=== PATIENT | female | born 1945 | race Caucasian/White ===

== ENCOUNTER 2020-03-12 14:22 | Inpatient (IN) | payer MEDICARE, BC ==
[~2020-03-12] VITALS: Ht 157.5 cm; Wt 59.0 kg
[~2020-03-12 14:22] MED LIST: ACET-2267 PO; ALPR0.5T7 PO; AMIO200T50 PO; APIX5TAB PO; AZIT500T9 PO; BUDE0.5A NEB; CARV6.252 PO; CHOL100048 PO; HYDR-3820 PO; LETR2.5T6 PO; LEVO750T39 PO
[2020-03-12] MEDS ORDERED: MELATONIN 3 MG TABLET PO PRN (17:00)
[2020-03-12] MEDS ORDERED: diphenhydrAMINE 25 MG TAB (BENADRYL) PO PRN (17:00)
[2020-03-12] MEDS ORDERED: ACETAMINOPHEN 500 MG TAB (TYLENOL) PO PRN (17:00)
[2020-03-12] MEDS ORDERED: RT-ALBUTEROL INHALER HFA (VENTOLIN HFA) 18 GM IH PRN (17:00)
[2020-03-12] MEDS ORDERED: ONDANSETRON 4 MG/2 ML (SDV) Z0FRAN IVP PRN (17:00)
[2020-03-12] MEDS ORDERED: CALCIUM CARBONATE 500 MG (TUMS) TAB.CHEW PO PRN (17:00)
[2020-03-12] MEDS ORDERED: DOCUSATE SODIUM 100 MG (COLACE) CAP PO PRN (17:00)
--- NOTE | 2020-03-12 17:08 | NUR ---
Swing Bed Note: Qualifies for swing bed for continued need of Physical and Occupational therapies (Debility, Exacerbation of COPD) with continued o2 monitoring and weaning. Ultimate goal is to return to her prior level of independent functioning et home independently.
--- NOTE | 2020-03-12 17:22 | NUR ---
GONZALO ACOSTA admitted to swing bed status to room , with an admitting diagnosis of SWB respiratory failure, atrial fibrilation, pneumonia, on 03/12/20 from acute inpatient status. Physical Therapy to evaluate patient for activity needs. GONZALO ACOSTA introduced to surroundings, call light, bed controls, phone, TV, temperature control, lights, meal times, smoking policy, visitor policy, side rail policy, bathrooms, and showers. Patient rights given to patient in the handbook.. GONZALO ACOSTA verbalized understanding that [facility] is not responsible for the loss or damage to any personal effects or valuables that are kept in the patients possession during their hospitalization. The following care plans were discussed with GONZALO ACOSTA:GONZALO ACOSTA verbalizes understanding of the Interdisciplinary Patient Education. Patient informed about the Rapid Response Team and its purpose. Call light with in reach and patient demonstrates understanding of how to use. GONZALO ACOSTA reports no further needs at this time.
--- NOTE | 2020-03-12 17:41 | NUR ---
Admission Drug Regimen Review: Date: 03/12/20 Time: 1741 Review Completed, No Issues found
[2020-03-12 18:15] VITALS: BP 105/51
[2020-03-12] MEDS: RT-ALBUTEROL SULF 2.5 MG/3 ML PRE-MIX VIAL INH SCH ×2 (19:39→23:31)
[2020-03-12] MEDS ORDERED: methylPREDNISolone 40 MG/ML (Solu-MEDROL) VIAL IV SCH (20:00)
[2020-03-12] MEDS: APIXABAN 5 MG (ELIQUIS) TABLET PO SCH (21:01)
[2020-03-12] MEDS: SENNA W/DOCUSATE (SENOKOT S) TABLET PO SCH (21:02)
[2020-03-12] MEDS: ALPRAZolam 0.25 MG (XANAX) TAB PO PRN (21:06)
[2020-03-13] MEDS: RT-ALBUTEROL SULF 2.5 MG/3 ML PRE-MIX VIAL INH SCH ×6 (01:20→22:04)
[2020-03-13 06:00] VITALS: BP 117/54
[2020-03-13] MEDS ORDERED: FUROSEMIDE 40 MG/4 ML INJ (LASIX) IVP SCH (09:00)
[2020-03-13] MEDS ORDERED: FLUCONAZOLE 100 MG/50 ML 50 ML IV SCH (09:00)
[2020-03-13] MEDS: APIXABAN 5 MG (ELIQUIS) TABLET PO SCH ×2 (09:02→20:49)
[2020-03-13] MEDS: PANTOPRAZOLE 40 MG (PROTONIX) TAB PO SCH (09:02)
[2020-03-13] MEDS: FUROSEMIDE 40 MG (LASIX) TAB PO SCH (09:02)
[2020-03-13] MEDS: SENNA W/DOCUSATE (SENOKOT S) TABLET PO SCH ×2 (09:03→20:49)
[2020-03-13] MEDS: fluCOnazole (DIFLUCAN) 100 MG TAB PO SCH (09:09)
--- NOTE | 2020-03-13 10:01 | Physical Therapy Evaluation ---
PT Evaluation-General Medical Diagnosis Admission Date Mar 12, 2020 at 17:06 Medical Diagnosis: Respiratory Failure Onset Date: Mar 12, 2020 Therapy Diagnosis Therapy Diagnosis: Debility and generalized weakness Precautions Precautions/Isolations: Fall Prevention, Standard Precautions Weight Bear Status Right Lower Extremity: Right Full Weight Bearing Left Lower Extremity: Left Full Weight Bearing Referral Physician: Liyah Reason for Referral: Evaluation/Treatment Medical History Pertinent Medical History: Atrial Fib, COPD Reviewed History: Yes Social History Home: Single Level Current Living Status: Spouse (+ daughter) Entry Into Home: Stairs Without Railing PT Steps Into Home: 2 Prior Prior Level of Function SCALE: Activities may be completed with or without assistive devices. 4-Tnohtkvzvn-pomwqtp completes the activity by him/herself with no assistance from a helper. 5-Set-up or Clean-up Assistance-helper sets up or cleans up; patient completes activity. [place] assists only prior to or following the activity. 4-Supervision or Touching Assistance-helper provides verbal cues and/or touching/steadying and/or contact guard assistance as patient completes activity. Assistance may be provided throughout the activity or intermittently. 3-Partial/Moderate Assistance-helper does LESS THAN HALF the effort. [place] lifts, holds or supports trunk or limbs, but provides less than half the effort. 2-Substantial/Maximal Assistance-helper does MORE THAN HALF the effort. [place] lifts or holds trunk or limbs and provides more than half the effort. 1-Ggufhytsb-gxbzgy does ALL the effort. Patient does none of the effort to complete the activity. Or, the assistance of 2 or more helpers is required for the patient to complete the activity. If activity was not attempted, code reason: 7-Patient Refused. 9-Not Applicable-not attempted and the patient did not perform the activity before the current illness, exacerbation or injury. 10-Not Attempted due to Environmental Limitations-(lack of equipment, weather restraints, etc.). 88-Not Attempted due to Medical Conditions or Safety Concerns. Bed Mobility: 3 Transfers (B,C,W/C): 3 Gait: 4 Stairs: 2 Wheelchair Mobility: 9 Indoor Mobility (Ambulation): Needed Some Help Stairs: Needed Some Help Prior Devices Use: Walker PT Evaluation-Current Subjective Pt presents supine in bed. Pt agrees to PT. Pt reports discomfort in rear due to sores. Pt/Family Goals Return Home Objective Patient Orientation: Person, Place, Time, Eyes Open, Situation Attachments: Oxygen, Gibbons Catheter ROM/Strength ROM Lower Extremities WFL Strength Lower Extremities R hip flex: 3/5 L hip flex: 3/5 R knee ext: 4+/5 L knee ext: 4/5 Sensory Vision: Wears Glasses Sensation Right Lower Extremit: Intact Sensation Left Lower Extremity: Intact Sensation Lower Extremities BLE sensation intact to light touch L2-S2 Transfers Roll Left & Right (QC): 3 Sit to Lying (QC): 3 Lying to Sitting/Side of Bed(Q: 3 Sit to Stand (QC): 3 Chair/Fwg-bu-Nkdla Xfer(QC): 3 Toilet Transfer (QC): 9 Car Transfer (QC): 88 Gait Does the Patient Walk?: Yes Mode of Locomotion: Walk Anticipated Mode of Locomotion: Walk Walk 10 feet (QC): 4 Walk 50 ft with 2 Turns(QC): 88 Walk 150 ft (QC): 88 Walking 10ft/uneven surface-QC: 88 Distance: 12' Gait Assistive Device: FWW Comments/Gait Description Pt becomes shakey within 3 feet of ambulation; pt moves slowly and takes several standing rest breaks before making it back to chair. Patient first ambulated a few feet to the recliner and sat, then felt more confident and got back up and ambulated about 12'. Wheelchair Training Wheel 50 ft with 2 turns (QC): 88 Wheel 150 ft (QC): 88 Stairs 1 Step (curb) (QC): 88 4 Steps (QC): 88 12 Steps (QC): 88 Balance Sitting Static: Fair Sitting Dynamic: Fair Standing Static: Fair Standing Dynamic: Fair Picking up an Object (QC): 88 Treatment Seated LAQs, ankle pumps, hip add/abd B x20 Assessment/Needs Patient is emotionally frustrated with her weakness and fearful of falling. With motivation patient is able to ambulate around the room. Pt requires mod assist to get out of bed when pt originally stated she'd need more. Rehab Potential: Fair PT Product Development Specialist Goals Product Development Specialist Goals PT Correction Goals Time Frame: Mar 20, 2020 Roll Left & Right (QC): 4 Sit to Lying (QC): 4 Lying-Sitting on Side/Bed(QC): 4 Sit to Stand (QC): 4 Chair/Jgq-bm-Ojeef Xfer(QC): 4 Toilet Transfer (QC): 4 Car Transfer (QC): 4 Does the Patient Walk: Yes Walk 10 feet (QC): 4 Walk 50ft with 2 Turns (QC): 4 Walk 150 ft (QC): 4 Walking 10ft on Uneven Surface: 4 1 Step (curb) (QC): 88 4 Steps (QC): 88 12 Steps (QC): 88 Picking up an Object (QC): 88 Wheel 50 feet with 2 turns (QC: 9 Wheel 150 feet: 9 PT Plan Problem List Problem List: Activity Tolerance, Functional Strength, Safety, Balance, Gait, Transfer, Bed Mobility, ROM Treatment/Plan Treatment Plan: Continue Plan of Care Treatment Plan: Bed Mobility, Education, Functional Activity Jaci, Functional Strength, Gait, Safety, Therapeutic Exercise, Transfers Treatment Duration: Mar 20, 2020 Frequency: 11 times per week Estimated Hrs Per Day: .25 hour per day Patient and/or Family Agrees t: Yes Safety Risks/Education Patient Education: Gait Training, Transfer Techniques, Correct Positioning, Safety Issues Teaching Recipient: Patient Teaching Methods: Demonstration, Discussion Response to Teaching: Reinforcement Needed Discharge Recommendations Plan Pt will work on bed mobility, transfers, gait training and balance training as well as therapeutic exercises to improve strength. Therapy Discharge Recommendati: Home & Family Time/GCodes Time In: 904 Time Out: 934 Total Billed Treatment Time: 30 Total Billed Treatment 1 visit INNA 15' EX 15' EMILIA BABB PT Mar 13, 2020 10:01
--- NOTE | 2020-03-13 13:40 | Occupational Therapy Eval ---
OT Evaluation-General/PLF Medical Diagnosis Admission Date Mar 12, 2020 at 17:06 Medical Diagnosis: Respiratory Failure Onset Date: Mar 12, 2020 Therapy Diagnosis Therapy Diagnosis: weakness, decreased ADL status Precautions Precautions/Isolations: Fall Prevention, Standard Precautions, Pressure Ulcer Referral Physician: Liyah Referral Reason: Evaluation/Treatment Medical History Pertinent Medical History: Atrial Fib, COPD, Smoking Reviewed History: Yes Social History Home: Single Level Current Living Status: Spouse Entry Into Home: Stairs Without Railing Steps Into Home: 2 ADL-Prior Level of Function SCALE: Activities may be completed with or without assistive devices. 7-Luafdpaneu-eypzytr completes the activity by him/herself with no assistance from a helper. 5-Set-up or Clean-up Assistance-helper sets up or cleans up; patient completes activity. [place] assists only prior to or following the activity. 4-Supervision or Touching Assistance-helper provides verbal cues and/or touching/steadying and/or contact guard assistance as patient completes activity. Assistance may be provided throughout the activity or intermittently. 3-Partial/Moderate Assistance-helper does LESS THAN HALF the effort. [place] lifts, holds or supports trunk or limbs, but provides less than half the effort. 2-Substantial/Maximal Assistance-helper does MORE THAN HALF the effort. [place] lifts or holds trunk or limbs and provides more than half the effort. 3-Wxedzpsrn-mmerxk does ALL the effort. Patient does none of the effort to complete the activity. Or, the assistance of 2 or more helpers is required for the patient to complete the activity. If activity was not attempted, code reason: 7-Patient Refused. 9-Not Applicable-not attempted and the patient did not perform the activity before the current illness, exacerbation or injury. 10-Not Attempted due to Environmental Limitations-(lack of equipment, weather restraints, etc.). 88-Not Attempted due to Medical Conditions or Safety Concerns. ADL PLOF Comments Pt indicates she was independent with all ADLS and functional mobility using FWW at [facility]. Pt's did assist with some of the cooking and cleaning, but pt was able to manage some herself. Lately, pt has felt weaker, having difficulty around her house and using a BSC due to not being able to make it into the bathroom secondary to SOB. Self Care: Needed Some Help Functional Cognition: Independent DME/Equipment: Bath Bench, Bedside Commode, Tub/Shower DME/Equipment Comments FWW OT Current Status Subjective Pt seated in recliner, agreeable to OT evaluation and tx. Mental Status/Objective Patient Orientation: Person, Place, Time, Situation Attachments: Oxygen Current Glasses/Contacts: Yes Hearing Aids: No Dentures/Partials: Yes Hand Dominance: Right Upper Extremity ROM WFL, BUE shoulder flexion to approx 160 degrees, pt able to touch back of head with hands. Upper Extremity Coordination WFL Upper Extremity Sensation WFL Upper Extremity Strength grossly 4-/5 ADL-Treatment Eating (QC): 6 (pt indicates she was independent with lunch, she was able to open containers, cut food and bring food to her mouth.) Oral Hygiene (QC): 5 (pt able to complete task independently after set up at tray table.) Shower/Bathe Self (QC): 3 (Based on clincial reasoning and discussion with pt, pt required min A with task. Pt indicates she completed a sponge bath this morning, required assistance with BLEs and buttocks.) Upper Body Dressing (QC): 10 (Pt did not have shirt available at time of evaluation) Lower Body Dressing (QC): 2 (Pt able to thread RLE into brief, required assistance threading LLE and slight assistance with pant hike.) On/Off Footwear (QC): 4 (SBA, pt able to don/doff gripper sock.) Toileting Hygiene (QC): 2 (Based on clinical judgement and discussion with pt, pt completed toileting earlier today, she was able to complete hygiene herself, with slight assistance for thoroughness. Pt was not wearing clothes so clothing management not performed.) Other Treatments Pt seated in recliner, agreeable to OT evaluation and tx. Pt completed oral care at tray table independently after set up of supplies. Pt then able to don brief, requiring min A sit to stand, and min A standing balance. Pt able to manage pants up part way, but required assistance to pull up all the way in the back. Pt's legs gave out, pt sat back in recliner without warning. Pt took a rest break, then doffed/donned gripper socks seated. Pt declined showering and toileting, stating she has already completed these tasks today. Pt provided information about the level of assistance required when she completed these tasks. Pt asks to return to bed, stating she is tired. OT moved recliner next to bed, pt stood from recliner with min A, then required mod A to take a couple steps and pivot towards bed. Pt sat on bed, then completed small stand to shift hips towards HOB. Pt transferred supine, requiring assistance with BLES. Post OT Tx, pt laying in bed, call light in reach and all needs met. Education OT Patient Education: Correct positioning, Energy conservation, Modified ADL techniques, Progress toward Goal/Update tx plan, Purpose of tx/functional activities, Rehab process, Safety issues, Transfer techniques Teaching Recipient: Patient Teaching Methods: Discussion Response to Teaching: Verbalize Understanding OT Residential Goals Residential Goals Time Frame: Mar 27, 2020 Eating (QC): 6 Oral Hygiene (QC): 6 Toileting Hygiene (QC): 6 Shower/Bathe Self (QC): 6 Upper Body Dressing (QC): 6 Lower Body Dressing (QC): 6 On/Off Footwear (QC): 6 Additional Goals: 1-Demonstrate ADL Tasks, 2-Verbalize Understanding, 3- ImproveStrength/Jaci 1=Demonstrate adherence to instructed precautions during ADL tasks. 2=Patient will verbalize/demonstrate understanding of assistive devices/modifications for ADL. 3=Patient will improve strength/tolerance for activity to enable patient to perform ADL's. OT Education/Plan Problem List/Assessment Assessment: Decreased Activ Tolerance, Decreased UE Strength, Impaired Bed Mobility, Impaired Funct Balance, Impaired I ADL's, Impaired Self-Care Skills Discharge Recommendations Plan/Recommendations: Continue POC Treatment Plan/Plan of Care Patient would benefit from OT for education, treatment and training to promote independence in ADL's, mobility, safety and/or upper extremity function for ADL's. Plan of Care: ADL Retraining, Functional Mobility, UE Funct Exercise/Act Treatment Duration: Mar 27, 2020 Frequency: 5 times per week Estimated Hrs Per Day: .25 hour per day Rehab Potential: Fair Time/GCodes Start Time: 13:15 Stop Time: 13:45 Total Time Billed (hr/min): 30 Billed Treatment Time 1, EVM (10'), ADL (20') EBENEZER THOMAS OT Mar 13, 2020 13:40
--- NOTE | 2020-03-13 15:32 | Physical Therapy Daily Note ---
PT Daily Note-Current Subjective Pt had jsut gotten back to bed per pt and asked to complete Supine Ex. Pain Location: No Pain Reported Mental Status Patient Orientation: Person, Place, Situation Transfers SCALE: Activities may be completed with or without assistive devices. 8-Efnqamaixj-lnrslpg completes the activity by him/herself with no assistance from a helper. 5-Set-up or Clean-up Assistance-helper sets up or cleans up; patient completes activity. [place] assists only prior to or following the activity. 4-Supervision or Touching Assistance-helper provides verbal cues and/or touching/steadying and/or contact guard assistance as patient completes activity. Assistance may be provided throughout the activity or intermittently. 3-Partial/Moderate Assistance-helper does LESS THAN HALF the effort. [place] lifts, holds or supports trunk or limbs, but provides less than half the effort. 2-Substantial/Maximal Assistance-helper does MORE THAN HALF the effort. [place] lifts or holds trunk or limbs and provides more than half the effort. 9-Budxqbjuv-mcckqg does ALL the effort. Patient does none of the effort to complete the activity. Or, the assistance of 2 or more helpers is required for the patient to complete the activity. If activity was not attempted, code reason: 7-Patient Refused. 9-Not Applicable-not attempted and the patient did not perform the activity before the current illness, exacerbation or injury. 10-Not Attempted due to Environmental Limitations-(lack of equipment, weather restraints, etc.). 88-Not Attempted due to Medical Conditions or Safety Concerns. Weight Bearing Right Lower Extremity: Right Full Weight Bearing Left Lower Extremity: Left Full Weight Bearing Exercises Supine Ex: Ankle pumps, Quad Set, Glut sets, Heel Slides, Straight leg raise, Hip abd/add Supine Reps: 15 Treatments Pt completes Supine Ex in bed then resting with all needs met, call light next to pt. Assessment Current Status: Fair Progress Pt is fatigued and a little teary during tx when remembering friend who had recently . PT Custodial Goals Custodial Goals PT Score Caller Goals Time Frame: Mar 20, 2020 Roll Left & Right (QC): 4 Sit to Lying (QC): 4 Lying-Sitting on Side/Bed(QC): 4 Sit to Stand (QC): 4 Chair/Psa-ef-Wxesy Xfer(QC): 4 Toilet Transfer (QC): 4 Car Transfer (QC): 4 Does the Patient Walk: Yes Walk 10 feet (QC): 4 Walk 50ft with 2 Turns (QC): 4 Walk 150 ft (QC): 4 Walking 10ft on Uneven Surface: 4 1 Step (curb) (QC): 88 4 Steps (QC): 88 12 Steps (QC): 88 Picking up an Object (QC): 88 Wheel 50 feet with 2 turns (QC: 9 Wheel 150 feet: 9 PT Plan Problem List Problem List: Activity Tolerance, Functional Strength Treatment/Plan Treatment Plan: Continue Plan of Care Treatment Plan: Bed Mobility, Education, Functional Activity Jaci, Functional Strength, Gait, Safety, Therapeutic Exercise, Transfers Treatment Duration: Mar 20, 2020 Frequency: 11 times per week Estimated Hrs Per Day: .25 hour per day Patient and/or Family Agrees t: Yes Safety Risks/Education Patient Education: Correct Positioning, Safety Issues Teaching Recipient: Patient Teaching Methods: Discussion Response to Teaching: Verbalize Understanding Time/GCodes Time In: 1510 Time Out: 1522 Total Billed Treatment Time: 12 Total Billed Treatment 1, EX (12m) VLAD ORTIZ NUCLEAR POWER PLANT ENGINEER Mar 13, 2020 15:32
[2020-03-13 17:15] VITALS: BP 115/59
[2020-03-13] MEDS: ALPRAZolam 0.25 MG (XANAX) TAB PO PRN (18:43)
[2020-03-14] MEDS: RT-ALBUTEROL SULF 2.5 MG/3 ML PRE-MIX VIAL INH SCH ×6 (02:00→22:15)
[2020-03-14 05:53] VITALS: BP 115/53
[2020-03-14 06:02] LABS: POTASSIUM 4.4 MMOL/L (3.6-5.0)
[2020-03-14 06:03] LABS: CALCIUM 8.4 MG/DL (8.5-10.1)
[2020-03-14 06:07] LABS: CREATININE SERUM 0.92 MG/DL (0.60-1.30)
[2020-03-14 08:10] VITALS: BP 108/68
[2020-03-14] MEDS: APIXABAN 5 MG (ELIQUIS) TABLET PO SCH ×2 (09:17→19:39)
[2020-03-14] MEDS: PANTOPRAZOLE 40 MG (PROTONIX) TAB PO SCH (09:17)
[2020-03-14] MEDS: SENNA W/DOCUSATE (SENOKOT S) TABLET PO SCH ×2 (09:17→19:40)
[2020-03-14] MEDS: FUROSEMIDE 40 MG (LASIX) TAB PO SCH (09:17)
[2020-03-14] MEDS: ALPRAZolam 0.25 MG (XANAX) TAB PO PRN (09:18)
[2020-03-14] MEDS: fluCOnazole (DIFLUCAN) 100 MG TAB PO SCH (09:35)
--- NOTE | 2020-03-14 10:11 | Physical Therapy Daily Note ---
PT Daily Note-Current Subjective Patient is on RA with SAO2 at rest 92%. Agrees to PT. Mental Status Patient Orientation: Normal For Age Attachments: Gibbons Catheter Transfers SCALE: Activities may be completed with or without assistive devices. 2-Mhbqowotcp-dynbllr completes the activity by him/herself with no assistance from a helper. 5-Set-up or Clean-up Assistance-helper sets up or cleans up; patient completes activity. [place] assists only prior to or following the activity. 4-Supervision or Touching Assistance-helper provides verbal cues and/or touching/steadying and/or contact guard assistance as patient completes activity. Assistance may be provided throughout the activity or intermittently. 3-Partial/Moderate Assistance-helper does LESS THAN HALF the effort. [place] lifts, holds or supports trunk or limbs, but provides less than half the effort. 2-Substantial/Maximal Assistance-helper does MORE THAN HALF the effort. [place] lifts or holds trunk or limbs and provides more than half the effort. 8-Imniohpff-epimcw does ALL the effort. Patient does none of the effort to complete the activity. Or, the assistance of 2 or more helpers is required for the patient to complete the activity. If activity was not attempted, code reason: 7-Patient Refused. 9-Not Applicable-not attempted and the patient did not perform the activity before the current illness, exacerbation or injury. 10-Not Attempted due to Environmental Limitations-(lack of equipment, weather restraints, etc.). 88-Not Attempted due to Medical Conditions or Safety Concerns. Sit to Stand (QC): 3 Weight Bearing Right Lower Extremity: Right Full Weight Bearing Left Lower Extremity: Left Full Weight Bearing Gait Training Does the Patient Walk?: Yes Distance: 40' x 2 Walk 10 feet (QC): 3 Gait Assistive Device: FWW functional gait sequence with noted increase SOA with activity. Exercises Supine Ex: Ankle pumps, Quad Set, Heel Slides Supine Reps: 12 (in recliner with LE's elevated) Seated Therapy Exercises: Ankle pumps, Long arc quads, Hip flexion Seated Reps: 15 Assessment SAO2 taken after initial ambulate on RA with SAO2 86% with attempt to recover on RA and patient unable to do so. RN notified and 2L O2 NC placed on patient with SAO2 improving to 91% after 1 min. Patient ambulated with O2 2L in place x 40' with SAO2 remaining >90%. RN notified. PT Jail Goals Jail Goals PT Jail Goals Time Frame: Mar 20, 2020 Roll Left & Right (QC): 4 Sit to Lying (QC): 4 Lying-Sitting on Side/Bed(QC): 4 Sit to Stand (QC): 4 Chair/Wpv-me-Hyhed Xfer(QC): 4 Toilet Transfer (QC): 4 Car Transfer (QC): 4 Does the Patient Walk: Yes Walk 10 feet (QC): 4 Walk 50ft with 2 Turns (QC): 4 Walk 150 ft (QC): 4 Walking 10ft on Uneven Surface: 4 1 Step (curb) (QC): 88 4 Steps (QC): 88 12 Steps (QC): 88 Picking up an Object (QC): 88 Wheel 50 feet with 2 turns (QC: 9 Wheel 150 feet: 9 PT Plan Treatment/Plan Treatment Plan: Continue Plan of Care Treatment Plan: Bed Mobility, Education, Functional Activity Jaci, Functional Strength, Gait, Safety, Therapeutic Exercise, Transfers Treatment Duration: Mar 20, 2020 Frequency: 11 times per week Estimated Hrs Per Day: .25 hour per day Patient and/or Family Agrees t: Yes Time/GCodes Time In: 851 Time Out: 908 Total Billed Treatment Time: 17 Total Billed Treatment 1 visit FA 17 min MATILDA BAKER PT Mar 14, 2020 10:11
--- NOTE | 2020-03-14 11:48 | Occupational Ther Daily Note ---
OT Current Status-Daily Note Subjective Pt alert, sitting in recliner. Pt c/o pain at buttocks, stood to decrease pain. Pt agrees to therapy. Mental Status/Objective Patient Orientation: Person, Place, Time, Situation Attachments: Gibbons Catheter, IV, Oxygen ADL-Treatment Therapy Code Descriptions/Definitions Functional [place] Measure: 0=Not Assessed/NA 4=Minimal Assistance 1=Total Assistance 5=Supervision or Setup 2=Maximal Assistance 6=Modified [place] 3=Moderate Assistance 7=Complete IndependenceSCALE: Activities may be completed with or without assistive devices. 7-Taeahgohnw-wznvgvk completes the activity by him/herself with no assistance from a helper. 5-Set-up or Clean-up Assistance-helper sets up or cleans up; patient completes activity. [place] assists only prior to or following the activity. 4-Supervision or Touching Assistance-helper provides verbal cues and/or touching/steadying and/or contact guard assistance as patient completes activity. Assistance may be provided throughout the activity or intermittently. 3-Partial/Moderate Assistance-helper does LESS THAN HALF the effort. [place] lifts, holds or supports trunk or limbs, but provides less than half the effort. 2-Substantial/Maximal Assistance-helper does MORE THAN HALF the effort. [place] lifts or holds trunk or limbs and provides more than half the effort. 1-Yolvbuohp-iekwba does ALL the effort. Patient does none of the effort to complete the activity. Or, the assistance of 2 or more helpers is required for the patient to complete the activity. If activity was not attempted, code reason: 7-Patient Refused. 9-Not Applicable-not attempted and the patient did not perform the activity before the current illness, exacerbation or injury. 10-Not Attempted due to Environmental Limitations-(lack of equipment, weather restraints, etc.). 88-Not Attempted due to Medical Conditions or Safety Concerns. Other Treatment Pt stated that she had already washed up this morning and brushed her teeth. Pt continued to c/o pressure/pain at buttocks. ARRIAZA encouraged pt to stand and move to decrease pressure/pain. Initially pt refused then agreed. Pt has tendency to buckle at knees, verbal cue to keep knees strong during standing and ambulation. CGA for sit to stand from chair 2x's. Pt ambulated 6 steps to EOB then sat down with one verbal cue as to when it was safe to sit. Mod A for EOB to supine by lifting B LE's into bed. Pt then was able to bridge self then min A to scoot hips to center of bed, 2x's. Pt then was able to roll side to side to place waffle cushion under buttocks for more protection. After session, pt lying in bed with call light/phone in reach. All needs met in room. OT Floatlight Loading Supervisor Goals Senior Care Goals Time Frame: Mar 27, 2020 Eating (QC): 6 Oral Hygiene (QC): 6 Toileting Hygiene (QC): 6 Shower/Bathe Self (QC): 6 Upper Body Dressing (QC): 6 Lower Body Dressing (QC): 6 On/Off Footwear (QC): 6 Additional Goals: 1-Demonstrate ADL Tasks, 2-Verbalize Understanding, 3- ImproveStrength/Jaci 1=Demonstrate adherence to instructed precautions during ADL tasks. 2=Patient will verbalize/demonstrate understanding of assistive devices/modifications for ADL. 3=Patient will improve strength/tolerance for activity to enable patient to perform ADL's. OT Education/Plan Problem List/Assessment Assessment: Decreased Activ Tolerance, Decreased Safety Aware, Impaired Funct Balance, Impaired Self-Care Skills Discharge Recommendations Plan/Recommendations: Continue POC Treatment Plan/Plan of Care Patient would benefit from OT for education, treatment and training to promote independence in ADL's, mobility, safety and/or upper extremity function for ADL's. Plan of Care: ADL Retraining, Functional Mobility, UE Funct Exercise/Act Treatment Duration: Mar 27, 2020 Frequency: 5 times per week Estimated Hrs Per Day: .25 hour per day Rehab Potential: Fair Time/GCodes Start Time: 11:25 Stop Time: 11:40 Total Time Billed (hr/min): 15 Billed Treatment Time 1 visit-FA 1 (15 min) MARU PRADO Mar 14, 2020 11:48
--- NOTE | 2020-03-14 15:08 | Physical Therapy Daily Note ---
PT Daily Note-Current Subjective Patient reports she has had a rough day but agrees to PT. Mental Status Patient Orientation: Normal For Age Attachments: Oxygen, Gibbons Catheter Transfers SCALE: Activities may be completed with or without assistive devices. 1-Womxkazjjy-hwadfqy completes the activity by him/herself with no assistance from a helper. 5-Set-up or Clean-up Assistance-helper sets up or cleans up; patient completes activity. [place] assists only prior to or following the activity. 4-Supervision or Touching Assistance-helper provides verbal cues and/or touching/steadying and/or contact guard assistance as patient completes activity. Assistance may be provided throughout the activity or intermittently. 3-Partial/Moderate Assistance-helper does LESS THAN HALF the effort. [place] lifts, holds or supports trunk or limbs, but provides less than half the effort. 2-Substantial/Maximal Assistance-helper does MORE THAN HALF the effort. [place] lifts or holds trunk or limbs and provides more than half the effort. 2-Qbsirjink-vomwen does ALL the effort. Patient does none of the effort to complete the activity. Or, the assistance of 2 or more helpers is required for the patient to complete the activity. If activity was not attempted, code reason: 7-Patient Refused. 9-Not Applicable-not attempted and the patient did not perform the activity before the current illness, exacerbation or injury. 10-Not Attempted due to Environmental Limitations-(lack of equipment, weather restraints, etc.). 88-Not Attempted due to Medical Conditions or Safety Concerns. Sit to Lying (QC): 5 Lying to Sitting/Side of Bed(Q: 5 Sit to Stand (QC): 3 Weight Bearing Right Lower Extremity: Right Full Weight Bearing Left Lower Extremity: Left Full Weight Bearing Gait Training Does the Patient Walk?: Yes Distance: 40' Walk 10 feet (QC): 3 Gait Assistive Device: FWW slow, steady Exercises Supine Ex: Ankle pumps, Quad Set, Heel Slides, Straight leg raise Supine Reps: 10 Assessment Patient is extremely fatigued this p.m. and tolerates minimal activity. Increase as tolerated. PT S Iron Worker Goals Fdc Goals PT S Iron Worker Goals Time Frame: Mar 20, 2020 Roll Left & Right (QC): 4 Sit to Lying (QC): 4 Lying-Sitting on Side/Bed(QC): 4 Sit to Stand (QC): 4 Chair/Jxf-as-Adqqc Xfer(QC): 4 Toilet Transfer (QC): 4 Car Transfer (QC): 4 Does the Patient Walk: Yes Walk 10 feet (QC): 4 Walk 50ft with 2 Turns (QC): 4 Walk 150 ft (QC): 4 Walking 10ft on Uneven Surface: 4 1 Step (curb) (QC): 88 4 Steps (QC): 88 12 Steps (QC): 88 Picking up an Object (QC): 88 Wheel 50 feet with 2 turns (QC: 9 Wheel 150 feet: 9 PT Plan Treatment/Plan Treatment Plan: Continue Plan of Care Treatment Plan: Bed Mobility, Education, Functional Activity Jaci, Functional Strength, Gait, Safety, Therapeutic Exercise, Transfers Treatment Duration: Mar 20, 2020 Frequency: 11 times per week Estimated Hrs Per Day: .25 hour per day Patient and/or Family Agrees t: Yes Time/GCodes Time In: 1327 Time Out: 1344 Total Billed Treatment Time: 17 Total Billed Treatment 1 visit FA 17 min MATILDA BAKER PT Mar 14, 2020 15:07
[2020-03-14 17:24] VITALS: BP 130/60
[2020-03-14] MEDS: ALPRAZolam 0.5 MG (XANAX) TAB PO PRN (19:42)
[2020-03-14 19:57] VITALS: BP 106/63
[2020-03-14 23:08] VITALS: BP 95/50
[2020-03-14] MEDS: LOPERAMIDE 2 MG (IMODIUM) TABLET PO PRN (23:11)
[2020-03-15] MEDS: RT-ALBUTEROL SULF 2.5 MG/3 ML PRE-MIX VIAL INH SCH ×6 (01:42→22:56)
[2020-03-15 03:56] VITALS: BP 110/55
[2020-03-15] MEDS: LOPERAMIDE 2 MG (IMODIUM) TABLET PO PRN (05:55)
[2020-03-15 08:00] VITALS: BP 130/58
[2020-03-15] MEDS: APIXABAN 5 MG (ELIQUIS) TABLET PO SCH ×2 (08:47→21:19)
[2020-03-15] MEDS: PANTOPRAZOLE 40 MG (PROTONIX) TAB PO SCH (08:47)
[2020-03-15] MEDS: SENNA W/DOCUSATE (SENOKOT S) TABLET PO SCH ×2 (08:48→20:53)
[2020-03-15] MEDS: FUROSEMIDE 40 MG (LASIX) TAB PO SCH (08:48)
[2020-03-15] MEDS: fluCOnazole (DIFLUCAN) 100 MG TAB PO SCH (08:56)
--- NOTE | 2020-03-15 09:03 | NUR ---
New Allevyn patch placed to coccyx. Previous patch had curled up.
[2020-03-15] MEDS: HYDROcodone/APAP 5 MG/325 MG (LORTAB) TAB PO PRN ×2 (09:08→21:19)
--- NOTE | 2020-03-15 10:26 | Physical Therapy Daily Note ---
PT Daily Note-Current Subjective Pt presents laying in (L) sidelying upon arrival to room, agreeable to therapy treatment with encouragement. Pain Numeric Pain Scale: 5-Moderate Pain Comment: Pt states pain is in the wound on her buttock Appearance following session, pt returned to SL on (L) side, with call light and tray within reach. All needs met at this time Mental Status Patient Orientation: Person, Place Attachments: Oxygen (1L), Gibbons Catheter Transfers SCALE: Activities may be completed with or without assistive devices. 0-Kaxfozgenm-qllviug completes the activity by him/herself with no assistance from a helper. 5-Set-up or Clean-up Assistance-helper sets up or cleans up; patient completes activity. [place] assists only prior to or following the activity. 4-Supervision or Touching Assistance-helper provides verbal cues and/or touching/steadying and/or contact guard assistance as patient completes activity. Assistance may be provided throughout the activity or intermittently. 3-Partial/Moderate Assistance-helper does LESS THAN HALF the effort. [place] lifts, holds or supports trunk or limbs, but provides less than half the effort. 2-Substantial/Maximal Assistance-helper does MORE THAN HALF the effort. [place] lifts or holds trunk or limbs and provides more than half the effort. 2-Zbffklnsq-gwbipx does ALL the effort. Patient does none of the effort to complete the activity. Or, the assistance of 2 or more helpers is required for the patient to complete the activity. If activity was not attempted, code reason: 7-Patient Refused. 9-Not Applicable-not attempted and the patient did not perform the activity before the current illness, exacerbation or injury. 10-Not Attempted due to Environmental Limitations-(lack of equipment, weather restraints, etc.). 88-Not Attempted due to Medical Conditions or Safety Concerns. Roll Left & Right (QC): 3 Sit to Lying (QC): 3 Lying to Sitting/Side of Bed(Q: 3 Sit to Stand (QC): 3 Weight Bearing Right Lower Extremity: Right Full Weight Bearing Left Lower Extremity: Left Full Weight Bearing Gait Training Distance: 40' Walk 10 feet (QC): 3 Gait Assistive Device: FWW Pt with small, shaky steps. Requires min A with ambulation, as she has one instance LLE buckling, but is able to regain balance with min A. Exercises Supine Ex: Bridging, Ankle pumps, Quad Set, Heel Slides Seated Therapy Exercises: Ankle pumps, Long arc quads, Hip flexion Assessment Current Status: Fair Progress Pt SOB with activity, but SaO2 > 90% throughout session with 1L O2 through nasal cannula. Pt requires encouragement to participate in therapy activities, but is able to complete with minimal assistance. Will continue to increase activity as tolerated. PT Branding Machine Operator Goals Fdc Goals PT Fdc Goals Time Frame: Mar 20, 2020 Roll Left & Right (QC): 4 Sit to Lying (QC): 4 Lying-Sitting on Side/Bed(QC): 4 Sit to Stand (QC): 4 Chair/Bbr-je-Sznaf Xfer(QC): 4 Toilet Transfer (QC): 4 Car Transfer (QC): 4 Does the Patient Walk: Yes Walk 10 feet (QC): 4 Walk 50ft with 2 Turns (QC): 4 Walk 150 ft (QC): 4 Walking 10ft on Uneven Surface: 4 1 Step (curb) (QC): 88 4 Steps (QC): 88 12 Steps (QC): 88 Picking up an Object (QC): 88 Wheel 50 feet with 2 turns (QC: 9 Wheel 150 feet: 9 PT Plan Problem List Problem List: Activity Tolerance, Functional Strength, Safety, Balance, Gait, Transfer, Bed Mobility, ROM Treatment/Plan Treatment Plan: Continue Plan of Care Treatment Plan: Bed Mobility, Education, Functional Activity Jaci, Functional Strength, Gait, Safety, Therapeutic Exercise, Transfers Treatment Duration: Mar 20, 2020 Frequency: 11 times per week Estimated Hrs Per Day: .25 hour per day Patient and/or Family Agrees t: Yes Time/GCodes Time In: 940 Time Out: 1000 Total Billed Treatment Time: 20 Total Billed Treatment 1 visit Ex (20') GISELLE MUNOZ PT Mar 15, 2020 10:26
[2020-03-15 12:00] VITALS: BP 93/54
--- NOTE | 2020-03-15 14:07 | Progress Note - Hospitalist ---
Subjective HPI/CC On Admission Date Seen by Provider: Mar 15, 2020 Time Seen by Provider: 10:30 Subjective/Events-last exam She feels tired today. She denies trouble breathing. She misses her family. She has no other complaints or concerns. Objective Exam Vital Signs Vital Signs Date Time Temp Pulse Resp B/P (MAP) Pulse Ox O2 Delivery O2 Flow Rate FiO2 03/15/20 12:43 101 03/15/20 12:00 36.0 20 93/54 (67) 93 Nasal Cannula 1.00 Capillary Refill : General Appearance: No Apparent Distress, WD/WN Respiratory: Lungs Clear, Normal Breath Sounds, No Respiratory Distress Cardiovascular: Regular Rate, Rhythm, No Edema, No Murmur Gastrointestinal: Normal Bowel Sounds, Non Tender, Soft Extremity: Normal Inspection, Non Tender, No Pedal Edema Neurologic/Psychiatric: Alert, Oriented x3, No Motor/Sensory Deficits, Normal Mood/Affect Skin: Normal Color, Warm/Dry Results/Procedures Lab Patient resulted labs reviewed. Imaging: Reviewed Imaging Report Assessment/Plan Assessment and Plan Assess & Plan/Chief Complaint Critical illness myopathy PT/OT Would benefit from inpatient rehab once improves slightly Acute on chronic respiratory failure with hypoxia COPD Albuterol as needed Supplemental oxygen as needed Will need oxygen evaluation prior to discharge home Paroxysmal atrial fibrillation Cardizem Eliquis Anemia Monitor DVT Prophylaxis: already receiving therapeutic anticoagulation Pneumonia, resolved Atrial fibrillation with rapid ventricular response, resolved COPD with acute exacerbation, resolved Diagnosis/Problems Diagnosis/Problems (1) Critical illness myopathy Status: Acute (2) COPD (chronic obstructive pulmonary disease) Status: Acute (3) Acute on chronic respiratory failure with hypoxia Status: Acute (4) Atrial fibrillation with rapid ventricular response Status: Resolved Resolution Date/Time: 03/15/20 @ 14:09 RICARDO WHITNEY MD Mar 15, 2020 14:07
--- NOTE | 2020-03-15 14:28 | Occupational Ther Daily Note ---
OT Current Status-Daily Note Subjective Pt laying in bed, agreeable to OT tx stating she would like to wash her hair. Pt reports soreness in buttocks but does not rate. Mental Status/Objective Patient Orientation: Person, Place, Time, Situation ADL-Treatment Therapy Code Descriptions/Definitions Functional [place] Measure: 0=Not Assessed/NA 4=Minimal Assistance 1=Total Assistance 5=Supervision or Setup 2=Maximal Assistance 6=Modified [place] 3=Moderate Assistance 7=Complete IndependenceSCALE: Activities may be completed with or without assistive devices. 3-Bsgmzlwwzm-xlbbmwp completes the activity by him/herself with no assistance from a helper. 5-Set-up or Clean-up Assistance-helper sets up or cleans up; patient completes activity. [place] assists only prior to or following the activity. 4-Supervision or Touching Assistance-helper provides verbal cues and/or touching/steadying and/or contact guard assistance as patient completes activity. Assistance may be provided throughout the activity or intermittently. 3-Partial/Moderate Assistance-helper does LESS THAN HALF the effort. [place] lifts, holds or supports trunk or limbs, but provides less than half the effort. 2-Substantial/Maximal Assistance-helper does MORE THAN HALF the effort. [place] lifts or holds trunk or limbs and provides more than half the effort. 3-Drgjrhcpe-ymwtck does ALL the effort. Patient does none of the effort to complete the activity. Or, the assistance of 2 or more helpers is required for the patient to complete the activity. If activity was not attempted, code reason: 7-Patient Refused. 9-Not Applicable-not attempted and the patient did not perform the activity before the current illness, exacerbation or injury. 10-Not Attempted due to Environmental Limitations-(lack of equipment, weather restraints, etc.). 88-Not Attempted due to Medical Conditions or Safety Concerns. Shower/Bathe Self (QC): 4 (pt completed sponge bath at bed level, required CGA during roll to wash buttocks. Pt able to wash all parts.) On/Off Footwear: 4 (SBA, pt doffed/donned gripper socks at bed level.) Other Treatment Pt completed sponge bath at bed level. OT assisted pt with washing/rinsing hair with soapy water and wet washcloth. Pt washed all parts during sponge bath, requiring CGA in rolling side to side in order to wash buttocks. Pt able to doff socks, and wash LEs. Pt provided with clean socks, and pt able to don. Pt combed hair with set up assistance of comb. Pt states appreciation to therapist, stating she feels a lot better. She has washed her hair with a shower cap in the past but does not like the way her hair feels after. OT assisted pt with positioning towards L side in order to decrease pressure off buttocks. Pt indicates comfort. Post OT tx, pt laying in bed, call light in reach and all needs met. Education OT Patient Education: Correct positioning, Energy conservation, Modified ADL t echniques, Progress toward Goal/Update tx plan, Purpose of tx/functional activities Teaching Recipient: Patient Teaching Methods: Discussion Response to Teaching: Verbalize Understanding OT Residential Goals Tool And Die Repairer Goals Time Frame: Mar 27, 2020 Eating (QC): 6 Oral Hygiene (QC): 6 Toileting Hygiene (QC): 6 Shower/Bathe Self (QC): 6 Upper Body Dressing (QC): 6 Lower Body Dressing (QC): 6 On/Off Footwear (QC): 6 Additional Goals: 1-Demonstrate ADL Tasks, 2-Verbalize Understanding, 3- ImproveStrength/Jaci 1=Demonstrate adherence to instructed precautions during ADL tasks. 2=Patient will verbalize/demonstrate understanding of assistive devices/modifications for ADL. 3=Patient will improve strength/tolerance for activity to enable patient to perform ADL's. OT Education/Plan Problem List/Assessment Assessment: Decreased Activ Tolerance, Decreased UE Strength, Impaired I ADL's, Impaired Self-Care Skills Discharge Recommendations Plan/Recommendations: Continue POC Treatment Plan/Plan of Care Patient would benefit from OT for education, treatment and training to promote independence in ADL's, mobility, safety and/or upper extremity function for ADL's. Plan of Care: ADL Retraining, Functional Mobility, UE Funct Exercise/Act Treatment Duration: Mar 27, 2020 Frequency: 5 times per week Estimated Hrs Per Day: .25 hour per day Rehab Potential: Fair Time/GCodes Start Time: 13:45 Stop Time: 14:20 Total Time Billed (hr/min): 35 Billed Treatment Time 1, ADL 2 EBENEZER THOMAS OT Mar 15, 2020 14:28
--- NOTE | 2020-03-15 15:36 | Physical Therapy Daily Note ---
PT Daily Note-Current Subjective Patient in bed pre tx, agrees to PT but doesn't want to get up right now because her urinary catheter is leaking, nursing notified. Patient agrees to exercises in bed. Appearance Patient in bed post tx with nurse call, phone, tray, all needs met. Mental Status Patient Orientation: Normal For Age Attachments: Oxygen, Gibbons Catheter Transfers SCALE: Activities may be completed with or without assistive devices. 1-Citeojzfmt-llqrqhc completes the activity by him/herself with no assistance from a helper. 5-Set-up or Clean-up Assistance-helper sets up or cleans up; patient completes activity. [place] assists only prior to or following the activity. 4-Supervision or Touching Assistance-helper provides verbal cues and/or touching/steadying and/or contact guard assistance as patient completes activity. Assistance may be provided throughout the activity or intermittently. 3-Partial/Moderate Assistance-helper does LESS THAN HALF the effort. [place] lifts, holds or supports trunk or limbs, but provides less than half the effort. 2-Substantial/Maximal Assistance-helper does MORE THAN HALF the effort. [place] lifts or holds trunk or limbs and provides more than half the effort. 1-Gzofdktju-jwksfk does ALL the effort. Patient does none of the effort to complete the activity. Or, the assistance of 2 or more helpers is required for the patient to complete the activity. If activity was not attempted, code reason: 7-Patient Refused. 9-Not Applicable-not attempted and the patient did not perform the activity before the current illness, exacerbation or injury. 10-Not Attempted due to Environmental Limitations-(lack of equipment, weather restraints, etc.). 88-Not Attempted due to Medical Conditions or Safety Concerns. Weight Bearing Right Lower Extremity: Right Full Weight Bearing Left Lower Extremity: Left Full Weight Bearing Exercises Supine Ex: Ankle pumps, Quad Set, Glut sets, Heel Slides (only 10 reps), Short Arc Quads, Straight leg raise (AAROM), Hip abd/add (AAROM) Supine Reps: 20 Treatments LE exercise Assessment Current Status: Fair Progress slowly improving general mobility PT Tube Cutter Operator Goals [place] Goals PT Tube Cutter Operator Goals Time Frame: Mar 20, 2020 Roll Left & Right (QC): 4 Sit to Lying (QC): 4 Lying-Sitting on Side/Bed(QC): 4 Sit to Stand (QC): 4 Chair/Ceh-ru-Prcac Xfer(QC): 4 Toilet Transfer (QC): 4 Car Transfer (QC): 4 Does the Patient Walk: Yes Walk 10 feet (QC): 4 Walk 50ft with 2 Turns (QC): 4 Walk 150 ft (QC): 4 Walking 10ft on Uneven Surface: 4 1 Step (curb) (QC): 88 4 Steps (QC): 88 12 Steps (QC): 88 Picking up an Object (QC): 88 Wheel 50 feet with 2 turns (QC: 9 Wheel 150 feet: 9 PT Plan Problem List Problem List: Activity Tolerance, Functional Strength, Safety, Balance, Gait, Transfer, Bed Mobility, ROM Treatment/Plan Treatment Plan: Continue Plan of Care Treatment Plan: Bed Mobility, Education, Functional Activity Jaci, Functional Strength, Gait, Safety, Therapeutic Exercise, Transfers Treatment Duration: Mar 20, 2020 Frequency: 11 times per week Estimated Hrs Per Day: .25 hour per day Patient and/or Family Agrees t: Yes Safety Risks/Education Patient Education: Correct Positioning, Safety Issues Teaching Recipient: Patient Teaching Methods: Demonstration, Discussion Response to Teaching: Reinforcement Needed Time/GCodes Time In: 1515 Time Out: 1530 Total Billed Treatment Time: 15 Total Billed Treatment 1 visit EX EMILIA SEGAL PT Mar 15, 2020 15:36
--- NOTE | 2020-03-15 16:33 | NUR ---
Visited with patient about her progress and how she feels she is doing. She reports that she feels like she is getting stronger and is encouraged by our staff here. She reported "If you are ever sick this is the place to be." She voiced that she is anxious to get home to her but wants to be successful and not leave before she is strong enough. Will f/u with her on Wednesday. No further needs at this time.
[2020-03-15 16:40] VITALS: BP 112/56
--- NOTE | 2020-03-15 19:12 | NUR ---
No immediate urine return when cath'd, but had just removed previous ramon. Cath does not attempt to dislodge w gentle pull. Notified dental technician metal RN.
[2020-03-15 19:18] VITALS: BP 100/51
--- NOTE | 2020-03-15 21:15 | NUR ---
CATHETER NOT IN CORRECT PLACEMENT, CAME OUT WHILE PT USED BSC. NEW CATHETER PLACED. STERILE PROCEDURE FOLLOWED, PT TOLERATED WELL. CHILDS HAD URINE OUT, STAT LOCK IN PLACE TO SECURE CHILDS.
[2020-03-15] MEDS: ALPRAZolam 0.5 MG (XANAX) TAB PO PRN (21:19)
[2020-03-15 23:43] VITALS: BP 105/52
[2020-03-16] MEDS: RT-ALBUTEROL SULF 2.5 MG/3 ML PRE-MIX VIAL INH SCH ×3 (03:49→10:35)
[2020-03-16 04:00] VITALS: BP 99/54
[2020-03-16 04:38] LABS: CHLORIDE 97 MMOL/L (98-107); SODIUM 135 MMOL/L (135-145)
[2020-03-16 04:39] LABS: GLUCOSE 153 MG/DL (70-105)
[2020-03-16 04:41] LABS: CARBON DIOXIDE 27 MMOL/L (21-32)
[2020-03-16 04:43] LABS: CREATININE SERUM 0.66 MG/DL (0.60-1.30); GFR ESTIMATED > 60
[2020-03-16 04:44] LABS: BUN/CREATININE RATIO 27
[2020-03-16 08:00] VITALS: BP 120/57
[2020-03-16] MEDS: PANTOPRAZOLE 40 MG (PROTONIX) TAB PO SCH (08:26)
[2020-03-16] MEDS: FUROSEMIDE 40 MG (LASIX) TAB PO SCH (08:26)
[2020-03-16] MEDS: APIXABAN 5 MG (ELIQUIS) TABLET PO SCH ×2 (08:26→19:54)
[2020-03-16] MEDS: SENNA W/DOCUSATE (SENOKOT S) TABLET PO SCH ×2 (08:26→19:19)
[2020-03-16] MEDS: fluCOnazole (DIFLUCAN) 100 MG TAB PO SCH (08:27)
[2020-03-16 12:00] VITALS: BP 102/57
--- NOTE | 2020-03-16 13:07 | Physical Therapy Daily Note ---
PT Daily Note-Current Subjective Pt. in bed, agrees to ambulate. Expresses she is anxious due to weakness and inability to walk. Mental Status Attachments: Gibbons Catheter Transfers SCALE: Activities may be completed with or without assistive devices. 9-Lilbettvdd-tsgjbck completes the activity by him/herself with no assistance from a helper. 5-Set-up or Clean-up Assistance-helper sets up or cleans up; patient completes activity. [place] assists only prior to or following the activity. 4-Supervision or Touching Assistance-helper provides verbal cues and/or touching/steadying and/or contact guard assistance as patient completes activity. Assistance may be provided throughout the activity or intermittently. 3-Partial/Moderate Assistance-helper does LESS THAN HALF the effort. [place] lifts, holds or supports trunk or limbs, but provides less than half the effort. 2-Substantial/Maximal Assistance-helper does MORE THAN HALF the effort. [place] lifts or holds trunk or limbs and provides more than half the effort. 5-Wufylcfqu-zadepq does ALL the effort. Patient does none of the effort to complete the activity. Or, the assistance of 2 or more helpers is required for the patient to complete the activity. If activity was not attempted, code reason: 7-Patient Refused. 9-Not Applicable-not attempted and the patient did not perform the activity before the current illness, exacerbation or injury. 10-Not Attempted due to Environmental Limitations-(lack of equipment, weather restraints, etc.). 88-Not Attempted due to Medical Conditions or Safety Concerns. Sit to Lying (QC): 3 Lying to Sitting/Side of Bed(Q: 4 Sit to Stand (QC): 4 Weight Bearing Right Lower Extremity: Right Full Weight Bearing Left Lower Extremity: Left Full Weight Bearing Gait Training Does the Patient Walk?: Yes Distance: 35 ft Gait Persons Needed: 1 Gait Assistive Device: FWW close CGA/min A with ambulation Exercises Supine Ex: Ankle pumps, Straight leg raise, Hip abd/add Supine Reps: 10 Seated Therapy Exercises: Sit to stand (x3), Long arc quads Seated Reps: 10 Treatments gait and LE exercises Assessment Current Status: Good Progress, Fair Progress Pt. is motivated to increase ambulation but becomes fatigued very quickly, both SOB and LE weakness. Pt. continues to need assist with LE's into bed but was able to scoot herself up in bed. Pt. in bed post session with call light, O2 in situ and all needs met. PT Usp Goals Usp Goals PT Usp Goals Time Frame: Mar 20, 2020 Roll Left & Right (QC): 4 Sit to Lying (QC): 4 Lying-Sitting on Side/Bed(QC): 4 Sit to Stand (QC): 4 Chair/Dad-ig-Porsm Xfer(QC): 4 Toilet Transfer (QC): 4 Car Transfer (QC): 4 Does the Patient Walk: Yes Walk 10 feet (QC): 4 Walk 50ft with 2 Turns (QC): 4 Walk 150 ft (QC): 4 Walking 10ft on Uneven Surface: 4 1 Step (curb) (QC): 88 4 Steps (QC): 88 12 Steps (QC): 88 Picking up an Object (QC): 88 Wheel 50 feet with 2 turns (QC: 9 Wheel 150 feet: 9 PT Plan Treatment/Plan Treatment Plan: Continue Plan of Care Treatment Plan: Bed Mobility, Education, Functional Activity Jaci, Functional Strength, Gait, Safety, Therapeutic Exercise, Transfers Treatment Duration: Mar 20, 2020 Frequency: 11 times per week Estimated Hrs Per Day: .25 hour per day Patient and/or Family Agrees t: Yes Time/GCodes Time In: 1052 Time Out: 1115 Total Billed Treatment Time: 23 Total Billed Treatment 1, GT 13', Ex 10' TIARRA STEIN PT Mar 16, 2020 13:07
[2020-03-16 15:19] VITALS: BP 102/51
[2020-03-16] MEDS: ALPRAZolam 0.5 MG (XANAX) TAB PO PRN (16:40)
[2020-03-16 19:30] VITALS: BP 107/55
[2020-03-16 23:40] VITALS: BP 105/53
[2020-03-17 04:15] VITALS: BP 91/54
[2020-03-17] MEDS: FUROSEMIDE 40 MG (LASIX) TAB PO SCH (07:58)
[2020-03-17] MEDS: APIXABAN 5 MG (ELIQUIS) TABLET PO SCH ×2 (07:59→20:13)
[2020-03-17] MEDS: PANTOPRAZOLE 40 MG (PROTONIX) TAB PO SCH (07:59)
[2020-03-17] MEDS: SENNA W/DOCUSATE (SENOKOT S) TABLET PO SCH ×2 (07:59→20:14)
[2020-03-17 08:00] VITALS: BP 101/62
[2020-03-17] MEDS: fluCOnazole (DIFLUCAN) 100 MG TAB PO SCH (08:05)
[2020-03-17 12:00] VITALS: BP 104/66
[2020-03-17 16:19] VITALS: BP 102/56
[2020-03-17 19:18] VITALS: BP 109/62
[2020-03-17] MEDS: HYDROcodone/APAP 5 MG/325 MG (LORTAB) TAB PO PRN (22:19)
[2020-03-17 23:52] VITALS: BP 99/49
[2020-03-18 04:15] VITALS: BP 94/50
[2020-03-18 05:33] LABS: CHLORIDE 98 MMOL/L (98-107); POTASSIUM 3.4 MMOL/L (3.6-5.0); SODIUM 136 MMOL/L (135-145)
[2020-03-18 05:34] LABS: CALCIUM 8.1 MG/DL (8.5-10.1)
[2020-03-18 05:35] LABS: GLUCOSE 130 MG/DL (70-105)
[2020-03-18 05:36] LABS: CARBON DIOXIDE 28 MMOL/L (21-32)
[2020-03-18 05:39] LABS: CREATININE SERUM 0.65 MG/DL (0.60-1.30); GFR ESTIMATED > 60
[2020-03-18 05:40] LABS: BUN/CREATININE RATIO 23
[2020-03-18] MEDS: SENNA W/DOCUSATE (SENOKOT S) TABLET PO SCH ×2 (07:50→20:20)
[2020-03-18 08:00] VITALS: BP 119/57
[2020-03-18] MEDS: fluCOnazole (DIFLUCAN) 100 MG TAB PO SCH (09:01)
[2020-03-18] MEDS: APIXABAN 5 MG (ELIQUIS) TABLET PO SCH ×2 (09:01→20:20)
[2020-03-18] MEDS: FUROSEMIDE 40 MG (LASIX) TAB PO SCH (09:01)
[2020-03-18] MEDS: PANTOPRAZOLE 40 MG (PROTONIX) TAB PO SCH (09:02)
--- NOTE | 2020-03-18 10:21 | Physical Therapy Daily Note ---
PT Daily Note-Current Subjective Patient agrees to PT. Mental Status Patient Orientation: Normal For Age Attachments: Oxygen, Gibbons Catheter Transfers SCALE: Activities may be completed with or without assistive devices. 6-Xtsxlagnzp-rvvvdma completes the activity by him/herself with no assistance from a helper. 5-Set-up or Clean-up Assistance-helper sets up or cleans up; patient completes activity. [place] assists only prior to or following the activity. 4-Supervision or Touching Assistance-helper provides verbal cues and/or touching/steadying and/or contact guard assistance as patient completes activity. Assistance may be provided throughout the activity or intermittently. 3-Partial/Moderate Assistance-helper does LESS THAN HALF the effort. [place] l ifts, holds or supports trunk or limbs, but provides less than half the effort. 2-Substantial/Maximal Assistance-helper does MORE THAN HALF the effort. [place] lifts or holds trunk or limbs and provides more than half the effort. 1-Gifkwjsdy-jqfabu does ALL the effort. Patient does none of the effort to complete the activity. Or, the assistance of 2 or more helpers is required for t he patient to complete the activity. If activity was not attempted, code reason: 7-Patient Refused. 9-Not Applicable-not attempted and the patient did not perform the activity before the current illness, exacerbation or injury. 10-Not Attempted due to Environmental Limitations-(lack of equipment, weather restraints, etc.). 88-Not Attempted due to Medical Conditions or Safety Concerns. Sit to Lying (QC): 5 Lying to Sitting/Side of Bed(Q: 5 Sit to Stand (QC): 4 Chair/Mof-md-Ivkhi Xfer(QC): 4 Toilet Transfer (QC): 4 Weight Bearing Right Lower Extremity: Right Full Weight Bearing Left Lower Extremity: Left Full Weight Bearing Gait Training Does the Patient Walk?: Yes Distance: 80' x 1/40' x 1 Walk 10 feet (QC): 4 Walk 50 ft with 2 Turns(QC): 4 Walk 150 ft (QC): 88 improved gait sequence with no deviation Exercises Supine Ex: Ankle pumps, Quad Set, Heel Slides, Straight leg raise Supine Reps: 10 Seated Therapy Exercises: Ankle pumps, Long arc quads Seated Reps: 10 Assessment Patient improving with treatment plan. Patient requested return to bed due to coccyx wound. PT to increase activity as tolerated by patient. Improved distance with gait. PT Intermediate Goals Intermediate Goals PT Intermediate Goals Time Frame: Apr 06, 2020 Roll Left & Right (QC): 4 Sit to Lying (QC): 4 Lying-Sitting on Side/Bed(QC): 4 Sit to Stand (QC): 4 Chair/Acx-ks-Mtypv Xfer(QC): 4 Toilet Transfer (QC): 4 Car Transfer (QC): 4 Does the Patient Walk: Yes Walk 10 feet (QC): 4 Walk 50ft with 2 Turns (QC): 4 Walk 150 ft (QC): 4 Walking 10ft on Uneven Surface: 4 1 Step (curb) (QC): 88 4 Steps (QC): 88 12 Steps (QC): 88 Picking up an Object (QC): 88 Wheel 50 feet with 2 turns (QC: 9 Wheel 150 feet: 9 PT Plan Treatment/Plan Treatment Plan: Continue Plan of Care Treatment Plan: Bed Mobility, Education, Functional Activity Jaci, Functional Strength, Gait, Safety, Therapeutic Exercise, Transfers Treatment Duration: Apr 06, 2020 Frequency: 11 times per week Estimated Hrs Per Day: .25 hour per day Patient and/or Family Agrees t: Yes Time/GCodes Time In: 835 Time Out: 859 Total Billed Treatment Time: 24 Total Billed Treatment 1 visit EX 9 min GT 15 min MATILDA BAKER PT Mar 18, 2020 10:21
--- NOTE | 2020-03-18 11:25 | Progress Note - Hospitalist ---
Subjective HPI/CC On Admission Date Seen by Provider: Mar 18, 2020 Time Seen by Provider: 11:22 Subjective/Events-last exam Pt reports doing well. No complaints. Owrking with therapy and did much better today. Discussed plan with continued therapy and strengthening and then looking at IRU placement if indicated still. ADvised catheter removal and she declined. Informed her of risks and benefits and plan to DC tomorrow. She did agree to this. Objective Exam Vital Signs Vital Signs Date Time Temp Pulse Resp B/P (MAP) Pulse Ox O2 Delivery O2 Flow Rate FiO2 03/18/20 08:00 36.0 98 20 119/57 (77) 98 Nasal Cannula 1.00 Capillary Refill : Less Than 3 Seconds General Appearance: No Apparent Distress, WD/WN Respiratory: Lungs Clear, No Respiratory Distress Cardiovascular: Regular Rate, Rhythm, No Murmur Neurologic/Psychiatric: Alert, Oriented x3 Results/Procedures Lab Laboratory Tests 03/18/20 05:10 Patient resulted labs reviewed. Imaging: Reviewed Imaging Report Assessment/Plan Assessment and Plan Assess & Plan/Chief Complaint Critical illness myopathy PT/OT Would benefit from inpatient rehab, discussed with IRU and hopeful to DC there Wednesday if continues on current progress Acute on chronic respiratory failure with hypoxia COPD Albuterol as needed Supplemental oxygen as needed Will need oxygen evaluation prior to discharge home Paroxysmal atrial fibrillation Cardizem Eliquis Anemia Monitor DVT Prophylaxis: already receiving therapeutic anticoagulation Pneumonia, resolved Atrial fibrillation with rapid ventricular response, resolved COPD with acute exacerbation, resolved COLLETTE GALAN MD Mar 18, 2020 11:25
[2020-03-18 12:00] VITALS: BP 109/55
--- NOTE | 2020-03-18 12:12 | NUR ---
Visited with Nataliia about her progress on Swing Bed. She reports that she feels like she is making real progress. We talked about her ramon catheter and the need for that to be discontinued so that she can work on building her bladder muscles/begin bladder retaining. She voices concern d/t being on lasix and concerns about not making it to the restroom in time. Validated those concerns but encouraged her that we would know more once the ramon catheter is discontinued. She reports that she has not had issues with incontinence prior to this hospitalization. She agrees to discontinue of ramon catheter tomorrow 03/19/20. Updated her daughter Peace about Nataliia's progress and anticipated POC for her mom. She voiced appreciation for the update and care her mom is receiving. No further needs or interventions at this time.
--- NOTE | 2020-03-18 12:54 | NUR ---
MATT WITH WOUND CARE SUGGESTED TO KEEP OPEN AREA ON BOTTOM OPEN TO AIR WHILE IN BED AND ON HER SIDE, ALONG WITH BUTT PASTE TO ASSIST WITH HEALING. MATT ALSO SUGGESTED ENSURE CLEAR FOR SNACKS THREE TIMES A DAY TO HELP WITH WOUND HEALING WELL.
[2020-03-18] MEDS ORDERED: ZINC OXIDE 40% (Butt Paste MAX/Desitin) 57 gm TOP PRN (13:00)
--- NOTE | 2020-03-18 14:34 | Occupational Ther Daily Note ---
OT Current Status-Daily Note Subjective Pt laying in bed, agreeable to OT Tx. Pt verbalizes pain in her buttocks, but does not provide pain rating. Pt sidelying towards L side to alleviate pressure. Mental Status/Objective Patient Orientation: Person, Place, Time, Situation Attachments: Gibbons Catheter ADL-Treatment Therapy Code Descriptions/Definitions Functional [place] Measure: 0=Not Assessed/NA 4=Minimal Assistance 1=Total Assistance 5=Supervision or Setup 2=Maximal Assistance 6=Modified [place] 3=Moderate Assistance 7=Complete IndependenceSCALE: Activities may be completed with or without assistive devices. 5-Fzzdudhcdm-otmtolb completes the activity by him/herself with no assistance from a helper. 5-Set-up or Clean-up Assistance-helper sets up or cleans up; patient completes activity. [place] assists only prior to or following the activity. 4-Supervision or Touching Assistance-helper provides verbal cues and/or touchi ng/steadying and/or contact guard assistance as patient completes activity. Assistance may be provided throughout the activity or intermittently. 3-Partial/Moderate Assistance-helper does LESS THAN HALF the effort. [place] lifts, holds or supports trunk or limbs, but provides less than half the effort. 2-Substantial/Maximal Assistance-helper does MORE THAN HALF the effort. [place] lifts or holds trunk or limbs and provides more than half the effort. 1-Dkzwuezyi-lfawgc does ALL the effort. Patient does none of the effort to complete the activity. Or, the assistance of 2 or more helpers is required for the patient to complete the activity. If activity was not attempted, code reason: 7-Patient Refused. 9-Not Applicable-not attempted and the patient did not perform the activity before the current illness, exacerbation or injury. 10-Not Attempted due to Environmental Limitations-(lack of equipment, weather restraints, etc.). 88-Not Attempted due to Medical Conditions or Safety Concerns. Oral Hygiene (QC): 5 (set up, pt able to remove dentures, brush, rinse and replace dentures.) Other Treatment Pt laying towards L side laying in bed. Pt agreeable to OT tx, requesting to brush her teeth. OT assisted pt with scooting up towards head of bed, cues for hand placement, and min A with LE placement so pt is able to scoot self up. OT provided pt with supplies for oral care, including a basin of water, a spit basin, and a cup of water. Pt able to complete oral care independently after set up. Pt states she has difficulty gathering items from around her room, and she feels bad about using her call light with small tasks. OT assisted pt with placing most used items closer to her on tray table so pt is able to access item, pt expresses gratitude. OT also talked with pt about using the call light as needed, even if it is to assist her with getting an item from another surface, she verbalizes understanding. Post OT Tx, pt laying in bed, call light in reach and all needs met. Education OT Patient Education: Correct positioning, Modified ADL techniques, Progress toward Goal/Update tx plan, Purpose of tx/functional activities Teaching Recipient: Patient Teaching Methods: Discussion Response to Teaching: Verbalize Understanding OT Skilled Nursing Goals Putty Tinter Maker Goals Time Frame: Mar 27, 2020 Eating (QC): 6 Oral Hygiene (QC): 6 Toileting Hygiene (QC): 6 Shower/Bathe Self (QC): 6 Upper Body Dressing (QC): 6 Lower Body Dressing (QC): 6 On/Off Footwear (QC): 6 Additional Goals: 1-Demonstrate ADL Tasks, 2-Verbalize Understanding, 3- ImproveStrength/Jaci 1=Demonstrate adherence to instructed precautions during ADL tasks. 2=Patient will verbalize/demonstrate understanding of assistive devices/modifications for ADL. 3=Patient will improve strength/tolerance for activity to enable patient to perform ADL's. OT Education/Plan Problem List/Assessment Assessment: Decreased Activ Tolerance, Decreased UE Strength, Impaired Bed Mobility, Impaired I ADL's, Impaired Self-Care Skills Discharge Recommendations Plan/Recommendations: Continue POC Treatment Plan/Plan of Care Patient would benefit from OT for education, treatment and training to promote independence in ADL's, mobility, safety and/or upper extremity function for ADL's. Plan of Care: ADL Retraining, Functional Mobility, UE Funct Exercise/Act Treatment Duration: Mar 27, 2020 Frequency: 5 times per week Estimated Hrs Per Day: .25 hour per day Rehab Potential: Fair Time/GCodes Start Time: 13:55 Stop Time: 14:20 Total Time Billed (hr/min): 25 Billed Treatment Time 1, ADL 2 EBENEZER THOMAS OT Mar 18, 2020 14:34
--- NOTE | 2020-03-18 14:39 | NUR ---
"RD ASSESSMENT PMHx: afib; COPD; PT INTERACTION: Pt was awake and pleasant during nutrition follow-up. Pt states she has been eating pretty good since last assessment. Note avg PO intake 61% x4d, per chart review. Pt states no issues with nausea, vomiting, constipation, or diarrhea since last assessment. Note last BM was 03/16, and pt currently on bowel regimen of senna BID, per chart review. ABNORMAL NUTRITION-RELATED LAB VALUES LOW: K 3.4; Ca 8.1; HIGH: glu 130 Est. kcal needs: 7406-7458 kcal | 25-30 kcal/kg Est. Pro needs: 47-59 g Pro | 0.8-1.0 g Pro/kg PES STATEMENT: Inadequate oral intake (NI-2.1) related to loss of appetite as evidenced by pt interview and avg PO intake 61% x4d. INTERVENTION: Continue with current diet order of Regular diet. Add Ensure Enlive (vary) to meals TID, for increased kcal intake. Provides 350 kcal and 20 g Pro per serving. Encouraged pt to eat when able. Will continue to follow and reassess as pt needs, intake, and status change. Joi Sanchez, MS RD LD"
--- NOTE | 2020-03-18 15:17 | Physical Therapy Daily Note ---
PT Daily Note-Current Subjective Patient reports extreme fatigue and agrees to PT. Mental Status Patient Orientation: Normal For Age Attachments: Oxygen, Gibbons Catheter Transfers SCALE: Activities may be completed with or without assistive devices. 8-Fcfbrcbknk-hfplyrq completes the activity by him/herself with no assistance from a helper. 5-Set-up or Clean-up Assistance-helper sets up or cleans up; patient completes activity. [place] assists only prior to or following the activity. 4-Supervision or Touching Assistance-helper provides verbal cues and/or touching/steadying and/or contact guard assistance as patient completes activity . Assistance may be provided throughout the activity or intermittently. 3-Partial/Moderate Assistance-helper does LESS THAN HALF the effort. [place] lifts, holds or supports trunk or limbs, but provides less than half the effort. 2-Substantial/Maximal Assistance-helper does MORE THAN HALF the effort. [place] lifts or holds trunk or limbs and provides more than half the effort. 8-Ywjtzmlzu-pdmack does ALL the effort. Patient does none of the effort to complete the activity. Or, the assistance of 2 or more helpers is required for the patient to complete the activity. If activity was not attempted, code reason: 7-Patient Refused. 9-Not Applicable-not attempted and the patient did not perform the activity before the current illness, exacerbation or injury. 10-Not Attempted due to Environmental Limitations-(lack of equipment, weather restraints, etc.). 88-Not Attempted due to Medical Conditions or Safety Concerns. Sit to Lying (QC): 4 Lying to Sitting/Side of Bed(Q: 5 Sit to Stand (QC): 2 Weight Bearing Right Lower Extremity: Right Full Weight Bearing Left Lower Extremity: Left Full Weight Bearing Gait Training Does the Patient Walk?: Yes Distance: 40' x 2 Walk 10 feet (QC): 2 Gait Assistive Device: FWW increased fatigue and weakness this p.m. Assessment Patient requires encouragement to increase activity. Education on importance of OOB activity given. PT Concierge Receptionist Goals Senior Care Goals PT Senior Care Goals Time Frame: Apr 06, 2020 Roll Left & Right (QC): 4 Sit to Lying (QC): 4 Lying-Sitting on Side/Bed(QC): 4 Sit to Stand (QC): 4 Chair/Acq-iu-Xyzrq Xfer(QC): 4 Toilet Transfer (QC): 4 Car Transfer (QC): 4 Does the Patient Walk: Yes Walk 10 feet (QC): 4 Walk 50ft with 2 Turns (QC): 4 Walk 150 ft (QC): 4 Walking 10ft on Uneven Surface: 4 1 Step (curb) (QC): 88 4 Steps (QC): 88 12 Steps (QC): 88 Picking up an Object (QC): 88 Wheel 50 feet with 2 turns (QC: 9 Wheel 150 feet: 9 PT Plan Treatment/Plan Treatment Plan: Continue Plan of Care Treatment Plan: Bed Mobility, Education, Functional Activity Jaci, Functional Strength, Gait, Safety, Therapeutic Exercise, Transfers Treatment Duration: Apr 06, 2020 Frequency: 11 times per week Estimated Hrs Per Day: .25 hour per day Patient and/or Family Agrees t: Yes Time/GCodes Time In: 1455 Time Out: 1508 Total Billed Treatment Time: 13 Total Billed Treatment 1 visit GT 13 min MATILDA BAKER PT Mar 18, 2020 15:17
--- NOTE | 2020-03-18 15:29 | NUR ---
IRF Evaluation Determination: Accepted At the request of Dr. Julio, evaluated patient for admission to ARU. Chart review complete and findings discussed with Dr. Ortega - patient accepted. ARU continues to be capped at 8. Do not anticipate a bed to be available until, Wednesday, March 20. Dr. Julio notified. Thank you for this referral.
[2020-03-18 16:00] VITALS: BP 102/51
[2020-03-18 19:44] VITALS: BP 108/70
[2020-03-18] MEDS: ALPRAZolam 0.5 MG (XANAX) TAB PO PRN (20:19)
[2020-03-18] MEDS: HYDROcodone/APAP 5 MG/325 MG (LORTAB) TAB PO PRN (20:20)
[2020-03-19 00:09] VITALS: BP 98/54
[2020-03-19 04:00] VITALS: BP 100/52
[2020-03-19 08:00] VITALS: BP 124/55
[2020-03-19] MEDS: SENNA W/DOCUSATE (SENOKOT S) TABLET PO SCH ×3 (09:08→21:24)
[2020-03-19] MEDS: PANTOPRAZOLE 40 MG (PROTONIX) TAB PO SCH (09:08)
[2020-03-19] MEDS: FUROSEMIDE 40 MG (LASIX) TAB PO SCH (09:09)
[2020-03-19] MEDS: APIXABAN 5 MG (ELIQUIS) TABLET PO SCH ×2 (09:09→21:23)
--- NOTE | 2020-03-19 09:46 | Physical Therapy Daily Note ---
PT Daily Note-Current Subjective Patient agrees to PT. c/o coccyx wound Mental Status Patient Orientation: Normal For Age Attachments: Oxygen Transfers SCALE: Activities may be completed with or without assistive devices. 1-Jkfqqbkjps-ztxpgck completes the activity by him/herself with no assistance from a helper. 5-Set-up or Clean-up Assistance-helper sets up or cleans up; patient completes activity. [place] assists only prior to or following the activity. 4-Supervision or Touching Assistance-helper provides verbal cues and/or touching/steadying and/or contact guard assistance as patient completes activity. Assistance may be provided throughout the activity or intermittently. 3-Partial/Moderate Assistance-helper does LESS THAN HALF the effort. [place] lifts, holds or supports trunk or limbs, but provides less than half the effort. 2-Substantial/Maximal Assistance-helper does MORE THAN HALF the effort. [place] lifts or holds trunk or limbs and provides more than half the effort. 9-Lexygqxvd-xdsbnu does ALL the effort. Patient does none of the effort to complete the activity. Or, the assistance of 2 or more helpers is required for the patient to complete the activity. If activity was not attempted, code reason: 7-Patient Refused. 9-Not Applicable-not attempted and the patient did not perform the activity before the current illness, exacerbation or injury. 10-Not Attempted due to Environmental Limitations-(lack of equipment, weather restraints, etc.). 88-Not Attempted due to Medical Conditions or Safety Concerns. Lying to Sitting/Side of Bed(Q: 5 Sit to Stand (QC): 3 Chair/Qis-uh-Trihe Xfer(QC): 3 Toilet Transfer (QC): 3 Weight Bearing Right Lower Extremity: Right Full Weight Bearing Left Lower Extremity: Left Full Weight Bearing Gait Training Does the Patient Walk?: Yes Distance: 100' x 2 Walk 10 feet (QC): 3 Walk 50 ft with 2 Turns(QC): 3 Walk 150 ft (QC): 88 Gait Assistive Device: FWW Exercises Supine Ex: Ankle pumps, Quad Set, Heel Slides, Straight leg raise Supine Reps: 12 Seated Therapy Exercises: Long arc quads, Hip flexion Seated Reps: 12 Assessment Patient progressing slowly with treatment plan. Increase activity as tolerated by patient. PT Dealmaker Goals Snf Goals PT Snf Goals Time Frame: Apr 06, 2020 Roll Left & Right (QC): 4 Sit to Lying (QC): 4 Lying-Sitting on Side/Bed(QC): 4 Sit to Stand (QC): 4 Chair/Koy-dd-Kpezb Xfer(QC): 4 Toilet Transfer (QC): 4 Car Transfer (QC): 4 Does the Patient Walk: Yes Walk 10 feet (QC): 4 Walk 50ft with 2 Turns (QC): 4 Walk 150 ft (QC): 4 Walking 10ft on Uneven Surface: 4 1 Step (curb) (QC): 88 4 Steps (QC): 88 12 Steps (QC): 88 Picking up an Object (QC): 88 Wheel 50 feet with 2 turns (QC: 9 Wheel 150 feet: 9 PT Plan Treatment/Plan Treatment Plan: Continue Plan of Care Treatment Plan: Bed Mobility, Education, Functional Activity Jaci, Functional Strength, Gait, Safety, Therapeutic Exercise, Transfers Treatment Duration: Apr 06, 2020 Frequency: 11 times per week Estimated Hrs Per Day: .25 hour per day Patient and/or Family Agrees t: Yes Time/GCodes Time In: 825 Time Out: 852 Total Billed Treatment Time: 27 Total Billed Treatment 1 visit GT 14 min EX 13 min MATILDA BAKER PT Mar 19, 2020 09:46
[2020-03-19 11:21] VITALS: BP 117/60
--- NOTE | 2020-03-19 11:44 | Occupational Ther Daily Note ---
OT Current Status-Daily Note Subjective Pt seated upright in recliner, agreeable to OT tx. Pt indicates pain in buttocks where wound is, pt attempts to reposition self towards L side to decrease pressure. Pt expresses interest in showering but does not feel able to due to decreased energy, pt agreeable to sponge bath today. Mental Status/Objective Patient Orientation: Person, Place, Time, Situation Attachments: Oxygen (2L) ADL-Treatment Therapy Code Descriptions/Definitions Functional [place] Measure: 0=Not Assessed/NA 4=Minimal Assistance 1=Total Assistance 5=Supervision or Setup 2=Maximal Assistance 6=Modified [place] 3=Moderate Assistance 7=Complete IndependenceSCALE: Activities may be completed with or without assistive devices. 6-Fnulovbgnl-xkjvllr completes the activity by him/herself with no assistance from a helper. 5-Set-up or Clean-up Assistance-helper sets up or cleans up; patient completes activity. [place] assists only prior to or following the activity. 4-Supervision or Touching Assistance-helper provides verbal cues and/or touching/steadying and/or contact guard assistance as patient completes activity. Assistance may be provided throughout the activity or intermittently. 3-Partial/Moderate Assistance-helper does LESS THAN HALF the effort. [place] lifts, holds or supports trunk or limbs, but provides less than half the effort. 2-Substantial/Maximal Assistance-helper does MORE THAN HALF the effort. [place] lifts or holds trunk or limbs and provides more than half the effort. 9-Dwqtnwdts-ewgxif does ALL the effort. Patient does none of the effort to complete the activity. Or, the assistance of 2 or more helpers is required for the patient to complete the activity. If activity was not attempted, code reason: 7-Patient Refused. 9-Not Applicable-not attempted and the patient did not perform the activity before the current illness, exacerbation or injury. 10-Not Attempted due to Environmental Limitations-(lack of equipment, weather restraints, etc.). 88-Not Attempted due to Medical Conditions or Safety Concerns. Shower/Bathe Self (QC): 4 (Pt completed partial sponge bath at recliner, able to wash all parts except periarea/buttocks, and feet.) Pt required frequent rest breaks throughout session due to decreased endurance and strength. Other Treatment Pt seated in recliner, agreeable to OT tx with focus on ADLs. Pt completed sponge bath at recliner, washing all parts in sitting. Pt declined washing periarea, buttocks, and feet on this date as she did not want to move wrong and cause increased pain in her buttocks. OT educated pt on purpose and benefits of OT, she verbalized understanding but still declined washing other parts. OT assisted pt with using washcloths to wash pt's hair, then assist with changing hospital gown. Pt required increased time with ADLs due to fatigue, poor endurance, and decreased strength. Pt asked therapist about inpatient rehab unit, OT described rehab process and what to expect, as well as informed pt to have family bring clothing options if possible. Pt agrees that she thinks further therapy will benefit her, as she has poor energy and increased difficulty with walking compared to PLOF. Post OT tx, pt seated in recliner, call light in reach and all needs met. Education OT Patient Education: Correct positioning, Energy conservation, Modified ADL techniques, Progress toward Goal/Update tx plan, Purpose of tx/functional activities, Rehab process, Safety issues Teaching Recipient: Patient Teaching Methods: Discussion Response to Teaching: Verbalize Understanding OT Vinyl Dipper Goals Vinyl Dipper Goals Time Frame: Mar 27, 2020 Eating (QC): 6 Oral Hygiene (QC): 6 Toileting Hygiene (QC): 6 Shower/Bathe Self (QC): 6 Upper Body Dressing (QC): 6 Lower Body Dressing (QC): 6 On/Off Footwear (QC): 6 Additional Goals: 1-Demonstrate ADL Tasks, 2-Verbalize Understanding, 3- ImproveStrength/Jaci 1=Demonstrate adherence to instructed precautions during ADL tasks. 2=Patient will verbalize/demonstrate understanding of assistive dev ices/modifications for ADL. 3=Patient will improve strength/tolerance for activity to enable patient to perform ADL's. OT Education/Plan Problem List/Assessment Assessment: Decreased Activ Tolerance, Decreased UE Strength, Impaired Funct Balance, Impaired I ADL's, Impaired Self-Care Skills Discharge Recommendations Plan/Recommendations: Continue POC Treatment Plan/Plan of Care Patient would benefit from OT for education, treatment and training to promote independence in ADL's, mobility, safety and/or upper extremity function for ADL 's. Plan of Care: ADL Retraining, Functional Mobility, UE Funct Exercise/Act Treatment Duration: Mar 27, 2020 Frequency: 5 times per week Estimated Hrs Per Day: .25 hour per day Rehab Potential: Fair Time/GCodes Start Time: 10:50 Stop Time: 11:28 Total Time Billed (hr/min): 38 Billed Treatment Time 1, ADL 3 EBENEZER THOMAS OT Mar 19, 2020 11:44
--- NOTE | 2020-03-19 14:49 | Physical Therapy Daily Note ---
PT Daily Note-Current Subjective Patient continues to report fatigue and then questions if she is ready for rehab. Mental Status Patient Orientation: Normal For Age Attachments: Oxygen Transfers SCALE: Activities may be completed with or without assistive devices. 2-Zqvloyczov-gzqsaln completes the activity by him/herself with no assistance from a helper. 5-Set-up or Clean-up Assistance-helper sets up or cleans up; patient completes activity. [place] assists only prior to or following the activity. 4-Supervision or Touching Assistance-helper provides verbal cues and/or touching/steadying and/or contact guard assistance as patient completes activity. Assistance may be provided throughout the activity or intermittently. 3-Partial/Moderate Assistance-helper does LESS THAN HALF the effort. [place] lifts, holds or supports trunk or limbs, but provides less than half the effort. 2-Substantial/Maximal Assistance-helper does MORE THAN HALF the effort. [place] lifts or holds trunk or limbs and provides more than half the effort. 6-Xoexbvpfd-zkerwz does ALL the effort. Patient does none of the effort to complete the activity. Or, the assistance of 2 or more helpers is required for the patient to complete the activity. If activity was not attempted, code reason: 7-Patient Refused. 9-Not Applicable-not attempted and the patient did not perform the activity before the current illness, exacerbation or injury. 10-Not Attempted due to Environmental Limitations-(lack of equipment, weather restraints, etc.). 88-Not Attempted due to Medical Conditions or Safety Concerns. Sit to Lying (QC): 5 Lying to Sitting/Side of Bed(Q: 5 Sit to Stand (QC): 3 Chair/Htd-zw-Yagkh Xfer(QC): 3 Toilet Transfer (QC): 3 (requires assist to cleanse and pull up brief) Weight Bearing Right Lower Extremity: Right Full Weight Bearing Left Lower Extremity: Left Full Weight Bearing Gait Training Does the Patient Walk?: Yes Distance: 100' Walk 10 feet (QC): 3 Walk 50 ft with 2 Turns(QC): 3 Gait Assistive Device: FWW slow, steady gait sequence Exercises Seated Therapy Exercises: Ankle pumps, Long arc quads, Hip flexion Seated Reps: 12 Assessment Patient tolerated treatment and will transfer to [facility] tomorrow per report. PT Skilled Nursing Goals Skilled Nursing Goals PT Feed Project Engineer Goals Time Frame: Apr 06, 2020 Roll Left & Right (QC): 4 Sit to Lying (QC): 4 Lying-Sitting on Side/Bed(QC): 4 Sit to Stand (QC): 4 Chair/Zdd-wf-Gwwbo Xfer(QC): 4 Toilet Transfer (QC): 4 Car Transfer (QC): 4 Does the Patient Walk: Yes Walk 10 feet (QC): 4 Walk 50ft with 2 Turns (QC): 4 Walk 150 ft (QC): 4 Walking 10ft on Uneven Surface: 4 1 Step (curb) (QC): 88 4 Steps (QC): 88 12 Steps (QC): 88 Picking up an Object (QC): 88 Wheel 50 feet with 2 turns (QC: 9 Wheel 150 feet: 9 PT Plan Treatment/Plan Treatment Plan: Continue Plan of Care Treatment Plan: Bed Mobility, Education, Functional Activity Jaci, Functional Strength, Gait, Safety, Therapeutic Exercise, Transfers Treatment Duration: Apr 06, 2020 Frequency: 11 times per week Estimated Hrs Per Day: .25 hour per day Patient and/or Family Agrees t: Yes Time/GCodes Time In: 1305 Time Out: 1330 Total Billed Treatment Time: 25 Total Billed Treatment 1 visit FA x 2 25 min MATILDA BAKER PT Mar 19, 2020 14:49
--- NOTE | 2020-03-19 16:19 | NUR ---
IRF Met with patient to discuss details specific to rehab program. Patient agreeable to admission and required therapy regimen. Anticipate admission, 03/20/20.
[2020-03-19 16:47] VITALS: BP 102/61
[2020-03-19] MEDS: HYDROcodone/APAP 5 MG/325 MG (LORTAB) TAB PO PRN (17:35)
[2020-03-19 20:00] VITALS: BP 98/61
[2020-03-19] MEDS: ALPRAZolam 0.5 MG (XANAX) TAB PO PRN (21:23)
[2020-03-20 00:08] VITALS: BP 105/68
[2020-03-20 03:57] VITALS: BP 108/63
[2020-03-20 04:26] LABS: CHLORIDE 97 MMOL/L (98-107); SODIUM 135 MMOL/L (135-145)
[2020-03-20 04:27] LABS: CALCIUM 7.7 MG/DL (8.5-10.1); GLUCOSE 119 MG/DL (70-105)
[2020-03-20 04:29] LABS: CARBON DIOXIDE 26 MMOL/L (21-32)
[2020-03-20 04:31] LABS: CREATININE SERUM 0.69 MG/DL (0.60-1.30); GFR ESTIMATED > 60
[2020-03-20 04:32] LABS: BUN/CREATININE RATIO 26
[2020-03-20 07:58] VITALS: BP 116/58
[2020-03-20] MEDS: PANTOPRAZOLE 40 MG (PROTONIX) TAB PO SCH (08:46)
[2020-03-20] MEDS: APIXABAN 5 MG (ELIQUIS) TABLET PO SCH (08:46)
[2020-03-20] MEDS: FUROSEMIDE 40 MG (LASIX) TAB PO SCH (08:46)
[2020-03-20] MEDS: SENNA W/DOCUSATE (SENOKOT S) TABLET PO SCH (08:46)
--- NOTE | 2020-03-20 11:20 | Therapy Team Discharge Summary ---
Therapy Discharge Summary Discharge Recommendations Date of Discharge Physical Therapy This patient admitted to [facility] status post acute hospital stay due to respiratory failure with decreased functional strength, balance and activity tolerance that impaired her functional mobility. Prior to her hospital stay, she was home with her spouse requiring some assist with mobiltiy. Treatment has focused on ther ex and ther act training to progress bed mobility, transfers and gait to allow her to return home as before. She has been making consistent progress towards goals with improved functional activity tolerance. She will transfer to Acute Rehab for continued progression of strength and mobility. Will DC from [facility] at this time. Occupational Therapy Decreased Activ Tolerance, Decreased UE Strength, Impaired Funct Balance, Impaired I ADL's, Impaired Self-Care Skills PT Umbrella Repairer Goals Umbrella Repairer Goals PT Long-Term Goals Time Frame: Apr 06, 2020 Roll Left to Right (QC): 4 Sit to Lying (QC): 4 Lying-Sitting on Side/Bed(QC): 4 Sit to Stand (QC): 4 Chair/Yhi-mf-Uunth Xfer(QC): 4 Car Transfer (QC): 4 Does the Patient Walk: Yes Walk 10 feet (QC): 4 Walk 10ft-Uneven Surface(QC): 4 Walk 50ft with 2 Turns (QC): 4 Walk 150 ft (QC): 4 Wheel 50 feet with 2 turns (QC: 9 1 Step (curb) (QC): 88 4 Steps (QC): 88 12 Steps (QC): 88 Picking up an Object (QC): 88 [place]ols not fully met as patient transferred to ARU. OT Long-Term Goals Long-Term Goals Time Frame: Mar 27, 2020 Eating (QC): 6 Oral Hygiene (QC): 6 Shower/Bathe Self (QC): 6 Upper Body Dressing (QC): 6 Lower Body Dressing (QC): 6 On/Off Footwear (QC): 6 Toileting Hygiene (QC): 6 Toilet/Commode Transfer (QC): 4 Additional Goals: 1-Demonstrate ADL Tasks, 2-Verbalize Understanding, 3- ImproveStrength/Jaci 1=Demonstrate adherence to instructed precautions during ADL tasks. 2=Patient will verbalize/demonstrate understanding of assistive devices/modifications for ADL. 3=Patient will improve strength/tolerance for activity to enable patient to perform ADL's. MARU CAMPUZANO PT Mar 20, 2020 11:20
--- NOTE | 2020-03-21 13:46 | Therapy Team Discharge Summary ---
Therapy Discharge Summary Discharge Recommendations Date of Discharge Mar 20, 2020 at 11:59 Occupational Therapy Pt admitted to [facility] with respiratory failure after acute hospital stay. Prior to hospitalization, pt was independent with bathing and dressing and required some assistance from her with cooking and cleaning. Upon admission, pt was independent with feeding, required set up assistance with oral care, min A showering, max A lower body dressing, SBA footwear, and max A toileting. OT tx has focused on increasing BUE strength and functional endurance as well as increasing independence with ADLS and functional mobility. Pt has made functional progress towards goals, but did not attain any goals. Pt transferring to acute rehab unit for continued skilled therapies. Pt discharged from [facility], d/c from OT. Decreased Activ Tolerance, Decreased UE Strength, Impaired Funct Balance, Impaired I ADL's, Impaired Self-Care Skills PT Correction Goals Correction Goals PT Correction Goals Time Frame: Apr 06, 2020 Roll Left to Right (QC): 4 Sit to Lying (QC): 4 Lying-Sitting on Side/Bed(QC): 4 Sit to Stand (QC): 4 Chair/Qsu-xd-Oityu Xfer(QC): 4 Car Transfer (QC): 4 Does the Patient Walk: Yes Walk 10 feet (QC): 4 Walk 10ft-Uneven Surface(QC): 4 Walk 50ft with 2 Turns (QC): 4 Walk 150 ft (QC): 4 Wheel 50 feet with 2 turns (QC: 9 1 Step (curb) (QC): 88 4 Steps (QC): 88 12 Steps (QC): 88 Picking up an Object (QC): 88 OT Applications Systems Analyst Goals Applications Systems Analyst Goals Time Frame: Mar 27, 2020 Eating (QC): 6 (not met) Oral Hygiene (QC): 6 (not met) Shower/Bathe Self (QC): 6 (not met) Upper Body Dressing (QC): 6 (not met) Lower Body Dressing (QC): 6 (not met) On/Off Footwear (QC): 6 (not met) Toileting Hygiene (QC): 6 (not met) Toilet/Commode Transfer (QC): 4 (not met) Additional Goals: 1-Demonstrate ADL Tasks, 2-Verbalize Understanding, 3-ImproveStrength/Jaci 1=Demonstrate adherence to instructed precautions during ADL tasks. 2=Patient will verbalize/demonstrate understanding of assistive devices/modifications for ADL. 3=Patient will improve strength/tolerance for activity to enable patient to perform ADL's. EBENEZER THOMAS OT Mar 21, 2020 13:46
== END 2020-03-20 11:59 | DRG 91 ==
LOC: 4TH 17:06
PROVIDERS: ADMIT Internal Medicine; ATTEND Internal Medicine
DX: G72.81 Critical illness myopathy (principal); J96.21 Acute and chronic respiratory failure with hypoxia; J44.9 Chronic obstructive pulmonary disease, unspecified; I48.0 Paroxysmal atrial fibrillation; D64.9 Anemia, unspecified; R53.81 Other malaise; Z87.01 Personal history of pneumonia (recurrent)
CPT/HCPCS: 36415; 80048; 84484; 94640; 94760

== ENCOUNTER 2020-03-20 09:47 | Inpatient (IN) | payer MEDICARE, BC ==
[~2020-03-20] VITALS: Ht 152.4 cm; Wt 59.4 kg
--- NOTE | 2020-03-20 09:30 | NUR ---
Admitted to room 225, with an admitting diagnosis of critical illness myopathy, on 03/20/[address] [place] [address] via , accompanied by .GONZALO ACOSTA introduced to surroundings, call light, bed controls, phone, TV, temperature control, lights, meal times, smoking policy, visitor policy, side rail policy, bathrooms and showers. Patient Rights given to patient in the handbook.GONZALO ACOSTA verbalizes understanding that [facility] is not responsible for the loss or damage to any personal effects or valuables that are kept in the patients posession during their hospitalization. The following Patient Care Plans were discussed with the : Discharge Planning, ,, and . GONZALO ACOSTA verbalizes understanding of Interdisciplinary Patient Education. Patient and/or family were informed about the Rapid Response Team and its purpose. Patient received Patient Rights Booklet, which includes Privacy Act Statement and Data Collection Information Summary.
[~2020-03-20 09:47] MED LIST changes: +ACETAMINOPHEN 500 MG TAB (TYLENOL) PO PRN; +ALPRAZolam 0.25 MG (XANAX) TAB PO PRN; +BISACODYL 10 MG SUPP (DULCOLAX) PR PRN; +CALCIUM CARBONATE 500 MG (TUMS) TAB.CHEW PO PRN; +DOCUSATE SODIUM 100 MG (COLACE) CAP PO PRN; +FLEET ENEMA ADULT 1 EA BTL PR PRN; +LACTULOSE SYRUP 10GM/15ML (ENULOSE) 30ML UDC PO PRN; +LOPERAMIDE 2 MG (IMODIUM) TABLET PO PRN; +MELATONIN 3 MG TABLET PO PRN; +ONDANSETRON 4 MG (ZOFRAN) ORAL DISSOLVE TAB PO PRN; +SENNA W/DOCUSATE (SENOKOT S) TABLET PO SCH; +diphenhydrAMINE 25 MG TAB (BENADRYL) PO PRN; +guaiFENesin/CODEINE (ROBITUSSIN AC) 10ML UDC PO PRN
[2020-03-20] MEDS: DOCUSATE SODIUM 100 MG (COLACE) CAP PO SCH ×2 (10:25→20:50)
[2020-03-20] MEDS: polyethylene glycoL POWDER 17 GM (MIRALAX) PACK PO SCH ×2 (10:25→20:50)
--- NOTE | 2020-03-20 10:39 | Physical Therapy Evaluation ---
PT Evaluation-General Medical Diagnosis Admission Date Mar 20, 2020 at 09:47 Medical Diagnosis: debility, respiratory failure Onset Date: Mar 12, 2020 Therapy Diagnosis Therapy Diagnosis: impaired mobility, strength, endurance Referral Physician: Jordan Reason for Referral: Evaluation/Treatment Medical History Pertinent Medical History: Atrial Fib, COPD, Smoking Reviewed History: Yes Social History Home: Single Level Current Living Status: Spouse Entry Into Home: Stairs Without Railing PT Steps Into Home: 2 Prior Prior Level of Function SCALE: Activities may be completed with or without assistive devices. 7-Ovcfozzluu-awpjjwx completes the activity by him/herself with no assistance from a helper. 5-Set-up or Clean-up Assistance-helper sets up or cleans up; patient completes activity. [place] assists only prior to or following the activity. 4-Supervision or Touching Assistance-helper provides verbal cues and/or touching/steadying and/or contact guard assistance as patient completes activity. Assistance may be provided throughout the activity or intermittently. 3-Partial/Moderate Assistance-helper does LESS THAN HALF the effort. [place] lifts, holds or supports trunk or limbs, but provides less than half the effort. 2-Substantial/Maximal Assistance-helper does MORE THAN HALF the effort. [place] lifts or holds trunk or limbs and provides more than half the effort. 6-Kvkvoayxp-jsscqe does ALL the effort. Patient does none of the effort to complete the activity. Or, the assistance of 2 or more helpers is required for the patient to complete the activity. If activity was not attempted, code reason: 7-Patient Refused. 9-Not Applicable-not attempted and the patient did not perform the activity before the current illness, exacerbation or injury. 10-Not Attempted due to Environmental Limitations-(lack of equipment, weather restraints, etc.). 88-Not Attempted due to Medical Conditions or Safety Concerns. Bed Mobility: 3 Transfers (B,C,W/C): 3 Gait: 4 Stairs: 2 Indoor Mobility (Ambulation): Needed Some Help Stairs: Needed Some Help Prior Devices Use: Walker PT Evaluation-Current Subjective Patient in WC pre tx, agrees to PT, has no complaints of pain other than a sore on her bottom. Will be co-treating with OT after evaluation due to poor patient mobility, strength, endurance, SOB with minimal activity, the need to coordinate UE and LE during activity. Pt/Family Goals to be independent at home Objective Patient Orientation: Person, Place, Situation Attachments: Oxygen ROM/Strength ROM Lower Extremities WNL Strength Lower Extremities LLE (hip flexion 3/5, knee extension 3+/5, knee flexion 3+/5, dorsiflexion 3+/5), RLE (hip flexion 3/5, knee extension 3+/5, knee flexion 3+/5, dorsiflexion 3+/5) Sensory Vision: Wears Glasses Hearing: Functional Sensation Right Lower Extremit: Intact Sensation Left Lower Extremity: Intact Transfers Roll Left & Right (QC): 6 Sit to Lying (QC): 3 Lying to Sitting/Side of Bed(Q: 3 Sit to Stand (QC): 3 Chair/Osh-sq-Nomsl Xfer(QC): 4 Toilet Transfer (QC): 3 Car Transfer (QC): 3 Patient performs bed mobility with independence, supine <-> sit mod assist, sit <-> stand min assist, transfers CGA, car transfer mod assist. Occasional slight knee buckling. Cues for hand placement and safety. Gait Does the Patient Walk?: Yes Mode of Locomotion: Walk Anticipated Mode of Locomotion: Walk Walk 10 feet (QC): 4 Walk 50 ft with 2 Turns(QC): 88 Walk 150 ft (QC): 88 Walking 10ft/uneven surface-QC: 4 Distance: 20'x2 Gait Assistive Device: FWW Comments/Gait Description Patient can ambulate 20' with a rolling walker with CGA (including 10' over an uneven surface). Patient ambulates slowly, SOB after 20'. Wheelchair Training Does the Pt Use a Wheelchair?: No Wheel 50 ft with 2 turns (QC): 9 Wheel 150 ft (QC): 9 Stairs 1 Step (curb) (QC): 88 4 Steps (QC): 88 12 Steps (QC): 88 Steps not performed due to BLE weakness Balance Sitting Static: Normal Sitting Dynamic: Normal Standing Static: Fair Standing Dynamic: Fair Picking up an Object (QC): 88 Treatment bathing and toileting (BM). PT worked on bed mobility, transfers, ambulation, and assisted with standing and positioning during bathing and toileting. OT worked on bathing and toileting, UE positioning and safety. Assessment/Needs Patient has impaired mobility, strength, endurance. Patient gets SOB with activity, needs frequent rests, has some knee buckling. Rehab Potential: Fair PT Short Term Goals Short Term Goals Time Frame: Mar 27, 2020 Roll Left & Right: 6 Sit to lyin ([place]) Lying to sitting on side of be: 3 (Brigid) Sit to stand: 4 Chair/fqz-yj-pvdiz transfer: 4 Walk 10 feet: 4 Walk 50 feet with two turns: 4 PT Fuels Sales Representative Goals Fuels Sales Representative Goals PT Group Home Goals Time Frame: Apr 10, 2020 Roll Left & Right (QC): 6 Sit to Lying (QC): 6 Lying-Sitting on Side/Bed(QC): 6 Sit to Stand (QC): 5 Chair/Xsy-pf-Izftz Xfer(QC): 5 Toilet Transfer (QC): 5 Car Transfer (QC): 5 Does the Patient Walk: Yes Walk 10 feet (QC): 4 Walk 50ft with 2 Turns (QC): 4 Walk 150 ft (QC): 4 Walking 10ft on Uneven Surface: 4 1 Step (curb) (QC): 4 4 Steps (QC): 4 12 Steps (QC): 88 Picking up an Object (QC): 88 Wheel 50 feet with 2 turns (QC: 9 Wheel 150 feet: 9 PT Plan Problem List Problem List: Activity Tolerance, Functional Strength, Safety, Balance, Gait, Transfer, Bed Mobility, ROM Treatment/Plan Treatment Plan: Continue Plan of Care Treatment Plan: Bed Mobility, Education, Functional Activity Jaci, Functional Strength, Group Therapy, Gait, Safety, Therapeutic Exercise, Transfers Treatment Duration: Apr 10, 2020 Frequency: At least 5 of 7 days/Wk (IRF) Estimated Hrs Per Day: 1.5 hours per day Patient and/or Family Agrees t: Yes Safety Risks/Education Patient Education: Gait Training, Transfer Techniques, Correct Positioning, Safety Issues Teaching Recipient: Patient Teaching Methods: Demonstration, Discussion Response to Teaching: Reinforcement Needed Discharge Recommendations Plan Patient will perform bed mobility and transfer training, balance and endurance training, functional strengthening, gait training, and education, to improve functional mobility and independence at home. Therapy Discharge Recommendati: Home & Family, Post Acute PT Time/GCodes Time In: 939 Time Out: 1040 Total Billed Treatment Time: 60 Total Billed Treatment 1 visit EVM 10' FA 50' PT eval from [id number], co-treat from [id number] EMILIA BABB PT Mar 20, 2020 10:39
--- NOTE | 2020-03-20 10:46 | NUR ---
I COMPLETED THE MED REC ON 02-29-2020 WHEN THE PT WAS ON 4TH FLOOR
--- NOTE | 2020-03-20 10:50 | NUR ---
PATIENT ARRIVED WITH A PRESSURE ULCER THAT OCCURRED PRIOR TO ADMISSION AT THIS FACILITY. PATIENT STATES HAPPENED AT ANOTHER FACILITY. STATES IT HAS GOTTEN BETTER SINCE SHE HAS BEEN HERE AND FEELS "SO MUCH BETTER THAN IT DID WHEN I CAME HERE" SKIN BREAKDOWN, EDUCATION. BUTT PASTE, CINTHIA, NO STING SKIN PREP TO AREA. CONTINUE TURN Q2 AND REPOS ENCOURAGEMENT. Addendum: 03/20/20 at 1053 by VLAD FRIAS RN OCCURRED OUTSIDE [facility]
[2020-03-20 10:57] VITALS: BP 117/56
[2020-03-20] MEDS ORDERED: KCL 20 MEQ TAB (K-DUR) PO ONE ×2 (11:15→14:10)
--- NOTE | 2020-03-20 11:24 | Occupational Therapy Eval ---
OT Evaluation-General/PLF Medical Diagnosis Admission Date Mar 20, 2020 at 09:47 Medical Diagnosis: critical illness myopathy Onset Date: Mar 12, 2020 Therapy Diagnosis Therapy Diagnosis: weakness, decreased ADL status Precautions Precautions/Isolations: Fall Prevention, Standard Precautions, Pressure Ulcer Referral Physician: Jordan Tavarez Reason: Evaluation/Treatment Medical History Pertinent Medical History: Atrial Fib, COPD, Smoking Current History Pt admitted to [facility] acutely 02/29/2020 with respiratory failure due to COPD exacerbation. On 03/12/2020 pt transferred to B, and 03/20/2020 transferred to ARU for skilled therapies and continued medication management. Social History Home: Single Level Current Living Status: Spouse (& daughter) Entry Into Home: Stairs Without Railing Steps Into Home: 2 ADL-Prior Level of Function SCALE: Activities may be completed with or without assistive devices. 6-Sporelqevt-vosptxq completes the activity by him/herself with no assistance from a helper. 5-Set-up or Clean-up Assistance-helper sets up or cleans up; patient completes activity. [place] assists only prior to or following the activity. 4-Supervision or Touching Assistance-helper provides verbal cues and/or touching/steadying and/or contact guard assistance as patient completes activity. Assistance may be provided throughout the activity or intermittently. 3-Partial/Moderate Assistance-helper does LESS THAN HALF the effort. [place] lifts, holds or supports trunk or limbs, but provides less than half the effort. 2-Substantial/Maximal Assistance-helper does MORE THAN HALF the effort. [place] lifts or holds trunk or limbs and provides more than half the effort. 2-Apfqfnxwz-vgdbpm does ALL the effort. Patient does none of the effort to compl ete the activity. Or, the assistance of 2 or more helpers is required for the patient to complete the activity. If activity was not attempted, code reason: 7-Patient Refused. 9-Not Applicable-not attempted and the patient did not perform the activity before the current illness, exacerbation or injury. 10-Not Attempted due to Environmental Limitations-(lack of equipment, weather restraints, etc.). 88-Not Attempted due to Medical Conditions or Safety Concerns. ADL PLOF Comments Pt indicates she needed some assistance at PLOF, she needed help into/out of tub/shower but she was able to complete showering herself once in the tub. She has both a bath chair and a bath bench at home. She can dress herself, and her helps with the cooking and cleaning. Pt used a FWW at [facility] for functional mobility, and she always had someone with her when she was up incase she needed assistance. She has a toilet riser on the toilet and also owns a BSC. Self Care: Needed Some Help Functional Cognition: Independent DME/Equipment: Bath Bench, Bath Chair, Bedside Commode, Tub/Shower, Toilet/Riser DME/Equipment Comments FWW OT Current Status Subjective Pt agreeable to OT evaluation. Pt indicates soreness in buttocks where wound is located but did not verbalize pain rating. Mental Status/Objective Patient Orientation: Person, Place, Time, Situation Attachments: Oxygen Current Glasses/Contacts: Yes Hearing Aids: No Dentures/Partials: Yes Hand Dominance: Right Upper Extremity ROM WFL, BUE shoulder flexion to approx 160 degrees, she is able to touch the back of her head with her hands. Upper Extremity Coordination WFL Upper Extremity Sensation WFL Upper Extremity Strength grossly 3+/5 MMT ADL-Treatment Eating (QC): 6 (Pt reports independence with task, she is able to open containers, cut food, and bring food to mouth.) Oral Hygiene (QC): 5 (Per pt report and clinical judgement, pt able to complete task with set up assist, seated.) Shower/Bathe Self (QC): 3 (Min A to wash buttocks as pt utilizes lean towards L side. Pt able to wash/dry all other parts seated.) Upper Body Dressing (QC): 5 (set up, pt able doff/don shirt.) Lower Body Dressing (QC): 2 (Max A donning pants and brief due to fatigue after shower. Pt able to doff brief with min A) On/Off Footwear (QC): 4 (SBA, pt able to don/doff gripper socks.) Toileting Hygiene (QC): 2 (Pt able to manage clothes down, required assist with hygiene for thoroughness, and assist managing pants up due to fatigue.) Pt required increased time with all ADLs, frequent rest breaks due to poor endurance/strength Other Treatments [id number] OT evaluation: OT educated pt on purpose and benefit of OT, she verbalized understanding. Pt provided information about [facility] and home set up, participating in UE screen. [id number] OT/PT cotreat: OT/PT cotreat due to skill of 2 clinicians required which a cardiac rehabilitation specialist could not perform in order to coordinate UE/LEs with tasks, and due to pt's limitations in strength, functional endurance, and functional mobility. OT focused on UE placement, cues for sequencing and safety, and ADLs, while PT focused on LE placement, gross overall movements, and functional mobility. Pt used FWW to ambulate into bathroom, transferring to toilet to complete toileting. Pt required mod A to get off of toilet due to decreased strength/endurance. Pt used FWW to transfer into shower and onto SC, completing dressing/showering. Pt required frequent rest breaks, and cues for breathing during task. Min A with shower in order to wash buttocks. Pt donned shirt and socks, then requested to use toilet. OT placed BSC over toilet to increase height and so pt can use handles to push up from. Pt completed toileting, and lower body dressing at [facility] over toilet. Pt able to stand from BSC with min A, then requests to transfer to bed. Pt required assistance with LEs to transfer sit to supine. [id number] OT tx: Pt able to comb hair with set up assistance, OT cleaned up from ADL treatment. OT assists pt with positioning in bed to comfort in order to decrease pressure from wound on buttocks. Post OT tx, pt laying in bed, call light in reach and all needs met, nursing staff present. Education OT Patient Education: Correct positioning, Energy conservation, Modified ADL techniques, Progress toward Goal/Update tx plan, Purpose of tx/functional activities, Rehab process, Transfer techniques Teaching Recipient: Patient Teaching Methods: Discussion Response to Teaching: Verbalize Understanding OT Short Term Goals Short Term Goals Time Frame: Apr 03, 2020 Toileting hygiene: 4 Shower/bathe self: 4 Lower body dressin OT Supervisor Cereal Goals Supervisor Cereal Goals Time Frame: Apr 12, 2020 Eating (QC): 6 Oral Hygiene (QC): 6 Toileting Hygiene (QC): 6 Shower/Bathe Self (QC): 4 Upper Body Dressing (QC): 6 Lower Body Dressing (QC): 4 On/Off Footwear (QC): 4 Additional Goals: 1-Demonstrate ADL Tasks, 2-Verbalize Understanding, 3- ImproveStrength/Jaci 1=Demonstrate adherence to instructed precautions during ADL tasks. 2=Patient will verbalize/demonstrate understanding of assistive devices/modifications for ADL. 3=Patient will improve strength/tolerance for activity to enable patient to perform ADL's. OT Education/Plan Problem List/Assessment Assessment: Decreased Activ Tolerance, Decreased UE Strength, Impaired Bed Mobility, Impaired Funct Balance, Impaired I ADL's, Impaired Self-Care Skills Discharge Recommendations Plan/Recommendations: Continue POC Treatment Plan/Plan of Care Patient would benefit from OT for education, treatment and training to promote independence in ADL's, mobility, safety and/or upper extremity function for ADL's. Plan of Care: ADL Retraining, Functional Mobility, Group Exercise/Act as Ind, UE Funct Exercise/Act Treatment Duration: Apr 12, 2020 Frequency: At least 5 of 7 days/Wk (IRF) Estimated Hrs Per Day: 1.5 hours per day Rehab Potential: Fair Time/GCodes Start Time: 09:30 Stop Time: 11:10 Total Time Billed (hr/min): 90 Billed Treatment Time [id number] OT eval (10'), [id number] PT eval (not billed), [id number] OT/PT cotreat (50'), [id number] OT tx (30') 1, EVM (10'), ADL 5 (80') EBENEZER THOMAS OT Mar 20, 2020 11:24
[2020-03-20] MEDS ORDERED: FLU QUAD HIGH DOSE 240 MCG/0.7 ML 2020-21 (FLUZONE) IM ONE (11:30)
--- NOTE | 2020-03-20 11:44 | PM&R Post Admission Assessment ---
PM&R HP Date of Visit: Mar 20, 2020 Time of Visit: 11:45 History of Present Illness CC: COPD Myopathy HPI: This is a 75yo white female pt who was admitted to inpatient rehab after a lengthy hospital stay in ICU and med-surg then swingbed due to acute respiratory failure. She remains on O2 at home prior to this event and required aggressive treatment to regain function. At this current time she is very weak, lung sounds are still course, will need close monitoring, maintain on oral anticoagulation and cardiac meds and will monitor body systems closely for any decompensation. PLOF was independent and lives with her and daughter. DC summary from Dr Julio: Nataliia Mendez is a 75-year-old female who was admitted with acute hypoxic respiratory failure due to exacerbation of COPD. She was negative for COVID and influenza. CT chest revealed no pulmonary embolism, but did show multilobar pneumonia area and She required ICU level care and required substantial amounts of supplemental oxygen. She also required noninvasive ventilation with BiPAP. She was treated with IV antibiotics and steroids. She also received breathing treatments. Her respiratory status improved and she was transitioned to the regular medical floor. Her course is complicated by atrial fibrillation with rapid ventricular response. She was treated with IV Cardizem and transition to oral Cardizem and Eliquis. Due to her severe illness, she did have a critical i llness myopathy. PT and OT worked with her. She was transitioned to swing bed status for ongoing therapy needs. Past Pfkepxs-Qyvmmm-Ciwutr Hx Past Med/Social Hx: Reviewed Nursing Past Med/Soc Hx, Reviewed and Corrections made Patient Social History Marrital Status: Employed/Student: retired Alcohol Use: Rarely Uses Alcohol Beverage of Choice: Beer Recreational Drug Use: No Smoking Status: Former Smoker Former Smoker, Quit: Mar 03, 2020 Type Used: Cigarettes Physical Abuse Screen: No Sexual Abuse: No Recent Foreign Travel: No Contact w/other who traveled: No Recent Hopitalizations: Yes (03/22 RESPIRATORY FAILURE) Recent Infectious Disease Expo: No Immunizations Up To Date Pediatric: No Seasonal Allergies Seasonal Allergies: No Past Medical History Respiratory: COPD, Emphysema, Pneumonia Currently Using CPAP: No Currently Using BIPAP: No Cardiac: Atrial Fibrillation : No Gastrointestinal: Abdominal Hernia Musculoskeletal: Arthritis, Chronic Back Pain HEENT: Cataract Loss of Vision: Denies Cancer: Breast, Colon Did You Recieve Any Treatments: Yes What Type of Treatment Did You: Chemotherapy, Radiation, Surgical Intervention Psychosocial: Anxiety, Depression History of Blood Disorders: No Adverse Reaction to Blood Yao: No Prior Level of Function Bed Mobility: 3 Transfers: 3 Gait: 4 Stairs: 2 Indoor Mobility (Ambulation): Needed Some Help Stairs: Needed Some Help Prior Devices Use: Walker Self Care: Needed Some Help Functional Cognition: Independent Current Level of Fuctioning Roll Left to Right: 6 Sit to Lyin Lying to Sitting/Side of Bed: 3 Sit to Stand: 3 Chair/Sgb-yf-Quxja Xfer: 4 Car Transfer: 3 Does the Patient Walk: Yes Mode of Locomotion: Walk Anticipated Mode of Locomotion: Walk Walk 10 feet: 4 Walk 50 ft with 2 Turns: 88 Walk 150 ft: 88 Walking 10ft on uneven surface: 4 Gait Assistive Device: FWW Does the Pt Use a Wheelchair: No Wheel 50 ft with 2 turns: 9 Wheel 150 ft: 9 1 Step (curb): 88 4 Steps: 88 12 Steps: 88 Picking up an Object: 88 Eatin (Pt reports independence with task, she is able to open containers, cut food, and bring food to mouth.) Oral Hygiene: 5 (Per pt report and clinical judgement, pt able to complete task with set up assist, seated.) Shower/Bathe Self: 3 (Min A to wash buttocks as pt utilizes lean towards L side. Pt able to wash/dry all other parts seated.) Upper Body Dressin (set up, pt able doff/don shirt.) Lower Body Dressin (Max A donning pants and brief due to fatigue after shower. Pt able to doff brief with min A) On/Off Footwear: 4 (SBA, pt able to don/doff gripper socks.) Toileting Hygiene: 2 (Pt able to manage clothes down, required assist with hygiene for thoroughness, and assist managing pants up due to fatigue.) PM&R Allergy/Meds/Data Review Allergies Coded Allergies: ciprofloxacin (Verified Allergy, Unknown, 03/20/20) OLD ALLERGY metronidazole (Verified Allergy, Unknown, 03/20/20) OLD ALLERGY prednisone (Verified Allergy, Unknown, pt uses budesonide nebs, 03/20/20) OLD ALLERGY Home Medications Scheduled Amiodarone HCl (Pacerone), 400 MG PO DAILY, (Reported) Apixaban (Eliquis), 5 MG PO BID, (Reported) Budesonide (Budesonide), 2 ML NEB BID, (Reported) Carvedilol (Carvedilol), 6.25 MG PO BID, (Reported) Cholecalciferol (Vitamin D3) (Vitamin D3), 25 MCG PO BID, (Reported) Letrozole (Letrozole), 2.5 MG PO DAILY, (Reported) Scheduled PRN Acetaminophen (Tylenol Extra Strength), 1,000 MG PO Q8H PRN for PAIN-MILD (1-4) OR TEMPATURE, (Reported) Alprazolam (Alprazolam), 0.5 MG PO TID PRN for ANXIETY, (Reported) Hydrocodone/Acetaminophen (Hydrocodone-Acetamin 10-325 mg), 1 EA PO Q4H PRN for PAIN-MODERATE (5-7), (Reported) Discontinued Medications Azithromycin (Azithromycin), 500 MG PO DAILY, (Reported) Levofloxacin (Levofloxacin), 750 MG PO DAILY, (Reported) Current Medications Current Medications Reviewed Review of Systems Constitutional: see HPI, malaise, weakness EENTM: no symptoms reported Respiratory: dyspnea on exertion Cardiovascular: no symptoms reported Gastrointestinal: no symptoms reported Genitourinary: no symptoms reported Musculoskeletal: back pain, joint pain Skin: no symptoms reported Psychiatric/Neurological: Anxiety All Other Systems Reviewed Negative Unless Noted: Yes Physical Exam Physical Exam Vital Signs Vital Signs - First Documented 03/20/20 03/20/20 10:40 10:57 Temp 36.1 Pulse 93 Resp 16 B/P (MAP) 117/56 Pulse Ox 96 O2 Delivery Nasal Cannula O2 Flow Rate 2.00 Capillary Refill : Height, Weight, BMI Height: '" Weight: lbs. oz. kg; 24.84 BMI Method: General Appearance: No Apparent Distress, WD/WN, Chronically ill, Thin Eyes: Bilateral Eye Normal Inspection, Bilateral Eye PERRL HEENT: PERRL/EOMI, Normal ENT Inspection, Pharynx Normal Neck: Full Range of Motion, Normal Inspection, Non Tender, Supple, Carotid Bruit Respiratory: Chest Non Tender, No Accessory Muscle Use, No Respiratory Distress, Crackles, Decreased Breath Sounds Cardiovascular: Regular Rate, Rhythm, No Edema, No Gallop, No JVD, No Murmur, Normal Peripheral Pulses Gastrointestinal: Normal Bowel Sounds, No Organomegaly, No Pulsatile Mass, Non Tender, Soft Back: Normal Inspection, No CVA Tenderness, No Vertebral Tenderness Extremity: Normal Capillary Refill, Normal Inspection, Normal Range of Motion, Non Tender, No Calf Tenderness, No Pedal Edema Neurologic/Psychiatric: Alert, Oriented x3, Normal Mood/Affect, business account leader II-XII Norm as Tested, Abnormal Gait, Depressed Affect, Motor Weakness (generalized 4/5 all extremities) Skin: Normal Color, Warm/Dry Lymphatic: No Adenopathy PM&R Medical Assessment & Plan REHAB/MEDICAL ASSESSMENT AND PLAN: REHAB IMPAIRMENT GROUP: Critical illness myopathy ETIOLOGIC DIAGNOSIS: Critical illness myopathy The comorbidities that impact the patients function and/or functional outcome by: AF w/RVR, severe O2 dependent COPD, current rales on lung exam, poor reserve, h/o cancers REHAB PLAN: The patient is being admitted to our comprehensive inpatient rehabilitation facility and can tolerate the intensity of service consisting of at least: 180 minutes of therapy a day, 5 out of 7 days a week Rehab treatment will consist of: PT OT will focus on regaining function in orde r to regain independence in ADL"s and ambulatory abilities to wean O2 and strengthen overall deficits The patient/family has a good understanding of our discharge process and will benefit from an interdisciplinary inpatient rehabilitation program. The patient has potential to make improvement and is in need of at least two of the following multidisciplinary therapies including but not limited to physical, occupational, speech, and prosthetics and orthotics. Additionally the patient will need services from respiratory, nutritional services, wound care, psychology, etc. (Customize this to each patient). Given the patients complex c ondition and risk of further medical complications, rehabilitation services cannot be safely or effectively provided at a lower level of care such as a snf facility. BARRIERS TO DISCHARGE: Poor reserve ESTIMATED LOS: 10 days DISPOSITION: Home RELEVANT CHANGES SINCE PREADMISSION SCREENING: I have compared the patients medical and functional status at the time of the preadmission screening and there are: no changes PROGNOSIS: Guarded REHABILITATION GOALS: 1. PT OT will focus on regaining function in order to regain independence in ADL"s and ambulatory abilities to wean O2 and strengthen overall deficits All the above goals were reviewed with the patient and he/she is in agreement. By signing this document, I acknowledge that I have personally performed a full physical examination on this patient within 24 hours of admission to this inpatient rehabilitation facility and have determined the patient to be able to tolerate the above course of treatment at an intensive level for a reasonable period of time. I will be completing a detailed individualized Plan of Care for this patient by day #4 of the patients stay based upon the Preadmission Screen, the Post-Admission Evaluation, and the therapy evaluations. Admission Dx/Comorbidities: (1) Critical illness myopathy Status: Acute ICD Codes: G72.81 - Critical illness myopathy (2) Acute on chronic respiratory failure with hypoxia Status: Acute ICD Codes: J96.21 - Acute and chronic respiratory failure with hypoxia (3) Atrial fibrillation with rapid ventricular response Status: Resolved ICD Codes: I48.91 - Unspecified atrial fibrillation (4) COPD (chronic obstructive pulmonary disease) Status: Acute ICD Codes: J44.9 - Chronic obstructive pulmonary disease, unspecified (5) PNA (pneumonia) Status: Acute ICD Codes: J18.9 - Pneumonia, unspecified organism (6) Anemia Status: Chronic ICD Codes: D64.9 - Anemia, unspecified Assessment/Plan Assessment and Plan Assess & Plan/Chief Complaint Assessment: Critical illness myopathy COPD AF w/RVR hx Poor reserve Colon cancer hx Breast cancer hx O2 dependency Plan: O2 Nebs Home meds IRF protocol DUANE GIBSON DO Mar 20, 2020 11:44
[2020-03-20] MEDS ORDERED: ONDANSETRON 4 MG/2 ML (SDV) Z0FRAN IVP PRN (12:00)
[2020-03-20] MEDS ORDERED: ALPRAZolam 0.5 MG (XANAX) TAB PO PRN (12:00)
[2020-03-20] MEDS ORDERED: CALCIUM CARBONATE 500 MG (TUMS) TAB.CHEW PO PRN (12:00)
[2020-03-20] MEDS ORDERED: DOCUSATE SODIUM 100 MG (COLACE) CAP PO PRN (12:00)
[2020-03-20] MEDS ORDERED: diphenhydrAMINE 25 MG TAB (BENADRYL) PO PRN (12:00)
[2020-03-20] MEDS ORDERED: MELATONIN 3 MG TABLET PO PRN (12:00)
[2020-03-20] MEDS ORDERED: RT-ALBUTEROL INHALER HFA (VENTOLIN HFA) 18 GM IH PRN (12:00)
[2020-03-20] MEDS ORDERED: LOPERAMIDE 2 MG (IMODIUM) TABLET PO PRN (12:00)
--- NOTE | 2020-03-20 12:27 | Progress Note ---
BHAVNA SAMSON MED STUDENT 03/20/20 1227: Progress Note H & P Subjective: CC: Critical illness myopathy HPI: Nataliia Mendez is a 75 year old white female who presented to the hospital on February 28 with acute respiratory failure with hypoxia due to a COPD exacerbation. She was eventually diagnosed with bilateral pneumonia with acute respiratory distress syndrome, developed afib with RVR, and a UTI. She was placed on BIPAP but eventually transitioned to vapotherm and was requiring 100% FIO2 on vapotherm for quite a while. Broad spectrum antibiotics, steroids, and cardiazem were started. Pulmonary/critical care and cardiology were consulted and managing her care. Eventually she improved to the point where she was transi tioned off vapotherm to nasal cannula and was placed on swing bed status. She has been doing PT and OT. She will be transferred to the inpatient rehab unit here at [facility] for critical illness myopathy to continue working with therapy with hopes of returning to home. PMH: Arthritis, chronic back pain, COPD, cataracts, anxiety, depression, colon and breast cancer, afib PSH: tubal ligation, bowel resection, R breast lumpectomy, cataract surgery Medications: Amiodarone 400 mg po q day, eliquis 5 mg po BID, budesonide 2ml neb BID, coreg 6.25 mg po BID, vitamin D3 25 mcg po BID, letrozole 2.5 mg po q day, xanax 0.5 mg po tid prn, lortab 10-325 mg po q4hr prn Allergies: Ciprofloxacin, metronidazole, prednisone FH? SH: Lives at home with and daughter. Drinks beer occasionally. Quit smoking Mar 03 2020. Retired. ROS: Denies fevers, chills, chest pain, SOB, cough, nausea, vomiting, diarrhea, headache, blurry vision. Reports weakness, fatigue, generalized malaise. Objective: Vitals: HR 93 RR 16 BP 117/56 SPO2 96 2 L NC T 36.1 General: Elderly female appearing her stated age in no apparent distress Cardiac: Irregularly irregular heart rhythm. Radial pulses +2/4 bilat. Peal pulses +2/4 bilat. 1+ edema BLE. Cap refill <2 seconds bilat hands Resp: Scattered rhonchi left lobes. No apparent accessory muscle use noted. O2 via NC at 2 L. GI: Abdomen soft and non tender to palpation. No rebound or guarding. BS normoactive x 4 quadrants. HEENT: Pharynx without exudates or erythema. EOMI. Neck supple without cervical lymphadenopathy. Nares with NC present Neuro: Cranial nerves 2-12 grossly intact. Palmar grasp 5/5 bilat. Moves all four extremities. Assessment: Critical illness myopathy Acute respiratory failure with hypoxia and ARDS- resolved Bilateral pneumonia Afib-RVR UTI COPD- oxygen dependent debility/weakness tobacco abuse anxiety depression Plan: PT and OT eval and treat Institutional Commodity Analyst consult to ensure adequate nutrition Ambulate QID minimum Up to bedside chair TID Continue meds as currently ordered Oxygen via NC- wean to baseline PAOLA GIBSON DO 03/21/20 0559: Supervisory-Addendum Brief Verification & Attestation Participated in pt care: history, MDM, physical Personally performed: exam, history, MDM, supervision of care Care discussed with: Medical Student Procedures: n/a Results interpretation: Verified all documentation Verification and Attestation of Medical Student E/M Service A medical student performed and documented this service in my presence. I reviewed and verified all information documented by the medical student and made modifications to such information, when appropriate. I personally performed the physical exam and medical decision making. Paola Gibson, Mar 21, 2020,05:59 BHAVNA SAMSON MED STUDENT Mar 20, 2020 12:27 PAOLA GIBSON DO Mar 21, 2020 05:59
--- NOTE | 2020-03-20 14:07 | ST Cognitive Linguistic Eval ---
Speech Evaluation-General Medical Diagnosis critical illness myopathy Onset Date: Mar 12, 2020 Therapy Diagnosis Therapy Diagnosis: Cognitive-communication Referral Referring Physician: Dr. Ortega Medical History Pertinent Medical History: Atrial Fib, COPD, Smoking Reviewed History: Yes Social History Current Living Status: Spouse (& daughter) Speech PLF-Current Status Prior Level of Function Patient lives at home with her spouse and daughter. Patient was independent for her daily needs. Subjective Patient was pleasant and cooperative with the cognitive assessment. Language Eval: Auditory Comprehends Simple Yes/No Ques: Functional Indent/Objects Multiple Kim: Functional Ident/Pics in Multiple Kim: Functional Follows 1-Step Commands: Functional Follows Complex Directions: Functional Follows General Conversations: Functional Language Eval: Verbal Language Completes Spontaneous Greeting: Functional Produces Auto, Serial Info: Functional Imitates Simple Words/Phrases: Functional Word Finding: Functional Requests Basic Needs: Functional States Basic Personal Info: Functional Expresses Complex Ideas: Functional Objective Cognitive Domain Attention: WNL Memory: WNL Problem Solving: Functional Executive Functions: WNL Visuospatial Skills: WNL Composite Severity Rating: WNL Objective Formal/Standardized Tests [facility] ([facility]) Results 28/30, within normal range of function Oral Motor/Speech Production Within Normal Limits Impression The patient is a pleasant 75 y/o female who was admitted to the ARU s/p myopathy secondary to respiratory failure. The patient was given the UMS at bedside with a score of 28/30 obtained. The patient does not require further ST services at this time. Speech Patient Assess Expression of Ideas/Wants: Expression (4) Understanding Verbal Content: Understands (4) Brief Interview-Mental Status: Yes Repetition of Three Words: Three (3) Temporal Orientation: Year: Correct (3) Temporal Orientation: Month: Accurate within 5 days(2) Temporal Orientation: Day: Correct (1) Recall : Wear to say "Sock": Yes, no cue required (2) Recall : Color: Yes, no cue required (2) Recall : Bed: Yes, no cue required (2) Memory/Recall Ability: Current season, That he or she is in a hsp/hsp unit Speech-Plan Patient/Family Goals Patient/Family Goals: Patient plans on returning to her home where she lives with her and daughter. Treatment Plan Speech Therapy Treatment Plan: Discontinue ST Treatment Duration: Mar 20, 2020 Frequency: 1 time per week Estimated Hrs Per Day: .5 hour per day Rehab Potential: Fair Barriers to Learning: Patient's recent health issues, age Pt/Family Agrees to Plan: Yes Safety Risks/Education Teaching Recipient: Patient Teaching Methods: Discussion Response to Teaching: Verbalize Understanding Education Topics Provided: Safety in her room and communication of wants/needs Time Speech Therapy Time In: 13:30 Speech Therapy Time Out: 14:00 Total Billed Time: 30 Billed Treatment Time 1, JULIANDSY Brown Mar 20, 2020 14:07
--- NOTE | 2020-03-20 15:06 | Physical Therapy Daily Note ---
PT Daily Note-Current Subjective Pt L sidelying upon arrival. Pt agrees to PT. Pain Numeric Pain Scale: 5-Moderate Pain Location: Lower Location Body Site: Back Pain Description: Ache, Tightness Comment: Pt reports low back and R hip pain. Mental Status Patient Orientation: Person, Place, Situation Transfers SCALE: Activities may be completed with or without assistive devices. 2-Gdavgcnbzv-efpctjr completes the activity by him/herself with no assistance from a helper. 5-Set-up or Clean-up Assistance-helper sets up or cleans up; patient completes activity. [place] assists only prior to or following the activity. 4-Supervision or Touching Assistance-helper provides verbal cues and/or touching/steadying and/or contact guard assistance as patient completes activi ty. Assistance may be provided throughout the activity or intermittently. 3-Partial/Moderate Assistance-helper does LESS THAN HALF the effort. [place] lifts, holds or supports trunk or limbs, but provides less than half the effort. 2-Substantial/Maximal Assistance-helper does MORE THAN HALF the effort. [place] lifts or holds trunk or limbs and provides more than half the effort. 3-Yvbfqifjo-fhaavb does ALL the effort. Patient does none of the effort to complete the activity. Or, the assistance of 2 or more helpers is required for the patient to complete the activity. If activity was not attempted, code reason: 7-Patient Refused. 9-Not Applicable-not attempted and the patient did not perform the activity before the current illness, exacerbation or injury. 10-Not Attempted due to Environmental Limitations-(lack of equipment, weather restraints, etc.). 88-Not Attempted due to Medical Conditions or Safety Concerns. Exercises Supine Ex: Ankle pumps, Quad Set, Glut sets, Heel Slides, Straight leg raise, Hip abd/add Supine Reps: 15 Treatments SUMMER ANALYST reviews Supine Ex and positioning with pt. Pt resting with all needs met, call light next to pt. Assessment Current Status: Good Progress Pt farzana. tx well. PT Short Term Goals Short Term Goals Time Frame: Mar 27, 2020 Roll Left & Right: 6 Sit to lyin (Brigid) Lying to sitting on side of be: 3 (Brigid) Sit to stand: 4 Chair/msa-fg-oleqn transfer: 4 Walk 10 feet: 4 Walk 50 feet with two turns: 4 PT Manager Of Sales Goals Detention Goals PT Manager Of Sales Goals Time Frame: Apr 10, 2020 Roll Left & Right (QC): 6 Sit to Lying (QC): 6 Lying-Sitting on Side/Bed(QC): 6 Sit to Stand (QC): 5 Chair/Dae-wz-Dexol Xfer(QC): 5 Toilet Transfer (QC): 5 Car Transfer (QC): 5 Does the Patient Walk: Yes Walk 10 feet (QC): 4 Walk 50ft with 2 Turns (QC): 4 Walk 150 ft (QC): 4 Walking 10ft on Uneven Surface: 4 1 Step (curb) (QC): 4 4 Steps (QC): 4 12 Steps (QC): 88 Picking up an Object (QC): 88 Wheel 50 feet with 2 turns (QC: 9 Wheel 150 feet: 9 PT Plan Problem List Problem List: Activity Tolerance, Functional Strength Treatment/Plan Treatment Plan: Continue Plan of Care Treatment Plan: Bed Mobility, Education, Functional Activity Jaci, Functional Strength, Group Therapy, Gait, Safety, Therapeutic Exercise, Transfers Treatment Duration: Apr 10, 2020 Frequency: At least 5 of 7 days/Wk (IRF) Estimated Hrs Per Day: 1.5 hours per day Patient and/or Family Agrees t: Yes Safety Risks/Education Patient Education: Correct Positioning, Safety Issues Teaching Recipient: Patient Teaching Methods: Discussion Response to Teaching: Verbalize Understanding Time/GCodes Time In: 1415 Time Out: 1430 Total Billed Treatment Time: 15 Total Billed Treatment 1, EX (15m) VLAD ORTIZ SUMMER ANALYST Mar 20, 2020 15:06
[2020-03-20 17:37] VITALS: BP 96/58
[2020-03-20] MEDS: ALPRAZolam 0.25 MG (XANAX) TAB PO PRN (20:49)
[2020-03-20] MEDS: APIXABAN 5 MG (ELIQUIS) TABLET PO SCH (20:50)
[2020-03-20] MEDS: SENNA W/DOCUSATE (SENOKOT S) TABLET PO SCH (20:50)
[2020-03-20] MEDS: HYDROcodone/APAP 5 MG/325 MG (LORTAB) TAB PO PRN (20:50)
[2020-03-21 05:10] LABS: BASOPHILS % (AUTO) 0 % (0-10); EOSINOPHILS # (AUTO) 0.1 10^3/uL (0.0-0.3); EOSINOPHILS % (AUTO) 2 % (0-10); HEMATOCRIT 27 % (35-52); HEMOGLOBIN 8.8 g/dL (11.5-16.0); LYMPHOCYTES # (AUTO) 0.7 10^3/uL (1.0-4.0); LYMPHOCYTES % (AUTO) 12 % (12-44); MEAN CORPUSCULAR HEMOGLOBIN 29 pg (25-34); MEAN CORPUSCULAR HGB CONC 32 g/dL (32-36); MEAN CORPUSCULAR VOLUME 90 fL (80-99); MEAN PLATELET VOLUME 9.8 fL (9.0-12.2); MONOCYTES # (AUTO) 0.3 10^3/uL (0.0-1.0); MONOCYTES % (AUTO) 5 % (0-12); NEUTROPHILS # (AUTO) 4.3 10^3/uL (1.8-7.8); NEUTROPHILS % (AUTO) 80 % (42-75); PLATELET COUNT 95 10^3/uL (130-400); WHITE BLOOD COUNT 5.4 10^3/uL (4.3-11.0)
[2020-03-21 05:21] LABS: ALANINE AMINOTRANSFERASE 65 U/L (0-55); ALBUMIN 2.9 GM/DL (3.2-4.5); ALKALINE PHOSPHATASE 79 U/L (40-136); BILIRUBIN,TOTAL 0.4 MG/DL (0.1-1.0); BUN/CREATININE RATIO 25; CALCIUM 8.4 MG/DL (8.5-10.1); CARBON DIOXIDE 25 MMOL/L (21-32); CHLORIDE 98 MMOL/L (98-107); CREATININE SERUM 0.67 MG/DL (0.60-1.30); GFR ESTIMATED > 60; GLUCOSE 105 MG/DL (70-105); POTASSIUM 3.7 MMOL/L (3.6-5.0); SODIUM 136 MMOL/L (135-145); TOTAL PROTEIN 5.3 GM/DL (6.4-8.2)
[2020-03-21 05:45] VITALS: BP 112/55
[2020-03-21] MEDS: KCL 10 MEQ TAB (MICRO K) PO SCH (05:52)
[2020-03-21 06:45] VITALS: BP 118/53
[2020-03-21 08:00] VITALS: BP 97/54
[2020-03-21] MEDS: ALPRAZolam 0.25 MG (XANAX) TAB PO PRN ×2 (08:19→20:46)
[2020-03-21] MEDS: FUROSEMIDE 40 MG (LASIX) TAB PO SCH (08:19)
[2020-03-21] MEDS: APIXABAN 5 MG (ELIQUIS) TABLET PO SCH ×2 (08:21→20:39)
[2020-03-21] MEDS: PANTOPRAZOLE 40 MG (PROTONIX) TAB PO SCH (08:21)
[2020-03-21] MEDS: ACETAMINOPHEN 500 MG TAB (TYLENOL) PO PRN (08:42)
--- NOTE | 2020-03-21 08:54 | Occupational Ther Daily Note ---
OT Current Status-Daily Note Subjective Pt laying in bed, hesitant about therapy due to falling off toilet this morning. Pt reports she feels like she may get a slight headache, and has a knot on her forehead. OT notified pt's nurse who is aware of the fall, and provided pt with pain medicine. Mental Status/Objective Patient Orientation: Person, Place, Time, Situation Attachments: Oxygen (2L) ADL-Treatment Therapy Code Descriptions/Definitions Functional [place] Measure: 0=Not Assessed/NA 4=Minimal Assistance 1=Total Assistance 5=Supervision or Setup 2=Maximal Assistance 6=Modified [place] 3=Moderate Assistance 7=Complete IndependenceSCALE: Activities may be completed with or without assistive devices. 5-Tvlohgamli-omgcpnt completes the activity by him/herself with no assistance from a helper. 5-Set-up or Clean-up Assistance-helper sets up or cleans up; patient completes activity. [place] assists only prior to or following the activity. 4-Supervision or Touching Assistance-helper provides verbal cues and/or touching/steadying and/or contact guard assistance as patient completes activity. Assistance may be provided throughout the activity or intermittently. 3-Partial/Moderate Assistance-helper does LESS THAN HALF the effort. [place] lifts, holds or supports trunk or limbs, but provides less than half the effort. 2-Substantial/Maximal Assistance-helper does MORE THAN HALF the effort. [place] lifts or holds trunk or limbs and provides more than half the effort. 7-Thyocabgq-qwuxic does ALL the effort. Patient does none of the effort to complete the activity. Or, the assistance of 2 or more helpers is required for the patient to complete the activity. If activity was not attempted, code reason: 7-Patient Refused. 9-Not Applicable-not attempted and the patient did not perform the activity before the current illness, exacerbation or injury. 10-Not Attempted due to Environmental Limitations-(lack of equipment, weather restraints, etc.). 88-Not Attempted due to Medical Conditions or Safety Concerns. Oral Hygiene (QC): 5 (Pt brushed teeth at bed level with set up of supplies.) Lower Body Dressing (QC): 2 (Pt able to manage pants down, assist to doff, assist to thread onto legs, and assist with pant hike.) Toileting Hygiene (QC): 1 (Assist x2 in stand due to pt being anxious about completing task due to fall in AM. Pt able to manage pants down and complete hygiene, assist to manage pants up.) Toilet Transfer (QC): 3 (Mod A sit to stand from toilet.) Other Treatment [id number] OT tx: Pt laying in bed, talked with OT about how she fell this morning. Pt does not feel like she will be able to do much in therapy today, but agreeable with moderate encouragement. Pt able to brush teeth using basin of water set up, pt completed oral care at bed level. Pt required increased time with ADLs due to slow movements. OT educated pt more on the rehab process and expectations while she is on the rehab unit, she verbalized understanding. [id number] OT/PT cotreat: OT/PT cotreat due to skill of 2 clinicians required which a rehabilitation counsellor could not perform in order to coordinate UE/LEs with tasks, a nd due to pt's limitations in strength, functional mobility, and functional endurance. OT focused on UE placement, ADLs, cues for sequencing and safety, and reaching while PT focused on ambulation, transfers, LE placement, and gross overall movements. Pt expressed nervousness with transfers/ambulation due to fall this morning, OT/PT encouraged pt to participate in therapy in order to get comfortable with transfers/mobility again. Pt transferred supine to sit EOB, stating she feels like she may need to use the restroom. Pt stood at FWW, slight dizziness but cleared after a few seconds. Pt ambulated into the bathroom, stood in front of toilet, managed pants down, and sat on toilet. Pt completed toileting, and lower body dressing at toilet. Mod A to stand from toilet. Pt then used FWW to ambulate from bathroom to doorway of room, expressing fatigue requiring a seated rest break in w/c. Pt able to complete another short ambulation (~10') using FWW with w/c follow before requiring a rest break. Pt self-propelled w/c back to beside her bed, stood at FWW and transferred to EOB. Assist to bring BLEs into bed to transfer supine. Post OT/PT cotreat pt laying in bed, call light in reach and all needs met. Education OT Patient Education: Correct positioning, Modified ADL techniques, Progress toward Goal/Update tx plan, Purpose of tx/functional activities Teaching Recipient: Patient Teaching Methods: Discussion Response to Teaching: Verbalize Understanding OT Short Term Goals Short Term Goals Time Frame: Apr 03, 2020 Toileting hygiene: 4 Shower/bathe self: 4 Lower body dressin OT Consumer Sales Representative Goals Consumer Sales Representative Goals Time Frame: Apr 12, 2020 Eating (QC): 6 Oral Hygiene (QC): 6 Toileting Hygiene (QC): 6 Shower/Bathe Self (QC): 4 Upper Body Dressing (QC): 6 Lower Body Dressing (QC): 4 On/Off Footwear (QC): 4 Additional Goals: 1-Demonstrate ADL Tasks, 2-Verbalize Understanding, 3- ImproveStrength/Jaci 1=Demonstrate adherence to instructed precautions during ADL tasks. 2=Patient will verbalize/demonstrate understanding of assistive devices/modifications for ADL. 3=Patient will improve strength/tolerance for activity to enable patient to perform ADL's. OT Education/Plan Problem List/Assessment Assessment: Decreased Activ Tolerance, Decreased UE Strength, Impaired Bed Mobility, Impaired Funct Balance, Impaired I ADL's, Impaired Self-Care Skills Discharge Recommendations Plan/Recommendations: Continue POC Treatment Plan/Plan of Care Patient would benefit from OT for education, treatment and training to promote independence in ADL's, mobility, safety and/or upper extremity function for ADL's. Plan of Care: ADL Retraining, Functional Mobility, Group Exercise/Act as Ind, UE Funct Exercise/Act Treatment Duration: Apr 12, 2020 Frequency: At least 5 of 7 days/Wk (IRF) Estimated Hrs Per Day: 1.5 hours per day Rehab Potential: Fair Time/GCodes Start Time: 08:30 Stop Time: 10:00 Total Time Billed (hr/min): 90 Billed Treatment Time 1, ADL 3 (45'), FA 3 (45') EBENEZER THOMAS OT Mar 21, 2020 08:54
[2020-03-21] MEDS: SENNA W/DOCUSATE (SENOKOT S) TABLET PO SCH ×2 (09:44→20:45)
[2020-03-21] MEDS: DOCUSATE SODIUM 100 MG (COLACE) CAP PO SCH ×2 (09:44→20:45)
[2020-03-21] MEDS: polyethylene glycoL POWDER 17 GM (MIRALAX) PACK PO SCH ×2 (09:44→20:45)
--- NOTE | 2020-03-21 10:46 | PM&R Progress Note ---
Subjective HPI/CC On Admission Date Seen by Provider: Mar 21, 2020 Time Seen by Provider: 12:30 Subjective/Events-last exam Pt had a fall today Bowels are moving Fall occurred off the commode Right knee abrasion noted Hypotension noted so will inquire with cardiology since they are anti rhythmic medications Lasix requested for every other day instead of daily so will reach out to cardiology. Conferred with RN Reviewed therapy notes Checked meds and labs Review of Systems General: Fatigue, Malaise Pulmonary: Dyspnea, Cough Neurological: Weakness Objective Exam Vital Signs Vital Signs Date Time Temp Pulse Resp B/P (MAP) Pulse Ox O2 Delivery O2 Flow Rate FiO2 03/21/20 23:50 Nasal Cannula 2.00 03/21/20 17:06 36.4 92 18 101/54 (70) 99 Capillary Refill : Less Than 3 Seconds General Appearance: No Apparent Distress, WD/WN, Chronically ill, Thin HEENT: PERRL/EOMI, Normal ENT Inspection, Pharynx Normal Neck: Full Range of Motion, Normal Inspection, Non Tender, Supple, Carotid Bruit Respiratory: Chest Non Tender, No Accessory Muscle Use, No Respiratory Distress, Crackles, Decreased Breath Sounds Cardiovascular: Regular Rate, Rhythm, No Edema, No Gallop, No JVD, No Murmur, Normal Peripheral Pulses Gastrointestinal: Normal Bowel Sounds, No Organomegaly, No Pulsatile Mass, Non Tender, Soft Back: Normal Inspection, No CVA Tenderness, No Vertebral Tenderness Extremity: Normal Capillary Refill, Normal Inspection, Normal Range of Motion, Non Tender, No Calf Tenderness, No Pedal Edema Neurologic/Psychiatric: Alert, Oriented x3, Normal Mood/Affect, terminal manager II-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 FIM Transfers Therapy Code Descriptions/Definitions Functional [place] Measure: 0=Not Assessed/NA 4=Minimal Assistance 1=Total Assistance 5=Supervision or Setup 2=Maximal Assistance 6=Modified [place] 3=Moderate Assistance 7=Complete IndependenceSCALE: Activities may be completed with or without assistive devices. 5-Dkeiodqasb-thbaunh completes the activity by him/herself with no assistance from a helper. 5-Set-up or Clean-up Assistance-helper sets up or cleans up; patient completes activity. [place] assists only prior to or following the activity. 4-Supervision or Touching Assistance-helper provides verbal cues and/or touchi ng/steadying and/or contact guard assistance as patient completes activity. Assistance may be provided throughout the activity or intermittently. 3-Partial/Moderate Assistance-helper does LESS THAN HALF the effort. [place] lifts, holds or supports trunk or limbs, but provides less than half the effort. 2-Substantial/Maximal Assistance-helper does MORE THAN HALF the effort. [place] lifts or holds trunk or limbs and provides more than half the effort. 7-Snvsowrhk-iispyz does ALL the effort. Patient does none of the effort to complete the activity. Or, the assistance of 2 or more helpers is required for the patient to complete the activity. If activity was not attempted, code reason: 7-Patient Refused. 9-Not Applicable-not attempted and the patient did not perform the activity before the current illness, exacerbation or injury. 10-Not Attempted due to Environmental Limitations-(lack of equipment, weather restraints, etc.). 88-Not Attempted due to Medical Conditions or Safety Concerns. Roll Left to Right (QC): 6 Sit to Lying (QC): 3 Sit to Stand (QC): 3 Chair/Gbn-qc-Bhpde Xfer(QC): 4 Car Transfer (QC): 3 Gait Training Does the Patient Walk?: Yes Walk 10 feet (QC): 4 Walk 50 ft with 2 Turns(QC): 88 Walk 150 ft (QC): 88 Walking 10ft/uneven surface-QC: 4 Gait Assistive Device: FWW Wheelchair Training Does the Pt Use a Wheelchair?: No Wheel 50 ft with 2 turns (QC): 9 Wheel 150 ft (QC): 9 Stair Training 1 Step (curb) (QC): 88 4 Steps (QC): 88 12 Steps (QC): 88 Balance Picking up an Object (QC): 88 ADL-Treatment Eating (QC): 6 (Pt reports independence with task, she is able to open containers, cut food, and bring food to mouth.) Oral Hygiene (QC): 5 (Pt brushed teeth at bed level with set up of supplies.) Shower/Bathe Self (QC): 3 (Min A to wash buttocks as pt utilizes lean towards L side. Pt able to wash/dry all other parts seated.) Upper Body Dressing (QC): 5 (set up, pt able doff/don shirt.) Lower Body Dressing (QC): 2 (Pt able to manage pants down, assist to doff, assist to thread onto legs, and assist with pant hike.) On/Off Footwear (QC): 4 (SBA, pt able to don/doff gripper socks.) Toileting Hygiene (QC): 1 (Assist x2 in stand due to pt being anxious about completing task due to fall in AM. Pt able to manage pants down and complete hygiene, assist to manage pants up.) Toilet Transfer (QC): 3 (Mod A sit to stand from toilet.) Assessment/Plan Assessment and Plan Assess & Plan/Chief Complaint Assessment: Critical illness myopathy COPD AF w/RVR hx Poor reserve Colon cancer hx Breast cancer hx O2 dependency Plan: O2 Nebs Home meds IRF protocol 03/21/20: Restart Nebs O2 24/7 Home meds Fall risk (1) Critical illness myopathy Status: Acute (2) Acute on chronic respiratory failure with hypoxia Status: Acute (3) Atrial fibrillation with rapid ventricular response Status: Resolved Resolution Date/Time: 03/15/20 @ 14:09 (4) COPD (chronic obstructive pulmonary disease) Status: Acute (5) PNA (pneumonia) Status: Acute (6) Anemia Status: Chronic DUANE GIBSON DO Mar 21, 2020 10:46
--- NOTE | 2020-03-21 10:46 | Individualized Plan of Care ---
Individualized Plan of Care Rehab Nursing IPOC Order Admission Date Mar 20, 2020 at 09:47 Current Orders Orders Admission Order(Inpt,Obs,Sdc) (03/20/20 05:11) Vital Signs: Per Unit Policy ( 08,16,00 (03/20/20 05:11) Cachorro Copeland (03/20/20 05:11) Sequential Compression Device Q4H (03/20/20 05:11) Key Person-Inpt Rehab Con (03/20/20 05:11) Rehab Nursing Orders-Ipoc (03/20/20 05:11) Physical Therapy Rehab Orders (03/20/20 05:11) Occupational Therapy Rehab Ord (03/20/20 05:11) Speech Therapy Rehab Orders (03/20/20 05:11) Cbc With Automated Diff (03/21/20 06:00) Comprehensive Metabolic Panel (03/21/20 06:00) General/Regular (03/20/20 Breakfast) Precautions (Aru) (03/20/20 05:11) Rehab-Intensity Of Therapy (03/20/20 05:11) Initiate Admission Nursing Pro .admission (03/20/20 05:11) Acetaminophen Tablet (Tylenol Tablet) (03/20/20 05:15) Alprazolam Tablet (Xanax Tablet) (03/20/20 05:15) Calcium Carbonate Chew Tablet (Antacid C (03/20/20 05:15) Diphenhydramine Tablet (Benadryl Tablet) (03/20/20 05:15) Docusate Sodium Capsule (Colace Capsule) (03/20/20 09:00) Docusate Sodium Capsule (Colace Capsule) (03/20/20 05:15) Bisacodyl Suppository (Dulcolax Supposit (03/20/20 05:15) Lactulose Oral Solution (Enulose Oral So (03/20/20 05:15) Na Phos/Na Biphos Enema (Fleet Enema Reinaldo (03/20/20 05:15) Guaifenesin/Codeine Syrup (Robitussin Ac (03/20/20 05:15) Loperamide Tablet (Imodium Tablet) (03/20/20 05:15) Melatonin Tablet (Melatonin Tablet) (03/20/20 05:15) Polyethylene Glycol Powder Pkt (Miralax (03/20/20 09:00) Ondansetron Oral Dissolve Tab (Zofran (03/20/20 05:15) Senna S Tablet (Senokot S Tablet) (03/20/20 09:00) Initiate Admission Nursing Pro .admission (03/20/20 05:11) Transfer - Bed/Room/Location (03/20/20 09:45) Potassium Chloride (Tablet) (Klor Con Ta (03/21/20 07:00) Potassium Chloride (Tablet) (K Dur Table (03/20/20 11:15) Flu Quad High Dose (Fluzone Hi (03/20/20 11:30) Code/Resuscitation (03/20/20 12:00) Cachorro Hose (03/20/20 12:00) Ensure Clear (03/20/20 Lunch) General/Regular (03/20/20 Lunch) Alprazolam Tablet (Xanax Tablet) (03/20/20 12:00) Acetaminophen Tablet (Tylenol Tablet) (03/20/20 12:00) Albuterol Inhaler (Ventolin Hfa) (03/20/20 12:00) Apixaban Tablet (Eliquis Tablet) (03/20/20 21:00) Calcium Carbonate Chew Tablet (Antacid C (03/20/20 12:00) Docusate Sodium Capsule (Colace Capsule) (03/20/20 12:00) Furosemide Tablet (Lasix Tablet) (03/21/20 09:00) Hydrocodone/Apap 5/325 Tablet (Lortab 5 (03/20/20 12:00) Loperamide Tablet (Imodium Tablet) (03/20/20 12:00) Melatonin Tablet (Melatonin Tablet) (03/20/20 12:00) Ondansetron Injection (Zofran Injectio (03/20/20 12:00) Pantoprazole Tablet (Protonix Tablet) (03/21/20 09:00) Senna S Tablet (Senokot S Tablet) (03/20/20 21:00) Diltiazem Cd 24 Hr Capsule (Cardizem Cd (03/21/20 09:00) Diphenhydramine Tablet (Benadryl Tablet) (03/20/20 12:00) Alprazolam Tablet (Xanax Tablet) (03/20/20 12:15) Patient Visit (03/20/20 ) Pt Eval Moderate Complexity (03/20/20 ) Functional Activities, Ea 15 (03/20/20 ) Patient Visit (03/20/20 ) Speech Sound Lang Comp (03/20/20 ) Potassium Chloride (Tablet) (K Dur Table (03/20/20 14:10) Patient Visit (03/20/20 ) Functional Activities, Ea 15 (03/20/20 ) Patient Visit (03/21/20 ) Gait Training, Ea 15 Min (03/21/20 ) Functional Activities, Ea 15 (03/21/20 ) Exercise Therap, Ea 15 Min (03/21/20 ) Consult Cardiology (03/21/20 11:56) Albuterol/Ipra Inhalation Soln (Duoneb I (03/21/20 12:15) Svn Small Volume Nebulizer (03/21/20 12:08) Albuterol Inhaler (Ventolin Hfa) (03/21/20 21:00) Patient Visit (03/21/20 ) Gait Training, Ea 15 Min (03/21/20 ) Rehab Nursing Orders: Ongoing Assess. of Cognitive Status, Ongoing Assess. of Function Status, Bladder Management, Bladder Scan, Bladder Training, Bowel Ma nagement, Bowel Training, Disease Management & Educaiton, DVT Prophylaxis, Fall Prevention, Fluid/Electrolyte/Nutrition Mgmt, Infection Prevention, Medication Management & Education, Management of Risks & Complications, Management of Skin Intergrity, Nutrition Management, Pain Management, Patient/Family Support, Safety Management Intensity of Therapy to be met Patient to be seen: Min.3h per day/5 of 7d PT IPOC Problem List: Activity Tolerance, Functional Strength Treatment Plan: Continue Plan of Care Bed Mobility, Education, Functional Activity Jaci, Functional Strength, Group Therapy, Gait, Safety, Therapeutic Exercise, Transfers Treatment Duration: Apr 10, 2020 Frequency: At least 5 of 7 days/Wk (IRF) Estimated Hrs Per Day: 1.5 hours per day OT IPOC Problems: Decreased Activ Tolerance, Decreased UE Strength, Impaired Bed Mobility, Impaired Funct Balance, Impaired I ADL's, Impaired Self-Care Skills OT Treatment, Training and Edu: Yes Plan of Care: ADL Retraining, Functional Mobility, Group Exercise/Act as Ind, UE Funct Exercise/Act Treatment Duration: Apr 12, 2020 Frequency: At least 5 of 7 days/Wk (IRF) Estimated Hrs Per Day: 1.[address] IPOC Speech Therapy Treatment Plan: Discontinue ST Treatment Duration: Mar 20, 2020 Frequency: 1 time per week Estimated Hrs Per Day: .5 hour per day Key Person/Case Mgmt Key Person/Case Managemen: Discharge Planning Dietitian/Industrial Engineering Dietitian/Industrial Engineering to monitor nutritional status and make changes and/or recommendations as needed and work with speech pathology on dietary upgrades as the occur. Physician IPOC Medical Issues being managed closely and that require the 24 hour availability of a physician: Severe O2 dependent COPD with recent lengthy stay due to resp failure with continued coarseness in the lungs will require close monitoring for decompensation Medical Issues: Bowel/Bladder Function, DVT Prophylaxis, Falls Precautions, Fluid/Electrolyte/Nutrition Balance, Infection Protection, Pain Management Brief Synthesis of Preadmission Screen, Post-Admission Evaluation, and Therapy Evaluations: PT OT will focus on regaining strength while increasing stamina with lung function improvements and regaining ADL's Medical Prognosis: Good Anticipated Length of Stay: 10 days DUANE GIBSON DO Mar 21, 2020 10:46
--- NOTE | 2020-03-21 12:07 | Physical Therapy Daily Note ---
PT Daily Note-Current Subjective Pt laying in bed, hesitant about therapy due to falling off toilet this morning. Pt reports she feels like she may get a slight headache, and has a knot on her forehead. OT notified pt's nurse who is aware of the fall, and provided pt with pain medicine. Pt agrees to PT/OT co-treat. Mental Status Patient Orientation: Person, Place, Situation Attachments: Oxygen (2L) Transfers SCALE: Activities may be completed with or without assistive devices. 6-Wxchmuvgeq-hitwwpj completes the activity by him/herself with no assistance from a helper. 5-Set-up or Clean-up Assistance-helper sets up or cleans up; patient completes activity. [place] assists only prior to or following the activity. 4-Supervision or Touching Assistance-helper provides verbal cues and/or touching/steadying and/or contact guard assistance as patient completes activity. Assistance may be provided throughout the activity or intermittently. 3-Partial/Moderate Assistance-helper does LESS THAN HALF the effort. [place] lifts, holds or supports trunk or limbs, but provides less than half the effort. 2-Substantial/Maximal Assistance-helper does MORE THAN HALF the effort. [place] lifts or holds trunk or limbs and provides more than half the effort. 9-Cglltsrca-qcznkp does ALL the effort. Patient does none of the effort to complete the activity. Or, the assistance of 2 or more helpers is required for the patient to complete the activity. If activity was not attempted, code reason: 7-Patient Refused. 9-Not Applicable-not attempted and the patient did not perform the activity before the current illness, exacerbation or injury. 10-Not Attempted due to Environmental Limitations-(lack of equipment, weather restraints, etc.). 88-Not Attempted due to Medical Conditions or Safety Concerns. Sit to Stand (QC): 4 Toilet Transfer (QC): 3 Weight Bearing Full Weight Bearing Full Weight Bearing Gait Training Does the Patient Walk?: Yes Distance: 20' x2, 10' Walk 10 feet (QC): 4 Walk 50 ft with 2 Turns(QC): 4 Wheelchair Training Does the Pt Use a Wheelchair?: Yes Type of Wheelchair: Manual Exercises Seated Therapy Exercises: Ankle pumps, Long arc quads, Hip flexion, Kicking activity Seated Reps: 15 Treatments [id number] OT/PT cotreat: OT/PT cotreat due to skill of 2 clinicians required which a director of rehabilitation could not perform in order to coordinate UE/LEs with tasks, and due to pt's limitations in strength, functional mobility, and functional endurance. OT focused on UE placement, ADLs, cues for sequencing and safety, and reaching while PT focused on ambulation, transfers, LE placement, and gross overall movements. Pt expressed nervousness with transfers/ambulation due to fall this morning, OT/PT encouraged pt to participate in therapy in order to get comfortable with transfers/mobility again. Pt transferred supine to sit EOB, stating she feels like she may need to use the restroom. Pt stood at FWW, slight dizziness but cleared after a few seconds. Pt ambulated into the bathroom, stood in front of toilet, managed pants down, and sat on toilet. Pt completed toileting, and lower body dressing at toilet. Mod A to stand from toilet. Pt then used FWW to ambulate from bathroom to doorway of room, expressing fatigue requiring a seated rest break in w/c. Pt able to complete another short ambulation (~10') using FWW with w/c follow before requiring a rest break. Pt self-propelled w/c back to beside her bed, stood at FWW and transferred to EOB. Assist to bring BLEs into bed to transfer supine. Post OT/PT cotreat pt laying in bed, call light in reach and all needs met. Assessment Current Status: Fair Progress Pt fatigues easily and needs frequent RB. PT Short Term Goals Short Term Goals Time Frame: Mar 27, 2020 Roll Left & Right: 6 Sit to lyin (Brigid) Lying to sitting on side of be: 3 (Brigid) Sit to stand: 4 Chair/kyw-li-gqmdh transfer: 4 Walk 10 feet: 4 Walk 50 feet with two turns: 4 PT Enterprise Applications Manager Goals Chcf Goals PT Chcf Goals Time Frame: Apr 10, 2020 Roll Left & Right (QC): 6 Sit to Lying (QC): 6 Lying-Sitting on Side/Bed(QC): 6 Sit to Stand (QC): 5 Chair/Sgf-cq-Wpvyz Xfer(QC): 5 Toilet Transfer (QC): 5 Car Transfer (QC): 5 Does the Patient Walk: Yes Walk 10 feet (QC): 4 Walk 50ft with 2 Turns (QC): 4 Walk 150 ft (QC): 4 Walking 10ft on Uneven Surface: 4 1 Step (curb) (QC): 4 4 Steps (QC): 4 12 Steps (QC): 88 Picking up an Object (QC): 88 Wheel 50 feet with 2 turns (QC: 9 Wheel 150 feet: 9 PT Plan Problem List Problem List: Activity Tolerance, Functional Strength, Safety, Gait, Transfer Treatment/Plan Treatment Plan: Continue Plan of Care Treatment Plan: Bed Mobility, Education, Functional Activity Jaci, Functional Strength, Group Therapy, Gait, Safety, Therapeutic Exercise, Transfers Treatment Duration: Apr 10, 2020 Frequency: At least 5 of 7 days/Wk (IRF) Estimated Hrs Per Day: 1.5 hours per day Patient and/or Family Agrees t: Yes Safety Risks/Education Patient Education: Gait Training, Transfer Techniques, Correct Positioning, Safety Issues Teaching Recipient: Patient Teaching Methods: Discussion Response to Teaching: Verbalize Understanding Time/GCodes Time In: 900 Time Out: 1000 Total Billed Treatment Time: 60 Total Billed Treatment 1, GT (15m), FA (20m) & EX x2 (25m) VLAD ORTIZ ACCOUNTING ANALYST Mar 21, 2020 12:07
[2020-03-21] MEDS ORDERED: RT-ALBUTEROL/IPRATROPIUM 3 ML (DUONEB) VIAL INH SCH (12:15)
--- NOTE | 2020-03-21 12:19 | NUR ---
"RD ASSESSMENT PMHx: afib; COPD; PT INTERACTION: Pt was awake and pleasant during nutrition follow-up. Pt states she has not been eating well since last assessment. Note avg PO intake 83% x3meal, per chart review. Pt states no issues with nausea, vomiting, constipation, or diarrhea since last assessment. Note last BM was 03/21, and pt currently on bowel regimen of colace BID, senna BID, and miralax BID, per chart review. ABNORMAL NUTRITION-RELATED LAB VALUES LOW: Ca 8.5; Pro 5.3; alb 2.3; HIGH: AST 41; ALT 65; Est. kcal needs: 5560-1256 kcal | 25-30 kcal/kg Est. Pro needs: 58-69 g Pro | 1.0-1.2 g Pro/kg PES STATEMENT: Inadequate protein intake ([id number]) related to poor appetite as evidenced by pt interview, and abnormal low laboratory values Pro (5.3), alb (2.3). INTERVENTION: Continue with current diet order of Regular diet. Continue with current supplementation order of Ensure Clear (vary) with meals, for increased kcal and protein intake. Provides 250 kcal and 8 g Pro per serving. Will continue to follow and reassess as pt needs, intake, and status change. Joi Sanchez, MS RD LD"
--- NOTE | 2020-03-21 13:57 | Physical Therapy Daily Note ---
PT Daily Note-Current Subjective Patient reports frustration with weakness. Agrees to PT. Mental Status Patient Orientation: Normal For Age Attachments: Oxygen Transfers SCALE: Activities may be completed with or without assistive devices. 3-Nwjnniehfv-bhfhyyj completes the activity by him/herself with no assistance from a helper. 5-Set-up or Clean-up Assistance-helper sets up or cleans up; patient completes activity. [place] assists only prior to or following the activity. 4-Supervision or Touching Assistance-helper provides verbal cues and/or touching/steadying and/or contact guard assistance as patient completes activity. Assistance may be provided throughout the activity or intermittently. 3-Partial/Moderate Assistance-helper does LESS THAN HALF the effort. [place] lifts, holds or supports trunk or limbs, but provides less than half the effort. 2-Substantial/Maximal Assistance-helper does MORE THAN HALF the effort. [place] lifts or holds trunk or limbs and provides more than half the effort. 8-Cvcckisyw-kiepbh does ALL the effort. Patient does none of the effort to complete the activity. Or, the assistance of 2 or more helpers is required for the patient to complete the activity. If activity was not attempted, code reason: 7-Patient Refused. 9-Not Applicable-not attempted and the patient did not perform the activity before the current illness, exacerbation or injury. 10-Not Attempted due to Environmental Limitations-(lack of equipment, weather restraints, etc.). 88-Not Attempted due to Medical Conditions or Safety Concerns. Sit to Lying (QC): 5 Lying to Sitting/Side of Bed(Q: 5 Sit to Stand (QC): 3 Chair/Twj-us-Oqdka Xfer(QC): 3 Toilet Transfer (QC): 3 Gait Training Does the Patient Walk?: Yes Distance: 60' x 2 Walk 10 feet (QC): 3 Walk 50 ft with 2 Turns(QC): 3 Gait Assistive Device: FWW slow, steady gait sequence with frequent standing recovery periods due to fatigue. Exercises Seated Therapy Exercises: Ankle pumps, Long arc quads Seated Reps: 15 Assessment Patient continues to fatigue with minimal activity. PT to increase activity as tolerated by patient. Patient voices she is fearful of falling. PT Short Term Goals Short Term Goals Time Frame: Mar 27, 2020 Roll Left & Right: 6 Sit to lyin (Brigid) Lying to sitting on side of be: 3 (Brigid) Sit to stand: 4 Chair/xjd-li-sdxwl transfer: 4 Walk 10 feet: 4 Walk 50 feet with two turns: 4 PT Penitentiary Goals Massage Operator Goals PT Massage Operator Goals Time Frame: Apr 10, 2020 Roll Left & Right (QC): 6 Sit to Lying (QC): 6 Lying-Sitting on Side/Bed(QC): 6 Sit to Stand (QC): 5 Chair/Ymj-sh-Qdvxy Xfer(QC): 5 Toilet Transfer (QC): 5 Car Transfer (QC): 5 Does the Patient Walk: Yes Walk 10 feet (QC): 4 Walk 50ft with 2 Turns (QC): 4 Walk 150 ft (QC): 4 Walking 10ft on Uneven Surface: 4 1 Step (curb) (QC): 4 4 Steps (QC): 4 12 Steps (QC): 88 Picking up an Object (QC): 88 Wheel 50 feet with 2 turns (QC: 9 Wheel 150 feet: 9 PT Plan Treatment/Plan Treatment Plan: Continue Plan of Care Treatment Plan: Bed Mobility, Education, Functional Activity Jaci, Functional Strength, Group Therapy, Gait, Safety, Therapeutic Exercise, Transfers Treatment Duration: Apr 10, 2020 Frequency: At least 5 of 7 days/Wk (IRF) Estimated Hrs Per Day: 1.5 hours per day Patient and/or Family Agrees t: Yes Time/GCodes Time In: 1315 Time Out: 1345 Total Billed Treatment Time: 30 Total Billed Treatment 1 visit GT x 2 30 min MATILDA BAKER PT Mar 21, 2020 13:57
[2020-03-21 17:06] VITALS: BP 101/54
[2020-03-21] MEDS: HYDROcodone/APAP 5 MG/325 MG (LORTAB) TAB PO PRN (20:47)
[2020-03-22] MEDS: RT-ALBUTEROL INHALER HFA (VENTOLIN HFA) 18 GM IH SCH ×4 (00:35→20:29)
[2020-03-22 06:00] VITALS: BP 100/57
[2020-03-22] MEDS: KCL 10 MEQ TAB (MICRO K) PO SCH (06:25)
[2020-03-22 08:00] VITALS: BP 121/57
[2020-03-22] MEDS: PANTOPRAZOLE 40 MG (PROTONIX) TAB PO SCH (08:51)
[2020-03-22] MEDS: FUROSEMIDE 40 MG (LASIX) TAB PO SCH (08:51)
[2020-03-22] MEDS: APIXABAN 5 MG (ELIQUIS) TABLET PO SCH ×2 (08:51→20:22)
[2020-03-22] MEDS: polyethylene glycoL POWDER 17 GM (MIRALAX) PACK PO SCH ×2 (08:52→20:23)
[2020-03-22] MEDS: SENNA W/DOCUSATE (SENOKOT S) TABLET PO SCH ×2 (08:52→20:24)
[2020-03-22] MEDS: DOCUSATE SODIUM 100 MG (COLACE) CAP PO SCH ×2 (08:52→20:23)
--- NOTE | 2020-03-22 09:11 | Physical Therapy Daily Note ---
PT Daily Note-Current Subjective Pt. at edge of bed and c/o fatigue and SOB and very little tolerance to stand or walk. Explains what her set up was like at home and that she never got on her feet without assist . Rates her exertion at 8/10 with only sit to stands. Co Rx with OT secondary to poor tolerance for activity, debility, dyspnea requiring Rx of 2 skilled clinicians. Pain Numeric Pain Scale: 4 Location: Medial Location Body Site: Sacrum Pain Description: Burning Appearance dyspnea noted, pt. frail and posture head forward, kyphotic, LEs shaking when pt. weight bears and exerts Mental Status Patient Orientation: Person, Place, Time, Situation Attachments: Oxygen (1L) Transfers SCALE: Activities may be completed with or without assistive devices. 3-Mrtfwcdplk-pjnbuzo completes the activity by him/herself with no assistance from a helper. 5-Set-up or Clean-up Assistance-helper sets up or cleans up; patient completes activity. [place] assists only prior to or following the activity. 4-Supervision or Touching Assistance-helper provides verbal cues and/or touching/steadying and/or contact guard assistance as patient completes activity. Assistance may be provided throughout the activity or intermittently. 3-Partial/Moderate Assistance-helper does LESS THAN HALF the effort. [place] lifts, holds or supports trunk or limbs, but provides less than half the effort. 2-Substantial/Maximal Assistance-helper does MORE THAN HALF the effort. [place] lifts or holds trunk or limbs and provides more than half the effort. 4-Uhgmgjmhp-mffgvp does ALL the effort. Patient does none of the effort to complete the activity. Or, the assistance of 2 or more helpers is required for the patient to complete the activity. If activity was not attempted, code reason: 7-Patient Refused. 9-Not Applicable-not attempted and the patient did not perform the activity before the current illness, exacerbation or injury. 10-Not Attempted due to Environmental Limitations-(lack of equipment, weather restraints, etc.). 88-Not Attempted due to Medical Conditions or Safety Concerns. Roll Left & Right (QC): 4 Sit to Lying (QC): 3 Lying to Sitting/Side of Bed(Q: 3 Sit to Stand (QC): 2 (from toilet and other low surfaces max to mod assist required) Chair/Gok-dq-Dhcam Xfer(QC): 4 Toilet Transfer (QC): 2 BSC placed over toilet as pt. struggled to come up from toilet using rails on wall and therpist assist. Weight Bearing Full Weight Bearing Full Weight Bearing Gait Training Does the Patient Walk?: Yes Walk 10 feet (QC): 4 Walk 50 ft with 2 Turns(QC): 4 Gait Persons Needed: 1 Gait Assistive Device: FWW slow, LEs shaking and weak. gait 14 ft x 2 with extended O2 min assist and assist to manage extended O2 tubing, pt. very fatigued after reaching her destination Exercises Seated Therapy Exercises: Ankle pumps, Sit to stand, Long arc quads Seated Reps: 10 Treatments co Rx for edge of bed bath and dressing , pt. requiring frequent rests. Sit to stands and donning clothing in many stages , PT for sit to stand and balance , OT instructing and assisting in sequence and energy cons Assessment Current Status: Good Progress fatigues easily, dyspneic but O2 sats were >90%, nurse assessed pt. PT Short Term Goals Short Term Goals Time Frame: Mar 27, 2020 Roll Left & Right: 6 Sit to lyin (Brigid) Lying to sitting on side of be: 3 (Brigid) Sit to stand: 4 Chair/ysx-kx-qoczn transfer: 4 Walk 10 feet: 4 Walk 50 feet with two turns: 4 PT Tank Builder Goals Half-Way Goals PT Half-Way Goals Time Frame: Apr 10, 2020 Roll Left & Right (QC): 6 Sit to Lying (QC): 6 Lying-Sitting on Side/Bed(QC): 6 Sit to Stand (QC): 5 Chair/Qwl-ye-Eoyjv Xfer(QC): 5 Toilet Transfer (QC): 5 Car Transfer (QC): 5 Does the Patient Walk: Yes Walk 10 feet (QC): 4 Walk 50ft with 2 Turns (QC): 4 Walk 150 ft (QC): 4 Walking 10ft on Uneven Surface: 4 1 Step (curb) (QC): 4 4 Steps (QC): 4 12 Steps (QC): 88 Picking up an Object (QC): 88 Wheel 50 feet with 2 turns (QC: 9 Wheel 150 feet: 9 PT Plan Treatment/Plan Treatment Plan: Continue Plan of Care Treatment Plan: Bed Mobility, Education, Functional Activity Jaci, Functional Strength, Group Therapy, Gait, Safety, Therapeutic Exercise, Transfers Treatment Duration: Apr 10, 2020 Frequency: At least 5 of 7 days/Wk (IRF) Estimated Hrs Per Day: 1.5 hours per day Patient and/or Family Agrees t: Yes Safety Risks/Education Patient Education: Gait Training, Transfer Techniques, Correct Positioning, Disease Process, Safety Issues Teaching Recipient: Patient Teaching Methods: Demonstration, Discussion Response to Teaching: Verbalize Understanding, Return Demonstration, Reinforcement Needed Time/GCodes Time In: 800 Time Out: 900 Total Billed Treatment Time: 60 Total Billed Treatment 1,GT15m,FA45m (co Rx 60 m OT) NATE GRAVES COMMERCIAL SALES REPRESENTATIVE Mar 22, 2020 09:11
--- NOTE | 2020-03-22 09:47 | NUR ---
CM/SS ADMISSION Patient admitted to ARU from [facility] 03/20/20 for Critical Illness Myopathy. Patient reports being in [facility] at the beginning of January and discharging home with new Home O2 and HHC. She describes never regaining wellness at or after being at [facility]; she presented to [facility] ED 02/28 and has remained hospitalized here since that time for acute hypoxic respiratory failure due to exacerbation of COPD. Other comorbidities are, in part, atrial fibrillation with RVR, pneumonia, chronic anemia, history of colon and breast cancer, current poor reserve from lengthy illness. PCP: Dr. Baljinder Garzon DO, [place]. Patient states made a couple of house calls after she returned home from [facility]. [phone] PHARMACY: [facility] INSURANCE: Medicare and [facility] DME: Patient has home O2, FWW, BSC, toilet riser, shower chair. She desires a gait belt. HHC: Was established with [facility], she is pleased with their services and wishes to resume with them at discharge. [phone] BARRIERS TO DISCHARGE PLANNING: Patient's overall deconditioned state and level of dependence at this time. Patient is very motivated and desires to return home with her spouse and daughter as soon as medically/functionally stable. Patient indicates they can assist her as needed and that her daughter is there all the time because she does not work. CONTACTS: Zuhair Mendez, [phone] [place], [phone] [place] [address] [place] [id number] Patient understands the purpose and process of the weekly patient care conference and that her first review will be Wednesday, March 27, 2020.
--- NOTE | 2020-03-22 11:11 | Occupational Ther Daily Note ---
OT Current Status-Daily Note Subjective Pt agreeable to OT/PT cotreat, rates pain 4/10 in head and buttocks. She feels "stiff" today from fall yesterday AM. Mental Status/Objective Patient Orientation: Person, Place, Time, Situation ADL-Treatment Therapy Code Descriptions/Definitions Functional [place] Measure: 0=Not Assessed/NA 4=Minimal Assistance 1=Total Assistance 5=Supervision or Setup 2=Maximal Assistance 6=Modified [place] 3=Moderate Assistance 7=Complete IndependenceSCALE: Activities may be completed with or without assistive devices. 5-Hltegfxmsz-belcbgw completes the activity by him/herself with no assistance from a helper. 5-Set-up or Clean-up Assistance-helper sets up or cleans up; patient completes activity. [place] assists only prior to or following the activity. 4-Supervision or Touching Assistance-helper provides verbal cues and/or touching/steadying and/or contact guard assistance as patient completes activity. Assistance may be provided throughout the activity or intermittently. 3-Partial/Moderate Assistance-helper does LESS THAN HALF the effort. [place] lifts, holds or supports trunk or limbs, but provides less than half the effort. 2-Substantial/Maximal Assistance-helper does MORE THAN HALF the effort. [place] lifts or holds trunk or limbs and provides more than half the effort. 3-Akcghvcwe-saluuz does ALL the effort. Patient does none of the effort to complete the activity. Or, the assistance of 2 or more helpers is required for the patient to complete the activity. If activity was not attempted, code reason: 7-Patient Refused. 9-Not Applicable-not attempted and the patient did not perform the activity before the current illness, exacerbation or injury. 10-Not Attempted due to Environmental Limitations-(lack of equipment, weather restraints, etc.). 88-Not Attempted due to Medical Conditions or Safety Concerns. Shower/Bathe Self (QC): 3 (Min A standing balance. Pt able to wash/dry all parts completing a sponge bath at EOB.) Upper Body Dressing (QC): 5 (set up, pt able to don/doff assembler for puller over hand shirt.) Lower Body Dressing (QC): 3 (Pt able to doff pants, min A standing balance. Able to thread BLEs into pants, min A with pant hike.) On/Off Footwear: 4 (SBA, pt able to doff/don gripper socks) Toileting Hygiene (QC): 3 (Pt able to mange pants down and perform hygine, required assistance managing pants up due to fatigue.) Toilet Transfer (QC): 2 (Mod-Max A sit to stand from toilet) Other Treatment OT/PT cotreat due to skill of 2 clinicians required which a clinical rehabilitation specialist could not perform in order to coordinate UE/LEs with tasks, and due to pt's limitations in functional mobility, functional endurance, and strength. OT focused on ADLs, UE placement, cues for sequencing and safety, while PT focused on functional transfers, ambulation, LE placement, and gross overall movements. Pt transferred supine to sit EOB where she completed sponge bath and dressing. Pt then used FWW to ambulate into the bathroom, transferring onto toilet and completed toileting. Pt required mod-max A with sit to stand from toilet. Pt indicates she uses a BSC at home, or if she goes into the restroom she has a toilet riser. OT placed a BSC over pt's toilet. Pt used FWW to return to bed. Post OT/PT cotreat, pt laying in bed, call light in reach and all needs met. Education OT Patient Education: Correct positioning, Modified ADL techniques, Progress toward Goal/Update tx plan, Purpose of tx/functional activities, Safety issues, Transfer techniques Teaching Recipient: Patient Teaching Methods: Discussion Response to Teaching: Verbalize Understanding OT Short Term Goals Short Term Goals Time Frame: Apr 03, 2020 Toileting hygiene: 4 Shower/bathe self: 4 Lower body dressin OT Miniature Set Constructor Goals Miniature Set Constructor Goals Time Frame: Apr 12, 2020 Eating (QC): 6 Oral Hygiene (QC): 6 Toileting Hygiene (QC): 6 Shower/Bathe Self (QC): 4 Upper Body Dressing (QC): 6 Lower Body Dressing (QC): 4 On/Off Footwear (QC): 4 Additional Goals: 1-Demonstrate ADL Tasks, 2-Verbalize Understanding, 3- ImproveStrength/Jaci 1=Demonstrate adherence to instructed precautions during ADL tasks. 2=Patient will verbalize/demonstrate understanding of assistive devices/modifications for ADL. 3=Patient will improve strength/tolerance for activity to enable patient to perform ADL's. OT Education/Plan Problem List/Assessment Assessment: Decreased Activ Tolerance, Decreased UE Strength, Impaired Bed Mo bility, Impaired Funct Balance, Impaired I ADL's, Impaired Self-Care Skills Discharge Recommendations Plan/Recommendations: Continue POC Treatment Plan/Plan of Care Patient would benefit from OT for education, treatment and training to promote independence in ADL's, mobility, safety and/or upper extremity function for ADL's. Plan of Care: ADL Retraining, Functional Mobility, Group Exercise/Act as Ind, UE Funct Exercise/Act Treatment Duration: Apr 12, 2020 Frequency: At least 5 of 7 days/Wk (IRF) Estimated Hrs Per Day: 1.5 hours per day Rehab Potential: Fair Time/GCodes Start Time: 08:00 Stop Time: 09:00 Total Time Billed (hr/min): 60 Billed Treatment Time OT/PT cotreat x60' 1, ADL 4 EBENEZER THOMAS OT Mar 22, 2020 11:11
--- NOTE | 2020-03-22 12:25 | PM&R Progress Note ---
Subjective HPI/CC On Admission Date Seen by Provider: Mar 22, 2020 Time Seen by Provider: 12:30 Subjective/Events-last exam 03/22/20: No falls Dyspnea continues Nebs ordered No pain reported Pt had a fall today Bowels are moving Fall occurred off the commode Right knee abrasion noted Hypotension noted so will inquire with cardiology since they are anti rhythmic medications Lasix requested for every other day instead of daily so will reach out to cardiology. Conferred with RN Reviewed therapy notes Checked meds and labs Review of Systems General: Fatigue, Malaise Pulmonary: Dyspnea Neurological: Weakness Objective Exam Vital Signs Vital Signs Date Time Temp Pulse Resp B/P (MAP) Pulse Ox O2 Delivery O2 Flow Rate FiO2 03/23/20 05:07 36.6 100 18 108/56 (73) 92 Nasal Cannula 1.00 Capillary Refill : Less Than 3 Seconds General Appearance: No Apparent Distress, WD/WN, Chronically ill, Thin HEENT: PERRL/EOMI, Normal ENT Inspection, Pharynx Normal Neck: Full Range of Motion, Normal Inspection, Non Tender, Supple, Carotid Bruit Respiratory: Chest Non Tender, No Accessory Muscle Use, No Respiratory Distress, Crackles, Decreased Breath Sounds Cardiovascular: Regular Rate, Rhythm, No Edema, No Gallop, No JVD, No Murmur, Normal Peripheral Pulses Gastrointestinal: Normal Bowel Sounds, No Organomegaly, No Pulsatile Mass, Non Tender, Soft Back: Normal Inspection, No CVA Tenderness, No Vertebral Tenderness Extremity: Normal Capillary Refill, Normal Inspection, Normal Range of Motion, Non Tender, No Calf Tenderness, No Pedal Edema Neurologic/Psychiatric: Alert, Oriented x3, Normal Mood/Affect, impregnator carbon products II-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 FIM Transfers Therapy Code Descriptions/Definitions Functional [place] Measure: 0=Not Assessed/NA 4=Minimal Assistance 1=Total Assistance 5=Supervision or Setup 2=Maximal Assistance 6=Modified [place] 3=Moderate Assistance 7=Complete IndependenceSCALE: Activities may be completed with or without assistive devices. 2-Hywwzdbfwh-krvgmzg completes the activity by him/herself with no assistance from a helper. 5-Set-up or Clean-up Assistance-helper sets up or cleans up; patient completes activity. [place] assists only prior to or following the activity. 4-Supervision or Touching Assistance-helper provides verbal cues and/or touching/steadying and/or contact guard assistance as patient completes activity. Assistance may be provided throughout the activity or intermittently. 3-Partial/Moderate Assistance-helper does LESS THAN HALF the effort. [place] lifts, holds or supports trunk or limbs, but provides less than half the effort. 2-Substantial/Maximal Assistance-helper does MORE THAN HALF the effort. [place] lifts or holds trunk or limbs and provides more than half the effort. 2-Qvvgkygpv-mthmhs does ALL the effort. Patient does none of the effort to complete the activity. Or, the assistance of 2 or more helpers is required for the patient to complete the activity. If activity was not attempted, code reason: 7-Patient Refused. 9-Not Applicable-not attempted and the patient did not perform the activity before the current illness, exacerbation or injury. 10-Not Attempted due to Environmental Limitations-(lack of equipment, weather restraints, etc.). 88-Not Attempted due to Medical Conditions or Safety Concerns. Roll Left to Right (QC): 4 Sit to Lying (QC): 3 Sit to Stand (QC): 2 (from toilet and other low surfaces max to mod assist required) Chair/Cgp-gd-Tzlsz Xfer(QC): 4 Car Transfer (QC): 3 Gait Training Does the Patient Walk?: Yes Distance: 60' x 2 Walk 10 feet (QC): 4 Walk 50 ft with 2 Turns(QC): 4 Walk 150 ft (QC): 88 Walking 10ft/uneven surface-QC: 4 Gait Persons Needed: 1 Gait Assistive Device: FWW Wheelchair Training Does the Pt Use a Wheelchair?: Yes Wheel 50 ft with 2 turns (QC): 9 Wheel 150 ft (QC): 9 Type of Wheelchair: Manual Stair Training 1 Step (curb) (QC): 88 4 Steps (QC): 88 12 Steps (QC): 88 Balance Picking up an Object (QC): 88 ADL-Treatment Eating (QC): 6 (Pt reports independence with task, she is able to open containers, cut food, and bring food to mouth.) Oral Hygiene (QC): 5 (Pt brushed teeth at bed level with set up of supplies.) Shower/Bathe Self (QC): 3 (Min A standing balance. Pt able to wash/dry all parts completing a sponge bath at EOB.) Upper Body Dressing (QC): 5 (set up, pt able to don/doff test puller shirt.) Lower Body Dressing (QC): 3 (Pt able to doff pants, min A standing balance. Able to thread BLEs into pants, min A with pant hike.) On/Off Footwear (QC): 4 (SBA, pt able to doff/don gripper socks) Toileting Hygiene (QC): 3 (Pt able to mange pants down and perform hygine, required assistance managing pants up due to fatigue.) Toilet Transfer (QC): 2 (Mod-Max A sit to stand from toilet) Assessment/Plan Assessment and Plan Assess & Plan/Chief Complaint Assessment: Critical illness myopathy COPD AF w/RVR hx Poor reserve Colon cancer hx Breast cancer hx O2 dependency Plan: O2 Nebs Home meds IRF protocol 03/21/20: Restart Nebs O2 / Home meds Fall risk 03/22/20: Nebs Monitor lungs Rehab therapies (1) Critical illness myopathy Status: Acute (2) Acute on chronic respiratory failure with hypoxia Status: Acute (3) Atrial fibrillation with rapid ventricular response Status: Resolved Resolution Date/Time: 03/15/20 @ 14:09 (4) COPD (chronic obstructive pulmonary disease) Status: Acute (5) PNA (pneumonia) Status: Acute (6) Anemia Status: Chronic DUANE GIBSON DO Mar 22, 2020 12:25
--- NOTE | 2020-03-22 13:25 | Physical Therapy Daily Note ---
PT Daily Note-Current Subjective Pt. states she is tired from getting up so many times to go to the bathroom to urinate. Agrees to bed exercise and TRFs Pain Numeric Pain Scale: 4 Location: Medial Location Body Site: Sacrum Pain Description: Burning Mental Status Patient Orientation: Normal For Age Transfers SCALE: Activities may be completed with or without assistive devices. 4-Bcyyqrpoms-tsmezwy completes the activity by him/herself with no assistance from a helper. 5-Set-up or Clean-up Assistance-helper sets up or cleans up; patient completes activity. [place] assists only prior to or following the activity. 4-Supervision or Touching Assistance-helper provides verbal cues and/or touching/steadying and/or contact guard assistance as patient completes activity. Assistance may be provided throughout the activity or intermittently. 3-Partial/Moderate Assistance-helper does LESS THAN HALF the effort. [place] lifts, holds or supports trunk or limbs, but provides less than half the effort. 2-Substantial/Maximal Assistance-helper does MORE THAN HALF the effort. [place] lifts or holds trunk or limbs and provides more than half the effort. 7-Yrlalkxwa-gktumu does ALL the effort. Patient does none of the effort to complete the activity. Or, the assistance of 2 or more helpers is required for the patient to complete the activity. If activity was not attempted, code reason: 7-Patient Refused. 9-Not Applicable-not attempted and the patient did not perform the activity before the current illness, exacerbation or injury. 10-Not Attempted due to Environmental Limitations-(lack of equipment, weather restraints, etc.). 88-Not Attempted due to Medical Conditions or Safety Concerns. rolls left to right, pushes self up in bed indep but on her side as bottom hurts Weight Bearing Full Weight Bearing Full Weight Bearing Exercises Supine Ex: Bridging, Ankle pumps, Quad Set, Rolling, Glut sets, Heel Slides, Scooting (up in bed on side), Straight leg raise, Hip abd/add Supine Reps: 15 (7x, 8x) Treatments needs rest breaks, careful movements as pts coccyx is painful, avoiding shearing Assessment Current Status: Good Progress frequent rest brakes, fatigues PT Short Term Goals Short Term Goals Time Frame: Mar 27, 2020 Roll Left & Right: 6 Sit to lyin ([place]) Lying to sitting on side of be: 3 ([place]) Sit to stand: 4 Chair/eft-ft-myoxu transfer: 4 Walk 10 feet: 4 Walk 50 feet with two turns: 4 PT Senior Living Goals Business Mail Entry Clerk Goals PT Business Mail Entry Clerk Goals Time Frame: Apr 10, 2020 Roll Left & Right (QC): 6 Sit to Lying (QC): 6 Lying-Sitting on Side/Bed(QC): 6 Sit to Stand (QC): 5 Chair/Dgh-tl-Lbdxi Xfer(QC): 5 Toilet Transfer (QC): 5 Car Transfer (QC): 5 Does the Patient Walk: Yes Walk 10 feet (QC): 4 Walk 50ft with 2 Turns (QC): 4 Walk 150 ft (QC): 4 Walking 10ft on Uneven Surface: 4 1 Step (curb) (QC): 4 4 Steps (QC): 4 12 Steps (QC): 88 Picking up an Object (QC): 88 Wheel 50 feet with 2 turns (QC: 9 Wheel 150 feet: 9 PT Plan Treatment/Plan Treatment Plan: Continue Plan of Care Treatment Plan: Bed Mobility, Education, Functional Activity Jaci, Functional Strength, Group Therapy, Gait, Safety, Therapeutic Exercise, Transfers Treatment Duration: Apr 10, 2020 Frequency: At least 5 of 7 days/Wk (IRF) Estimated Hrs Per Day: 1.5 hours per day Patient and/or Family Agrees t: Yes Safety Risks/Education Patient Education: Transfer Techniques, Issued Written HEP, Correct Posi tioning, Disease Process, Safety Issues Teaching Recipient: Patient Teaching Methods: Demonstration, Discussion Response to Teaching: Verbalize Understanding, Return Demonstration, Reinforce ment Needed discussed again sit to stand from BSC over toilet Time/GCodes Time In: 1300 Time Out: 1330 Total Billed Treatment Time: 30 Total Billed Treatment 1,FA10m,Ex20m NATE GRAVES YOUTH MANAGER Mar 22, 2020 13:25
--- NOTE | 2020-03-22 14:43 | Occupational Ther Daily Note ---
OT Current Status-Daily Note Subjective Pt laying in bed, agreeable to OT tx. Mental Status/Objective Patient Orientation: Person, Place, Time, Situation Attachments: Oxygen ADL-Treatment Therapy Code Descriptions/Definitions Functional [place] Measure: 0=Not Assessed/NA 4=Minimal Assistance 1=Total Assistance 5=Supervision or Setup 2=Maximal Assistance 6=Modified [place] 3=Moderate Assistance 7=Complete IndependenceSCALE: Activities may be completed with or without assistive devices. 1-Olasvprghy-bcjhcwx completes the activity by him/herself with no assistance from a helper. 5-Set-up or Clean-up Assistance-helper sets up or cleans up; patient completes activity. [place] assists only prior to or following the activity. 4-Supervision or Touching Assistance-helper provides verbal cues and/or touchin g/steadying and/or contact guard assistance as patient completes activity. Assistance may be provided throughout the activity or intermittently. 3-Partial/Moderate Assistance-helper does LESS THAN HALF the effort. [place] lifts, holds or supports trunk or limbs, but provides less than half the effort. 2-Substantial/Maximal Assistance-helper does MORE THAN HALF the effort. [place] lifts or holds trunk or limbs and provides more than half the effort. 8-Vmdzsvklm-chazcs does ALL the effort. Patient does none of the effort to complete the activity. Or, the assistance of 2 or more helpers is required for the patient to complete the activity. If activity was not attempted, code reason: 7-Patient Refused. 9-Not Applicable-not attempted and the patient did not perform the activity before the current illness, exacerbation or injury. 10-Not Attempted due to Environmental Limitations-(lack of equipment, weather restraints, etc.). 88-Not Attempted due to Medical Conditions or Safety Concerns. Other Treatment Pt laying in bed, transferred supine to sit EOB with CGA. OT tx with focus on increasing BUE fine motor strength and coordination. Pt sat EOB in order to complete fine motor task of removing beads from moderate resistance red theraputty. Pt then completed x20 ruling technician squeezes with moderate resistance ruling technician sponge, and x10 pinches BUEs. Pt educated on using ruling technician sponge over the weekend to increase strength, she verbalized understanding. Pt transferred sit to supine with SBA. Post OT tx, pt laying in bed, call light in reach and all needs met. Education OT Patient Education: Correct positioning, Modified ADL techniques, Progress toward Goal/Update tx plan, Purpose of tx/functional activities Teaching Recipient: Patient Teaching Methods: Discussion Response to Teaching: Verbalize Understanding OT Short Term Goals Short Term Goals Time Frame: Apr 03, 2020 Toileting hygiene: 4 Shower/bathe self: 4 Lower body dressin OT Senior Accounts Payable Clerk Goals Senior Accounts Payable Clerk Goals Time Frame: Apr 12, 2020 Eating (QC): 6 Oral Hygiene (QC): 6 Toileting Hygiene (QC): 6 Shower/Bathe Self (QC): 4 Upper Body Dressing (QC): 6 Lower Body Dressing (QC): 4 On/Off Footwear (QC): 4 Additional Goals: 1-Demonstrate ADL Tasks, 2-Verbalize Understanding, 3- ImproveStrength/Jaci 1=Demonstrate adherence to instructed precautions during ADL tasks. 2=Patient will verbalize/demonstrate understanding of assistive devices/modifications for ADL. 3=Patient will improve strength/tolerance for activity to enable patient to perform ADL's. OT Education/Plan Problem List/Assessment Assessment: Decreased Activ Tolerance, Decreased UE Strength, Impaired I ADL's, Impaired Self-Care Skills Discharge Recommendations Plan/Recommendations: Continue POC Treatment Plan/Plan of Care Patient would benefit from OT for education, treatment and training to promote independence in ADL's, mobility, safety and/or upper extremity function for ADL's. Plan of Care: ADL Retraining, Functional Mobility, Group Exercise/Act as Ind, UE Funct Exercise/Act Treatment Duration: Apr 12, 2020 Frequency: At least 5 of 7 days/Wk (IRF) Estimated Hrs Per Day: 1.5 hours per day Rehab Potential: Fair Time/GCodes Start Time: 13:30 Stop Time: 14:00 Total Time Billed (hr/min): 30 Billed Treatment Time 1, FA 2 EBENEZER THOMAS OT Mar 22, 2020 14:43
[2020-03-22 17:14] VITALS: BP 118/53
[2020-03-22] MEDS: ALPRAZolam 0.25 MG (XANAX) TAB PO PRN (20:23)
[2020-03-22] MEDS: HYDROcodone/APAP 5 MG/325 MG (LORTAB) TAB PO PRN (20:23)
[2020-03-23 05:07] VITALS: BP 108/56
[2020-03-23] MEDS: KCL 10 MEQ TAB (MICRO K) PO SCH (06:34)
--- NOTE | 2020-03-23 07:01 | PM&R Progress Note ---
Subjective HPI/CC On Admission Date Seen by Provider: Mar 23, 2020 Time Seen by Provider: 12:30 Subjective/Events-last exam 03/23/20: Near fall today when her legs "gave out." Frustrated with her lack of progress and I counseled her on the need to be patient Lasix changed to prn daily when edema is present 03/22/20: No falls Dyspnea continues Nebs ordered No pain reported Pt had a fall today Bowels are moving Fall occurred off the commode Right knee abrasion noted Hypotension noted so will inquire with cardiology since they are anti rhythmic medications Lasix requested for every other day instead of daily so will reach out to cardiology. Conferred with RN Reviewed therapy notes Checked meds and labs Review of Systems General: Fatigue Pulmonary: Dyspnea Objective Exam Vital Signs Vital Signs Date Time Temp Pulse Resp B/P (MAP) Pulse Ox O2 Delivery O2 Flow Rate FiO2 03/23/20 17:50 36.8 90 20 98/48 (65) 97 Nasal Cannula 1.00 Capillary Refill : Less Than 3 Seconds General Appearance: No Apparent Distress, WD/WN, Chronically ill, Thin HEENT: PERRL/EOMI, Normal ENT Inspection, Pharynx Normal Neck: Full Range of Motion, Normal Inspection, Non Tender, Supple, Carotid Bruit Respiratory: Chest Non Tender, No Accessory Muscle Use, No Respiratory Distress, Crackles, Decreased Breath Sounds Cardiovascular: Regular Rate, Rhythm, No Edema, No Gallop, No JVD, No Murmur, Normal Peripheral Pulses Gastrointestinal: Normal Bowel Sounds, No Organomegaly, No Pulsatile Mass, Non Tender, Soft Back: Normal Inspection, No CVA Tenderness, No Vertebral Tenderness Extremity: Normal Capillary Refill, Normal Inspection, Normal Range of Motion, Non Tender, No Calf Tenderness, No Pedal Edema Neurologic/Psychiatric: Alert, Oriented x3, Normal Mood/Affect, glass unloading equipment tender II-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 FIM Transfers Therapy Code Descriptions/Definitions Functional [place] Measure: 0=Not Assessed/NA 4=Minimal Assistance 1=Total Assistance 5=Supervision or Setup 2=Maximal Assistance 6=Modified [place] 3=Moderate Assistance 7=Complete IndependenceSCALE: Activities may be completed with or without assistive devices. 3-Hitiwgwoif-hftkmtf completes the activity by him/herself with no assistance from a helper. 5-Set-up or Clean-up Assistance-helper sets up or cleans up; patient completes activity. [place] assists only prior to or following the activity. 4-Supervision or Touching Assistance-helper provides verbal cues and/or touching/steadying and/or contact guard assistance as patient completes activity. Assistance may be provided throughout the activity or intermittently. 3-Partial/Moderate Assistance-helper does LESS THAN HALF the effort. [place] lifts, holds or supports trunk or limbs, but provides less than half the effort. 2-Substantial/Maximal Assistance-helper does MORE THAN HALF the effort. [place] lifts or holds trunk or limbs and provides more than half the effort. 3-Qvzperuqk-goolld does ALL the effort. Patient does none of the effort to complete the activity. Or, the assistance of 2 or more helpers is required for the patient to complete the activity. If activity was not attempted, code reason: 7-Patient Refused. 9-Not Applicable-not attempted and the patient did not perform the activity before the current illness, exacerbation or injury. 10-Not Attempted due to Environmental Limitations-(lack of equipment, weather restraints, etc.). 88-Not Attempted due to Medical Conditions or Safety Concerns. Roll Left to Right (QC): 4 Sit to Lying (QC): 3 Sit to Stand (QC): 2 (from toilet and other low surfaces max to mod assist required) Chair/Yah-mk-Mtvqh Xfer(QC): 4 Car Transfer (QC): 3 Gait Training Does the Patient Walk?: Yes Distance: 60' x 2 Walk 10 feet (QC): 4 Walk 50 ft with 2 Turns(QC): 4 Walk 150 ft (QC): 88 Walking 10ft/uneven surface-QC: 4 Gait Persons Needed: 1 Gait Assistive Device: FWW Wheelchair Training Does the Pt Use a Wheelchair?: Yes Wheel 50 ft with 2 turns (QC): 9 Wheel 150 ft (QC): 9 Type of Wheelchair: Manual Stair Training 1 Step (curb) (QC): 88 4 Steps (QC): 88 12 Steps (QC): 88 Balance Picking up an Object (QC): 88 ADL-Treatment Eating (QC): 6 (Pt reports independence with task, she is able to open containers, cut food, and bring food to mouth.) Oral Hygiene (QC): 5 (Pt brushed teeth at bed level with set up of supplies.) Shower/Bathe Self (QC): 3 (Min A standing balance. Pt able to wash/dry all parts completing a sponge bath at EOB.) Upper Body Dressing (QC): 5 (set up, pt able to don/doff gut puller shirt.) Lower Body Dressing (QC): 3 (Pt able to doff pants, min A standing balance. Able to thread BLEs into pants, min A with pant hike.) On/Off Footwear (QC): 4 (SBA, pt able to doff/don gripper socks) Toileting Hygiene (QC): 3 (Pt able to mange pants down and perform hygine, required assistance managing pants up due to fatigue.) Toilet Transfer (QC): 2 (Mod-Max A sit to stand from toilet) Assessment/Plan Assessment and Plan Assess & Plan/Chief Complaint Assessment: Critical illness myopathy COPD AF w/RVR hx Poor reserve Colon cancer hx Breast cancer hx O2 dependency Plan: O2 Nebs Home meds IRF protocol 03/21/20: Restart Nebs O2 24/7 Home meds Fall risk 03/22/20: Nebs Monitor lungs Rehab therapies 03/23/20: Fall risk Lasix 40 mg daily prn edema changed (1) Critical illness myopathy Status: Acute (2) Acute on chronic respiratory failure with hypoxia Status: Acute (3) Atrial fibrillation with rapid ventricular response Status: Resolved Resolution Date/Time: 03/15/20 @ 14:09 (4) COPD (chronic obstructive pulmonary disease) Status: Acute (5) PNA (pneumonia) Status: Acute (6) Anemia Status: Chronic DUANE GIBSON DO Mar 23, 2020 07:01
[2020-03-23] MEDS: APIXABAN 5 MG (ELIQUIS) TABLET PO SCH ×2 (08:12→20:06)
[2020-03-23] MEDS: polyethylene glycoL POWDER 17 GM (MIRALAX) PACK PO SCH ×2 (08:12→20:05)
[2020-03-23] MEDS: PANTOPRAZOLE 40 MG (PROTONIX) TAB PO SCH (08:12)
[2020-03-23] MEDS: DOCUSATE SODIUM 100 MG (COLACE) CAP PO SCH ×2 (08:12→20:05)
[2020-03-23] MEDS: SENNA W/DOCUSATE (SENOKOT S) TABLET PO SCH ×2 (08:12→20:05)
[2020-03-23 08:15] VITALS: BP 102/61
[2020-03-23] MEDS: FUROSEMIDE 40 MG (LASIX) TAB PO SCH (09:04)
[2020-03-23] MEDS: RT-ALBUTEROL INHALER HFA (VENTOLIN HFA) 18 GM IH SCH ×3 (10:44→21:53)
--- NOTE | 2020-03-23 11:13 | Physical Therapy Daily Note ---
PT Daily Note-Current Subjective Pt in bed upon arrival. Pt informs COAL TRIMMER that pt had an assisted "fall" last night coming back from the bathroom. Pt states that pt just was going down and the staff helped her. Pt agrees to PT tx. Pain Numeric Pain Scale: 0-No Pain Location: No Pain Reported Mental Status Patient Orientation: Person, Place, Time, Situation Attachments: Saline Lock, Oxygen (1L) Transfers SCALE: Activities may be completed with or without assistive devices. 5-Hbkuabscez-pxevkoy completes the activity by him/herself with no assistance from a helper. 5-Set-up or Clean-up Assistance-helper sets up or cleans up; patient completes activity. [place] assists only prior to or following the activity. 4-Supervision or Touching Assistance-helper provides verbal cues and/or touching/steadying and/or contact guard assistance as patient completes activity. Assistance may be provided throughout the activity or intermittently. 3-Partial/Moderate Assistance-helper does LESS THAN HALF the effort. [place] lifts, holds or supports trunk or limbs, but provides less than half the effort. 2-Substantial/Maximal Assistance-helper does MORE THAN HALF the effort. [place] lifts or holds trunk or limbs and provides more than half the effort. 3-Xcvgfqugi-qpopjv does ALL the effort. Patient does none of the effort to complete the activity. Or, the assistance of 2 or more helpers is required for the patient to complete the activity. If activity was not attempted, code reason: 7-Patient Refused. 9-Not Applicable-not attempted and the patient did not perform the activity bef ore the current illness, exacerbation or injury. 10-Not Attempted due to Environmental Limitations-(lack of equipment, weather r estraints, etc.). 88-Not Attempted due to Medical Conditions or Safety Concerns. Roll Left & Right (QC): 4 Sit to Lying (QC): 4 Lying to Sitting/Side of Bed(Q: 4 Sit to Stand (QC): 3 Toilet Transfer (QC): 3 Weight Bearing Full Weight Bearing Full Weight Bearing Gait Training Does the Patient Walk?: Yes Distance: 10' Walk 10 feet (QC): 4 Gait Persons Needed: 1 Gait Assistive Device: FWW Treatments Pt completes bed mobility w/ supervision. Pt sit<>stands w/ ModA; VC's given for proper hand placement for push off. Pt requests to use the bathroom. Pt ambulates to bathroom w/ FWW. Pt requires ModA for toilet transfer d/t low height of toilet. Pt ambulates back to bed; completes bed mobility w/ supervision. Pt in bed w/ call light and bedside table w/in reach and all needs met at end of tx. Assessment Current Status: Fair Progress Pt extremely anxious and fearful to ambulate. COAL TRIMMER informed pt that pt needs to remain calm during ambulation and not to think about falling or being lowered to the ground. COAL TRIMMER explained that if pt is thinking about those things during ambulation, pt will increase in anxiety and increase risk of falling. Pt agrees to breathe when getting anxious and to think about positive things during ambulation. PT Short Term Goals Short Term Goals Time Frame: Mar 27, 2020 Roll Left & Right: 6 Sit to lyin (Brigid) Lying to sitting on side of be: 3 (Brigid) Sit to stand: 4 Chair/kas-hf-nfhfy transfer: 4 Walk 10 feet: 4 Walk 50 feet with two turns: 4 PT Snf Goals Weatherization Administrator Goals PT Snf Goals Time Frame: Apr 10, 2020 Roll Left & Right (QC): 6 Sit to Lying (QC): 6 Lying-Sitting on Side/Bed(QC): 6 Sit to Stand (QC): 5 Chair/Thk-ry-Vefvk Xfer(QC): 5 Toilet Transfer (QC): 5 Car Transfer (QC): 5 Does the Patient Walk: Yes Walk 10 feet (QC): 4 Walk 50ft with 2 Turns (QC): 4 Walk 150 ft (QC): 4 Walking 10ft on Uneven Surface: 4 1 Step (curb) (QC): 4 4 Steps (QC): 4 12 Steps (QC): 88 Picking up an Object (QC): 88 Wheel 50 feet with 2 turns (QC: 9 Wheel 150 feet: 9 PT Plan Problem List Problem List: Activity Tolerance, Functional Strength, Safety, Balance, Gait, Transfer, Bed Mobility Treatment/Plan Treatment Plan: Continue Plan of Care Treatment Plan: Bed Mobility, Education, Functional Activity Jaci, Functional Strength, Group Therapy, Gait, Safety, Therapeutic Exercise, Transfers Treatment Duration: Apr 10, 2020 Frequency: At least 5 of 7 days/Wk (IRF) Estimated Hrs Per Day: 1.5 hours per day Patient and/or Family Agrees t: Yes Safety Risks/Education Patient Education: Gait Training, Correct Positioning, Safety Issues Teaching Recipient: Patient Teaching Methods: Discussion Response to Teaching: Verbalize Understanding Time/GCodes Time In: 1005 Time Out: 1028 Total Billed Treatment Time: 23 Total Billed Treatment 1, FA (15m), GT (8m) SUZI FIELD COAL TRIMMER Mar 23, 2020 11:13
[2020-03-23] MEDS ORDERED: FUROSEMIDE 40 MG (LASIX) TAB PO PRN (13:15)
[2020-03-23 17:50] VITALS: BP 98/48
--- NOTE | 2020-03-23 18:13 | NUR ---
HAS BEEN ON THE PHONE OFF AND ON TODAY YELLING AT VARIOUS FRIENDS AND FAMILY. PATIENT DOES NOT WANT TO GO TO HER FRIEND[place] HOUSE AT [place]. HAS BEEN ORDERING COPIOUS AMOUNTS OF FOOD AND HOARDING IN ROOM. Addendum: 03/23/20 at 1821 by SAE YANG RN WRONG PATIENT.
[2020-03-23] MEDS: ALPRAZolam 0.25 MG (XANAX) TAB PO PRN (20:05)
[2020-03-23] MEDS: HYDROcodone/APAP 5 MG/325 MG (LORTAB) TAB PO PRN (20:06)
[2020-03-24 05:04] VITALS: BP 111/58
[2020-03-24] MEDS: KCL 10 MEQ TAB (MICRO K) PO SCH (06:03)
[2020-03-24 08:15] VITALS: BP 98/53
[2020-03-24] MEDS: PANTOPRAZOLE 40 MG (PROTONIX) TAB PO SCH (08:17)
[2020-03-24] MEDS: DOCUSATE SODIUM 100 MG (COLACE) CAP PO SCH ×2 (08:17→19:17)
[2020-03-24] MEDS: APIXABAN 5 MG (ELIQUIS) TABLET PO SCH ×2 (08:17→19:16)
[2020-03-24] MEDS: SENNA W/DOCUSATE (SENOKOT S) TABLET PO SCH ×2 (08:17→19:17)
[2020-03-24] MEDS: polyethylene glycoL POWDER 17 GM (MIRALAX) PACK PO SCH ×2 (08:17→19:17)
[2020-03-24 09:51] VITALS: BP 110/53
--- NOTE | 2020-03-24 11:25 | PM&R Progress Note ---
Subjective HPI/CC On Admission Date Seen by Provider: Mar 24, 2020 Time Seen by Provider: 14:00 Subjective/Events-last exam 03/24/20: Gaining more strength SBP is a bit low still Cardizem dose may need adjusted per Cardiology 03/23/20: Near fall today when her legs "gave out." Frustrated with her lack of progress and I counseled her on the need to be patient Lasix changed to prn daily when edema is present 03/22/20: No falls Dyspnea continues Nebs ordered No pain reported Pt had a fall today Bowels are moving Fall occurred off the commode Right knee abrasion noted Hypotension noted so will inquire with cardiology since they are anti rhythmic medications Lasix requested for every other day instead of daily so will reach out to cardiology. Conferred with RN Reviewed therapy notes Checked meds and labs Review of Systems General: Fatigue Pulmonary: Dyspnea Objective Exam Vital Signs Vital Signs Date Time Temp Pulse Resp B/P (MAP) Pulse Ox O2 Delivery O2 Flow Rate FiO2 03/24/20 16:23 36.5 98 18 117/63 (81) 96 Nasal Cannula 1.00 Capillary Refill : Less Than 3 Seconds General Appearance: No Apparent Distress, WD/WN, Chronically ill, Thin HEENT: PERRL/EOMI, Normal ENT Inspection, Pharynx Normal Neck: Full Range of Motion, Normal Inspection, Non Tender, Supple, Carotid Bruit Respiratory: Chest Non Tender, No Accessory Muscle Use, No Respiratory Distress, Crackles, Decreased Breath Sounds Cardiovascular: Regular Rate, Rhythm, No Edema, No Gallop, No JVD, No Murmur, Normal Peripheral Pulses Gastrointestinal: Normal Bowel Sounds, No Organomegaly, No Pulsatile Mass, Non Tender, Soft Back: Normal Inspection, No CVA Tenderness, No Vertebral Tenderness Extremity: Normal Capillary Refill, Normal Inspection, Normal Range of Motion, Non Tender, No Calf Tenderness, No Pedal Edema Neurologic/Psychiatric: Alert, Oriented x3, Normal Mood/Affect, emotional support teacher II-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 FIM Transfers Therapy Code Descriptions/Definitions Functional [place] Measure: 0=Not Assessed/NA 4=Minimal Assistance 1=Total Assistance 5=Supervision or Setup 2=Maximal Assistance 6=Modified [place] 3=Moderate Assistance 7=Complete IndependenceSCALE: Activities may be completed with or without assistive devices. 1-Jnxjzacmxu-bcxihrc completes the activity by him/herself with no assistance from a helper. 5-Set-up or Clean-up Assistance-helper sets up or cleans up; patient completes activity. [place] assists only prior to or following the activity. 4-Supervision or Touching Assistance-helper provides verbal cues and/or touching/steadying and/or contact guard assistance as patient completes activity. Assistance may be provided throughout the activity or intermittently. 3-Partial/Moderate Assistance-helper does LESS THAN HALF the effort. [place] lifts, holds or supports trunk or limbs, but provides less than half the effort. 2-Substantial/Maximal Assistance-helper does MORE THAN HALF the effort. [place] lifts or holds trunk or limbs and provides more than half the effort. 4-Ffrsouelz-vbowcf does ALL the effort. Patient does none of the effort to complete the activity. Or, the assistance of 2 or more helpers is required for the patient to complete the activity. If activity was not attempted, code reason: 7-Patient Refused. 9-Not Applicable-not attempted and the patient did not perform the activity before the current illness, exacerbation or injury. 10-Not Attempted due to Environmental Limitations-(lack of equipment, weather restraints, etc.). 88-Not Attempted due to Medical Conditions or Safety Concerns. Roll Left to Right (QC): 4 Sit to Lying (QC): 4 Sit to Stand (QC): 3 Chair/Kpg-gn-Lvjte Xfer(QC): 4 Car Transfer (QC): 3 Gait Training Does the Patient Walk?: Yes Distance: 10' Walk 10 feet (QC): 4 Walk 50 ft with 2 Turns(QC): 4 Walk 150 ft (QC): 88 Walking 10ft/uneven surface-QC: 4 Gait Persons Needed: 1 Gait Assistive Device: FWW Wheelchair Training Does the Pt Use a Wheelchair?: Yes Wheel 50 ft with 2 turns (QC): 9 Wheel 150 ft (QC): 9 Type of Wheelchair: Manual Stair Training 1 Step (curb) (QC): 88 4 Steps (QC): 88 12 Steps (QC): 88 Balance Picking up an Object (QC): 88 ADL-Treatment Eating (QC): 6 (Pt reports independence with task, she is able to open containers, cut food, and bring food to mouth.) Oral Hygiene (QC): 5 (Pt brushed teeth at bed level with set up of supplies.) Shower/Bathe Self (QC): 3 (Min A standing balance. Pt able to wash/dry all parts completing a sponge bath at EOB.) Upper Body Dressing (QC): 5 (set up, pt able to don/doff truss puller helper shirt.) Lower Body Dressing (QC): 3 (Pt able to doff pants, min A standing balance. Able to thread BLEs into pants, min A with pant hike.) On/Off Footwear (QC): 4 (SBA, pt able to doff/don gripper socks) Toileting Hygiene (QC): 3 (Pt able to mange pants down and perform hygine, required assistance managing pants up due to fatigue.) Toilet Transfer (QC): 2 (Mod-Max A sit to stand from toilet) Assessment/Plan Assessment and Plan Assess & Plan/Chief Complaint Assessment: Critical illness myopathy COPD AF w/RVR hx Poor reserve Colon cancer hx Breast cancer hx O2 dependency Plan: O2 Nebs Home meds IRF protocol 03/21/20: Restart Nebs O2 24/7 Home meds Fall risk 03/22/20: Nebs Monitor lungs Rehab therapies 03/23/20: Fall risk Lasix 40 mg daily prn edema changed 03/24/20: Monitor lungs O2 Strengthening (1) Critical illness myopathy Status: Acute (2) Acute on chronic respiratory failure with hypoxia Status: Acute (3) Atrial fibrillation with rapid ventricular response Status: Resolved Resolution Date/Time: 03/15/20 @ 14:09 (4) COPD (chronic obstructive pulmonary disease) Status: Acute (5) PNA (pneumonia) Status: Acute (6) Anemia Status: Chronic DUANE GIBSON DO Mar 24, 2020 11:25
[2020-03-24] MEDS: RT-ALBUTEROL INHALER HFA (VENTOLIN HFA) 18 GM IH SCH ×2 (14:48→19:20)
--- NOTE | 2020-03-24 15:18 | NUR ---
DR. SCHAFER INFORMED OF TRENDING LOW BP. ORDERS TO CUT CARDIZEM DOSE IN HALF.
[2020-03-24 16:20] VITALS: BP 96/55
[2020-03-24 16:23] VITALS: BP 117/63
[2020-03-24] MEDS: ALPRAZolam 0.25 MG (XANAX) TAB PO PRN (19:16)
[2020-03-24] MEDS: HYDROcodone/APAP 5 MG/325 MG (LORTAB) TAB PO PRN (19:16)
[2020-03-25 05:08] VITALS: BP 105/55
--- NOTE | 2020-03-25 05:45 | PM&R Progress Note ---
Subjective HPI/CC On Admission Date Seen by Provider: Mar 25, 2020 Time Seen by Provider: 09:00 Subjective/Events-last exam 03/25/20: Bowels are moving today Feels like she is doing a lot better Took a shower Still very weak Whats her Xanax Q4hrs 03/24/20: Gaining more strength SBP is a bit low still Cardizem dose may need adjusted per Cardiology 03/23/20: Near fall today when her legs "gave out." Frustrated with her lack of progress and I counseled her on the need to be patient Lasix changed to prn daily when edema is present 03/22/20: No falls Dyspnea continues Nebs ordered No pain reported Pt had a fall today Bowels are moving Fall occurred off the commode Right knee abrasion noted Hypotension noted so will inquire with cardiology since they are anti rhythmic medications Lasix requested for every other day instead of daily so will reach out to cardiology. Conferred with RN Reviewed therapy notes Checked meds and labs Review of Systems General: Fatigue Pulmonary: Dyspnea Neurological: Weakness, Incoordination Objective Exam Vital Signs Vital Signs Date Time Temp Pulse Resp B/P (MAP) Pulse Ox O2 Delivery O2 Flow Rate FiO2 03/25/20 21:19 Nasal Cannula 1.00 03/25/20 18:58 36.7 88 22 105/57 (73) 98 Capillary Refill : Less Than 3 Seconds General Appearance: No Apparent Distress, WD/WN, Chronically ill, Thin HEENT: PERRL/EOMI, Normal ENT Inspection, Pharynx Normal Neck: Full Range of Motion, Normal Inspection, Non Tender, Supple, Carotid Bruit Respiratory: Chest Non Tender, No Accessory Muscle Use, No Respiratory Distress, Crackles, Decreased Breath Sounds Cardiovascular: Regular Rate, Rhythm, No Edema, No Gallop, No JVD, No Murmur, Normal Peripheral Pulses Gastrointestinal: Normal Bowel Sounds, No Organomegaly, No Pulsatile Mass, Non Tender, Soft Back: Normal Inspection, No CVA Tenderness, No Vertebral Tenderness Extremity: Normal Capillary Refill, Normal Inspection, Normal Range of Motion, Non Tender, No Calf Tenderness, No Pedal Edema Neurologic/Psychiatric: Alert, Oriented x3, Normal Mood/Affect, foreign exchange dealer II-XII Norm as Tested, Abnormal Gait, Depressed Affect, Motor Weakness (generalized 4/5 all extremities) Skin: Normal Color, Warm/Dry Lymphatic: No Adenopathy Results/Procedures Lab Laboratory Tests 03/25/20 05:38 Patient resulted labs reviewed. FIM Transfers Therapy Code Descriptions/Definitions Functional [place] Measure: 0=Not Assessed/NA 4=Minimal Assistance 1=Total Assistance 5=Supervision or Setup 2=Maximal Assistance 6=Modified [place] 3=Moderate Assistance 7=Complete IndependenceSCALE: Activities may be completed with or without assistive devices. 8-Pgeqslizlk-iphtdby completes the activity by him/herself with no assistance from a helper. 5-Set-up or Clean-up Assistance-helper sets up or cleans up; patient completes activity. [place] assists only prior to or following the activity. 4-Supervision or Touching Assistance-helper provides verbal cues and/or touching/steadying and/or contact guard assistance as patient completes activity. Assistance may be provided throughout the activity or intermittently. 3-Partial/Moderate Assistance-helper does LESS THAN HALF the effort. [place] lifts, holds or supports trunk or limbs, but provides less than half the effort. 2-Substantial/Maximal Assistance-helper does MORE THAN HALF the effort. [place] lifts or holds trunk or limbs and provides more than half the effort. 3-Ufxtqhptl-qmiaqr does ALL the effort. Patient does none of the effort to complete the activity. Or, the assistance of 2 or more helpers is required for the patient to complete the activity. If activity was not attempted, code reason: 7-Patient Refused. 9-Not Applicable-not attempted and the patient did not perform the activity before the current illness, exacerbation or injury. 10-Not Attempted due to Environmental Limitations-(lack of equipment, weather restraints, etc.). 88-Not Attempted due to Medical Conditions or Safety Concerns. Roll Left to Right (QC): 4 Sit to Lying (QC): 4 Sit to Stand (QC): 3 Chair/[place]ii-[place] Xfer(QC): 4 Car Transfer (QC): 3 Gait Training Does the Patient Walk?: Yes Distance: 10' Walk 10 feet (QC): 4 Walk 50 ft with 2 Turns(QC): 4 Walk 150 ft (QC): 88 Walking 10ft/uneven surface-QC: 4 Gait Persons Needed: 1 Gait Assistive Device: FWW Wheelchair Training Does the Pt Use a Wheelchair?: Yes Wheel 50 ft with 2 turns (QC): 9 Wheel 150 ft (QC): 9 Type of Wheelchair: Manual Stair Training 1 Step (curb) (QC): 88 4 Steps (QC): 88 12 Steps (QC): 88 Balance Picking up an Object (QC): 88 ADL-Treatment Eating (QC): 6 (Pt reports independence with task, she is able to open containers, cut food, and bring food to mouth.) Oral Hygiene (QC): 5 (Pt brushed teeth at bed level with set up of supplies.) Shower/Bathe Self (QC): 3 (Min A standing balance. Pt able to wash/dry all parts completing a sponge bath at EOB.) Upper Body Dressing (QC): 5 (set up, pt able to don/doff lathe puller shirt.) Lower Body Dressing (QC): 3 (Pt able to doff pants, min A standing balance. Able to thread BLEs into pants, min A with pant hike.) On/Off Footwear (QC): 4 (SBA, pt able to doff/don gripper socks) Toileting Hygiene (QC): 3 (Pt able to mange pants down and perform hygine, required assistance managing pants up due to fatigue.) Toilet Transfer (QC): 2 (Mod-Max A sit to stand from toilet) Assessment/Plan Assessment and Plan Assess & Plan/Chief Complaint Assessment: Critical illness myopathy COPD AF w/RVR hx Poor reserve Colon cancer hx Breast cancer hx O2 dependency Plan: O2 Nebs Home meds IRF protocol 03/21/20: Restart Nebs O2 24/7 Home meds Fall risk 03/22/20: Nebs Monitor lungs Rehab therapies 03/23/20: Fall risk Lasix 40 mg daily prn edema changed 03/24/20: Monitor lungs O2 Strengthening 03/25/20: Increase frequency of Xanax Monitor O2 sats (1) Critical illness myopathy Status: Acute (2) Acute on chronic respiratory failure with hypoxia Status: Acute (3) Atrial fibrillation with rapid ventricular response Status: Resolved Resolution Date/Time: 03/15/20 @ 14:09 (4) COPD (chronic obstructive pulmonary disease) Status: Acute (5) PNA (pneumonia) Status: Acute (6) Anemia Status: Chronic DUANE GIBSON DO Mar 25, 2020 05:45
[2020-03-25 06:25] LABS: BASOPHILS % (AUTO) 1 % (0-10); EOSINOPHILS # (AUTO) 0.2 10^3/uL (0.0-0.3); EOSINOPHILS % (AUTO) 4 % (0-10); HEMATOCRIT 29 % (35-52); HEMOGLOBIN 8.8 g/dL (11.5-16.0); LYMPHOCYTES % (AUTO) 24 % (12-44); MEAN CORPUSCULAR HEMOGLOBIN 28 pg (25-34); MEAN CORPUSCULAR HGB CONC 31 g/dL (32-36); MEAN CORPUSCULAR VOLUME 92 fL (80-99); MEAN PLATELET VOLUME 10.4 fL (9.0-12.2); MONOCYTES # (AUTO) 0.3 10^3/uL (0.0-1.0); MONOCYTES % (AUTO) 7 % (0-12); NEUTROPHILS # (AUTO) 2.5 10^3/uL (1.8-7.8); NEUTROPHILS % (AUTO) 63 % (42-75); PLATELET COUNT 125 10^3/uL (130-400)
[2020-03-25 06:33] LABS: ALBUMIN 3.1 GM/DL (3.2-4.5); CHLORIDE 101 MMOL/L (98-107); POTASSIUM 3.9 MMOL/L (3.6-5.0); SODIUM 139 MMOL/L (135-145)
[2020-03-25 06:34] LABS: CALCIUM 8.4 MG/DL (8.5-10.1)
[2020-03-25 06:35] LABS: GLUCOSE 108 MG/DL (70-105); TOTAL PROTEIN 5.8 GM/DL (6.4-8.2)
[2020-03-25 06:37] LABS: BILIRUBIN,TOTAL 0.4 MG/DL (0.1-1.0); CARBON DIOXIDE 26 MMOL/L (21-32)
[2020-03-25] MEDS: KCL 10 MEQ TAB (MICRO K) PO SCH (06:37)
[2020-03-25 06:39] LABS: ALKALINE PHOSPHATASE 81 U/L (40-136); CREATININE SERUM 0.78 MG/DL (0.60-1.30); GFR ESTIMATED > 60
[2020-03-25 06:40] LABS: BUN/CREATININE RATIO 17
[2020-03-25 06:42] LABS: ALANINE AMINOTRANSFERASE 86 U/L (0-55)
[2020-03-25 08:00] VITALS: BP 111/60
[2020-03-25] MEDS: APIXABAN 5 MG (ELIQUIS) TABLET PO SCH ×2 (09:17→20:06)
[2020-03-25] MEDS: DOCUSATE SODIUM 100 MG (COLACE) CAP PO SCH ×2 (09:17→20:05)
[2020-03-25] MEDS: PANTOPRAZOLE 40 MG (PROTONIX) TAB PO SCH (09:17)
[2020-03-25] MEDS: dilTIAZem120 MG (CARDIZEM CD) CAP PO SCH (09:17)
[2020-03-25] MEDS: SENNA W/DOCUSATE (SENOKOT S) TABLET PO SCH ×2 (09:18→20:06)
[2020-03-25] MEDS: polyethylene glycoL POWDER 17 GM (MIRALAX) PACK PO SCH ×2 (09:18→20:06)
--- NOTE | 2020-03-25 09:24 | Occupational Ther Daily Note ---
OT Current Status-Daily Note Subjective Pt laying in bed, agreeable to OT tx. Mental Status/Objective Patient Orientation: Person, Place, Time, Situation ADL-Treatment Therapy Code Descriptions/Definitions Functional [place] Measure: 0=Not Assessed/NA 4=Minimal Assistance 1=Total Assistance 5=Supervision or Setup 2=Maximal Assistance 6=Modified [place] 3=Moderate Assistance 7=Complete IndependenceSCALE: Activities may be completed with or without assistive devices. 7-Swrzlnzwvz-gypvknk completes the activity by him/herself with no assistance from a helper. 5-Set-up or Clean-up Assistance-helper sets up or cleans up; patient completes activity. [place] assists only prior to or following the activity. 4-Supervision or Touching Assistance-helper provides verbal cues and/or touching/steadying and/or contact guard assistance as patient completes activity. Assistance may be provided throughout the activity or intermittently. 3-Partial/Moderate Assistance-helper does LESS THAN HALF the effort. [place] lifts, holds or supports trunk or limbs, but provides less than half the effort. 2-Substantial/Maximal Assistance-helper does MORE THAN HALF the effort. [place] lifts or holds trunk or limbs and provides more than half the effort. 9-Sjujacole-qzuiuq does ALL the effort. Patient does none of the effort to complete the activity. Or, the assistance of 2 or more helpers is required for the patient to complete the activity. If activity was not attempted, code reason: 7-Patient Refused. 9-Not Applicable-not attempted and the patient did not perform the activity before the current illness, exacerbation or injury. 10-Not Attempted due to Environmental Limitations-(lack of equipment, weather restraints, etc.). 88-Not Attempted due to Medical Conditions or Safety Concerns. 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 Other Treatment OT/PT cotreat due to skill of 2 clinicians required which a rehab trainer could not perform in order to coordinate UE/LEs with tasks, and due to pt's limitations in functional mobility, functional endurance, and strength. OT focused on ADLs, UE placement, cues for sequencing and safety, while PT focused on functional transfers, ambulation, LE placement, and gross overall movements. Pt transferred supine to sit EOB with SBA. Then used FWW to ambulate into restroom and onto SC. Pt doffed clothes, completed showering, then donned clothes at SC. Pt used FWW to return to sit EOB, states fatigue with functional mobility. Pt brushed her hair with set up assistance. She then used FWW to return to bathroom to stand at sink, she requests to sit. W/C brought behind pt and she sat in w/c to complete oral care. Pt then used FWW to return to sit EOB, then transferred supine with SBA. Post cotreat, pt laying in bed, call light in reach and all needs met. Education OT Patient Education: Correct positioning, Energy conservation, Modified ADL techniques, Progress toward Goal/Update tx plan, Purpose of tx/functional activities, Safety issues Teaching Recipient: Patient Teaching Methods: Discussion Response to Teaching: Verbalize Understanding OT Short Term Goals Short Term Goals Time Frame: Apr 03, 2020 Toileting hygiene: 4 Shower/bathe self: 4 Lower body dressin OT Mcfp Goals Mcfp Goals Time Frame: Apr 12, 2020 Eating (QC): 6 Oral Hygiene (QC): 6 Toileting Hygiene (QC): 6 Shower/Bathe Self (QC): 4 Upper Body Dressing (QC): 6 Lower Body Dressing (QC): 4 On/Off Footwear (QC): 4 Additional Goals: 1-Demonstrate ADL Tasks, 2-Verbalize Understanding, 3- ImproveStrength/Jaci 1=Demonstrate adherence to instructed precautions during ADL tasks. 2=Patient will verbalize/demonstrate understanding of assistive devices/modifications for ADL. 3=Patient will improve strength/tolerance for activity to enable patient to perform ADL's. OT Education/Plan Problem List/Assessment Assessment: Decreased Activ Tolerance, Decreased UE Strength, Impaired Funct Balance, Impaired I ADL's, Impaired Self-Care Skills Discharge Recommendations Plan/Recommendations: Continue POC Treatment Plan/Plan of Care Patient would benefit from OT for education, treatment and training to promote independence in ADL's, mobility, safety and/or upper extremity function for ADL's. Plan of Care: ADL Retraining, Functional Mobility, Group Exercise/Act as Ind, UE Funct Exercise/Act Treatment Duration: Apr 12, 2020 Frequency: At least 5 of 7 days/Wk (IRF) Estimated Hrs Per Day: 1.5 hours per day Rehab Potential: Fair Time/GCodes Start Time: 08:00 Stop Time: 09:00 Total Time Billed (hr/min): 60 Billed Treatment Time 9736-1412 OT/PT cotreat 1, ADL 4 EBENEZER THOMAS OT Mar 25, 2020 09:24
[2020-03-25] MEDS: RT-ALBUTEROL INHALER HFA (VENTOLIN HFA) 18 GM IH SCH ×2 (09:53→22:40)
--- NOTE | 2020-03-25 10:02 | Physical Therapy Daily Note ---
PT Daily Note-Current Subjective Agreeable to PT and to shower with OT this date. Reports she had a good weekend. Mental Status Patient Orientation: Person, Place, Time, Situation Transfers SCALE: Activities may be completed with or without assistive devices. 3-Kwiniegqnz-xjvexux completes the activity by him/herself with no assistance from a helper. 5-Set-up or Clean-up Assistance-helper sets up or cleans up; patient completes activity. [place] assists only prior to or following the activity. 4-Supervision or Touching Assistance-helper provides verbal cues and/or touching/steadying and/or contact guard assistance as patient completes activity. Assistance may be provided throughout the activity or intermittently. 3-Partial/Moderate Assistance-helper does LESS THAN HALF the effort. [place] lifts, holds or supports trunk or limbs, but provides less than half the effort. 2-Substantial/Maximal Assistance-helper does MORE THAN HALF the effort. [place] lifts or holds trunk or limbs and provides more than half the effort. 9-Hlgypanps-nrsjli does ALL the effort. Patient does none of the effort to complete the activity. Or, the assistance of 2 or more helpers is required for the patient to complete the activity. If activity was not attempted, code reason: 7-Patient Refused. 9-Not Applicable-not attempted and the patient did not perform the activity before the current illness, exacerbation or injury. 10-Not Attempted due to Environmental Limitations-(lack of equipment, weather restraints, etc.). 88-Not Attempted due to Medical Conditions or Safety Concerns. Roll Left & Right (QC): 4 Sit to Lying (QC): 4 Lying to Sitting/Side of Bed(Q: 4 (SBA with sit to from supine with extra time to complete. ) Sit to Stand (QC): 2 (depending on surface height; min to mod assist with skilled cues for hand placement and sequencing. ) Chair/Upk-qs-Kexcp Xfer(QC): 3 (min assist for balance and safety. ) Sit to stand from shower bench x 3-4 reps during shower using grab bars and min to mod assist. in standing, and as she held grab bars, required min assist for balance and safety. Weight Bearing Full Weight Bearing Full Weight Bearing Gait Training Does the Patient Walk?: Yes Distance: 15 ft x 4 Walk 10 feet (QC): 3 (min assist for balance and safety.) Gait Assistive Device: FWW Min assist iwth gait due to decreased LE strength and functional balance. Exercises Supine Ex: Bridging, Ankle pumps, Quad Set, Glut sets Supine Reps: 12 (to facilitate LE strength for functional transfers and gait progression) Treatments Co treat with OT due to the need for skill of 2 clinicians to safely complete functional shower task. As OT addressed the ADL portion of shower, PT addressed multiple sit to stand transfers from varied surface, walking to from shower, standing static/dynamic balance while in shower. Skilled cues for safety and sequencing provided for all gross motor movements. Seated balance EOB and in shower addressed as well with cues for trunk initiation and propping with her arms. Assessment Current Status: Good Progress Fatigues quickly and needs frequent rest breaks. Requires skilled cues for sequencing for hand placment with sit to stand transfers. PT Short Term Goals Short Term Goals Time Frame: Mar 27, 2020 Roll Left & Right: 6 Sit to lyin (Brigid) Lying to sitting on side of be: 3 (Brigid) Sit to stand: 4 Chair/wad-ql-oynnz transfer: 4 Walk 10 feet: 4 Walk 50 feet with two turns: 4 PT Manager Psychology Goals Manager Psychology Goals PT Manager Psychology Goals Time Frame: Apr 10, 2020 Roll Left & Right (QC): 6 Sit to Lying (QC): 6 Lying-Sitting on Side/Bed(QC): 6 Sit to Stand (QC): 5 Chair/Yac-xu-Emvfk Xfer(QC): 5 Toilet Transfer (QC): 5 Car Transfer (QC): 5 Does the Patient Walk: Yes Walk 10 feet (QC): 4 Walk 50ft with 2 Turns (QC): 4 Walk 150 ft (QC): 4 Walking 10ft on Uneven Surface: 4 1 Step (curb) (QC): 4 4 Steps (QC): 4 12 Steps (QC): 88 Picking up an Object (QC): 88 Wheel 50 feet with 2 turns (QC: 9 Wheel 150 feet: 9 PT Plan Problem List Problem List: Activity Tolerance, Functional Strength, Safety, Balance, Gait, Transfer Treatment/Plan Treatment Plan: Continue Plan of Care Treatment Plan: Bed Mobility, Education, Functional Activity Jaci, Functional Strength, Group Therapy, Gait, Safety, Therapeutic Exercise, Transfers Treatment Duration: Apr 10, 2020 Frequency: At least 5 of 7 days/Wk (IRF) Estimated Hrs Per Day: 1.5 hours per day Patient and/or Family Agrees t: Yes Safety Risks/Education Patient Education: Transfer Techniques, Safety Issues Teaching Recipient: Patient Teaching Methods: Demonstration, Discussion Response to Teaching: Reinforcement Needed Discharge Recommendations Therapy Discharge Recommendati: Post Acute PT Time/GCodes Time In: 800 Time Out: 900 Total Billed Treatment Time: 60 Total Billed Treatment visit FA 30 NM 15 GT 15 Co treat with OT 60 min. MARU CAMPUZANO PT Mar 25, 2020 10:02
--- NOTE | 2020-03-25 10:09 | NUR ---
DC'ed supplementation order of Ensure Clear TID, per pt request. Pt stated no longer drinking them when provided. Will continue to follow and reassess as pt needs, intake, and status change. Joi Sanchez MS RD LD [phone] (cell)
[2020-03-25] MEDS: ACETAMINOPHEN 500 MG TAB (TYLENOL) PO PRN (10:17)
--- NOTE | 2020-03-25 13:04 | Occupational Ther Daily Note ---
OT Current Status-Daily Note Subjective Pt laying in bed, agreeable to OT tx. Mental Status/Objective Patient Orientation: Person, Place, Time, Situation Attachments: Oxygen ADL-Treatment Therapy Code Descriptions/Definitions Functional [place] Measure: 0=Not Assessed/NA 4=Minimal Assistance 1=Total Assistance 5=Supervision or Setup 2=Maximal Assistance 6=Modified [place] 3=Moderate Assistance 7=Complete IndependenceSCALE: Activities may be completed with or without assistive devices. 1-Vjxrfotxvt-cxephot completes the activity by him/herself with no assistance from a helper. 5-Set-up or Clean-up Assistance-helper sets up or cleans up; patient completes activity. [place] assists only prior to or following the activity. 4-Supervision or Touching Assistance-helper provides verbal cues and/or touchin g/steadying and/or contact guard assistance as patient completes activity. Assistance may be provided throughout the activity or intermittently. 3-Partial/Moderate Assistance-helper does LESS THAN HALF the effort. [place] lifts, holds or supports trunk or limbs, but provides less than half the effort. 2-Substantial/Maximal Assistance-helper does MORE THAN HALF the effort. [place] lifts or holds trunk or limbs and provides more than half the effort. 5-Unsknzbxh-uilqpm does ALL the effort. Patient does none of the effort to complete the activity. Or, the assistance of 2 or more helpers is required for the patient to complete the activity. If activity was not attempted, code reason: 7-Patient Refused. 9-Not Applicable-not attempted and the patient did not perform the activity before the current illness, exacerbation or injury. 10-Not Attempted due to Environmental Limitations-(lack of equipment, weather restraints, etc.). 88-Not Attempted due to Medical Conditions or Safety Concerns. Toileting Hygiene (QC): 4 (CGA, pt able to manage pants and perform hygiene.) Toilet Transfer (QC): 3 (CGA onto BSC over toilet, Mod A off) Other Treatment Pt laying in bed, transferred supine to sit EOB SBA, then used FWW to ambulate into the restroom with CGA. Pt completed toileting, then returned to EOB. In order to increase fine motor strength and coordination, pt removed beads from moderate resistance red theraputty. Pt returned supine with SBA. Post OT Tx, pt laying in bed, call light in reach and all needs met. Education OT Patient Education: Correct positioning, Energy conservation, Modified ADL techniques, Progress toward Goal/Update tx plan, Purpose of tx/functional activities, Transfer techniques Teaching Methods: Discussion Response to Teaching: Verbalize Understanding OT Short Term Goals Short Term Goals Time Frame: Apr 03, 2020 Toileting hygiene: 4 Shower/bathe self: 4 Lower body dressin OT Prison Goals Sales Representative Advertising Goals Time Frame: Apr 12, 2020 Eating (QC): 6 Oral Hygiene (QC): 6 Toileting Hygiene (QC): 6 Shower/Bathe Self (QC): 4 Upper Body Dressing (QC): 6 Lower Body Dressing (QC): 4 On/Off Footwear (QC): 4 Additional Goals: 1-Demonstrate ADL Tasks, 2-Verbalize Understanding, 3- ImproveStrength/Jaci 1=Demonstrate adherence to instructed precautions during ADL tasks. 2=Patient will verbalize/demonstrate understanding of assistive devices/modifications for ADL. 3=Patient will improve strength/tolerance for activity to enable patient to perform ADL's. OT Education/Plan Problem List/Assessment Assessment: Decreased Activ Tolerance, Decreased UE Strength, Impaired Funct Balance, Impaired I ADL's, Impaired Self-Care Skills Discharge Recommendations Plan/Recommendations: Continue POC Treatment Plan/Plan of Care Patient would benefit from OT for education, treatment and training to promote independence in ADL's, mobility, safety and/or upper extremity function for ADL's. Plan of Care: ADL Retraining, Functional Mobility, Group Exercise/Act as Ind, UE Funct Exercise/Act Treatment Duration: Apr 12, 2020 Frequency: At least 5 of 7 days/Wk (IRF) Estimated Hrs Per Day: 1.5 hours per day Rehab Potential: Fair Time/GCodes Start Time: 11:00 Stop Time: 11:30 Total Time Billed (hr/min): 30 Billed Treatment Time 1, ADL (15'), FA (15') EBENEZER THOMAS OT Mar 25, 2020 13:04
--- NOTE | 2020-03-25 14:35 | Physical Therapy Daily Note ---
PT Daily Note-Current Subjective Agrees to PT. After treatment, pt reported she liked riding the nu step. Transfers SCALE: Activities may be completed with or without assistive devices. 6-Ypbvbrxmtc-gkmuyga completes the activity by him/herself with no assistance from a helper. 5-Set-up or Clean-up Assistance-helper sets up or cleans up; patient completes activity. [place] assists only prior to or following the activity. 4-Supervision or Touching Assistance-helper provides verbal cues and/or touching/steadying and/or contact guard assistance as patient completes activity. Assistance may be provided throughout the activity or intermittently. 3-Partial/Moderate Assistance-helper does LESS THAN HALF the effort. [place] lifts, holds or supports trunk or limbs, but provides less than half the effort. 2-Substantial/Maximal Assistance-helper does MORE THAN HALF the effort. [place] lifts or holds trunk or limbs and provides more than half the effort. 4-Lufaglccc-vrrwpu does ALL the effort. Patient does none of the effort to complete the activity. Or, the assistance of 2 or more helpers is required for the patient to complete the activity. If activity was not attempted, code reason: 7-Patient Refused. 9-Not Applicable-not attempted and the patient did not perform the activity before the current illness, exacerbation or injury. 10-Not Attempted due to Environmental Limitations-(lack of equipment, weather restraints, etc.). 88-Not Attempted due to Medical Conditions or Safety Concerns. Sit to Lying (QC): 4 Lying to Sitting/Side of Bed(Q: 4 Sit to Stand (QC): 3 Chair/Btd-sf-Fruxw Xfer(QC): 3 (Performed this transfer x 4 reps with FWW) Toilet Transfer (QC): 3 (SPT on/off the toilet with grab bars with min assist) Weight Bearing Full Weight Bearing Full Weight Bearing Exercises NuStep Minutes: 15 (level 1; to improve functional activity tolerance) Assessment Current Status: Good Progress Pt did well on the nu step. LE weakness noted with transfers and necessitated min to CGA for safety and completion. PT Short Term Goals Short Term Goals Time Frame: Mar 27, 2020 Roll Left & Right: 6 Sit to lyin (Brigid) Lying to sitting on side of be: 3 (Brigid) Sit to stand: 4 Chair/csg-ii-neyih transfer: 4 Walk 10 feet: 4 Walk 50 feet with two turns: 4 PT [place] Goals [place] Goals PT Mcc Goals Time Frame: Apr 10, 2020 Roll Left & Right (QC): 6 Sit to Lying (QC): 6 Lying-Sitting on Side/Bed(QC): 6 Sit to Stand (QC): 5 Chair/Bxf-rv-Clyvz Xfer(QC): 5 Toilet Transfer (QC): 5 Car Transfer (QC): 5 Does the Patient Walk: Yes Walk 10 feet (QC): 4 Walk 50ft with 2 Turns (QC): 4 Walk 150 ft (QC): 4 Walking 10ft on Uneven Surface: 4 1 Step (curb) (QC): 4 4 Steps (QC): 4 12 Steps (QC): 88 Picking up an Object (QC): 88 Wheel 50 feet with 2 turns (QC: 9 Wheel 150 feet: 9 PT Plan Problem List Problem List: Activity Tolerance, Functional Strength, Safety Treatment/Plan Treatment Plan: Continue Plan of Care Treatment Plan: Bed Mobility, Education, Functional Activity Jaci, Functional Strength, Group Therapy, Gait, Safety, Therapeutic Exercise, Transfers Treatment Duration: Apr 10, 2020 Frequency: At least 5 of 7 days/Wk (IRF) Estimated Hrs Per Day: 1.5 hours per day Patient and/or Family Agrees t: Yes Time/GCodes Time In: 1250 Time Out: 1330 Total Billed Treatment Time: 40 Total Billed Treatment visit FA 25 EX 15 MARU CAMPUZANO PT Mar 25, 2020 14:35
[2020-03-25] MEDS: ALPRAZolam 0.25 MG (XANAX) TAB PO PRN ×2 (17:05→21:55)
[2020-03-25 18:58] VITALS: BP 105/57
[2020-03-25] MEDS: HYDROcodone/APAP 5 MG/325 MG (LORTAB) TAB PO PRN (21:55)
[2020-03-26 06:00] VITALS: BP 95/53
[2020-03-26] MEDS: KCL 10 MEQ TAB (MICRO K) PO SCH (06:29)
[2020-03-26] MEDS: RT-ALBUTEROL INHALER HFA (VENTOLIN HFA) 18 GM IH SCH ×3 (07:26→18:50)
--- NOTE | 2020-03-26 08:32 | PM&R Progress Note ---
Subjective HPI/CC On Admission Date Seen by Provider: Mar 26, 2020 Time Seen by Provider: 08:40 Subjective/Events-last exam 03/26/20: Decreasing Cardizem from 240 Mg to 120 Mg due to hypotension Having chest pain episodes periodically which appears to be anxiety Overall doing pretty well 03/25/20: Bowels are moving today Feels like she is doing a lot better Took a shower Still very weak Whats her Xanax Q4hrs 03/24/20: Gaining more strength SBP is a bit low still Cardizem dose may need adjusted per Cardiology 03/23/20: Near fall today when her legs "gave out." Frustrated with her lack of progress and I counseled her on the need to be patient Lasix changed to prn daily when edema is present 03/22/20: No falls Dyspnea continues Nebs ordered No pain reported Pt had a fall today Bowels are moving Fall occurred off the commode Right knee abrasion noted Hypotension noted so will inquire with cardiology since they are anti rhythmic medications Lasix requested for every other day instead of daily so will reach out to cardiology. Conferred with RN Reviewed therapy notes Checked meds and labs Review of Systems General: Fatigue, Malaise Pulmonary: Dyspnea Neurological: Weakness, Incoordination Objective Exam Vital Signs Vital Signs Date Time Temp Pulse Resp B/P (MAP) Pulse Ox O2 Delivery O2 Flow Rate FiO2 03/27/20 06:11 37.1 88 20 112/52 (72) 96 Nasal Cannula 1.00 Capillary Refill : Less Than 3 Seconds General Appearance: No Apparent Distress, WD/WN, Chronically ill, Thin HEENT: PERRL/EOMI, Normal ENT Inspection, Pharynx Normal Neck: Full Range of Motion, Normal Inspection, Non Tender, Supple, Carotid Bruit Respiratory: Chest Non Tender, No Accessory Muscle Use, No Respiratory Distress, Crackles, Decreased Breath Sounds Cardiovascular: Regular Rate, Rhythm, No Edema, No Gallop, No JVD, No Murmur, Normal Peripheral Pulses Gastrointestinal: Normal Bowel Sounds, No Organomegaly, No Pulsatile Mass, Non Tender, Soft Back: Normal Inspection, No CVA Tenderness, No Vertebral Tenderness Extremity: Normal Capillary Refill, Normal Inspection, Normal Range of Motion, Non Tender, No Calf Tenderness, No Pedal Edema Neurologic/Psychiatric: Alert, Oriented x3, Normal Mood/Affect, wheel molder II-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 FIM Transfers Therapy Code Descriptions/Definitions Functional [place] Measure: 0=Not Assessed/NA 4=Minimal Assistance 1=Total Assistance 5=Supervision or Setup 2=Maximal Assistance 6=Modified [place] 3=Moderate Assistance 7=Complete IndependenceSCALE: Activities may be completed with or without assistive devices. 8-Zosjjhvxgl-exbzvws completes the activity by him/herself with no assistance from a helper. 5-Set-up or Clean-up Assistance-helper sets up or cleans up; patient completes activity. [place] assists only prior to or following the activity. 4-Supervision or Touching Assistance-helper provides verbal cues and/or august khadijah/steadying and/or contact guard assistance as patient completes activity. Assistance may be provided throughout the activity or intermittently. 3-Partial/Moderate Assistance-helper does LESS THAN HALF the effort. [place] lifts, holds or supports trunk or limbs, but provides less than half the effort. 2-Substantial/Maximal Assistance-helper does MORE THAN HALF the effort. [place] lifts or holds trunk or limbs and provides more than half the effort. 6-Djkvxpnbo-tsfhrl does ALL the effort. Patient does none of the effort to complete the activity. Or, the assistance of 2 or more helpers is required for the patient to complete the activity. If activity was not attempted, code reason: 7-Patient Refused. 9-Not Applicable-not attempted and the patient did not perform the activity before the current illness, exacerbation or injury. 10-Not Attempted due to Environmental Limitations-(lack of equipment, weather restraints, etc.). 88-Not Attempted due to Medical Conditions or Safety Concerns. Roll Left to Right (QC): 4 Sit to Lying (QC): 4 Sit to Stand (QC): 3 Chair/Lft-ec-Amjqy Xfer(QC): 3 (Performed this transfer x 4 reps with FWW) Car Transfer (QC): 3 Gait Training Does the Patient Walk?: Yes Distance: 15 ft x 4 Walk 10 feet (QC): 3 (min assist for balance and safety.) Walk 50 ft with 2 Turns(QC): 4 Walk 150 ft (QC): 88 Walking 10ft/uneven surface-QC: 4 Gait Persons Needed: 1 Gait Assistive Device: FWW Wheelchair Training Does the Pt Use a Wheelchair?: Yes Wheel 50 ft with 2 turns (QC): 9 Wheel 150 ft (QC): 9 Type of Wheelchair: Manual Stair Training 1 Step (curb) (QC): 88 4 Steps (QC): 88 12 Steps (QC): 88 Balance Picking up an Object (QC): 88 ADL-Treatment Eating (QC): 6 (Pt reports independence with task, she is able to open containers, cut food, and bring food to mouth.) Oral Hygiene (QC): 6 (IND seated at sink.) Shower/Bathe Self (QC): 4 (Pt able to wash/dry all parts seated on SC, SBA.) Upper Body Dressing (QC): 5 (set up, pt able to doff/don kidney puller shirt.) Lower Body Dressing (QC): 3 (Pt able to doff pants, and don pants with Min A standing balance at FWW/GBs.) On/Off Footwear (QC): 4 (SBA, pt able to doff/don gripper socks.) Toileting Hygiene (QC): 4 (CGA, pt able to manage pants and perform hygiene.) Toilet Transfer (QC): 3 (CGA onto BSC over toilet, Mod A off) Assessment/Plan Assessment and Plan Assess & Plan/Chief Complaint Assessment: Critical illness myopathy COPD AF w/RVR hx Poor reserve Colon cancer hx Breast cancer hx O2 dependency Plan: O2 Nebs Home meds IRF protocol 03/21/20: Restart Nebs O2 23/11 Home meds Fall risk 03/22/20: Nebs Monitor lungs Rehab therapies 03/23/20: Fall risk Lasix 40 mg daily prn edema changed 03/24/20: Monitor lungs O2 Strengthening 03/25/20: Increase frequency of Xanax Monitor O2 sats 03/26/20: Monitor hypotension since adjusting Cardizem dose IRF protocol Monitor O2 sats (1) Critical illness myopathy Status: Acute (2) Acute on chronic respiratory failure with hypoxia Status: Acute (3) Atrial fibrillation with rapid ventricular response Status: Resolved Resolution Date/Time: 03/15/20 @ 14:09 (4) COPD (chronic obstructive pulmonary disease) Status: Acute (5) PNA (pneumonia) Status: Acute (6) Anemia Status: Chronic DUANE GIBSON DO Mar 26, 2020 08:32
[2020-03-26] MEDS: dilTIAZem120 MG (CARDIZEM CD) CAP PO SCH (08:47)
[2020-03-26] MEDS: DOCUSATE SODIUM 100 MG (COLACE) CAP PO SCH ×2 (08:48→19:29)
[2020-03-26] MEDS: HYDROcodone/APAP 5 MG/325 MG (LORTAB) TAB PO PRN ×2 (08:48→18:56)
[2020-03-26] MEDS: SENNA W/DOCUSATE (SENOKOT S) TABLET PO SCH ×2 (08:48→19:29)
[2020-03-26] MEDS: ALPRAZolam 0.25 MG (XANAX) TAB PO PRN ×2 (08:48→18:55)
[2020-03-26] MEDS: PANTOPRAZOLE 40 MG (PROTONIX) TAB PO SCH (08:48)
[2020-03-26] MEDS: APIXABAN 5 MG (ELIQUIS) TABLET PO SCH ×2 (08:48→19:48)
[2020-03-26] MEDS: polyethylene glycoL POWDER 17 GM (MIRALAX) PACK PO SCH ×2 (08:52→19:29)
--- NOTE | 2020-03-26 09:03 | NUR ---
B/P 95/53. Cardizem held at this time. Will cont to monitor.
--- NOTE | 2020-03-26 09:07 | Occupational Ther Daily Note ---
OT Current Status-Daily Note Subjective Pt agreeable to OT/PT cotreat, rates pain 4-5/10 in her buttocks. Mental Status/Objective Patient Orientation: Person, Place, Time, Situation Attachments: Oxygen (1L) ADL-Treatment Therapy Code Descriptions/Definitions Functional [place] Measure: 0=Not Assessed/NA 4=Minimal Assistance 1=Total Assistance 5=Supervision or Setup 2=Maximal Assistance 6=Modified [place] 3=Moderate Assistance 7=Complete IndependenceSCALE: Activities may be completed with or without assistive devices. 4-Bnnotwtzwl-gaiptdb completes the activity by him/herself with no assistance from a helper. 5-Set-up or Clean-up Assistance-helper sets up or cleans up; patient completes activity. [place] assists only prior to or following the activity. 4-Supervision or Touching Assistance-helper provides verbal cues and/or touching/steadying and/or contact guard assistance as patient completes activity. Assistance may be provided throughout the activity or intermittently. 3-Partial/Moderate Assistance-helper does LESS THAN HALF the effort. [place] lifts, holds or supports trunk or limbs, but provides less than half the effort. 2-Substantial/Maximal Assistance-helper does MORE THAN HALF the effort. [place] lifts or holds trunk or limbs and provides more than half the effort. 1-Pekhxsavi-kvpaks does ALL the effort. Patient does none of the effort to complete the activity. Or, the assistance of 2 or more helpers is required for the patient to complete the activity. If activity was not attempted, code reason: 7-Patient Refused. 9-Not Applicable-not attempted and the patient did not perform the activity before the current illness, exacerbation or injury. 10-Not Attempted due to Environmental Limitations-(lack of equipment, weather restraints, etc.). 88-Not Attempted due to Medical Conditions or Safety Concerns. Other Treatment 7429-0301 OT/PT cotreat due to skill of 2 clinicians required which a rehabilitation manager could not perform in order to coordinate UE/LEs with tasks, and due to pt's limitations in functional mobility, functional endurance, and strength. OT focused on ADLs, UE placement, cues for sequencing and safety, while PT focused on functional transfers, ambulation, LE placement, and gross overall movements. Pt transferred supine to sit EOB, then sit to stand. Pt used FWW to ambulate into restroom and onto BSC over toilet. Pt completed toileting, then stood at the sink to wash hands. Pt performed functional mobility from bathroom to therapy gym using FWW with CGA, pt required standing rest breaks during ambulation. In order to increase functional standing balance with reaching, pt stood at FWW and performed reaching in all planes using BUEs. Pt took a seated rest break, then performed reaching x3 more trials, x1 BUEs, x1 RUE, x1LUE without a seated rest break between. Pt then performed functional mobility around [facility] common area and back to therapy gym. Cotreat ended, pt in w/c in gym with OT. [id number]: In order to increase BUE strength and functional endurance, pt completed fine motor peg activity, placing 1" pegs into foam pegboard, alternating hands, 1lb wrist weight on RUE (not placed on LUE due to IV at wrist). Pt completed activity at moderate pace, taking rest breaks as needed. Pt able to place x100 pegs into pegboard. Pt then self-propelled w/c back to room, stating increased fatigue with BUEs. Pt used FWW to transfer from w/c to bed, min A sit to stand transfer. Pt then transferred sit to supine with SBA. Post OT tx, pt laying in bed, call light in reach and all needs met. Education OT Patient Education: Correct positioning, Energy conservation, Exercise program, Modified ADL techniques, Progress toward Goal/Update tx plan, Purpose of tx/functional activities, Safety issues, Transfer techniques Teaching Recipient: Patient Teaching Methods: Discussion Response to Teaching: Verbalize Understanding OT Short Term Goals Short Term Goals Time Frame: Apr 03, 2020 Toileting hygiene: 4 Shower/bathe self: 4 Lower body dressin OT Longterm Goals Concert Singer Goals Time Frame: Apr 12, 2020 Eating (QC): 6 Oral Hygiene (QC): 6 Toileting Hygiene (QC): 6 Shower/Bathe Self (QC): 4 Upper Body Dressing (QC): 6 Lower Body Dressing (QC): 4 On/Off Footwear (QC): 4 Additional Goals: 1-Demonstrate ADL Tasks, 2-Verbalize Understanding, 3-ImproveStrength/Jaci 1=Demonstrate adherence to instructed precautions during ADL tasks. 2=Patient will verbalize/demonstrate understanding of assistive devices/modifications for ADL. 3=Patient will improve strength/tolerance for activity to enable patient to perform ADL's. OT Education/Plan Problem List/Assessment Assessment: Decreased Activ Tolerance, Decreased UE Strength, Impaired I ADL's, Impaired Self-Care Skills Discharge Recommendations Plan/Recommendations: Continue POC Treatment Plan/Plan of Care Patient would benefit from OT for education, treatment and training to promote independence in ADL's, mobility, safety and/or upper extremity function for ADL's. Plan of Care: ADL Retraining, Functional Mobility, Group Exercise/Act as Ind, UE Funct Exercise/Act Treatment Duration: Apr 12, 2020 Frequency: At least 5 of 7 days/Wk (IRF) Estimated Hrs Per Day: 1.5 hours per day Rehab Potential: Fair Time/GCodes Start Time: 08:00 Stop Time: 09:30 Total Time Billed (hr/min): 90 Billed Treatment Time [id number] OT/PT cotreat, [id number] OT Tx 1, ADL (15'), FA 5 (75') EBENEZER THOMAS OT Mar 26, 2020 09:07
--- NOTE | 2020-03-26 10:17 | Physical Therapy Daily Note ---
PT Daily Note-Current Subjective Pt sitting up in bed upon arrival. Pt agrees to PT/OT co-treat to focus on dynamic standing balance. Pain Location: No Pain Reported Mental Status Patient Orientation: Person, Place, Time, Situation Attachments: Oxygen (1L) Transfers SCALE: Activities may be completed with or without assistive devices. 7-Jiethswxvt-jyqfqde completes the activity by him/herself with no assistance from a helper. 5-Set-up or Clean-up Assistance-helper sets up or cleans up; patient completes activity. [place] assists only prior to or following the activity. 4-Supervision or Touching Assistance-helper provides verbal cues and/or touching/steadying and/or contact guard assistance as patient completes activity. Assistance may be provided throughout the activity or intermittently. 3-Partial/Moderate Assistance-helper does LESS THAN HALF the effort. [place] lifts, holds or supports trunk or limbs, but provides less than half the effort. 2-Substantial/Maximal Assistance-helper does MORE THAN HALF the effort. [place] lifts or holds trunk or limbs and provides more than half the effort. 5-Vikkylzzp-eaqtns does ALL the effort. Patient does none of the effort to complete the activity. Or, the assistance of 2 or more helpers is required for the patient to complete the activity. If activity was not attempted, code reason: 7-Patient Refused. 9-Not Applicable-not attempted and the patient did not perform the activity before the current illness, exacerbation or injury. 10-Not Attempted due to Environmental Limitations-(lack of equipment, weather restraints, etc.). 88-Not Attempted due to Medical Conditions or Safety Concerns. Roll Left & Right (QC): 5 Lying to Sitting/Side of Bed(Q: 4 Sit to Stand (QC): 4 Toilet Transfer (QC): 4 Weight Bearing Full Weight Bearing Full Weight Bearing Gait Training Does the Patient Walk?: Yes Distance: 150', 40' Walk 10 feet (QC): 4 Walk 50 ft with 2 Turns(QC): 4 Walk 150 ft (QC): 4 Gait Persons Needed: 1 Gait Assistive Device: FWW Increased amb. distance with a couple short standing RB, [facility] following. Exercises Seated Therapy Exercises: Ankle pumps, Long arc quads, Hip flexion, Kicking activity Seated Reps: 15 Treatments [id number] OT/PT cotreat due to skill of 2 clinicians required which a rehabilitation psychologist could not perform in order to coordinate UE/LEs with tasks, and due to pt's limitations in functional mobility, functional endurance, and strength. OT focused on ADLs, UE placement, cues for sequencing and safety, while PT focused on functional transfers, ambulation, LE placement, and gross overall movements. Pt transferred supine to sit EOB, then sit to stand. Pt used FWW to ambulate into restroom and onto BSC over toilet. Pt completed toileting, then stood at the sink to wash hands. Pt performed functional mobility from bathroom to therapy gym using FWW with CGA, pt required standing rest breaks during ambulation. In order to increase functional standing balance with reaching, pt stood at FWW and performed reaching in all planes using BUEs. Pt took a seated rest break, then performed reaching x3 more trials, x1 BUEs, x1 RUE, x1LUE without a seated rest break between. Pt then performed functional mobility around [facility] common area and back to therapy gym. Cotreat ended, pt in w/c in gym with OT. Assessment Current Status: Good Progress Pt is increasing distance amb. by improving activity tolerance but still fatigues needing at least standing RB. PT Short Term Goals Short Term Goals Time Frame: Mar 27, 2020 Roll Left & Right: 6 Sit to lyin (Brigid) Lying to sitting on side of be: 3 (Brigid) Sit to stand: 4 Chair/sdz-qv-llidd transfer: 4 Walk 10 feet: 4 Walk 50 feet with two turns: 4 PT Long-Term Goals Long-Term Goals PT Manager Finance Goals Time Frame: Apr 10, 2020 Roll Left & Right (QC): 6 Sit to Lying (QC): 6 Lying-Sitting on Side/Bed(QC): 6 Sit to Stand (QC): 5 Chair/Gvg-hv-Gqcti Xfer(QC): 5 Toilet Transfer (QC): 5 Car Transfer (QC): 5 Does the Patient Walk: Yes Walk 10 feet (QC): 4 Walk 50ft with 2 Turns (QC): 4 Walk 150 ft (QC): 4 Walking 10ft on Uneven Surface: 4 1 Step (curb) (QC): 4 4 Steps (QC): 4 12 Steps (QC): 88 Picking up an Object (QC): 88 Wheel 50 feet with 2 turns (QC: 9 Wheel 150 feet: 9 PT Plan Problem List Problem List: Activity Tolerance, Functional Strength Treatment/Plan Treatment Plan: Continue Plan of Care Treatment Plan: Bed Mobility, Education, Functional Activity Jaci, Functional Strength, Group Therapy, Gait, Safety, Therapeutic Exercise, Transfers Treatment Duration: Apr 10, 2020 Frequency: At least 5 of 7 days/Wk (IRF) Estimated Hrs Per Day: 1.5 hours per day Patient and/or Family Agrees t: Yes Safety Risks/Education Patient Education: Transfer Techniques, Correct Positioning, Safety Issues Teaching Recipient: Patient Teaching Methods: Discussion Response to Teaching: Verbalize Understanding Time/GCodes Time In: 800 Time Out: 900 Total Billed Treatment Time: 60 Total Billed Treatment 1, GT x2 (25m) & FA x2 (35m) VLAD ORTIZ DIRECTOR OF ROTC Mar 26, 2020 10:17
--- NOTE | 2020-03-26 15:23 | Physical Therapy Daily Note ---
PT Daily Note-Current Subjective Pt laying L sidelying upon arrival. Pt agrees to PT despite reporting fatigue. Pain Location: No Pain Reported Mental Status Patient Orientation: Person, Place, Time, Situation Attachments: Oxygen Transfers SCALE: Activities may be completed with or without assistive devices. 4-Dkrzrxgttb-uexdved completes the activity by him/herself with no assistance from a helper. 5-Set-up or Clean-up Assistance-helper sets up or cleans up; patient completes activity. [place] assists only prior to or following the activity. 4-Supervision or Touching Assistance-helper provides verbal cues and/or touching/steadying and/or contact guard assistance as patient completes activity. Assistance may be provided throughout the activity or intermittently. 3-Partial/Moderate Assistance-helper does LESS THAN HALF the effort. [place] lifts, holds or supports trunk or limbs, but provides less than half the effort. 2-Substantial/Maximal Assistance-helper does MORE THAN HALF the effort. [place] lifts or holds trunk or limbs and provides more than half the effort. 9-Ltwwjqkkt-qtolnt does ALL the effort. Patient does none of the effort to complete the activity. Or, the assistance of 2 or more helpers is required for the patient to complete the activity. If activity was not attempted, code reason: 7-Patient Refused. 9-Not Applicable-not attempted and the patient did not perform the activity before the current illness, exacerbation or injury. 10-Not Attempted due to Environmental Limitations-(lack of equipment, weather restraints, etc.). 88-Not Attempted due to Medical Conditions or Safety Concerns. Weight Bearing Full Weight Bearing Full Weight Bearing Exercises Supine Ex: Ankle pumps, Quad Set, Glut sets, Heel Slides, Short Arc Quads, Straight leg raise, Hip abd/add Supine Reps: 15 Treatments Pt completes Supine Ex with RB as needed. Pt resting at end of tx with all needs met, call light in hand. Assessment Current Status: Good Progress Pt farzana. tx well. PT Short Term Goals Short Term Goals Time Frame: Mar 27, 2020 Roll Left & Right: 6 Sit to lyin (Brigid) Lying to sitting on side of be: 3 (Brigid) Sit to stand: 4 Chair/vrp-wt-tapzo transfer: 4 Walk 10 feet: 4 Walk 50 feet with two turns: 4 PT Custodial Goals Bench Jeweler Goals PT Custodial Goals Time Frame: Apr 10, 2020 Roll Left & Right (QC): 6 Sit to Lying (QC): 6 Lying-Sitting on Side/Bed(QC): 6 Sit to Stand (QC): 5 Chair/Bgi-eb-Kgtat Xfer(QC): 5 Toilet Transfer (QC): 5 Car Transfer (QC): 5 Does the Patient Walk: Yes Walk 10 feet (QC): 4 Walk 50ft with 2 Turns (QC): 4 Walk 150 ft (QC): 4 Walking 10ft on Uneven Surface: 4 1 Step (curb) (QC): 4 4 Steps (QC): 4 12 Steps (QC): 88 Picking up an Object (QC): 88 Wheel 50 feet with 2 turns (QC: 9 Wheel 150 feet: 9 PT Plan Problem List Problem List: Activity Tolerance, Functional Strength Treatment/Plan Treatment Plan: Continue Plan of Care Treatment Plan: Bed Mobility, Education, Functional Activity Jaci, Functional Strength, Group Therapy, Gait, Safety, Therapeutic Exercise, Transfers Treatment Duration: Apr 10, 2020 Frequency: At least 5 of 7 days/Wk (IRF) Estimated Hrs Per Day: 1.5 hours per day Patient and/or Family Agrees t: Yes Safety Risks/Education Patient Education: Correct Positioning Teaching Recipient: Patient Teaching Methods: Discussion Response to Teaching: Verbalize Understanding Time/GCodes Time In: 1430 Time Out: 1500 Total Billed Treatment Time: 30 Total Billed Treatment 1, EX x2 (30m) VLAD ORTIZ ACID SPLICER Mar 26, 2020 15:23
[2020-03-26 18:03] VITALS: BP 100/50
[2020-03-27] MEDS: ALPRAZolam 0.25 MG (XANAX) TAB PO PRN ×3 (02:19→23:31)
[2020-03-27] MEDS: KCL 10 MEQ TAB (MICRO K) PO SCH (06:02)
[2020-03-27 06:11] VITALS: BP 112/52
--- NOTE | 2020-03-27 07:08 | PM&R Progress Note ---
Subjective HPI/CC On Admission Date Seen by Provider: Mar 27, 2020 Time Seen by Provider: 09:30 Subjective/Events-last exam 03/27/20: Pt had another fall this morning even with a helper to assist to the bathroom Unsure of why she keeps falling Did a septic work up and it showed elevated lactic acid of 2.3 due to hypovalemia no evidence of any infectious cause causing sepsis. Has a lot of anxiety Checking iron level and will give IV iron if needed since Hgb is 8.0 03/26/20: Decreasing Cardizem from 240 Mg to 120 Mg due to hypotension Having chest pain episodes periodically which appears to be anxiety Overall doing pretty well 03/25/20: Bowels are moving today Feels like she is doing a lot better Took a shower Still very weak Whats her Xanax Q4hrs 03/24/20: Gaining more strength SBP is a bit low still Cardizem dose may need adjusted per Cardiology 03/23/20: Near fall today when her legs "gave out." Frustrated with her lack of progress and I counseled her on the need to be patient Lasix changed to prn daily when edema is present 03/22/20: No falls Dyspnea continues Nebs ordered No pain reported Pt had a fall today Bowels are moving Fall occurred off the commode Right knee abrasion noted Hypotension noted so will inquire with cardiology since they are anti rhythmic medications Lasix requested for every other day instead of daily so will reach out to cardiology. Conferred with RN Reviewed therapy notes Checked meds and labs Review of Systems General: Fatigue, Malaise Pulmonary: Dyspnea Neurological: Weakness Focused Exam Lactate Level 03/27/20 07:22: Lactic Acid Level 2.26*H 03/27/20 09:29: Lactic Acid Level 1.24 Objective Exam Vital Signs Vital Signs Date Time Temp Pulse Resp B/P (MAP) Pulse Ox O2 Delivery O2 Flow Rate FiO2 03/27/20 20:00 93 Nasal Cannula 1.00 03/27/20 16:00 36.6 97 16 111/57 (75) Capillary Refill : Less Than 3 Seconds General Appearance: No Apparent Distress, WD/WN, Chronically ill, Thin HEENT: PERRL/EOMI, Normal ENT Inspection, Pharynx Normal Neck: Full Range of Motion, Normal Inspection, Non Tender, Supple, Carotid Bruit Respiratory: Chest Non Tender, No Accessory Muscle Use, No Respiratory Distress, Crackles, Decreased Breath Sounds Cardiovascular: Regular Rate, Rhythm, No Edema, No Gallop, No JVD, No Murmur, Normal Peripheral Pulses Gastrointestinal: Normal Bowel Sounds, No Organomegaly, No Pulsatile Mass, Non Tender, Soft Back: Normal Inspection, No CVA Tenderness, No Vertebral Tenderness Extremity: Normal Capillary Refill, Normal Inspection, Normal Range of Motion, Non Tender, No Calf Tenderness, No Pedal Edema Neurologic/Psychiatric: Alert, Oriented x3, Normal Mood/Affect, purchasing and fiscal clerk II-XII Norm as Tested, Abnormal Gait, Depressed Affect, Motor Weakness (generalized 4/5 all extremities) Skin: Normal Color, Warm/Dry Lymphatic: No Adenopathy Results/Procedures Lab Laboratory Tests 03/27/20 07:22 Patient resulted labs reviewed. FIM Transfers Therapy Code Descriptions/Definitions Functional [place] Measure: 0=Not Assessed/NA 4=Minimal Assistance 1=Total Assistance 5=Supervision or Setup 2=Maximal Assistance 6=Modified [place] 3=Moderate Assistance 7=Complete IndependenceSCALE: Activities may be completed with or without assistive devices. 7-Xxmjuocurb-esmxtdp completes the activity by him/herself with no assistance from a helper. 5-Set-up or Clean-up Assistance-helper sets up or cleans up; patient completes activity. [place] assists only prior to or following the activity. 4-Supervision or Touching Assistance-helper provides verbal cues and/or touching/steadying and/or contact guard assistance as patient completes activity. Assistance may be provided throughout the activity or intermittently. 3-Partial/Moderate Assistance-helper does LESS THAN HALF the effort. [place] lifts, holds or supports trunk or limbs, but provides less than half the effort. 2-Substantial/Maximal Assistance-helper does MORE THAN HALF the effort. [place] lifts or holds trunk or limbs and provides more than half the effort. 4-Cwhqlurib-bnzfgk does ALL the effort. Patient does none of the effort to complete the activity. Or, the assistance of 2 or more helpers is required for the patient to complete the activity. If activity was not attempted, code reason: 7-Patient Refused. 9-Not Applicable-not attempted and the patient did not perform the activity before the current illness, exacerbation or injury. 10-Not Attempted due to Environmental Limitations-(lack of equipment, weather restraints, etc.). 88-Not Attempted due to Medical Conditions or Safety Concerns. Roll Left to Right (QC): 5 Sit to Lying (QC): 4 Sit to Stand (QC): 4 Chair/Fph-hj-Widor Xfer(QC): 3 (Performed this transfer x 4 reps with FWW) Car Transfer (QC): 3 Gait Training Does the Patient Walk?: Yes Distance: 150', 40' Walk 10 feet (QC): 4 Walk 50 ft with 2 Turns(QC): 4 Walk 150 ft (QC): 4 Walking 10ft/uneven surface-QC: 4 Gait Persons Needed: 1 Gait Assistive Device: FWW Wheelchair Training Wheel 50 ft with 2 turns (QC): 9 Wheel 150 ft (QC): 9 Stair Training 1 Step (curb) (QC): 88 4 Steps (QC): 88 12 Steps (QC): 88 Balance Picking up an Object (QC): 88 ADL-Treatment Eating (QC): 6 (Pt reports independence with task, she is able to open containers, cut food, and bring food to mouth.) Oral Hygiene (QC): 6 (IND seated at sink.) Shower/Bathe Self (QC): 4 (Pt able to wash/dry all parts seated on SC, SBA.) Upper Body Dressing (QC): 5 (set up, pt able to doff/don trap puller shirt.) Lower Body Dressing (QC): 3 (Pt able to doff pants, and don pants with Min A standing balance at FWW/[facility].) On/Off Footwear (QC): 4 (SBA, pt able to doff/don gripper socks.) Toileting Hygiene (QC): 4 (CGA, pt able to manage pants and perform hygiene.) Toilet Transfer (QC): 3 (CGA onto BSC over toilet, Mod A off) Assessment/Plan Assessment and Plan Assess & Plan/Chief Complaint Assessment: Critical illness myopathy COPD AF w/RVR hx Poor reserve Colon cancer hx Breast cancer hx O2 dependency Plan: O2 Nebs Home meds IRF protocol 03/21/20: Restart Nebs O2 24/7 Home meds Fall risk 03/22/20: Nebs Monitor lungs Rehab therapies 03/23/20: Fall risk Lasix 40 mg daily prn edema changed 03/24/20: Monitor lungs O2 Strengthening 03/25/20: Increase frequency of Xanax Monitor O2 sats 03/26/20: Monitor hypotension since adjusting Cardizem dose IRF protocol Monitor O2 sats 03/27/20: Give IVF until tomorrow morning Check iron level Monitor for falls (1) Critical illness myopathy Status: Acute (2) Acute on chronic respiratory failure with hypoxia Status: Acute (3) Atrial fibrillation with rapid ventricular response Status: Resolved Resolution Date/Time: 03/15/20 @ 14:09 (4) COPD (chronic obstructive pulmonary disease) Status: Acute (5) PNA (pneumonia) Status: Acute (6) Anemia Status: Chronic DUANE GIBSON DO Mar 27, 2020 07:08
[2020-03-27 07:34] LABS: BASOPHILS % (AUTO) 1 % (0-10); EOSINOPHILS # (AUTO) 0.2 10^3/uL (0.0-0.3); EOSINOPHILS % (AUTO) 6 % (0-10); HEMATOCRIT 27 % (35-52); LYMPHOCYTES % (AUTO) 26 % (12-44); MEAN CORPUSCULAR HEMOGLOBIN 28 pg (25-34); MEAN CORPUSCULAR HGB CONC 29 g/dL (32-36); MEAN CORPUSCULAR VOLUME 96 fL (80-99); MEAN PLATELET VOLUME 9.8 fL (9.0-12.2); MONOCYTES # (AUTO) 0.4 10^3/uL (0.0-1.0); MONOCYTES % (AUTO) 9 % (0-12); NEUTROPHILS # (AUTO) 2.1 10^3/uL (1.8-7.8); NEUTROPHILS % (AUTO) 56 % (42-75); PLATELET COUNT 182 10^3/uL (130-400); WHITE BLOOD COUNT 3.7 10^3/uL (4.3-11.0)
[2020-03-27 07:42] LABS: ALBUMIN 2.9 GM/DL (3.2-4.5); CHLORIDE 103 MMOL/L (98-107); POTASSIUM 4.3 MMOL/L (3.6-5.0); SODIUM 137 MMOL/L (135-145)
[2020-03-27 07:44] LABS: CALCIUM 8.1 MG/DL (8.5-10.1)
[2020-03-27 07:45] LABS: GLUCOSE 154 MG/DL (70-105); TOTAL PROTEIN 5.5 GM/DL (6.4-8.2)
[2020-03-27 07:46] LABS: CARBON DIOXIDE 25 MMOL/L (21-32)
[2020-03-27 07:47] LABS: BILIRUBIN,TOTAL 0.4 MG/DL (0.1-1.0)
[2020-03-27 07:48] LABS: ALKALINE PHOSPHATASE 78 U/L (40-136); CREATININE SERUM 0.72 MG/DL (0.60-1.30); GFR ESTIMATED > 60
[2020-03-27 07:49] LABS: BUN/CREATININE RATIO 18
[2020-03-27 07:51] LABS: ALANINE AMINOTRANSFERASE 69 U/L (0-55)
[2020-03-27 08:09] VITALS: BP 102/63
[2020-03-27] MEDS: APIXABAN 5 MG (ELIQUIS) TABLET PO SCH ×2 (09:00→20:25)
[2020-03-27] MEDS: dilTIAZem120 MG (CARDIZEM CD) CAP PO SCH (09:00)
[2020-03-27] MEDS: PANTOPRAZOLE 40 MG (PROTONIX) TAB PO SCH (09:00)
[2020-03-27] MEDS: NS IV 1000 ML 1,000 ML IV SCH ×2 (09:00→21:48)
[2020-03-27] MEDS: SENNA W/DOCUSATE (SENOKOT S) TABLET PO SCH ×2 (09:01→20:30)
[2020-03-27] MEDS: DOCUSATE SODIUM 100 MG (COLACE) CAP PO SCH ×2 (09:01→20:30)
[2020-03-27] MEDS: polyethylene glycoL POWDER 17 GM (MIRALAX) PACK PO SCH ×2 (09:01→20:30)
--- NOTE | 2020-03-27 09:07 | Physical Therapy Daily Note ---
PT Daily Note-Current Subjective Pt laying Supine in bed upon arrival. Pt agrees to PT although reports falling at toilet and is a little anxious about transfers and walking. Pain Numeric Pain Scale: 5-Moderate Pain Location: Left, Lower Location Body Site: Back Pain Description: Ache Mental Status Patient Orientation: Person, Place, Time, Situation Attachments: Oxygen Transfers SCALE: Activities may be completed with or without assistive devices. 0-Wxdgtdeylx-qyyfrhh completes the activity by him/herself with no assistance from a helper. 5-Set-up or Clean-up Assistance-helper sets up or cleans up; patient completes activity. [place] assists only prior to or following the activity. 4-Supervision or Touching Assistance-helper provides verbal cues and/or touching/steadying and/or contact guard assistance as patient completes activity. Assistance may be provided throughout the activity or intermittently. 3-Partial/Moderate Assistance-helper does LESS THAN HALF the effort. [place] lifts, holds or supports trunk or limbs, but provides less than half the effort. 2-Substantial/Maximal Assistance-helper does MORE THAN HALF the effort. [place] lifts or holds trunk or limbs and provides more than half the effort. 3-Iberhcizo-yrrfea does ALL the effort. Patient does none of the effort to complete the activity. Or, the assistance of 2 or more helpers is required for the patient to complete the activity. If activity was not attempted, code reason: 7-Patient Refused. 9-Not Applicable-not attempted and the patient did not perform the activity before the current illness, exacerbation or injury. 10-Not Attempted due to Environmental Limitations-(lack of equipment, weather restraints, etc.). 88-Not Attempted due to Medical Conditions or Safety Concerns. Roll Left & Right (QC): 5 Sit to Lying (QC): 5 Lying to Sitting/Side of Bed(Q: 5 Sit to Stand (QC): 5 Weight Bearing Full Weight Bearing Full Weight Bearing Gait Training Does the Patient Walk?: Yes Distance: 20' x2 Walk 10 feet (QC): 4 Gait Persons Needed: 1 Gait Assistive Device: FWW Exercises Supine Ex: Ankle pumps, Quad Set, Glut sets, Heel Slides, Straight leg raise, Hip abd/add Supine Reps: 15 Treatments MODEL MAKER and pt discuss recent fall and ways to prevent as well as encourage pt to continue to participate, not let fear overcome. Pt completes Supine Ex before TF to EOB. Pt then asks to use BR. Pt amb. to BR then returns to EOB to rest. Pt asks to reposition to L sidelying for comfort with all needs met, call light in hand. Assessment Current Status: Fair Progress Anxiety limits participation, MODEL MAKER encourages pt to continue progress working w/Therapy. PT Short Term Goals Short Term Goals Time Frame: Mar 27, 2020 Roll Left & Right: 6 Sit to lyin (Brigid) Lying to sitting on side of be: 3 (Brigid) Sit to stand: 4 Chair/zrp-sf-ihgbk transfer: 4 Walk 10 feet: 4 Walk 50 feet with two turns: 4 PT Passenger Representative Goals Fpc Goals PT Passenger Representative Goals Time Frame: Apr 10, 2020 Roll Left & Right (QC): 6 Sit to Lying (QC): 6 Lying-Sitting on Side/Bed(QC): 6 Sit to Stand (QC): 5 Chair/Jee-tt-Mstns Xfer(QC): 5 Toilet Transfer (QC): 5 Car Transfer (QC): 5 Does the Patient Walk: Yes Walk 10 feet (QC): 4 Walk 50ft with 2 Turns (QC): 4 Walk 150 ft (QC): 4 Walking 10ft on Uneven Surface: 4 1 Step (curb) (QC): 4 4 Steps (QC): 4 12 Steps (QC): 88 Picking up an Object (QC): 88 Wheel 50 feet with 2 turns (QC: 9 Wheel 150 feet: 9 PT Plan Problem List Problem List: Activity Tolerance, Functional Strength, Balance, Gait Treatment/Plan Treatment Plan: Continue Plan of Care Treatment Plan: Bed Mobility, Education, Functional Activity Jaci, Functional Strength, Group Therapy, Gait, Safety, Therapeutic Exercise, Transfers Treatment Duration: Apr 10, 2020 Frequency: At least 5 of 7 days/Wk (IRF) Estimated Hrs Per Day: 1.5 hours per day Patient and/or Family Agrees t: Yes Safety Risks/Education Patient Education: Transfer Techniques, Correct Positioning, Safety Issues Teaching Recipient: Patient Teaching Methods: Discussion Response to Teaching: Verbalize Understanding Time/GCodes Time In: 800 Time Out: 900 Total Billed Treatment Time: 60 Total Billed Treatment 1, FA x2 (30m) & EX x2 (30m) VLAD ORTIZ MODEL MAKER Mar 27, 2020 09:07
[2020-03-27 09:57] LABS: BILIRUBIN,URINE NEGATIVE (NEGATIVE); CLARITY,URINE CLEAR; COLOR,URINE YELLOW; GLUCOSE, URINE (UA) NEGATIVE (NEGATIVE); KETONES,URINE NEGATIVE (NEGATIVE); LEUKOCYTE ESTERASE ,URINE NEGATIVE (NEGATIVE); NITRITE,URINE NEGATIVE (NEGATIVE); PH,URINE 6.5 (5-9); PROTEIN,URINE NEGATIVE (NEGATIVE)
[2020-03-27 10:13] LABS: BACTERIA,URINE TRACE /HPF; SQUAMOUS EPITHELIAL CELL,UR RARE /HPF; WBC,URINE RARE /HPF
--- NOTE | 2020-03-27 11:03 | Occupational Ther Daily Note ---
OT Current Status-Daily Note Subjective Pt laying in bed, required moderate encouragement to participate in tx. Pt reports hesitancy with tx due to fall this morning. ADL-Treatment Therapy Code Descriptions/Definitions Functional [place] Measure: 0=Not Assessed/NA 4=Minimal Assistance 1=Total Assistance 5=Supervision or Setup 2=Maximal Assistance 6=Modified [place] 3=Moderate Assistance 7=Complete IndependenceSCALE: Activities may be completed with or without assistive devices. 9-Xzesdeggzb-lwzucfh completes the activity by him/herself with no assistance from a helper. 5-Set-up or Clean-up Assistance-helper sets up or cleans up; patient completes activity. [place] assists only prior to or following the activity. 4-Supervision or Touching Assistance-helper provides verbal cues and/or touching/steadying and/or contact guard assistance as patient completes activity. Assistance may be provided throughout the activity or intermittently. 3-Partial/Moderate Assistance-helper does LESS THAN HALF the effort. [place] lifts, holds or supports trunk or limbs, but provides less than half the effort. 2-Substantial/Maximal Assistance-helper does MORE THAN HALF the effort. [place] lifts or holds trunk or limbs and provides more than half the effort. 2-Prdhsclal-zdcebi does ALL the effort. Patient does none of the effort to complete the activity. Or, the assistance of 2 or more helpers is required for the patient to complete the activity. If activity was not attempted, code reason: 7-Patient Refused. 9-Not Applicable-not attempted and the patient did not perform the activity before the current illness, exacerbation or injury. 10-Not Attempted due to Environmental Limitations-(lack of equipment, weather restraints, etc.). 88-Not Attempted due to Medical Conditions or Safety Concerns. Eating (QC): 6 (Pt indicates no difficulty eating) Oral Hygiene (QC): 5 (set up assist at bed level) Shower/Bathe Self (QC): 4 (Pt completed sponge bath seated EOB, CGA in stand to wash buttocks/periarea) Lower Body Dressing (QC): 4 (CGA in stand for clothing management at FWW) On/Off Footwear: 3 (Min A ) Pt required increased time with ADLs due to frequent rest breaks. Other Treatment Pt laying in bed, required moderate encouragement to participate in tx. Pt reports hesitancy with tx due to fall this morning. Pt completed oral care at bed level, then sat EOB for sponge bath and dressing. Pt then transferred to W/C with CGA, and self-propelled w/c to gym. In order to increase BUE strength and functional endurance, pt completed x10 mins on arm bike, min resistance. Pt taken back to room, transferred back to bed. Post OT tx, pt laying in bed, call light in reach and all needs met. Education OT Patient Education: Correct positioning, Exercise program, Modified ADL techniques, Progress toward Goal/Update tx plan, Purpose of tx/functional activities, Safety issues Teaching Recipient: Patient Teaching Methods: Discussion Response to Teaching: Verbalize Understanding OT Short Term Goals Short Term Goals Time Frame: Apr 03, 2020 Toileting hygiene: 4 Shower/bathe self: 4 Lower body dressin OT Inserting Operator Goals Snf Goals Time Frame: Apr 12, 2020 Eating (QC): 6 Oral Hygiene (QC): 6 Toileting Hygiene (QC): 6 Shower/Bathe Self (QC): 4 Upper Body Dressing (QC): 6 Lower Body Dressing (QC): 4 On/Off Footwear (QC): 4 Additional Goals: 1-Demonstrate ADL Tasks, 2-Verbalize Understanding, 3- ImproveStrength/Jaci 1=Demonstrate adherence to instructed precautions during ADL tasks. 2=Patient will verbalize/demonstrate understanding of assistive devices/modifications for ADL. 3=Patient will improve strength/tolerance for activity to enable patient to perform ADL's. OT Education/Plan Problem List/Assessment Assessment: Decreased Activ Tolerance, Decreased UE Strength Discharge Recommendations Plan/Recommendations: Continue POC Treatment Plan/Plan of Care Patient would benefit from OT for education, treatment and training to promote independence in ADL's, mobility, safety and/or upper extremity function for ADL's. Plan of Care: ADL Retraining, Functional Mobility, Group Exercise/Act as Ind, UE Funct Exercise/Act Treatment Duration: Apr 12, 2020 Frequency: At least 5 of 7 days/Wk (IRF) Estimated Hrs Per Day: 1.5 hours per day Rehab Potential: Fair Time/GCodes Start Time: 09:30 Stop Time: 10:30 Total Time Billed (hr/min): 60 Billed Treatment Time 1, ADL 2 (35'), FA (15'), EX (10') EBENEZER THOMAS OT Mar 27, 2020 11:03
--- NOTE | 2020-03-27 13:32 | Occupational Ther Daily Note ---
OT Current Status-Daily Note Subjective Pt laying in bed, agreeable to OT tx. ADL-Treatment Therapy Code Descriptions/Definitions Functional [place] Measure: 0=Not Assessed/NA 4=Minimal Assistance 1=Total Assistance 5=Supervision or Setup 2=Maximal Assistance 6=Modified [place] 3=Moderate Assistance 7=Complete IndependenceSCALE: Activities may be completed with or without assistive devices. 1-Rnsysvypab-fnzpzyb completes the activity by him/herself with no assistance from a helper. 5-Set-up or Clean-up Assistance-helper sets up or cleans up; patient completes activity. [place] assists only prior to or following the activity. 4-Supervision or Touching Assistance-helper provides verbal cues and/or touching/steadying and/or contact guard assistance as patient completes activity. Assistance may be provided throughout the activity or intermittently. 3-Partial/Moderate Assistance-helper does LESS THAN HALF the effort. [place] lifts, holds or supports trunk or limbs, but provides less than half the effort. 2-Substantial/Maximal Assistance-helper does MORE THAN HALF the effort. [place] lifts or holds trunk or limbs and provides more than half the effort. 3-Tloyqavpc-uhrjqg does ALL the effort. Patient does none of the effort to com plete the activity. Or, the assistance of 2 or more helpers is required for the patient to complete the activity. If activity was not attempted, code reason: 7-Patient Refused. 9-Not Applicable-not attempted and the patient did not perform the activity before the current illness, exacerbation or injury. 10-Not Attempted due to Environmental Limitations-(lack of equipment, weather restraints, etc.). 88-Not Attempted due to Medical Conditions or Safety Concerns. Other Treatment OT tx with focus on increasing BUE fine motor strength and coordination. Pt completed fine motor task of removing beads from moderate resistance red theraputty, seated EOB. Pt expresses fear of falling, stating she does not want to fall off the edge of the bed. OT stayed close by pt's side throughout tx, but no loss of balance noted. Pt then completed x20 reps bilateral tufting machine operator squeezes using moderate resistance red tufting machine operator sponge. Pt transferred supine with SBA. Post OT tx, pt laying in bed, call light in reach and all needs met. Education OT Patient Education: Correct positioning, Energy conservation, Exercise program, Modified ADL techniques, Progress toward Goal/Update tx plan, Purpose of tx/functional activities Teaching Recipient: Patient Teaching Methods: Discussion Response to Teaching: Verbalize Understanding OT Short Term Goals Short Term Goals Time Frame: Apr 03, 2020 Toileting hygiene: 4 Shower/bathe self: 4 Lower body dressin OT Die Cast Supervisor Goals Die Cast Supervisor Goals Time Frame: Apr 12, 2020 Eating (QC): 6 Oral Hygiene (QC): 6 Toileting Hygiene (QC): 6 Shower/Bathe Self (QC): 4 Upper Body Dressing (QC): 6 Lower Body Dressing (QC): 4 On/Off Footwear (QC): 4 Additional Goals: 1-Demonstrate ADL Tasks, 2-Verbalize Understanding, 3- ImproveStrength/Jaci 1=Demonstrate adherence to instructed precautions during ADL tasks. 2=Patient will verbalize/demonstrate understanding of assistive devices/modifications for ADL. 3=Patient will improve strength/tolerance for activity to enable patient to perform ADL's. OT Education/Plan Problem List/Assessment Assessment: Decreased Activ Tolerance, Decreased UE Strength, Impaired I ADL's, Impaired Self-Care Skills Discharge Recommendations Plan/Recommendations: Continue POC Treatment Plan/Plan of Care Patient would benefit from OT for education, treatment and training to promote independence in ADL's, mobility, safety and/or upper extremity function for ADL's. Plan of Care: ADL Retraining, Functional Mobility, Group Exercise/Act as Ind, UE Funct Exercise/Act Treatment Duration: Apr 12, 2020 Frequency: At least 5 of 7 days/Wk (IRF) Estimated Hrs Per Day: 1.5 hours per day Rehab Potential: Fair Time/GCodes Start Time: 13:00 Stop Time: 13:30 Total Time Billed (hr/min): 30 Billed Treatment Time 1, FA 2 EBENEZER THOMAS OT Mar 27, 2020 13:32
--- NOTE | 2020-03-27 13:35 | Diagnostic Imaging Report ---
CLINICAL INDICATION: Patient with COPD and shortness of air. EXAM: Chest x-ray PA and lateral views. COMPARISONS: Portable chest x-ray dated 03/09/2020. FINDINGS: There is interval slight improved aeration of both lungs. There is persistent bilateral lung infiltrates seen and increased lung markings (left side more than the right), which is most pronounced in the bilateral midlung frank and bibasilar regions. There is no pleural effusion or pneumothorax. Pulmonary vasculature and cardiac silhouettes are within normal limits for portable projection. Central line seen overlying left chest, stable. There are degenerative spurs involving the thoracic spine. COPD lung changes are again noted. IMPRESSION: 1: There is interval improved aeration of both lungs with persistent bilateral lung airspace infiltrates and lung markings seen (left side more than the right). These findings may be related to infectious process, but background chronic interstitial lung changes also may be present. Follow up chest x-ray in 2 - 4 weeks is suggested to evaluate for interval resolution of this finding. Dictated by: Dictated on workstation # [id number]
--- NOTE | 2020-03-27 14:31 | NUR ---
"RD ASSESSMENT PMHx: afib; COPD; PT INTERACTION: Pt was awake and pleasant during nutrition follow-up. Pt states she has been eating pretty good since last assessment. Note avg PO intake of 73% x4d, per chart review. Pt states no issues with nausea, vomiting, constipation, or diarrhea since last assessment. Note last BM was 03/27, and pt currently on bowel regimen of colace BID, senna BID, and miralax BID, per chart review. ABNORMAL NUTRITION-RELATED LAB VALUES LOW: Ca 8.1; HIGH: glu 154; AST 69 Est. kcal needs: 0832-8791 kcal | 25-30 kcal/kg Est. Pro needs: 53-63 g Pro | 1.0-1.2 g Pro/kg PES STATEMENT: Inadequate oral intake (NI-2.1) related to loss of appetite as evidenced by pt interview, and avg PO intake 73% x4d. INTERVENTION: Continue with current diet order of Regular diet. Pt may benefit from nutrition supplementation if PO intake declines. Encouraged pt to eat when able. Will continue to follow and reassess as pt needs, intake, and status change. Joi Sanchez MS RD LD [phone] cell"
[2020-03-27] MEDS: RT-ALBUTEROL INHALER HFA (VENTOLIN HFA) 18 GM IH SCH ×2 (15:13→18:23)
--- NOTE | 2020-03-27 15:17 | Physical Therapy Daily Note ---
PT Daily Note-Current Subjective Pt L sidelying upon arrival. Pt agrees to PT. Mental Status Attachments: Oxygen, IV Transfers SCALE: Activities may be completed with or without assistive devices. 5-Xsedenixuo-fbiodyq completes the activity by him/herself with no assistance from a helper. 5-Set-up or Clean-up Assistance-helper sets up or cleans up; patient completes activity. [place] assists only prior to or following the activity. 4-Supervision or Touching Assistance-helper provides verbal cues and/or touching/steadying and/or contact guard assistance as patient completes activity. Assistance may be provided throughout the activity or intermittently. 3-Partial/Moderate Assistance-helper does LESS THAN HALF the effort. [place] lifts, holds or supports trunk or limbs, but provides less than half the effort. 2-Substantial/Maximal Assistance-helper does MORE THAN HALF the effort. [place] lifts or holds trunk or limbs and provides more than half the effort. 5-Gmtqibimv-fbdpsf does ALL the effort. Patient does none of the effort to complete the activity. Or, the assistance of 2 or more helpers is required for the patient to complete the activity. If activity was not attempted, code reason: 7-Patient Refused. 9-Not Applicable-not attempted and the patient did not perform the activity before the current illness, exacerbation or injury. 10-Not Attempted due to Environmental Limitations-(lack of equipment, weather restraints, etc.). 88-Not Attempted due to Medical Conditions or Safety Concerns. Roll Left & Right (QC): 5 Sit to Lying (QC): 5 Lying to Sitting/Side of Bed(Q: 5 Sit to Stand (QC): 5 Weight Bearing Full Weight Bearing Full Weight Bearing Gait Training Does the Patient Walk?: Yes Distance: 20' Walk 10 feet (QC): 4 Gait Persons Needed: 1 Gait Assistive Device: FWW Exercises Supine Ex: Rolling Treatments WC Nurse arrives beginning of tx so pt rolls to prone so Nurse can observe bandage. After old removed and new one applied, pt TF to standing to use BR. Pt returns to bed at end of tx to rest. All needs met, call light in hand. Assessment Current Status: Fair Progress Pt continues to remain fearful about toileting due to recent falls. PT Short Term Goals Short Term Goals Time Frame: Mar 27, 2020 Roll Left & Right: 6 Sit to lyin (Brigid) Lying to sitting on side of be: 3 (Brigid) Sit to stand: 4 Chair/ntr-me-qujlq transfer: 4 Walk 10 feet: 4 Walk 50 feet with two turns: 4 PT Exit Booth Agent Goals Correction Goals PT Exit Booth Agent Goals Time Frame: Apr 10, 2020 Roll Left & Right (QC): 6 Sit to Lying (QC): 6 Lying-Sitting on Side/Bed(QC): 6 Sit to Stand (QC): 5 Chair/Sfl-xd-Qlesr Xfer(QC): 5 Toilet Transfer (QC): 5 Car Transfer (QC): 5 Does the Patient Walk: Yes Walk 10 feet (QC): 4 Walk 50ft with 2 Turns (QC): 4 Walk 150 ft (QC): 4 Walking 10ft on Uneven Surface: 4 1 Step (curb) (QC): 4 4 Steps (QC): 4 12 Steps (QC): 88 Picking up an Object (QC): 88 Wheel 50 feet with 2 turns (QC: 9 Wheel 150 feet: 9 PT Plan Problem List Problem List: Activity Tolerance, Functional Strength Treatment/Plan Treatment Plan: Continue Plan of Care Treatment Plan: Bed Mobility, Education, Functional Activity Jaci, Functional Strength, Group Therapy, Gait, Safety, Therapeutic Exercise, Transfers Treatment Duration: Apr 10, 2020 Frequency: At least 5 of 7 days/Wk (IRF) Estimated Hrs Per Day: 1.5 hours per day Patient and/or Family Agrees t: Yes Safety Risks/Education Patient Education: Transfer Techniques, Correct Positioning, Safety Issues Teaching Recipient: Patient Teaching Methods: Discussion Response to Teaching: Verbalize Understanding Time/GCodes Time In: 1330 Time Out: 1400 Total Billed Treatment Time: 30 Total Billed Treatment 1, FA x2 (30m) VLAD ORTIZ DENTAL FLOSS PACKER Mar 27, 2020 15:17
[2020-03-27 16:00] VITALS: BP 111/57
--- NOTE | 2020-03-27 18:52 | NUR ---
CM/SS PATIENT CARE CONFERENCE Reviewed Summary with patient and then with her daughter Peace Grant by phone. Patient's spouse and Peace will come Wednesday, April 01, at 1000 to participate with patient during her therapy sessions. Circuit Board Inspector will meet with them after to discuss the target discharge of Wednesday, April 03, and assess needs/concerns regarding home environment, equipment, and family ability to provide assistance. Patient noted some improvement but indicates some discouragement by her continued leg weakness and pace of recovery. She has been hospitalized since 02/29/20. Continue post hospital care and resource planning with patient/family.
--- NOTE | 2020-03-28 06:10 | PM&R Progress Note ---
Subjective HPI/CC On Admission Date Seen by Provider: Mar 28, 2020 Time Seen by Provider: 09:30 Subjective/Events-last exam 03/28/20: Buttock ulcer is treated daily Venofer maintained for anemia iron def O2 5L/min at home and now 1L/min 03/27/20: Pt had another fall this morning even with a helper to assist to the bathroom Unsure of why she keeps falling Did a septic work up and it showed elevated lactic acid of 2.3 due to hypovalemia no evidence of any infectious cause causing sepsis. Has a lot of anxiety Checking iron level and will give IV iron if needed since Hgb is 8.0 03/26/20: Decreasing Cardizem from 240 Mg to 120 Mg due to hypotension Having chest pain episodes periodically which appears to be anxiety Overall doing pretty well 03/25/20: Bowels are moving today Feels like she is doing a lot better Took a shower Still very weak Whats her Xanax Q4hrs 03/24/20: Gaining more strength SBP is a bit low still Cardizem dose may need adjusted per Cardiology 03/23/20: Near fall today when her legs "gave out." Frustrated with her lack of progress and I counseled her on the need to be patient Lasix changed to prn daily when edema is present 03/22/20: No falls Dyspnea continues Nebs ordered No pain reported Pt had a fall today Bowels are moving Fall occurred off the commode Right knee abrasion noted Hypotension noted so will inquire with cardiology since they are anti rhythmic medications Lasix requested for every other day instead of daily so will reach out to cardiology. Conferred with RN Reviewed therapy notes Checked meds and labs Review of Systems General: Malaise Pulmonary: Dyspnea Focused Exam Lactate Level 03/27/20 07:22: Lactic Acid Level 2.26*H 03/27/20 09:29: Lactic Acid Level 1.24 Objective Exam Vital Signs Vital Signs Date Time Temp Pulse Resp B/P (MAP) Pulse Ox O2 Delivery O2 Flow Rate FiO2 03/28/20 18:33 91 Nasal Cannula 1.00 03/28/20 17:10 36.9 111 20 107/57 (74) Capillary Refill : Less Than 3 Seconds General Appearance: No Apparent Distress, WD/WN, Chronically ill, Thin HEENT: PERRL/EOMI, Normal ENT Inspection, Pharynx Normal Neck: Full Range of Motion, Normal Inspection, Non Tender, Supple, Carotid Bruit Respiratory: Chest Non Tender, No Accessory Muscle Use, No Respiratory Distress, Crackles, Decreased Breath Sounds Cardiovascular: Regular Rate, Rhythm, No Edema, No Gallop, No JVD, No Murmur, Normal Peripheral Pulses Gastrointestinal: Normal Bowel Sounds, No Organomegaly, No Pulsatile Mass, Non Tender, Soft Back: Normal Inspection, No CVA Tenderness, No Vertebral Tenderness Extremity: Normal Capillary Refill, Normal Inspection, Normal Range of Motion, Non Tender, No Calf Tenderness, No Pedal Edema Neurologic/Psychiatric: Alert, Oriented x3, Normal Mood/Affect, embosser operator II-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 FIM Transfers Therapy Code Descriptions/Definitions Functional [place] Measure: 0=Not Assessed/NA 4=Minimal Assistance 1=Total Assistance 5=Supervision or Setup 2=Maximal Assistance 6=Modified [place] 3=Moderate Assistance 7=Complete IndependenceSCALE: Activities may be completed with or without assistive devices. 7-Mjmammwvub-tajiren completes the activity by him/herself with no assistance from a helper. 5-Set-up or Clean-up Assistance-helper sets up or cleans up; patient completes activity. [place] assists only prior to or following the activity. 4-Supervision or Touching Assistance-helper provides verbal cues and/or touching/steadying and/or contact guard assistance as patient completes activity. Assistance may be provided throughout the activity or intermittently. 3-Partial/Moderate Assistance-helper does LESS THAN HALF the effort. [place] lifts, holds or supports trunk or limbs, but provides less than half the effort. 2-Substantial/Maximal Assistance-helper does MORE THAN HALF the effort. [place] lifts or holds trunk or limbs and provides more than half the effort. 8-Vbqeqpnlr-itzibn does ALL the effort. Patient does none of the effort to complete the activity. Or, the assistance of 2 or more helpers is required for the patient to complete the activity. If activity was not attempted, code reason: 7-Patient Refused. 9-Not Applicable-not attempted and the patient did not perform the activity before the current illness, exacerbation or injury. 10-Not Attempted due to Environmental Limitations-(lack of equipment, weather restraints, etc.). 88-Not Attempted due to Medical Conditions or Safety Concerns. Roll Left to Right (QC): 5 Sit to Lying (QC): 5 Sit to Stand (QC): 5 Chair/Xsp-ja-Gwbqc Xfer(QC): 3 (Performed this transfer x 4 reps with FWW) Car Transfer (QC): 3 Gait Training Does the Patient Walk?: Yes Distance: 20' Walk 10 feet (QC): 4 Walk 50 ft with 2 Turns(QC): 4 Walk 150 ft (QC): 4 Walking 10ft/uneven surface-QC: 4 Gait Persons Needed: 1 Gait Assistive Device: FWW Wheelchair Training Wheel 50 ft with 2 turns (QC): 9 Wheel 150 ft (QC): 9 Stair Training 1 Step (curb) (QC): 88 4 Steps (QC): 88 12 Steps (QC): 88 Balance Picking up an Object (QC): 88 ADL-Treatment Eating (QC): 6 (Pt indicates no difficulty eating) Oral Hygiene (QC): 5 (set up assist at bed level) Shower/Bathe Self (QC): 4 (Pt completed sponge bath seated EOB, CGA in stand to wash buttocks/periarea) Upper Body Dressing (QC): 5 (set up, pt able to doff/don ladle puller shirt.) Lower Body Dressing (QC): 4 (CGA in stand for clothing management at FWW) On/Off Footwear (QC): 3 (Min A ) Toileting Hygiene (QC): 4 (CGA, pt able to manage pants and perform hygiene.) Toilet Transfer (QC): 3 (CGA onto BSC over toilet, Mod A off) Assessment/Plan Assessment and Plan Assess & Plan/Chief Complaint Assessment: Critical illness myopathy COPD AF w/RVR hx Poor reserve Colon cancer hx Breast cancer hx O2 dependency Anemia iron def Plan: O2 Nebs Home meds IRF protocol 03/21/20: Restart Nebs O2 23/11 Home meds Fall risk 03/22/20: Nebs Monitor lungs Rehab therapies 03/23/20: Fall risk Lasix 40 mg daily prn edema changed 03/24/20: Monitor lungs O2 Strengthening 03/25/20: Increase frequency of Xanax Monitor O2 sats 03/26/20: Monitor hypotension since adjusting Cardizem dose IRF protocol Monitor O2 sats 03/27/20: Give IVF until tomorrow morning Check iron level Monitor for falls 03/28/20: Buttock ulcer wound care Venofer iron infusions (1) Critical illness myopathy Status: Acute (2) Acute on chronic respiratory failure with hypoxia Status: Acute (3) Atrial fibrillation with rapid ventricular response Status: Resolved Resolution Date/Time: 03/15/20 @ 14:09 (4) COPD (chronic obstructive pulmonary disease) Status: Acute (5) PNA (pneumonia) Status: Acute (6) Anemia Status: Chronic DUANE GIBSON DO Mar 28, 2020 06:10
[2020-03-28 06:37] VITALS: BP 121/60
[2020-03-28] MEDS: KCL 10 MEQ TAB (MICRO K) PO SCH (06:47)
[2020-03-28 08:00] VITALS: BP 114/58
[2020-03-28] MEDS: RT-ALBUTEROL INHALER HFA (VENTOLIN HFA) 18 GM IH SCH ×3 (08:07→18:33)
[2020-03-28] MEDS: dilTIAZem120 MG (CARDIZEM CD) CAP PO SCH (08:57)
[2020-03-28] MEDS: APIXABAN 5 MG (ELIQUIS) TABLET PO SCH ×2 (08:57→20:36)
[2020-03-28] MEDS: PANTOPRAZOLE 40 MG (PROTONIX) TAB PO SCH (08:57)
[2020-03-28] MEDS: polyethylene glycoL POWDER 17 GM (MIRALAX) PACK PO SCH ×2 (08:58→20:35)
[2020-03-28] MEDS: DOCUSATE SODIUM 100 MG (COLACE) CAP PO SCH ×2 (08:58→20:34)
[2020-03-28] MEDS: IRON SUCROSE 200 MG/10 ML (VENOFER) VIAL IV SCH (08:58)
[2020-03-28] MEDS: SENNA W/DOCUSATE (SENOKOT S) TABLET PO SCH ×2 (08:59→20:35)
--- NOTE | 2020-03-28 09:00 | NUR ---
STATES DOES NOT LIKE TO SIT IN RECLINER BECAUSE OF ULCER ON SACRUM. MORE AGREEABLE TO SIT IN WHEELCHAIR. HAS STARTED ON VENOFER. DENIES PAIN. STATES CAN TELL WHEN "LEGS ARE GOING OUT" BECAUSE THEY START SHAKING PRIOR TO.
--- NOTE | 2020-03-28 09:06 | Physical Therapy Daily Note ---
PT Daily Note-Current Subjective "My knees get shaky when I'm tired." Agrees to PT this date. Reports she does not feel she could manage at home at this level. Mental Status Patient Orientation: Person, Place, Time, Situation Transfers SCALE: Activities may be completed with or without assistive devices. 6-Uysrrstqfk-liqfgko completes the activity by him/herself with no assistance from a helper. 5-Set-up or Clean-up Assistance-helper sets up or cleans up; patient completes activity. [place] assists only prior to or following the activity. 4-Supervision or Touching Assistance-helper provides verbal cues and/or touching/steadying and/or contact guard assistance as patient completes activity. Assistance may be provided throughout the activity or intermittently. 3-Partial/Moderate Assistance-helper does LESS THAN HALF the effort. [place] lifts, holds or supports trunk or limbs, but provides less than half the effort. 2-Substantial/Maximal Assistance-helper does MORE THAN HALF the effort. [place] lifts or holds trunk or limbs and provides more than half the effort. 7-Nxhhrdzjx-qogftp does ALL the effort. Patient does none of the effort to complete the activity. Or, the assistance of 2 or more helpers is required for the patient to complete the activity. If activity was not attempted, code reason: 7-Patient Refused. 9-Not Applicable-not attempted and the patient did not perform the activity before the current illness, exacerbation or injury. 10-Not Attempted due to Environmental Limitations-(lack of equipment, weather restraints, etc.). 88-Not Attempted due to Medical Conditions or Safety Concerns. Lying to Sitting/Side of Bed(Q: 4 Sit to Stand (QC): 2 (varies, mod to min assist depending on level of fatigue.) Chair/Nfa-vr-Hcqgh Xfer(QC): 3 (close CGA to min assist for safety.) Toilet Transfer (QC): 3 Weight Bearing Full Weight Bearing Full Weight Bearing Gait Training Walk 150 ft (QC): 4 (cGA ) Gait Assistive Device: FWW Close CGA with gait for safety and followed closely with WC. Skilled cues provided to manage and monitor level of fatigue to reduce fall risk. Exercises Seated Therapy Exercises: Ankle pumps, Long arc quads, Hip flexion Seated Reps: 12 (Functional LE strength and progression of activity tolerance. ) Neuromuscular Standing activity for functional balance and functional activity tolerance unsupported with CGA as OT addressed UE use and movment. Pt performed task x 3 reps for approx 2 minutes each. Worked on functional balacne with sit to stand transfer and SPT. Treatments Co treat with OT. Need for skill of 2 clinicians to safely and effectively complete treatment session. OT addressed use, placment of UE as well as cognitive task breakdown as PT addressed gross motor movements for balance, transisitional movements and gait. In addition, 2 clinicians effective to provide comprehensive safety education of the whole person and activity. Assessment Current Status: Good Progress Tires quickly, knees begin to quiver as she tires, which is indicative of needing to rest. Pt seems motivated and presses forward. Increasd gait since last seen by this clinician. PT Short Term Goals Short Term Goals Time Frame: Mar 27, 2020 Roll Left & Right: 6 Sit to lyin (Brigid) Lying to sitting on side of be: 3 (Brigid) Sit to stand: 4 Chair/uxc-bv-uxzxj transfer: 4 Walk 10 feet: 4 Walk 50 feet with two turns: 4 PT Care Home Goals Care Home Goals PT Derrick Barge Operator Goals Time Frame: Apr 10, 2020 Roll Left & Right (QC): 6 Sit to Lying (QC): 6 Lying-Sitting on Side/Bed(QC): 6 Sit to Stand (QC): 5 Chair/Vff-kz-Nregs Xfer(QC): 5 Toilet Transfer (QC): 5 Car Transfer (QC): 5 Does the Patient Walk: Yes Walk 10 feet (QC): 4 Walk 50ft with 2 Turns (QC): 4 Walk 150 ft (QC): 4 Walking 10ft on Uneven Surface: 4 1 Step (curb) (QC): 4 4 Steps (QC): 4 12 Steps (QC): 88 Picking up an Object (QC): 88 Wheel 50 feet with 2 turns (QC: 9 Wheel 150 feet: 9 PT Plan Problem List Problem List: Activity Tolerance, Functional Strength, Safety, Balance, Gait, Transfer, Bed Mobility Treatment/Plan Treatment Plan: Continue Plan of Care Treatment Plan: Bed Mobility, Education, Functional Activity Jaci, Functional Strength, Group Therapy, Gait, Safety, Therapeutic Exercise, Transfers Treatment Duration: Apr 10, 2020 Frequency: At least 5 of 7 days/Wk (IRF) Estimated Hrs Per Day: 1.5 hours per day Patient and/or Family Agrees t: Yes Safety Risks/Education Patient Education: Gait Training, Transfer Techniques, Safety Issues Teaching Recipient: Patient Teaching Methods: Demonstration, Discussion Response to Teaching: Return Demonstration, Reinforcement Needed Discharge Recommendations Therapy Discharge Recommendati: Post Acute PT ([facility] PT; ) Time/GCodes Time In: 800 Time Out: 900 Total Billed Treatment Time: 60 Total Billed Treatment visit FA 30 NM 15 EX 15 MARU CAMPUZANO PT Mar 28, 2020 09:06
--- NOTE | 2020-03-28 09:08 | Occupational Ther Daily Note ---
OT Current Status-Daily Note Subjective No pain reported. "I am just weak." Appearance Pt. in bed when therapy entered room. Agrees to work. Mental Status/Objective Patient Orientation: Person, Place, Time, Situation ADL-Treatment Therapy Code Descriptions/Definitions Functional [place] Measure: 0=Not Assessed/NA 4=Minimal Assistance 1=Total Assistance 5=Supervision or Setup 2=Maximal Assistance 6=Modified [place] 3=Moderate Assistance 7=Complete IndependenceSCALE: Activities may be completed with or without assistive devices. 3-Usuerufnrn-tdiybqu completes the activity by him/herself with no assistance from a helper. 5-Set-up or Clean-up Assistance-helper sets up or cleans up; patient completes activity. [place] assists only prior to or following the activity. 4-Supervision or Touching Assistance-helper provides verbal cues and/or touching/steadying and/or contact guard assistance as patient completes activity. Assistance may be provided throughout the activity or intermittently. 3-Partial/Moderate Assistance-helper does LESS THAN HALF the effort. [place] lifts, holds or supports trunk or limbs, but provides less than half the effort. 2-Substantial/Maximal Assistance-helper does MORE THAN HALF the effort. [place] lifts or holds trunk or limbs and provides more than half the effort. 8-Qyypymgdz-uckpvp does ALL the effort. Patient does none of the effort to complete the activity. Or, the assistance of 2 or more helpers is required for the patient to complete the activity. If activity was not attempted, code reason: 7-Patient Refused. 9-Not Applicable-not attempted and the patient did not perform the activity before the current illness, exacerbation or injury. 10-Not Attempted due to Environmental Limitations-(lack of equipment, weather restraints, etc.). 88-Not Attempted due to Medical Conditions or Safety Concerns. Oral Hygiene (QC): 7 ("I will do that later.") Shower/Bathe Self (QC): 7 ("I really don't feel like a shower. I sponge bathed good yesterday.") Upper Body Dressing (QC): 7 ("These clothes are clean. I put them on yesterday and have not go them dirty.") Lower Body Dressing (QC): 7 Toileting Hygiene (QC): 3 (Mod assist overall to doff/don brief and pants over hips. Pt. able to cleanse self after urinating.) Toilet Transfer (QC): 3 (Min assist) Other Treatment Pt. agrees to work with therapy. Co-treatment performed due to fatigue level of pt. and need of skilled assistance x 2 for higher level tasks. Pt. practiced ambulation with walker, transfers, standing endurance/balance, and UE strength tasks. Transferred supine-sit with SBA. Ambulated with min assist at walker. Pt. experiencing episodes of extreme leg fatigue, in which her legs start to shake and then don't hold her. Pt. ambulated with min assist with wheelchair follow, in multiple increments due to fatigue. Please see PT note for distance. Stood at walker with PT while OT facilitated UE reach and ROM, as well as weig ht shifts at walker. Did this first with holding walker, and then without holding walker. Pt. is able to stand approximately 2-3 minutes at a time without fatiguing, but then her legs will begin to give way. Pt. educated on importance of listening to her body and being aware of when this will happen. Worked on pelvic tilts seated, opening up chest to breathe deep, and core musc les for upright mobility. Pt. tolerated well with multiple rest breaks. Pt. able to transfer back to bed with SBA and all needs met. Education OT Patient Education: Correct positioning, Energy conservation, Exercise prog tabitha, Modified ADL techniques, Progress toward Goal/Update tx plan, Purpose of tx/functional activities, Reviewed precautions, Rehab process, Transfer techniques Teaching Recipient: Patient Teaching Methods: Demonstration, Discussion Response to Teaching: Verbalize Understanding, Return Demonstration OT Short Term Goals Short Term Goals Time Frame: Apr 03, 2020 Toileting hygiene: 4 Shower/bathe self: 4 Lower body dressin OT Shoe Lay Out Planner Goals [facility] Goals Time Frame: Apr 12, 2020 Eating (QC): 6 Oral Hygiene (QC): 6 Toileting Hygiene (QC): 6 Shower/Bathe Self (QC): 4 Upper Body Dressing (QC): 6 Lower Body Dressing (QC): 4 On/Off Footwear (QC): 4 Additional Goals: 1-Demonstrate ADL Tasks, 2-Verbalize Understanding, 3- ImproveStrength/Jaci 1=Demonstrate adherence to instructed precautions during ADL tasks. 2=Patient will verbalize/demonstrate understanding of assistive devices/modifications for ADL. 3=Patient will improve strength/tolerance for activity to enable patient to perform ADL's. OT Education/Plan Problem List/Assessment Assessment: Decreased Activ Tolerance, Decreased UE Strength, Dependent Transfers, Impaired Funct Balance, Impaired I ADL's, Impaired Self-Care Skills Discharge Recommendations Plan/Recommendations: Continue POC Therapy Discharge Recommendati: Home & Family, Post Acute OT Treatment Plan/Plan of Care Treatment,Training & Education: Yes Patient would benefit from OT for education, treatment and training to promote independence in ADL's, mobility, safety and/or upper extremity function for ADL's. Plan of Care: ADL Retraining, Functional Mobility, Group Exercise/Act as Ind, UE Funct Exercise/Act Treatment Duration: Apr 12, 2020 Frequency: At least 5 of 7 days/Wk (IRF) Estimated Hrs Per Day: 1.5 hours per day Agreement: Yes Rehab Potential: Fair Time/GCodes Start Time: 08:00 Stop Time: 09:00 Total Time Billed (hr/min): 60 Billed Treatment Time 1, FA x 45minutes, Ex x 15minutes (co-treatment with PT. Please see above note for designated roles.) HAYLIE HSU OT Mar 28, 2020 09:08
--- NOTE | 2020-03-28 12:15 | Therapy Group Daily Note ---
Therapy Daily Group Note Patient Education Topic Home Safety, Exercises Exercises LE Seated Exercise, Stretching, UE Exercise Session Ratio (pt:therapist): 4:1 Goal of Session: Home Safety Strategies Pt to understand home safety strategies. Functional strengthening for improved mobility techniques. Goal Met for this Session: Yes Pt Benefit of Group: Contributions to Others, F/U Use of Strategies @Home Social interaction; mask in place and social distanced. Other/Notes Pt seemed to enjoy the social aspect of group therapy and interacted appropriately. She was participatory in suggestions for home safety and completed ther ex as instructed. Start Time: 11:00 Stop Time: 12:00 Total Billed Treatment Time: 60 Total Billed Treatment visit Group 60 MARU CAMPUZANO PT Mar 28, 2020 12:15
[2020-03-28] MEDS ORDERED: CATHETER FLUSH 10 ML SYR IV PRN (14:15)
--- NOTE | 2020-03-28 16:30 | NUR ---
MEDICATED WITH [employer] REQUESTED. STATES "NEED IT AFTER THE ALBUTEROL".
[2020-03-28] MEDS: ALPRAZolam 0.25 MG (XANAX) TAB PO PRN ×2 (16:37→20:38)
[2020-03-28 17:10] VITALS: BP 107/57
[2020-03-28] MEDS: CATHETER FLUSH 10 ML SYR IV SCH (20:36)
[2020-03-29 05:02] VITALS: BP 100/55
[2020-03-29] MEDS: CATHETER FLUSH 10 ML SYR IV SCH ×3 (06:15→21:14)
[2020-03-29] MEDS: KCL 10 MEQ TAB (MICRO K) PO SCH (06:15)
--- NOTE | 2020-03-29 07:06 | PM&R Progress Note ---
Subjective HPI/CC On Admission Date Seen by Provider: Mar 29, 2020 Time Seen by Provider: 13:00 Subjective/Events-last exam 03/29/20: Attempted to add anti-depressant but she told me she can't tolerate any of the meds due to nausea IS ordered No pain reported 03/28/20: Buttock ulcer is treated daily Venofer maintained for anemia iron def O2 5L/min at home and now 1L/min 03/27/20: Pt had another fall this morning even with a helper to assist to the bathroom Unsure of why she keeps falling Did a septic work up and it showed elevated lactic acid of 2.3 due to hypovalemia no evidence of any infectious cause causing sepsis. Has a lot of anxiety Checking iron level and will give IV iron if needed since Hgb is 8.0 03/26/20: Decreasing Cardizem from 240 Mg to 120 Mg due to hypotension Having chest pain episodes periodically which appears to be anxiety Overall doing pretty well 03/25/20: Bowels are moving today Feels like she is doing a lot better Took a shower Still very weak Whats her Xanax Q4hrs 03/24/20: Gaining more strength SBP is a bit low still Cardizem dose may need adjusted per Cardiology 03/23/20: Near fall today when her legs "gave out." Frustrated with her lack of progress and I counseled her on the need to be patient Lasix changed to prn daily when edema is present 03/22/20: No falls Dyspnea continues Nebs ordered No pain reported Pt had a fall today Bowels are moving Fall occurred off the commode Right knee abrasion noted Hypotension noted so will inquire with cardiology since they are anti rhythmic medications Lasix requested for every other day instead of daily so will reach out to cardiology. Conferred with RN Reviewed therapy notes Checked meds and labs Review of Systems General: Fatigue Pulmonary: Dyspnea Focused Exam Lactate Level 03/27/20 07:22: Lactic Acid Level 2.26*H 03/27/20 09:29: Lactic Acid Level 1.24 Objective Exam Vital Signs Vital Signs Date Time Temp Pulse Resp B/P (MAP) Pulse Ox O2 Delivery O2 Flow Rate FiO2 03/30/20 06:15 37.4 106 20 110/53 (72) 94 Nasal Cannula 1.00 Capillary Refill : Less Than 3 Seconds General Appearance: No Apparent Distress, WD/WN, Chronically ill, Thin HEENT: PERRL/EOMI, Normal ENT Inspection, Pharynx Normal Neck: Full Range of Motion, Normal Inspection, Non Tender, Supple, Carotid Bruit Respiratory: Chest Non Tender, No Accessory Muscle Use, No Respiratory Distress, Crackles, Decreased Breath Sounds Cardiovascular: Regular Rate, Rhythm, No Edema, No Gallop, No JVD, No Murmur, Normal Peripheral Pulses Gastrointestinal: Normal Bowel Sounds, No Organomegaly, No Pulsatile Mass, Non Tender, Soft Back: Normal Inspection, No CVA Tenderness, No Vertebral Tenderness Extremity: Normal Capillary Refill, Normal Inspection, Normal Range of Motion, Non Tender, No Calf Tenderness, No Pedal Edema Neurologic/Psychiatric: Alert, Oriented x3, Normal Mood/Affect, paint stripper II-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 FIM Transfers Therapy Code Descriptions/Definitions Functional [place] Measure: 0=Not Assessed/NA 4=Minimal Assistance 1=Total Assistance 5=Supervision or Setup 2=Maximal Assistance 6=Modified [place] 3=Moderate Assistance 7=Complete IndependenceSCALE: Activities may be completed with or without assistive devices. 3-Zhgcfmqmgj-orjvvni completes the activity by him/herself with no assistance from a helper. 5-Set-up or Clean-up Assistance-helper sets up or cleans up; patient completes activity. [place] assists only prior to or following the activity. 4-Supervision or Touching Assistance-helper provides verbal cues and/or touching/steadying and/or contact guard assistance as patient completes activity. Assistance may be provided throughout the activity or intermittently. 3-Partial/Moderate Assistance-helper does LESS THAN HALF the effort. [place] lifts, holds or supports trunk or limbs, but provides less than half the effort. 2-Substantial/Maximal Assistance-helper does MORE THAN HALF the effort. [place] lifts or holds trunk or limbs and provides more than half the effort. 8-Yobskipen-ggetms does ALL the effort. Patient does none of the effort to complete the activity. Or, the assistance of 2 or more helpers is required for the patient to complete the activity. If activity was not attempted, code reason: 7-Patient Refused. 9-Not Applicable-not attempted and the patient did not perform the activity before the current illness, exacerbation or injury. 10-Not Attempted due to Environmental Limitations-(lack of equipment, weather restraints, etc.). 88-Not Attempted due to Medical Conditions or Safety Concerns. Roll Left to Right (QC): 5 Sit to Lying (QC): 5 Sit to Stand (QC): 2 (varies, mod to min assist depending on level of fatigue.) Chair/Vsa-rg-Lltml Xfer(QC): 3 (close CGA to min assist for safety.) Car Transfer (QC): 3 Gait Training Does the Patient Walk?: Yes Distance: 20' Walk 10 feet (QC): 4 Walk 50 ft with 2 Turns(QC): 4 Walk 150 ft (QC): 4 (cGA ) Walking 10ft/uneven surface-QC: 4 Gait Persons Needed: 1 Gait Assistive Device: FWW Wheelchair Training Wheel 50 ft with 2 turns (QC): 9 Wheel 150 ft (QC): 9 Stair Training 1 Step (curb) (QC): 88 4 Steps (QC): 88 12 Steps (QC): 88 Balance Picking up an Object (QC): 88 ADL-Treatment Eating (QC): 6 (Pt indicates no difficulty eating) Oral Hygiene (QC): 7 ("I will do that later.") Shower/Bathe Self (QC): 7 ("I really don't feel like a shower. I sponge bathed good yesterday.") Upper Body Dressing (QC): 7 ("These clothes are clean. I put them on yesterday and have not go them dirty.") Lower Body Dressing (QC): 7 On/Off Footwear (QC): 3 (Min A ) Toileting Hygiene (QC): 3 (Mod assist overall to doff/don brief and pants over hips. Pt. able to cleanse self after urinating.) Toilet Transfer (QC): 3 (Min assist) Assessment/Plan Assessment and Plan Assess & Plan/Chief Complaint Assessment: Critical illness myopathy COPD AF w/RVR hx Poor reserve Colon cancer hx Breast cancer hx O2 dependency Anemia iron def Plan: O2 Nebs Home meds IRF protocol 03/21/20: Restart Nebs O2 24/7 Home meds Fall risk 03/22/20: Nebs Monitor lungs Rehab therapies 03/23/20: Fall risk Lasix 40 mg daily prn edema changed 03/24/20: Monitor lungs O2 Strengthening 03/25/20: Increase frequency of Xanax Monitor O2 sats 03/26/20: Monitor hypotension since adjusting Cardizem dose IRF protocol Monitor O2 sats 03/27/20: Give IVF until tomorrow morning Check iron level Monitor for falls 03/28/20: Buttock ulcer wound care Venofer iron infusions 03/29/20: Iron infusions tolerated Refuses anti-depressants due to "side effects to ALL of them" (1) Critical illness myopathy Status: Acute (2) Acute on chronic respiratory failure with hypoxia Status: Acute (3) Atrial fibrillation with rapid ventricular response Status: Resolved Resolution Date/Time: 03/15/20 @ 14:09 (4) COPD (chronic obstructive pulmonary disease) Status: Acute (5) PNA (pneumonia) Status: Acute (6) Anemia Status: Chronic DUANE GIBSON DO Mar 29, 2020 07:06
[2020-03-29] MEDS: RT-ALBUTEROL INHALER HFA (VENTOLIN HFA) 18 GM IH SCH ×3 (07:48→19:20)
[2020-03-29] MEDS: APIXABAN 5 MG (ELIQUIS) TABLET PO SCH ×2 (08:25→20:46)
[2020-03-29] MEDS: PANTOPRAZOLE 40 MG (PROTONIX) TAB PO SCH (08:25)
[2020-03-29] MEDS: dilTIAZem120 MG (CARDIZEM CD) CAP PO SCH (08:25)
--- NOTE | 2020-03-29 09:20 | Occupational Ther Daily Note ---
OT Current Status-Daily Note Subjective Pt laying in bed, agreeable to OT tx ADL-Treatment Therapy Code Descriptions/Definitions Functional [place] Measure: 0=Not Assessed/NA 4=Minimal Assistance 1=Total Assistance 5=Supervision or Setup 2=Maximal Assistance 6=Modified [place] 3=Moderate Assistance 7=Complete IndependenceSCALE: Activities may be completed with or without assistive devices. 8-Clltqoylff-ynhyvis completes the activity by him/herself with no assistance from a helper. 5-Set-up or Clean-up Assistance-helper sets up or cleans up; patient completes activity. [place] assists only prior to or following the activity. 4-Supervision or Touching Assistance-helper provides verbal cues and/or touching/steadying and/or contact guard assistance as patient completes activity. Assistance may be provided throughout the activity or intermittently. 3-Partial/Moderate Assistance-helper does LESS THAN HALF the effort. [place] lifts, holds or supports trunk or limbs, but provides less than half the effort. 2-Substantial/Maximal Assistance-helper does MORE THAN HALF the effort. [place] lifts or holds trunk or limbs and provides more than half the effort. 6-Eblnowyou-rvzvhu does ALL the effort. Patient does none of the effort to comp lete the activity. Or, the assistance of 2 or more helpers is required for the patient to complete the activity. If activity was not attempted, code reason: 7-Patient Refused. 9-Not Applicable-not attempted and the patient did not perform the activity before the current illness, exacerbation or injury. 10-Not Attempted due to Environmental Limitations-(lack of equipment, weather restraints, etc.). 88-Not Attempted due to Medical Conditions or Safety Concerns. Eating (QC): 6 (IND per pt report.) Oral Hygiene (QC): 5 (set up at tray table.) Shower/Bathe Self (QC): 4 (SBA, pt able to wash/dry all parts seated on SC) Upper Body Dressing (QC): 5 (set up) Lower Body Dressing (QC): 4 (CGA in stand for clothing management.) On/Off Footwear: 4 (SBA) Toileting Hygiene (QC): 4 (SBA, pt able to perform hygiene and clothing management) Toilet Transfer (QC): 4 (CGA on/off BSC over toilet.) Other Treatment Pt laying in bed, transferred supine to sit EOB with SBA. Sit to stand with CGA, pt used FWW to ambulate (CGA) into restroom and onto BS over toilet. Pt completed toileting, then transfered to NV using FWW and CGA. Pt doffed clothes, completed showering, then donned clothes. Pt used FWW to sit EOB. Pt able to brush hair and complete oral care with set up assist. Pt transferred supine with SBA. Post OT tx, pt laying in bed, call light in reach and all needs met. Education OT Patient Education: Correct positioning, Energy conservation, Modified ADL techniques, Progress toward Goal/Update tx plan, Purpose of tx/functional activities, Safety issues, Transfer techniques Teaching Recipient: Patient Teaching Methods: Discussion Response to Teaching: Verbalize Understanding OT Short Term Goals Short Term Goals Time Frame: Apr 03, 2020 Toileting hygiene: 4 Shower/bathe self: 4 Lower body dressin OT Turn Sewer Goals Correction Goals Time Frame: Apr 12, 2020 Eating (QC): 6 Oral Hygiene (QC): 6 Toileting Hygiene (QC): 6 Shower/Bathe Self (QC): 4 Upper Body Dressing (QC): 6 Lower Body Dressing (QC): 4 On/Off Footwear (QC): 4 Additional Goals: 1-Demonstrate ADL Tasks, 2-Verbalize Understanding, 3- ImproveStrength/Jaci 1=Demonstrate adherence to instructed precautions during ADL tasks. 2=Patient will verbalize/demonstrate understanding of assistive devices/modifications for ADL. 3=Patient will improve strength/tolerance for activity to enable patient to perform ADL's. OT Education/Plan Problem List/Assessment Assessment: Decreased Activ Tolerance, Decreased UE Strength, Impaired Funct Balance, Impaired I ADL's, Impaired Self-Care Skills Discharge Recommendations Plan/Recommendations: Continue POC Treatment Plan/Plan of Care Patient would benefit from OT for education, treatment and training to promote independence in ADL's, mobility, safety and/or upper extremity function for ADL's. Plan of Care: ADL Retraining, Functional Mobility, Group Exercise/Act as Ind, UE Funct Exercise/Act Treatment Duration: Apr 12, 2020 Frequency: At least 5 of 7 days/Wk (IRF) Estimated Hrs Per Day: 1.5 hours per day Agreement: Yes Rehab Potential: Fair Time/GCodes Start Time: 08:00 Stop Time: 09:00 Total Time Billed (hr/min): 60 Billed Treatment Time 1, ADL 4 EBENEZER THOMAS OT Mar 29, 2020 09:20
[2020-03-29 09:24] VITALS: BP 109/53
[2020-03-29] MEDS: polyethylene glycoL POWDER 17 GM (MIRALAX) PACK PO SCH ×2 (09:32→20:50)
[2020-03-29] MEDS: SENNA W/DOCUSATE (SENOKOT S) TABLET PO SCH ×2 (09:32→20:50)
[2020-03-29] MEDS: DOCUSATE SODIUM 100 MG (COLACE) CAP PO SCH ×2 (09:32→20:50)
--- NOTE | 2020-03-29 11:30 | Physical Therapy Daily Note ---
PT Daily Note-Current Subjective Pt. in bed, agrees to Rx but shares that she is very discouraged that she will get home as she states she cared for her to a degree before this is not sure she could manage without some help herself now. Pt. shares that what scares her is the threat of sudden weakness like she has experience before and just drops /falls Pain Location: No Pain Reported Mental Status Patient Orientation: Normal For Age Attachments: Oxygen (.5 to 1.5 ), Other-See Comments (mask while out of room) Transfers SCALE: Activities may be completed with or without assistive devices. 1-Scddtnpvta-olklkqa completes the activity by him/herself with no assistance from a helper. 5-Set-up or Clean-up Assistance-helper sets up or cleans up; patient completes activity. [place] assists only prior to or following the activity. 4-Supervision or Touching Assistance-helper provides verbal cues and/or touching/steadying and/or contact guard assistance as patient completes activity. Assistance may be provided throughout the activity or intermittently. 3-Partial/Moderate Assistance-helper does LESS THAN HALF the effort. [place] lifts, holds or supports trunk or limbs, but provides less than half the effort. 2-Substantial/Maximal Assistance-helper does MORE THAN HALF the effort. [place] lifts or holds trunk or limbs and provides more than half the effort. 3-Hjbznxgpz-agcvjo does ALL the effort. Patient does none of the effort to complete the activity. Or, the assistance of 2 or more helpers is required for the patient to complete the activity. If activity was not attempted, code reason: 7-Patient Refused. 9-Not Applicable-not attempted and the patient did not perform the activity before the current illness, exacerbation or injury. 10-Not Attempted due to Environmental Limitations-(lack of equipment, weather restraints, etc.). 88-Not Attempted due to Medical Conditions or Safety Concerns. Roll Left & Right (QC): 6 Sit to Lying (QC): 6 Lying to Sitting/Side of Bed(Q: 6 Sit to Stand (QC): 4 Chair/Yhi-xz-Ntqas Xfer(QC): 4 sit to stand with pt. improving but still pressing back of knees against sitting surface to stabilize her stance, this improved with cues etc Weight Bearing Full Weight Bearing Full Weight Bearing Gait Training Does the Patient Walk?: Yes Walk 10 feet (QC): 4 Walk 50 ft with 2 Turns(QC): 4 Gait Persons Needed: 1 Gait Assistive Device: FWW gait training 30ftx3, 70 ft x2, CGA WC to follow as well as assist for O2 Wheelchair Training Does the Pt Use a Wheelchair?: Yes Wheel 50 ft with 2 turns (QC): 4 Type of Wheelchair: Manual instruction for efficient turns and simulating home situation Exercises Supine Ex: Bridging, Ankle pumps, Quad Set, Rolling, Glut sets, Heel Slides, Short Arc Quads, Scooting, Straight leg raise, Hip abd/add Supine Reps: 15 Seated Therapy Exercises: Ankle pumps, Sit to stand, Long arc quads, Hip flexion, Hip abd/add Seated Reps: 15 (x2) Treatments pt. anxious to DC or titrate down O2, this was trialed with pt.doing well until on room air with ambulation, O2 sats then dropped to 88%, quickly recovered to 92% with 1 L O2 Assessment Current Status: Good Progress slow progress, pts LEs become weak and she requests rest breaks, pt.appears depressed and worried about her future PT Short Term Goals Short Term Goals Time Frame: Mar 27, 2020 Roll Left & Right: 6 Sit to lyin ([place]) Lying to sitting on side of be: 3 ([place]) Sit to stand: 4 Chair/xez-ot-adyxb transfer: 4 Walk 10 feet: 4 Walk 50 feet with two turns: 4 PT Financial Management Analyst Goals Financial Management Analyst Goals PT Prison Goals Time Frame: Apr 10, 2020 Roll Left & Right (QC): 6 Sit to Lying (QC): 6 Lying-Sitting on Side/Bed(QC): 6 Sit to Stand (QC): 5 Chair/Jvs-bh-Hkilj Xfer(QC): 5 Toilet Transfer (QC): 5 Car Transfer (QC): 5 Does the Patient Walk: Yes Walk 10 feet (QC): 4 Walk 50ft with 2 Turns (QC): 4 Walk 150 ft (QC): 4 Walking 10ft on Uneven Surface: 4 1 Step (curb) (QC): 4 4 Steps (QC): 4 12 Steps (QC): 88 Picking up an Object (QC): 88 Wheel 50 feet with 2 turns (QC: 9 Wheel 150 feet: 9 PT Plan Treatment/Plan Treatment Plan: Continue Plan of Care Treatment Plan: Bed Mobility, Education, Functional Activity Jaci, Functional Strength, Group Therapy, Gait, Safety, Therapeutic Exercise, Transfers Treatment Duration: Apr 10, 2020 Frequency: At least 5 of 7 days/Wk (IRF) Estimated Hrs Per Day: 1.5 hours per day Patient and/or Family Agrees t: Yes Safety Risks/Education Patient Education: Gait Training, Transfer Techniques, Correct Positioning, W/C Management, Disease Process, Safety Issues Teaching Recipient: Patient Teaching Methods: Demonstration, Discussion Response to Teaching: Verbalize Understanding, Return Demonstration, Reinforcement Needed Time/GCodes Time In: 945 Time Out: 1115 Total Billed Treatment Time: 90 Total Billed Treatment 1,EX35m,WC15m,FA25m,GT15m NATE GRAVES SHREDDING MACHINE TENDER Mar 29, 2020 11:30
[2020-03-29] MEDS ORDERED: VENlafaxine XR 37.5 MG (EFFEXOR XR) CAP PO NR (12:45)
--- NOTE | 2020-03-29 13:16 | Occupational Ther Daily Note ---
OT Current Status-Daily Note Subjective Pt laying in bed, agreeable to OT tx. Pt indicates she is cold, OT turned up thermostat in pt's room and provided pt with warm blanket. ADL-Treatment Therapy Code Descriptions/Definitions Functional [place] Measure: 0=Not Assessed/NA 4=Minimal Assistance 1=Total Assistance 5=Supervision or Setup 2=Maximal Assistance 6=Modified [place] 3=Moderate Assistance 7=Complete IndependenceSCALE: Activities may be completed with or without assistive devices. 3-Ouwzjgwixu-npkgwfn completes the activity by him/herself with no assistance from a helper. 5-Set-up or Clean-up Assistance-helper sets up or cleans up; patient completes activity. [place] assists only prior to or following the activity. 4-Supervision or Touching Assistance-helper provides verbal cues and/or touching/steadying and/or contact guard assistance as patient completes activity. Assistance may be provided throughout the activity or intermittently. 3-Partial/Moderate Assistance-helper does LESS THAN HALF the effort. [place] lifts, holds or supports trunk or limbs, but provides less than half the effort. 2-Substantial/Maximal Assistance-helper does MORE THAN HALF the effort. [place] lifts or holds trunk or limbs and provides more than half the effort. 8-Girnmarkl-wsmeyk does ALL the effort. Patient does none of the effort to complete the activity. Or, the assistance of 2 or more helpers is required for the patient to complete the activity. If activity was not attempted, code reason: 7-Patient Refused. 9-Not Applicable-not attempted and the patient did not perform the activity before the current illness, exacerbation or injury. 10-Not Attempted due to Environmental Limitations-(lack of equipment, weather restraints, etc.). 88-Not Attempted due to Medical Conditions or Safety Concerns. Toileting Hygiene (QC): 4 (CGA in stance for clothing management, pt able to perform hygiene with SBA) Toilet Transfer (QC): 4 (CGA on/off BSC over toilet) Other Treatment Pt laying supine, transferred EOB with SBA. Pt then transferred from EOB to w/c with CGA. OT tx focused on increasing BUE strength and functional endurance, pt self-propelled w/c from room to therapy gym. She then completed x10 mins arm bike, min resistance with rest breaks as needed. Pt then self-propelled w/c back to her room, requesting to use bathroom. Pt transferred from w/c to [facility] over toilet, completed toileting, then used FWW to ambulate to bed with CGA. Post OT tx, pt laying in bed, call light in reach and all needs met. Education OT Patient Education: Correct positioning, Modified ADL techniques, Progress toward Goal/Update tx plan, Purpose of tx/functional activities, Safety issues, Transfer techniques Teaching Recipient: Patient Teaching Methods: Discussion Response to Teaching: Verbalize Understanding OT Short Term Goals Short Term Goals Time Frame: Apr 03, 2020 Toileting hygiene: 4 Shower/bathe self: 4 Lower body dressin OT Mcc Goals Mcc Goals Time Frame: Apr 12, 2020 Eating (QC): 6 Oral Hygiene (QC): 6 Toileting Hygiene (QC): 6 Shower/Bathe Self (QC): 4 Upper Body Dressing (QC): 6 Lower Body Dressing (QC): 4 On/Off Footwear (QC): 4 Additional Goals: 1-Demonstrate ADL Tasks, 2-Verbalize Understanding, 3- ImproveStrength/Jaci 1=Demonstrate adherence to instructed precautions during ADL tasks. 2=Patient will verbalize/demonstrate understanding of assistive devices/modifications for ADL. 3=Patient will improve strength/tolerance for activity to enable patient to perform ADL's. OT Education/Plan Problem List/Assessment Assessment: Decreased Activ Tolerance, Decreased UE Strength, Impaired Funct Balance, Impaired I ADL's, Impaired Self-Care Skills Discharge Recommendations Plan/Recommendations: Continue POC Treatment Plan/Plan of Care Patient would benefit from OT for education, treatment and training to promote independence in ADL's, mobility, safety and/or upper extremity function for ADL's. Plan of Care: ADL Retraining, Functional Mobility, Group Exercise/Act as Ind, UE Funct Exercise/Act Treatment Duration: Apr 12, 2020 Frequency: At least 5 of 7 days/Wk (IRF) Estimated Hrs Per Day: 1.5 hours per day Agreement: Yes Rehab Potential: Fair Time/GCodes Start Time: 13:00 Stop Time: 13:30 Total Time Billed (hr/min): 30 Billed Treatment Time 1, EX (10'), FA (20') EBENEZER THOMAS OT Mar 29, 2020 13:16
[2020-03-29 16:03] VITALS: BP 110/78
[2020-03-29] MEDS: ALPRAZolam 0.25 MG (XANAX) TAB PO PRN ×2 (18:17→23:11)
[2020-03-30 06:15] VITALS: BP 110/53
[2020-03-30] MEDS: CATHETER FLUSH 10 ML SYR IV SCH ×3 (06:35→19:44)
[2020-03-30] MEDS: KCL 10 MEQ TAB (MICRO K) PO SCH (06:39)
[2020-03-30] MEDS ORDERED: VENlafaxine XR 37.5 MG (EFFEXOR XR) CAP PO SCH (07:00)
[2020-03-30 08:00] VITALS: BP 112/52
[2020-03-30] MEDS: PANTOPRAZOLE 40 MG (PROTONIX) TAB PO SCH (08:31)
[2020-03-30] MEDS: APIXABAN 5 MG (ELIQUIS) TABLET PO SCH ×2 (08:31→19:28)
[2020-03-30] MEDS: dilTIAZem120 MG (CARDIZEM CD) CAP PO SCH (08:31)
[2020-03-30] MEDS: IRON SUCROSE 200 MG/10 ML (VENOFER) VIAL IV SCH (08:32)
[2020-03-30] MEDS: DOCUSATE SODIUM 100 MG (COLACE) CAP PO SCH ×2 (08:39→19:33)
[2020-03-30] MEDS: SENNA W/DOCUSATE (SENOKOT S) TABLET PO SCH ×2 (08:42→19:33)
[2020-03-30] MEDS: polyethylene glycoL POWDER 17 GM (MIRALAX) PACK PO SCH ×2 (08:42→19:33)
--- NOTE | 2020-03-30 09:00 | NUR ---
STATES WORRIED ABOUT DISCHARGE. FEELS AND DAUGHTER'S HEALTH AREN'T GREAT AND WORRIED ABOUT THEM HELPING HER UP. WILL HAVE FAMILY EDUCATION ON WEDNESDAY.
--- NOTE | 2020-03-30 10:56 | Physical Therapy Daily Note ---
PT Daily Note-Current Subjective Pt is in bed and agreeable to treatment. Mental Status Patient Orientation: Person, Place, Time, Situation Attachments: Oxygen Transfers SCALE: Activities may be completed with or without assistive devices. 6-Kjwrjeefte-lhsabgg completes the activity by him/herself with no assistance from a helper. 5-Set-up or Clean-up Assistance-helper sets up or cleans up; patient completes activity. [place] assists only prior to or following the activity. 4-Supervision or Touching Assistance-helper provides verbal cues and/or touching/steadying and/or contact guard assistance as patient completes activity. Assistance may be provided throughout the activity or intermittently. 3-Partial/Moderate Assistance-helper does LESS THAN HALF the effort. Equality lifts, holds or supports trunk or limbs, but provides less than half the effort. 2-Substantial/Maximal Assistance-helper does MORE THAN HALF the effort. Equality lifts or holds trunk or limbs and provides more than half the effort. 2-Xzvvhaqdn-cminxp does ALL the effort. Patient does none of the effort to complete the activity. Or, the assistance of 2 or more helpers is required for the patient to complete the activity. If activity was not attempted, code reason: 7-Patient Refused. 9-Not Applicable-not attempted and the patient did not perform the activity before the current illness, exacerbation or injury. 10-Not Attempted due to Environmental Limitations-(lack of equipment, weather restraints, etc.). 88-Not Attempted due to Medical Conditions or Safety Concerns. Roll Left & Right (QC): 5 Sit to Lying (QC): 5 Lying to Sitting/Side of Bed(Q: 5 Sit to Stand (QC): 5 Weight Bearing Full Weight Bearing Full Weight Bearing Gait Training Does the Patient Walk?: Yes Distance: 60ft x2 Walk 10 feet (QC): 5 Walk 50 ft with 2 Turns(QC): 5 Gait Assistive Device: FWW Exercises Supine Ex: LE Protocol Supine Reps: 15 Assessment Current Status: Good Progress Pt is able to perform supine ex without assist. Dyspnea with ambulation. Had to rest after 60ft. 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 Long-Term Goals PT Long-Term Goals Time Frame: Apr 10, 2020 Roll Left & Right (QC): 6 Sit to Lying (QC): 6 Lying-Sitting on Side/Bed(QC): 6 Sit to Stand (QC): 5 Chair/Dac-km-Qjhck Xfer(QC): 5 Toilet Transfer (QC): 5 Car Transfer (QC): 5 Does the Patient Walk: Yes Walk 10 feet (QC): 4 Walk 50ft with 2 Turns (QC): 4 Walk 150 ft (QC): 4 Walking 10ft on Uneven Surface: 4 1 Step (curb) (QC): 4 4 Steps (QC): 4 12 Steps (QC): 88 Picking up an Object (QC): 88 Wheel 50 feet with 2 turns (QC: 9 Wheel 150 feet: 9 PT Plan Treatment/Plan Treatment Plan: Continue Plan of Care Treatment Plan: Bed Mobility, Education, Functional Activity Jaci, Functional Strength, Group Therapy, Gait, Safety, Therapeutic Exercise, Transfers Treatment Duration: Apr 10, 2020 Frequency: At least 5 of 7 days/Wk (IRF) Estimated Hrs Per Day: 1.5 hours per day Patient and/or Family Agrees t: Yes Time/GCodes Time In: 08 Time Out: 911 Total Billed Treatment Time: 15 Total Billed Treatment 1, gt (15) CATRACHITO FERNANDEZ PT Mar 30, 2020 10:56
[2020-03-30] MEDS: RT-ALBUTEROL INHALER HFA (VENTOLIN HFA) 18 GM IH SCH (13:49)
--- NOTE | 2020-03-30 13:57 | PM&R Progress Note ---
Subjective HPI/CC On Admission Date Seen by Provider: Mar 30, 2020 Time Seen by Provider: 14:00 Subjective/Events-last exam 03/30/20: Dr Sandoval managing HR and SBP Family education Wednesday Anxious a lot 03/29/20: Attempted to add anti-depressant but she told me she can't tolerate any of the meds due to nausea IS ordered No pain reported 03/28/20: Buttock ulcer is treated daily Venofer maintained for anemia iron def O2 5L/min at home and now 1L/min 03/27/20: Pt had another fall this morning even with a helper to assist to the bathroom Unsure of why she keeps falling Did a septic work up and it showed elevated lactic acid of 2.3 due to hypovalemia no evidence of any infectious cause causing sepsis. Has a lot of anxiety Checking iron level and will give IV iron if needed since Hgb is 8.0 03/26/20: Decreasing Cardizem from 240 Mg to 120 Mg due to hypotension Having chest pain episodes periodically which appears to be anxiety Overall doing pretty well 03/25/20: Bowels are moving today Feels like she is doing a lot better Took a shower Still very weak Whats her Xanax Q4hrs 03/24/20: Gaining more strength SBP is a bit low still Cardizem dose may need adjusted per Cardiology 03/23/20: Near fall today when her legs "gave out." Frustrated with her lack of progress and I counseled her on the need to be patient Lasix changed to prn daily when edema is present 03/22/20: No falls Dyspnea continues Nebs ordered No pain reported Pt had a fall today Bowels are moving Fall occurred off the commode Right knee abrasion noted Hypotension noted so will inquire with cardiology since they are anti rhythmic medications Lasix requested for every other day instead of daily so will reach out to cardiology. Conferred with RN Reviewed therapy notes Checked meds and labs Review of Systems General: Fatigue, Malaise Pulmonary: Dyspnea Objective Exam Vital Signs Vital Signs Date Time Temp Pulse Resp B/P (MAP) Pulse Ox O2 Delivery O2 Flow Rate FiO2 03/30/20 09:29 Nasal Cannula 1.00 03/30/20 06:15 37.4 106 20 110/53 (72) 94 Capillary Refill : Less Than 3 Seconds General Appearance: No Apparent Distress, WD/WN, Chronically ill, Thin HEENT: PERRL/EOMI, Normal ENT Inspection, Pharynx Normal Neck: Full Range of Motion, Normal Inspection, Non Tender, Supple, Carotid Bruit Respiratory: Chest Non Tender, No Accessory Muscle Use, No Respiratory Distre ss, Crackles, Decreased Breath Sounds Cardiovascular: Regular Rate, Rhythm, No Edema, No Gallop, No JVD, No Murmur, Normal Peripheral Pulses Gastrointestinal: Normal Bowel Sounds, No Organomegaly, No Pulsatile Mass, Non Tender, Soft Back: Normal Inspection, No CVA Tenderness, No Vertebral Tenderness Extremity: Normal Capillary Refill, Normal Inspection, Normal Range of Motion, Non Tender, No Calf Tenderness, No Pedal Edema Neurologic/Psychiatric: Alert, Oriented x3, Normal Mood/Affect, customer expert II-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 FIM Transfers Therapy Code Descriptions/Definitions Functional [place] Measure: 0=Not Assessed/NA 4=Minimal Assistance 1=Total Assistance 5=Supervision or Setup 2=Maximal Assistance 6=Modified [place] 3=Moderate Assistance 7=Complete IndependenceSCALE: Activities may be completed with or without assistive devices. 0-Skoswhtfmf-kdwgbzu completes the activity by him/herself with no assistance from a helper. 5-Set-up or Clean-up Assistance-helper sets up or cleans up; patient completes activity. [place] assists only prior to or following the activity. 4-Supervision or Touching Assistance-helper provides verbal cues and/or touching/steadying and/or contact guard assistance as patient completes activity. Assistance may be provided throughout the activity or intermittently. 3-Partial/Moderate Assistance-helper does LESS THAN HALF the effort. [place] lifts, holds or supports trunk or limbs, but provides less than half the effort. 2-Substantial/Maximal Assistance-helper does MORE THAN HALF the effort. [place] lifts or holds trunk or limbs and provides more than half the effort. 8-Voqinrvyq-ydnamk does ALL the effort. Patient does none of the effort to complete the activity. Or, the assistance of 2 or more helpers is required for the patient to complete the activity. If activity was not attempted, code reason: 7-Patient Refused. 9-Not Applicable-not attempted and the patient did not perform the activity before the current illness, exacerbation or injury. 10-Not Attempted due to Environmental Limitations-(lack of equipment, weather restraints, etc.). 88-Not Attempted due to Medical Conditions or Safety Concerns. Roll Left to Right (QC): 5 Sit to Lying (QC): 5 Sit to Stand (QC): 5 Chair/Xvr-xd-Nfbao Xfer(QC): 4 Car Transfer (QC): 3 Gait Training Does the Patient Walk?: Yes Distance: 60ft x2 Walk 10 feet (QC): 5 Walk 50 ft with 2 Turns(QC): 5 Walk 150 ft (QC): 4 (cGA ) Walking 10ft/uneven surface-QC: 4 Gait Persons Needed: 1 Gait Assistive Device: FWW Wheelchair Training Does the Pt Use a Wheelchair?: Yes Wheel 50 ft with 2 turns (QC): 4 Wheel 150 ft (QC): 9 Type of Wheelchair: Manual Stair Training 1 Step (curb) (QC): 88 4 Steps (QC): 88 12 Steps (QC): 88 Balance Picking up an Object (QC): 88 ADL-Treatment Eating (QC): 6 (IND per pt report.) Oral Hygiene (QC): 5 (set up at tray table.) Shower/Bathe Self (QC): 4 (SBA, pt able to wash/dry all parts seated on SC) Upper Body Dressing (QC): 5 (set up) Lower Body Dressing (QC): 4 (CGA in stand for clothing management.) On/Off Footwear (QC): 4 (SBA) Toileting Hygiene (QC): 4 (CGA in stance for clothing management, pt able to perform hygiene with SBA) Toilet Transfer (QC): 4 (CGA on/off BSC over toilet) Assessment/Plan Assessment and Plan Assess & Plan/Chief Complaint Assessment: Critical illness myopathy COPD AF w/RVR hx Poor reserve Colon cancer hx Breast cancer hx O2 dependency Anemia iron def Plan: O2 Nebs Home meds IRF protocol 03/21/20: Restart Nebs O2 24/7 Home meds Fall risk 03/22/20: Nebs Monitor lungs Rehab therapies 03/23/20: Fall risk Lasix 40 mg daily prn edema changed 03/24/20: Monitor lungs O2 Strengthening 03/25/20: Increase frequency of Xanax Monitor O2 sats 03/26/20: Monitor hypotension since adjusting Cardizem dose IRF protocol Monitor O2 sats 03/27/20: Give IVF until tomorrow morning Check iron level Monitor for falls 03/28/20: Buttock ulcer wound care Venofer iron infusions 03/29/20: Iron infusions tolerated Refuses anti-depressants due to "side effects to ALL of them 03/30/20: Patient asleep this afternoon Monitor closely Anxiety treatment (1) Critical illness myopathy Status: Acute (2) Acute on chronic respiratory failure with hypoxia Status: Acute (3) Atrial fibrillation with rapid ventricular response Status: Resolved Resolution Date/Time: 03/15/20 @ 14:09 (4) COPD (chronic obstructive pulmonary disease) Status: Acute (5) PNA (pneumonia) Status: Acute (6) Anemia Status: Chronic DUANE GIBSON DO Mar 30, 2020 13:57
--- NOTE | 2020-03-30 15:30 | NUR ---
OFFERED FLU VACCINE, BUT STATES WILL WAIT UNTIL READY FOR DISCHARGE.
[2020-03-30 17:24] VITALS: BP 111/57
[2020-03-30] MEDS: ALPRAZolam 0.25 MG (XANAX) TAB PO PRN (19:28)
[2020-03-31 05:02] VITALS: BP 110/51
[2020-03-31] MEDS: CATHETER FLUSH 10 ML SYR IV SCH ×3 (06:07→20:57)
[2020-03-31] MEDS: KCL 10 MEQ TAB (MICRO K) PO SCH (06:07)
--- NOTE | 2020-03-31 07:31 | PM&R Progress Note ---
Subjective HPI/CC On Admission Date Seen by Provider: Mar 31, 2020 Time Seen by Provider: 12:30 Subjective/Events-last exam 03/31/20: Doing well Family training Wednesday Checking labs in am Stage II coccyx ulcer managed IV Venofer tolerated well 03/30/20: Dr Sandoval managing HR and SBP Family education Wednesday Anxious a lot 03/29/20: Attempted to add anti-depressant but she told me she can't tolerate any of the meds due to nausea IS ordered No pain reported 03/28/20: Buttock ulcer is treated daily Venofer maintained for anemia iron def O2 5L/min at home and now 1L/min 03/27/20: Pt had another fall this morning even with a helper to assist to the bathroom Unsure of why she keeps falling Did a septic work up and it showed elevated lactic acid of 2.3 due to hypovalemia no evidence of any infectious cause causing sepsis. Has a lot of anxiety Checking iron level and will give IV iron if needed since Hgb is 8.0 03/26/20: Decreasing Cardizem from 240 Mg to 120 Mg due to hypotension Having chest pain episodes periodically which appears to be anxiety Overall doing pretty well 03/25/20: Bowels are moving today Feels like she is doing a lot better Took a shower Still very weak Whats her Xanax Q4hrs 03/24/20: Gaining more strength SBP is a bit low still Cardizem dose may need adjusted per Cardiology 03/23/20: Near fall today when her legs "gave out." Frustrated with her lack of progress and I counseled her on the need to be patient Lasix changed to prn daily when edema is present 03/22/20: No falls Dyspnea continues Nebs ordered No pain reported Pt had a fall today Bowels are moving Fall occurred off the commode Right knee abrasion noted Hypotension noted so will inquire with cardiology since they are anti rhythmic medications Lasix requested for every other day instead of daily so will reach out to cardiology. Conferred with RN Reviewed therapy notes Checked meds and labs Review of Systems General: Fatigue Pulmonary: Dyspnea Objective Exam Vital Signs Vital Signs Date Time Temp Pulse Resp B/P (MAP) Pulse Ox O2 Delivery O2 Flow Rate FiO2 03/31/20 14:35 96 Nasal Cannula 1.00 03/31/20 05:02 35.9 116 22 110/51 (70) Capillary Refill : Less Than 3 Seconds General Appearance: No Apparent Distress, WD/WN, Chronically ill, Thin HEENT: PERRL/EOMI, Normal ENT Inspection, Pharynx Normal Neck: Full Range of Motion, Normal Inspection, Non Tender, Supple, Carotid Bruit Respiratory: Chest Non Tender, No Accessory Muscle Use, No Respiratory Distress, Crackles, Decreased Breath Sounds Cardiovascular: Regular Rate, Rhythm, No Edema, No Gallop, No JVD, No Murmur, Normal Peripheral Pulses Gastrointestinal: Normal Bowel Sounds, No Organomegaly, No Pulsatile Mass, Non Tender, Soft Back: Normal Inspection, No CVA Tenderness, No Vertebral Tenderness Extremity: Normal Capillary Refill, Normal Inspection, Normal Range of Motion, Non Tender, No Calf Tenderness, No Pedal Edema Neurologic/Psychiatric: Alert, Oriented x3, Normal Mood/Affect, 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 FIM Transfers Therapy Code Descriptions/Definitions Functional [place] Measure: 0=Not Assessed/NA 4=Minimal Assistance 1=Total Assistance 5=Supervision or Setup 2=Maximal Assistance 6=Modified [place] 3=Moderate Assistance 7=Complete IndependenceSCALE: Activities may be completed with or without assistive devices. 2-Fjogfrgqaq-vazwzhe completes the activity by him/herself with no assistance from a helper. 5-Set-up or Clean-up Assistance-helper sets up or cleans up; patient completes activity. [place] assists only prior to or following the activity. 4-Supervision or Touching Assistance-helper provides verbal cues and/or touching/steadying and/or contact guard assistance as patient completes activity. Assistance may be provided throughout the activity or intermittently. 3-Partial/Moderate Assistance-helper does LESS THAN HALF the effort. [place] lifts, holds or supports trunk or limbs, but provides less than half the effort. 2-Substantial/Maximal Assistance-helper does MORE THAN HALF the effort. [place] lifts or holds trunk or limbs and provides more than half the effort. 4-Egwholypu-zalyxk does ALL the effort. Patient does none of the effort to complete the activity. Or, the assistance of 2 or more helpers is required for the patient to complete the activity. If activity was not attempted, code reason: 7-Patient Refused. 9-Not Applicable-not attempted and the patient did not perform the activity before the current illness, exacerbation or injury. 10-Not Attempted due to Environmental Limitations-(lack of equipment, weather restraints, etc.). 88-Not Attempted due to Medical Conditions or Safety Concerns. Roll Left to Right (QC): 5 Sit to Lying (QC): 5 Sit to Stand (QC): 5 Chair/Rou-ve-Rutvz Xfer(QC): 4 Car Transfer (QC): 3 Gait Training Does the Patient Walk?: Yes Distance: 60ft x2 Walk 10 feet (QC): 5 Walk 50 ft with 2 Turns(QC): 5 Walk 150 ft (QC): 4 (cGA ) Walking 10ft/uneven surface-QC: 4 Gait Persons Needed: 1 Gait Assistive Device: FWW Wheelchair Training Does the Pt Use a Wheelchair?: Yes Wheel 50 ft with 2 turns (QC): 4 Wheel 150 ft (QC): 9 Type of Wheelchair: Manual Stair Training 1 Step (curb) (QC): 88 4 Steps (QC): 88 12 Steps (QC): 88 Balance Picking up an Object (QC): 88 ADL-Treatment Eating (QC): 6 (IND per pt report.) Oral Hygiene (QC): 5 (set up at tray table.) Shower/Bathe Self (QC): 4 (SBA, pt able to wash/dry all parts seated on SC) Upper Body Dressing (QC): 5 (set up) Lower Body Dressing (QC): 4 (CGA in stand for clothing management.) On/Off Footwear (QC): 4 (SBA) Toileting Hygiene (QC): 4 (CGA in stance for clothing management, pt able to perform hygiene with SBA) Toilet Transfer (QC): 4 (CGA on/off BSC over toilet) Assessment/Plan Assessment and Plan Assess & Plan/Chief Complaint Assessment: Critical illness myopathy COPD AF w/RVR hx Poor reserve Colon cancer hx Breast cancer hx O2 dependency Anemia iron def Plan: O2 Nebs Home meds IRF protocol 03/21/20: Restart Nebs O2 24/7 Home meds Fall risk 03/22/20: Nebs Monitor lungs Rehab therapies 03/23/20: Fall risk Lasix 40 mg daily prn edema changed 03/24/20: Monitor lungs O2 Strengthening 03/25/20: Increase frequency of Xanax Monitor O2 sats 03/26/20: Monitor hypotension since adjusting Cardizem dose IRF protocol Monitor O2 sats 03/27/20: Give IVF until tomorrow morning Check iron level Monitor for falls 03/28/20: Buttock ulcer wound care Venofer iron infusions 03/29/20: Iron infusions tolerated Refuses anti-depressants due to "side effects to ALL of them 03/30/20: Patient asleep this afternoon Monitor closely Anxiety treatment 03/31/20: Decubitus ulcer management IV iron infusions Family training tomorrow (1) Critical illness myopathy Status: Acute (2) Acute on chronic respiratory failure with hypoxia Status: Acute (3) Atrial fibrillation with rapid ventricular response Status: Resolved Resolution Date/Time: 03/15/20 @ 14:09 (4) COPD (chronic obstructive pulmonary disease) Status: Acute (5) PNA (pneumonia) Status: Acute (6) Anemia Status: Chronic DUANE GIBSON DO Mar 31, 2020 07:31
[2020-03-31] MEDS: RT-ALBUTEROL INHALER HFA (VENTOLIN HFA) 18 GM IH SCH ×3 (07:36→19:47)
[2020-03-31] MEDS: SENNA W/DOCUSATE (SENOKOT S) TABLET PO SCH ×2 (08:25→19:44)
[2020-03-31] MEDS: DOCUSATE SODIUM 100 MG (COLACE) CAP PO SCH ×2 (08:25→19:44)
[2020-03-31] MEDS: polyethylene glycoL POWDER 17 GM (MIRALAX) PACK PO SCH ×2 (08:25→19:44)
[2020-03-31] MEDS: PANTOPRAZOLE 40 MG (PROTONIX) TAB PO SCH (08:26)
[2020-03-31] MEDS: HYDROcodone/APAP 5 MG/325 MG (LORTAB) TAB PO PRN (08:26)
[2020-03-31] MEDS: ALPRAZolam 0.25 MG (XANAX) TAB PO PRN ×2 (08:26→20:56)
[2020-03-31] MEDS: APIXABAN 5 MG (ELIQUIS) TABLET PO SCH ×2 (08:26→20:54)
[2020-03-31] MEDS: dilTIAZem120 MG (CARDIZEM CD) CAP PO SCH (08:26)
[2020-03-31 17:15] VITALS: BP 117/68
--- NOTE | 2020-03-31 21:30 | NUR ---
Pt anxious about family coming to hospital tomorrow for family training. Pt worried about possible COVID exposure. Pt educated and social media designer notified about pt fears. Entry Level Accounting Clerk will see pt in am.
[2020-04-01 05:02] VITALS: BP 114/68
[2020-04-01 05:32] LABS: BASOPHILS % (AUTO) 1 % (0-10); EOSINOPHILS # (AUTO) 0.1 10^3/uL (0.0-0.3); EOSINOPHILS % (AUTO) 3 % (0-10); HEMATOCRIT 28 % (35-52); HEMOGLOBIN 8.3 g/dL (11.5-16.0); LYMPHOCYTES # (AUTO) 1.4 10^3/uL (1.0-4.0); LYMPHOCYTES % (AUTO) 35 % (12-44); MEAN CORPUSCULAR HEMOGLOBIN 28 pg (25-34); MEAN CORPUSCULAR HGB CONC 29 g/dL (32-36); MEAN CORPUSCULAR VOLUME 94 fL (80-99); MONOCYTES # (AUTO) 0.6 10^3/uL (0.0-1.0); MONOCYTES % (AUTO) 13 % (0-12); NEUTROPHILS # (AUTO) 1.9 10^3/uL (1.8-7.8); NEUTROPHILS % (AUTO) 44 % (42-75); PLATELET COUNT 315 10^3/uL (130-400); WHITE BLOOD COUNT 4.2 10^3/uL (4.3-11.0)
[2020-04-01 05:39] LABS: ALBUMIN 2.9 GM/DL (3.2-4.5); CHLORIDE 107 MMOL/L (98-107); POTASSIUM 3.7 MMOL/L (3.6-5.0); SODIUM 142 MMOL/L (135-145)
[2020-04-01 05:40] LABS: CALCIUM 8.1 MG/DL (8.5-10.1)
[2020-04-01 05:41] LABS: GLUCOSE 95 MG/DL (70-105)
[2020-04-01 05:42] LABS: TOTAL PROTEIN 5.5 GM/DL (6.4-8.2)
[2020-04-01 05:43] LABS: BILIRUBIN,TOTAL 0.3 MG/DL (0.1-1.0); CARBON DIOXIDE 23 MMOL/L (21-32)
[2020-04-01 05:45] LABS: ALKALINE PHOSPHATASE 79 U/L (40-136); CREATININE SERUM 0.75 MG/DL (0.60-1.30); GFR ESTIMATED > 60
[2020-04-01 05:46] LABS: BUN/CREATININE RATIO 20
[2020-04-01 05:48] LABS: ALANINE AMINOTRANSFERASE 37 U/L (0-55)
[2020-04-01] MEDS: KCL 10 MEQ TAB (MICRO K) PO SCH (06:01)
[2020-04-01] MEDS: CATHETER FLUSH 10 ML SYR IV SCH ×3 (06:01→21:45)
[2020-04-01] MEDS: RT-ALBUTEROL INHALER HFA (VENTOLIN HFA) 18 GM IH SCH ×3 (07:59→22:02)
[2020-04-01 08:00] VITALS: BP 130/58
--- NOTE | 2020-04-01 08:19 | PM&R Progress Note ---
Subjective HPI/CC On Admission Date Seen by Provider: Apr 01, 2020 Time Seen by Provider: 08:30 Subjective/Events-last exam 04/01/20: Family training today Hgb 8.3 Frightened about going home but does not wish to go to the [facility] like she fell so many times when she was first admitted but I told her she has had IV fluids and iron infusion since that time and she has not had a fall since Trying to prepare the pt for everything that is possible but she does have poor reserve 03/31/20: Doing well Family training Wednesday Checking labs in am Stage II coccyx ulcer managed IV Venofer tolerated well 03/30/20: Dr Sandoval managing HR and SBP Family education Wednesday Anxious a lot 03/29/20: Attempted to add anti-depressant but she told me she can't tolerate any of the meds due to nausea IS ordered No pain reported 03/28/20: Buttock ulcer is treated daily Venofer maintained for anemia iron def O2 5L/min at home and now 1L/min 03/27/20: Pt had another fall this morning even with a helper to assist to the bathroom Unsure of why she keeps falling Did a septic work up and it showed elevated lactic acid of 2.3 due to hypovalemia no evidence of any infectious cause causing sepsis. Has a lot of anxiety Checking iron level and will give IV iron if needed since Hgb is 8.0 03/26/20: Decreasing Cardizem from 240 Mg to 120 Mg due to hypotension Having chest pain episodes periodically which appears to be anxiety Overall doing pretty well 03/25/20: Bowels are moving today Feels like she is doing a lot better Took a shower Still very weak Whats her Xanax Q4hrs 03/24/20: Gaining more strength SBP is a bit low still Cardizem dose may need adjusted per Cardiology 03/23/20: Near fall today when her legs "gave out." Frustrated with her lack of progress and I counseled her on the need to be patient Lasix changed to prn daily when edema is present 03/22/20: No falls Dyspnea continues Nebs ordered No pain reported Pt had a fall today Bowels are moving Fall occurred off the commode Right knee abrasion noted Hypotension noted so will inquire with cardiology since they are anti rhythmic medications Lasix requested for every other day instead of daily so will reach out to cardiology. Conferred with RN Reviewed therapy notes Checked meds and labs Review of Systems General: Fatigue, Malaise Pulmonary: Dyspnea Objective Exam Vital Signs Vital Signs Date Time Temp Pulse Resp B/P (MAP) Pulse Ox O2 Delivery O2 Flow Rate FiO2 04/01/20 22:03 95 Nasal Cannula 1.00 04/01/20 18:29 36.8 98 18 107/58 (74) Capillary Refill : Less Than 3 Seconds General Appearance: No Apparent Distress, WD/WN, Chronically ill, Thin HEENT: PERRL/EOMI, Normal ENT Inspection, Pharynx Normal Neck: Full Range of Motion, Normal Inspection, Non Tender, Supple, Carotid Bruit Respiratory: Chest Non Tender, No Accessory Muscle Use, No Respiratory Distress, Crackles, Decreased Breath Sounds Cardiovascular: Regular Rate, Rhythm, No Edema, No Gallop, No JVD, No Murmur, Normal Peripheral Pulses Gastrointestinal: Normal Bowel Sounds, No Organomegaly, No Pulsatile Mass, Non Tender, Soft Back: Normal Inspection, No CVA Tenderness, No Vertebral Tenderness Extremity: Normal Capillary Refill, Normal Inspection, Normal Range of Motion, Non Tender, No Calf Tenderness, No Pedal Edema Neurologic/Psychiatric: Alert, Oriented x3, Normal Mood/Affect, legal mediator II-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 FIM Transfers Therapy Code Descriptions/Definitions Functional [place] Measure: 0=Not Assessed/NA 4=Minimal Assistance 1=Total Assistance 5=Supervision or Setup 2=Maximal Assistance 6=Modified [place] 3=Moderate Assistance 7=Complete IndependenceSCALE: Activities may be completed with or without assistive devices. 2-Xzngmpfizo-glsstxf completes the activity by him/herself with no assistance fr om a helper. 5-Set-up or Clean-up Assistance-helper sets up or cleans up; patient completes activity. [place] assists only prior to or following the activity. 4-Supervision or Touching Assistance-helper provides verbal cues and/or touching/steadying and/or contact guard assistance as patient completes activity. Assistance may be provided throughout the activity or intermittently. 3-Partial/Moderate Assistance-helper does LESS THAN HALF the effort. [place] lifts, holds or supports trunk or limbs, but provides less than half the effort. 2-Substantial/Maximal Assistance-helper does MORE THAN HALF the effort. [place] lifts or holds trunk or limbs and provides more than half the effort. 6-Gtnscpqlp-inuhgv does ALL the effort. Patient does none of the effort to complete the activity. Or, the assistance of 2 or more helpers is required for the patient to complete the activity. If activity was not attempted, code reason: 7-Patient Refused. 9-Not Applicable-not attempted and the patient did not perform the activity before the current illness, exacerbation or injury. 10-Not Attempted due to Environmental Limitations-(lack of equipment, weather restraints, etc.). 88-Not Attempted due to Medical Conditions or Safety Concerns. Roll Left to Right (QC): 5 Sit to Lying (QC): 5 Sit to Stand (QC): 5 Chair/Jyn-hx-Znkfo Xfer(QC): 4 Car Transfer (QC): 3 Gait Training Does the Patient Walk?: Yes Distance: 60ft x2 Walk 10 feet (QC): 5 Walk 50 ft with 2 Turns(QC): 5 Walk 150 ft (QC): 4 (cGA ) Walking 10ft/uneven surface-QC: 4 Gait Persons Needed: 1 Gait Assistive Device: FWW Wheelchair Training Does the Pt Use a Wheelchair?: Yes Wheel 50 ft with 2 turns (QC): 4 Wheel 150 ft (QC): 9 Type of Wheelchair: Manual Stair Training 1 Step (curb) (QC): 88 4 Steps (QC): 88 12 Steps (QC): 88 Balance Picking up an Object (QC): 88 ADL-Treatment Eating (QC): 6 (IND per pt report.) Oral Hygiene (QC): 5 (set up at tray table.) Shower/Bathe Self (QC): 4 (SBA, pt able to wash/dry all parts seated on SC) Upper Body Dressing (QC): 5 (set up) Lower Body Dressing (QC): 4 (CGA in stand for clothing management.) On/Off Footwear (QC): 4 (SBA) Toileting Hygiene (QC): 4 (CGA in stance for clothing management, pt able to perform hygiene with SBA) Toilet Transfer (QC): 4 (CGA on/off BSC over toilet) Assessment/Plan Assessment and Plan Assess & Plan/Chief Complaint Assessment: Critical illness myopathy COPD AF w/RVR hx Poor reserve Colon cancer hx Breast cancer hx O2 dependency Anemia iron def Plan: O2 Nebs Home meds IRF protocol 03/21/20: Restart Nebs O2 23/11 Home meds Fall risk 03/22/20: Nebs Monitor lungs Rehab therapies 03/23/20: Fall risk Lasix 40 mg daily prn edema changed 03/24/20: Monitor lungs O2 Strengthening 03/25/20: Increase frequency of Xanax Monitor O2 sats 03/26/20: Monitor hypotension since adjusting Cardizem dose IRF protocol Monitor O2 sats 03/27/20: Give IVF until tomorrow morning Check iron level Monitor for falls 03/28/20: Buttock ulcer wound care Venofer iron infusions 03/29/20: Iron infusions tolerated Refuses anti-depressants due to "side effects to ALL of them 03/30/20: Patient asleep this afternoon Monitor closely Anxiety treatment 03/31/20: Decubitus ulcer management IV iron infusions Family training tomorrow 04/01/20: Monitor O2 Supportive care Reassurance (1) Critical illness myopathy Status: Acute (2) Acute on chronic respiratory failure with hypoxia Status: Acute (3) Atrial fibrillation with rapid ventricular response Status: Resolved Resolution Date/Time: 03/15/20 @ 14:09 (4) COPD (chronic obstructive pulmonary disease) Status: Acute (5) PNA (pneumonia) Status: Acute (6) Anemia Status: Chronic DUANE GIBSON DO Apr 01, 2020 08:19
[2020-04-01] MEDS: ALPRAZolam 0.25 MG (XANAX) TAB PO PRN ×2 (08:22→21:46)
[2020-04-01] MEDS: APIXABAN 5 MG (ELIQUIS) TABLET PO SCH ×2 (08:22→21:46)
[2020-04-01] MEDS: dilTIAZem120 MG (CARDIZEM CD) CAP PO SCH (08:22)
[2020-04-01] MEDS: IRON SUCROSE 200 MG/10 ML (VENOFER) VIAL IV SCH (08:22)
[2020-04-01] MEDS: PANTOPRAZOLE 40 MG (PROTONIX) TAB PO SCH (08:22)
[2020-04-01] MEDS: SENNA W/DOCUSATE (SENOKOT S) TABLET PO SCH ×2 (08:27→21:45)
[2020-04-01] MEDS: polyethylene glycoL POWDER 17 GM (MIRALAX) PACK PO SCH ×2 (08:27→21:45)
[2020-04-01] MEDS: DOCUSATE SODIUM 100 MG (COLACE) CAP PO SCH ×2 (08:27→21:45)
--- NOTE | 2020-04-01 09:47 | Occupational Ther Daily Note ---
OT Current Status-Daily Note Subjective Family training on this date. Pt appears anxious about family training and potential discharge date this week. Pt wanted OT to come in earlier in the AM to assist her with showering although this OT informed pt last week about plans of today being family training and showering tomorrow, Wednesday. Mental Status/Objective Patient Orientation: Person, Place, Time, Situation ADL-Treatment Therapy Code Descriptions/Definitions Functional [place] Measure: 0=Not Assessed/NA 4=Minimal Assistance 1=Total Assistance 5=Supervision or Setup 2=Maximal Assistance 6=Modified [place] 3=Moderate Assistance 7=Complete IndependenceSCALE: Activities may be completed with or without assistive devices. 7-Veobekihmn-avjcdtx completes the activity by him/herself with no assistance from a helper. 5-Set-up or Clean-up Assistance-helper sets up or cleans up; patient completes activity. [place] assists only prior to or following the activity. 4-Supervision or Touching Assistance-helper provides verbal cues and/or touching/steadying and/or contact guard assistance as patient completes activity. Assistance may be provided throughout the activity or intermittently. 3-Partial/Moderate Assistance-helper does LESS THAN HALF the effort. [place] lifts, holds or supports trunk or limbs, but provides less than half the effort. 2-Substantial/Maximal Assistance-helper does MORE THAN HALF the effort. [place] lifts or holds trunk or limbs and provides more than half the effort. 6-Xjnublgpc-atrctp does ALL the effort. Patient does none of the effort to complete the activity. Or, the assistance of 2 or more helpers is required for the patient to complete the activity. If activity was not attempted, code reason: 7-Patient Refused. 9-Not Applicable-not attempted and the patient did not perform the activity before the current illness, exacerbation or injury. 10-Not Attempted due to Environmental Limitations-(lack of equipment, weather restraints, etc.). 88-Not Attempted due to Medical Conditions or Safety Concerns. Oral Hygiene (QC): 6 (IND seated at sink, w/c level.) Shower/Bathe Self (QC): 7 (Pt declined sponge bath prior to family training) Upper Body Dressing (QC): 7 (pt declined changing clothes.) Lower Body Dressing (QC): 7 (pt declined changing clothes.) Toileting Hygiene (QC): 4 (CGA during stand. Pt able to complete hygiene and cl othing management.) Toilet Transfer (QC): 4 (CGA on/off BSC over toilet.) Other Treatment 2525-1805 OT tx: Pt laying in bed, transferred supine to sit EOB, SBA. Pt declined sponge bath/dressing but states she needs to use the restroom. Pt used FWW to ambulate into the restroom and onto BSC over toilet with CGA. Pt completed toileting, then used FWW to go to sink with CGA. OT brought w/c behind pt and she sat at sink to wash her hands and brush her teeth. In order to increase BUE strength and functional endurance, pt self propelled w/c around IDU common area, taking rest breaks as needed. [id number] OT/PT cotreat: OT/PT cotreat in order to train family in bathing dressing, TRFs, gait and use of equipment ie , BSC, FWW , WC and gait belt. OT focused on ADLs, UE placement, cues for sequencing/safety, while PT focused on functional mobility, w/c management, LE placement, and gross overall movements. Pt's and daughter present for family training. Family educated on assistance pt needs with ADLs, family indicate they have no concerns with self care tasks. Pt performed transfer in/out of bed, functional mobility into/out of bathroom, and onto/off of BSC over toilet. Pt's family hands on with transfers and functional mobility throughout session, demo'ing ability to care for pt when pt d/c's home. Pt has a BSC, toilet riser, bath chair, bath bench, and walker at home. OT informed family about recommendations of using bath bench vs chair, they verbalize understanding. Family was trained in donning gait belt and demonstrated this x 2. Pt's family indicate they have no further questions/concerns about how to assist pt at home and they indicate they feel comfortable assisting pt. Post OT tx, pt seated in w/c, call light in reach and all needs met. Education OT Patient Education: Correct positioning, Energy conservation, Modified ADL techniques, Progress toward Goal/Update tx plan, Purpose of tx/functional activities, Safety issues, Transfer techniques Teaching Recipient: Patient, Family Teaching Methods: Demonstration, Discussion Response to Teaching: Verbalize Understanding, Return Demonstration OT Short Term Goals Short Term Goals Time Frame: Apr 03, 2020 Toileting hygiene: 4 Shower/bathe self: 4 Lower body dressin OT Implementation Specialist Goals Implementation Specialist Goals Time Frame: Apr 12, 2020 Eating (QC): 6 Oral Hygiene (QC): 6 Toileting Hygiene (QC): 6 Shower/Bathe Self (QC): 4 Upper Body Dressing (QC): 6 Lower Body Dressing (QC): 4 On/Off Footwear (QC): 4 Additional Goals: 1-Demonstrate ADL Tasks, 2-Verbalize Understanding, 3- ImproveStrength/Jaci 1=Demonstrate adherence to instructed precautions during ADL tasks. 2=Patient will verbalize/demonstrate understanding of assistive devices/modif ications for ADL. 3=Patient will improve strength/tolerance for activity to enable patient to perform ADL's. OT Education/Plan Problem List/Assessment Assessment: Decreased Activ Tolerance, Decreased UE Strength, Impaired Funct Balance, Impaired I ADL's Discharge Recommendations Plan/Recommendations: Continue POC Treatment Plan/Plan of Care Patient would benefit from OT for education, treatment and training to promote independence in ADL's, mobility, safety and/or upper extremity function for ADL's. Plan of Care: ADL Retraining, Functional Mobility, Group Exercise/Act as Ind, UE Funct Exercise/Act Treatment Duration: Apr 12, 2020 Frequency: At least 5 of 7 days/Wk (IRF) Estimated Hrs Per Day: 1.5 hours per day Agreement: Yes Rehab Potential: Fair Time/GCodes Start Time: 09:30 Stop Time: 11:00 Total Time Billed (hr/min): 90 Billed Treatment Time [id number] OT tx, [id number] OT/PT cotreat (Family Training) 1, ADL (15'), FA (75') EBENEZER THOMAS OT Apr 01, 2020 09:47
--- NOTE | 2020-04-01 11:05 | Physical Therapy Daily Note ---
PT Daily Note-Current Subjective Pt. and family present for family training with PT OT co Rx session. Family expresses feeling very positive about caring for the pt at home and feel they are ready in every way. Pt. initially expressed some apprehension but after session pt. expressed she felt ready to go . No c/p pain or SOB today Pain Location: No Pain Reported Mental Status Patient Orientation: Normal For Age Attachments: Oxygen (1L) Transfers SCALE: Activities may be completed with or without assistive devices. 5-[place]-hczfxer completes the activity by him/herself with no assistance from a helper. 5-Set-up or Clean-up Assistance-helper sets up or cleans up; patient completes activity. [place] assists only prior to or following the activity. 4-Supervision or Touching Assistance-helper provides verbal cues and/or touching/steadying and/or contact guard assistance as patient completes activity. Assistance may be provided throughout the activity or intermittently. 3-Partial/Moderate Assistance-helper does LESS THAN HALF the effort. [place] lifts, holds or supports trunk or limbs, but provides less than half the effort. 2-Substantial/Maximal Assistance-helper does MORE THAN HALF the effort. [place] lifts or holds trunk or limbs and provides more than half the effort. 3-Spenegtno-ifsodv does ALL the effort. Patient does none of the effort to complete the activity. Or, the assistance of 2 or more helpers is required for the patient to complete the activity. If activity was not attempted, code reason: 7-Patient Refused. 9-Not Applicable-not attempted and the patient did not perform the activity before the current illness, exacerbation or injury. 10-Not Attempted due to Environmental Limitations-(lack of equipment, weather restraints, etc.). 88-Not Attempted due to Medical Conditions or Safety Concerns. Roll Left & Right (QC): 6 Sit to Lying (QC): 6 Lying to Sitting/Side of Bed(Q: 6 Sit to Stand (QC): 5 Chair/Cqm-ph-Dnrmt Xfer(QC): 5 Toilet Transfer (QC): 5 sit to stands, toilet TRFs all reviewed with pt and family for use of gait belt as well as proper technique for wt shift etc , toilet TRF demonstrated by pt. as well with family participation. Pts family set bed height to estimated height of pts bed. Pt. demonstrated in out with SBA, pt. has adjustable head bed at home. Weight Bearing Full Weight Bearing Full Weight Bearing Gait Training Does the Patient Walk?: Yes Walk 10 feet (QC): 4 Walk 50 ft with 2 Turns(QC): 4 Gait Persons Needed: 1 Gait Assistive Device: FWW family was trained in donning gait belt and demonstrated this x 2. Family was also educated in how to position to most assist pt and in case of LOB or need for assist, also to f/u with w/c if needed. Pt. ambulated in room in out bathroom and in small areas depicting home setting with educucation also regarding safety with use of extended O2 tubing, family also aware and experienced with this. FAmily points out that home bathroom door is narrow and side stepping will be necessary with FWW. Pt. also has BSC at home and family states they are experienced at handling this and have no qualms about it. Wheelchair Training Type of Wheelchair: Manual Family shares the stair situation and state they have pushed pt up down steps many times and have a good technique. Plan to obtain WC for home use as pt is still not patent on steps strength branch Exercises Supine Ex: Hip abd/add Supine Reps: 5 Seated Therapy Exercises: Ankle pumps, Sit to stand Seated Reps: 5 Treatments co Rx with OT for training family in bathing dressing, TRFs, gait and use of equipment ie , BSC, FWW , WC and gait belt Assessment Current Status: Good Progress committed family who readily initiated demonstrating their skills to care for pt. in home environment. PT Short Term Goals Short Term Goals Time Frame: Mar 27, 2020 Roll Left & Right: 6 Sit to lyin ([place]) Lying to sitting on side of be: 3 (Brigid) Sit to stand: 4 Chair/sgi-vl-dcmqp transfer: 4 Walk 10 feet: 4 Walk 50 feet with two turns: 4 PT Care Home Goals Care Home Goals PT Window Treatment Installer Goals Time Frame: Apr 10, 2020 Roll Left & Right (QC): 6 Sit to Lying (QC): 6 Lying-Sitting on Side/Bed(QC): 6 Sit to Stand (QC): 5 Chair/Blo-ig-Rjzdy Xfer(QC): 5 Toilet Transfer (QC): 5 Car Transfer (QC): 5 Does the Patient Walk: Yes Walk 10 feet (QC): 4 Walk 50ft with 2 Turns (QC): 4 Walk 150 ft (QC): 4 Walking 10ft on Uneven Surface: 4 1 Step (curb) (QC): 4 4 Steps (QC): 4 12 Steps (QC): 88 Picking up an Object (QC): 88 Wheel 50 feet with 2 turns (QC: 9 Wheel 150 feet: 9 PT Plan Treatment/Plan Treatment Plan: Continue Plan of Care Treatment Plan: Bed Mobility, Education, Functional Activity Jaci, Functional Strength, Group Therapy, Gait, Safety, Therapeutic Exercise, Transfers Treatment Duration: Apr 10, 2020 Frequency: At least 5 of 7 days/Wk (IRF) Estimated Hrs Per Day: 1.5 hours per day Patient and/or Family Agrees t: Yes Safety Risks/Education Patient Education: Gait Training, Transfer Techniques, Correct Positioning, W/C Management, Instructions to Caregiver, Disease Process, Safety Issues Teaching Recipient: Patient, Family Teaching Methods: Demonstration, Discussion Response to Teaching: Verbalize Understanding, Return Demonstration, Reinforcement Needed Time/GCodes Time In: 1000 Time Out: 1100 Total Billed Treatment Time: 60 Total Billed Treatment 1,FA50m,EX10m NATE GRAVES PRIVACY COMPLIANCE MANAGER Apr 01, 2020 11:05
--- NOTE | 2020-04-01 13:00 | NUR ---
PT HAD FAMILY TRAINING TODAY AND SENT HER INCENTIVE SPIROMETER WITH OTHER BELONGINGS HOME WITH FAMILY BY MISTAKE. UNABLE TO OBTAIN ANOTHER ONE FROM RT D/T COST. HAD PT DO SOME DEEP BREATHING EXERCISES IN PLACE OF IS TX.
--- NOTE | 2020-04-01 14:19 | Physical Therapy Daily Note ---
PT Daily Note-Current Subjective Pt. in bed. Agrees to side stepping to replicate home situation of using FWW to walk in to small doorway of home bathroom as well as gait and supine LE ex. Pain Location: No Pain Reported Mental Status Patient Orientation: Normal For Age Attachments: Oxygen Transfers SCALE: Activities may be completed with or without assistive devices. 6-Xnjoebbafa-orpubzt completes the activity by him/herself with no assistance from a helper. 5-Set-up or Clean-up Assistance-helper sets up or cleans up; patient completes activity. [place] assists only prior to or following the activity. 4-Supervision or Touching Assistance-helper provides verbal cues and/or touching/steadying and/or contact guard assistance as patient completes activity. Assistance may be provided throughout the activity or intermittently. 3-Partial/Moderate Assistance-helper does LESS THAN HALF the effort. [place] lifts, holds or supports trunk or limbs, but provides less than half the effort. 2-Substantial/Maximal Assistance-helper does MORE THAN HALF the effort. [place] lifts or holds trunk or limbs and provides more than half the effort. 0-Slfqulyep-yqdccn does ALL the effort. Patient does none of the effort to complete the activity. Or, the assistance of 2 or more helpers is required for the patient to complete the activity. If activity was not attempted, code reason: 7-Patient Refused. 9-Not Applicable-not attempted and the patient did not perform the activity befo re the current illness, exacerbation or injury. 10-Not Attempted due to Environmental Limitations-(lack of equipment, weather re straints, etc.). 88-Not Attempted due to Medical Conditions or Safety Concerns. in out chair and bed CGA to SBA. Weight Bearing Full Weight Bearing Full Weight Bearing Gait Training Does the Patient Walk?: Yes Gait Assistive Device: FWW 50ft CGA managing O2 tubing with min assist, side stepping 12 ft L and R with good management of FWW Exercises Supine Ex: Bridging, Ankle pumps, Quad Set, Rolling, Glut sets, Lower trunk rotation, Heel Slides, Short Arc Quads, Scooting, Straight leg raise, Hip abd/add Supine Reps: 15 Assessment Current Status: Good Progress PT Short Term Goals Short Term Goals Time Frame: Mar 27, 2020 Roll Left & Right: 6 Sit to lyin (Brigid) Lying to sitting on side of be: 3 (Brigid) Sit to stand: 4 Chair/jvt-zs-kdmwd transfer: 4 Walk 10 feet: 4 Walk 50 feet with two turns: 4 PT Flatwork Finisher Goals Flatwork Finisher Goals PT [place]work Finisher Goals Time Frame: Apr 10, 2020 Roll Left & Right (QC): 6 Sit to Lying (QC): 6 Lying-Sitting on Side/Bed(QC): 6 Sit to Stand (QC): 5 Chair/Smo-ty-Sqgsh Xfer(QC): 5 Toilet Transfer (QC): 5 Car Transfer (QC): 5 Does the Patient Walk: Yes Walk 10 feet (QC): 4 Walk 50ft with 2 Turns (QC): 4 Walk 150 ft (QC): 4 Walking 10ft on Uneven Surface: 4 1 Step (curb) (QC): 4 4 Steps (QC): 4 12 Steps (QC): 88 Picking up an Object (QC): 88 Wheel 50 feet with 2 turns (QC: 9 Wheel 150 feet: 9 PT Plan Treatment/Plan Treatment Plan: Continue Plan of Care Treatment Plan: Bed Mobility, Education, Functional Activity Jaci, Functional Strength, Group Therapy, Gait, Safety, Therapeutic Exercise, Transfers Treatment Duration: Apr 10, 2020 Frequency: At least 5 of 7 days/Wk (IRF) Estimated Hrs Per Day: 1.5 hours per day Patient and/or Family Agrees t: Yes Safety Risks/Education Patient Education: Gait Training, Transfer Techniques, Correct Positioning, Disease Process, Safety Issues Teaching Recipient: Patient Teaching Methods: Demonstration, Discussion Response to Teaching: Verbalize Understanding, Return Demonstration, Reinforcement Needed Time/GCodes Time In: 1350 Time Out: 1420 Total Billed Treatment Time: 30 Total Billed Treatment 1,GT15m,EX15m NATE GRAVES SERVER ENGINEER Apr 01, 2020 14:19
--- NOTE | 2020-04-01 15:23 | NUR ---
CM/SS DISCHARGE PLANNING Visited patient early this morning due to her concerns about her family coming for education and training as it relates to Covid and exposure. Discussed at length and ultimately had patient determine whether she was comfortable continuing with their scheduled visit. She did decide in the affirmative she would move forward with them coming and practicing for her care at home. PT and OT co-treated patient for benefit of family demonstration and training and documented that family had no concerns about patient returning home under their care/assistance/supervision. Tobacco Drying Machine Operator confirmed this with patient/spouse/daughter as well. [employer] discharge date of April 03, confirmed. Family plan transport at noon. HHC: Contacted patient's established agency, [facility] in [place], to notify of upcoming discharge. Tiara there confirmed they will resume services timely. DME: Wheelchair will be needed. Reviewed agencies with patient/family locally and in their service area of [place], they chose [facility] and requested the wheelchair be delivered to patient's room. Attempting order under Medicare benefits; otherwise, it is $60 month rental. Followup as appropriate to finalize.
[2020-04-01 18:29] VITALS: BP 107/58
[2020-04-02] MEDS: KCL 10 MEQ TAB (MICRO K) PO SCH (06:06)
[2020-04-02] MEDS: CATHETER FLUSH 10 ML SYR IV SCH ×3 (06:07→22:00)
[2020-04-02 06:20] VITALS: BP 128/60
[2020-04-02] MEDS: RT-ALBUTEROL INHALER HFA (VENTOLIN HFA) 18 GM IH SCH ×3 (07:05→18:52)
[2020-04-02 08:30] VITALS: BP 103/54
[2020-04-02] MEDS: PANTOPRAZOLE 40 MG (PROTONIX) TAB PO SCH (08:45)
[2020-04-02] MEDS: dilTIAZem120 MG (CARDIZEM CD) CAP PO SCH (08:45)
[2020-04-02] MEDS: SENNA W/DOCUSATE (SENOKOT S) TABLET PO SCH ×2 (08:46→21:29)
[2020-04-02] MEDS: polyethylene glycoL POWDER 17 GM (MIRALAX) PACK PO SCH ×2 (08:46→21:29)
[2020-04-02] MEDS: APIXABAN 5 MG (ELIQUIS) TABLET PO SCH ×2 (08:46→21:26)
[2020-04-02] MEDS: DOCUSATE SODIUM 100 MG (COLACE) CAP PO SCH ×2 (08:46→21:28)
--- NOTE | 2020-04-02 08:48 | PM&R Progress Note ---
Subjective HPI/CC On Admission Date Seen by Provider: Apr 02, 2020 Time Seen by Provider: 08:30 Subjective/Events-last exam 04/02/20: Pt will DC tomorrow Dr. Garzon refills all fo her controlled substances Goes to [facility] in [place] in order for wheelchair 04/01/20: Family training today Hgb 8.3 Frightened about going home but does not wish to go to the [facility] like she fell so many times when she was first admitted but I told her she has had IV fluids and iron infusion since that time and she has not had a fall since Trying to prepare the pt for everything that is possible but she does have poor reserve 03/31/20: Doing well Family training Wednesday Checking labs in am Stage II coccyx ulcer managed IV Venofer tolerated well 03/30/20: Dr Sandoval managing HR and SBP Family education Wednesday Anxious a lot 03/29/20: Attempted to add anti-depressant but she told me she can't tolerate any of the meds due to nausea IS ordered No pain reported 03/28/20: Buttock ulcer is treated daily Venofer maintained for anemia iron def O2 5L/min at home and now 1L/min 03/27/20: Pt had another fall this morning even with a helper to assist to the bathroom Unsure of why she keeps falling Did a septic work up and it showed elevated lactic acid of 2.3 due to hypovalemia no evidence of any infectious cause causing sepsis. Has a lot of anxiety Checking iron level and will give IV iron if needed since Hgb is 8.0 03/26/20: Decreasing Cardizem from 240 Mg to 120 Mg due to hypotension Having chest pain episodes periodically which appears to be anxiety Overall doing pretty well 03/25/20: Bowels are moving today Feels like she is doing a lot better Took a shower Still very weak Whats her Xanax Q4hrs 03/24/20: Gaining more strength SBP is a bit low still Cardizem dose may need adjusted per Cardiology 03/23/20: Near fall today when her legs "gave out." Frustrated with her lack of progress and I counseled her on the need to be patient Lasix changed to prn daily when edema is present 03/22/20: No falls Dyspnea continues Nebs ordered No pain reported Pt had a fall today Bowels are moving Fall occurred off the commode Right knee abrasion noted Hypotension noted so will inquire with cardiology since they are anti rhythmic medications Lasix requested for every other day instead of daily so will reach out to cardiology. Conferred with RN Reviewed therapy notes Checked meds and labs Review of Systems General: Fatigue, Malaise Pulmonary: Dyspnea, Cough Objective Exam Vital Signs Vital Signs Date Time Temp Pulse Resp B/P (MAP) Pulse Ox O2 Delivery O2 Flow Rate FiO2 04/02/20 21:30 Nasal Cannula 1.00 04/02/20 18:53 93 04/02/20 17:36 36.6 104 18 124/58 (80) Capillary Refill : Less Than 3 Seconds General Appearance: No Apparent Distress, WD/WN, Chronically ill, Thin HEENT: PERRL/EOMI, Normal ENT Inspection, Pharynx Normal Neck: Full Range of Motion, Normal Inspection, Non Tender, Supple, Carotid Bruit Respiratory: Chest Non Tender, No Accessory Muscle Use, No Respiratory Distress, Crackles, Decreased Breath Sounds Cardiovascular: Regular Rate, Rhythm, No Edema, No Gallop, No JVD, No Murmur, Normal Peripheral Pulses Gastrointestinal: Normal Bowel Sounds, No Organomegaly, No Pulsatile Mass, Non Tender, Soft Back: Normal Inspection, No CVA Tenderness, No Vertebral Tenderness Extremity: Normal Capillary Refill, Normal Inspection, Normal Range of Motion, Non Tender, No Calf Tenderness, No Pedal Edema Neurologic/Psychiatric: Alert, Oriented x3, Normal Mood/Affect, horse groomer II-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 FIM Transfers Therapy Code Descriptions/Definitions Functional [place] Measure: 0=Not Assessed/NA 4=Minimal Assistance 1=Total Assistance 5=Supervision or Setup 2=Maximal Assistance 6=Modified [place] 3=Moderate Assistance 7=Complete IndependenceSCALE: Activities may be completed with or without assistive devices. 1-Jpbnlhghac-xatrlyn completes the activity by him/herself with no assistance from a helper. 5-Set-up or Clean-up Assistance-helper sets up or cleans up; patient completes activity. [place] assists only prior to or following the activity. 4-Supervision or Touching Assistance-helper provides verbal cues and/or touching/steadying and/or contact guard assistance as patient completes activity. Assistance may be provided throughout the activity or intermittently. 3-Partial/Moderate Assistance-helper does LESS THAN HALF the effort. [place] lif ts, holds or supports trunk or limbs, but provides less than half the effort. 2-Substantial/Maximal Assistance-helper does MORE THAN HALF the effort. [place] lifts or holds trunk or limbs and provides more than half the effort. 0-Gtpiotnpw-fszbot does ALL the effort. Patient does none of the effort to complete the activity. Or, the assistance of 2 or more helpers is required for the patient to complete the activity. If activity was not attempted, code reason: 7-Patient Refused. 9-Not Applicable-not attempted and the patient did not perform the activity before the current illness, exacerbation or injury. 10-Not Attempted due to Environmental Limitations-(lack of equipment, weather restraints, etc.). 88-Not Attempted due to Medical Conditions or Safety Concerns. Roll Left to Right (QC): 6 Sit to Lying (QC): 6 Sit to Stand (QC): 5 Chair/Ugb-vo-Ebsrf Xfer(QC): 5 Car Transfer (QC): 3 Gait Training Does the Patient Walk?: Yes Distance: 60ft x2 Walk 10 feet (QC): 4 Walk 50 ft with 2 Turns(QC): 4 Walk 150 ft (QC): 4 (cGA ) Walking 10ft/uneven surface-QC: 4 Gait Persons Needed: 1 Gait Assistive Device: FWW Wheelchair Training Wheel 50 ft with 2 turns (QC): 4 Wheel 150 ft (QC): 9 Type of Wheelchair: Manual Stair Training 1 Step (curb) (QC): 88 4 Steps (QC): 88 12 Steps (QC): 88 Balance Picking up an Object (QC): 88 ADL-Treatment Eating (QC): 6 (IND per pt report.) Oral Hygiene (QC): 6 (IND seated at sink, w/c level.) Shower/Bathe Self (QC): 7 (Pt declined sponge bath prior to family training) Upper Body Dressing (QC): 7 (pt declined changing clothes.) Lower Body Dressing (QC): 7 (pt declined changing clothes.) On/Off Footwear (QC): 4 (SBA) Toileting Hygiene (QC): 4 (CGA during stand. Pt able to complete hygiene and clothing management.) Toilet Transfer (QC): 4 (CGA on/off BSC over toilet.) Assessment/Plan Assessment and Plan Assess & Plan/Chief Complaint Assessment: Critical illness myopathy COPD AF w/RVR hx Poor reserve Colon cancer hx Breast cancer hx O2 dependency Anemia iron def Plan: O2 Nebs Home meds IRF protocol 03/21/20: Restart Nebs O2 23/11 Home meds Fall risk 03/22/20: Nebs Monitor lungs Rehab therapies 03/23/20: Fall risk Lasix 40 mg daily prn edema changed 03/24/20: Monitor lungs O2 Strengthening 03/25/20: Increase frequency of Xanax Monitor O2 sats 03/26/20: Monitor hypotension since adjusting Cardizem dose IRF protocol Monitor O2 sats 03/27/20: Give IVF until tomorrow morning Check iron level Monitor for falls 03/28/20: Buttock ulcer wound care Venofer iron infusions 03/29/20: Iron infusions tolerated Refuses anti-depressants due to "side effects to ALL of them 03/30/20: Patient asleep this afternoon Monitor closely Anxiety treatment 03/31/20: Decubitus ulcer management IV iron infusions Family training tomorrow 04/01/20: Monitor O2 Supportive care Reassurance 04/02/20: DC tomorrow Reassured patient (1) Critical illness myopathy Status: Acute (2) Acute on chronic respiratory failure with hypoxia Status: Acute (3) Atrial fibrillation with rapid ventricular response Status: Resolved Resolution Date/Time: 03/15/20 @ 14:09 (4) COPD (chronic obstructive pulmonary disease) Status: Acute (5) PNA (pneumonia) Status: Acute (6) Anemia Status: Chronic DUANE GIBSON DO Apr 02, 2020 08:48
--- NOTE | 2020-04-02 09:47 | Occupational Ther Daily Note ---
OT Current Status-Daily Note Subjective Pt laying in bed, agreeable to OT tx. Mental Status/Objective Patient Orientation: Person, Place, Time, Situation ADL-Treatment Therapy Code Descriptions/Definitions Functional [place] Measure: 0=Not Assessed/NA 4=Minimal Assistance 1=Total Assistance 5=Supervision or Setup 2=Maximal Assistance 6=Modified [place] 3=Moderate Assistance 7=Complete IndependenceSCALE: Activities may be completed with or without assistive devices. 4-Frrtmtdakb-flayzrc completes the activity by him/herself with no assistance from a helper. 5-Set-up or Clean-up Assistance-helper sets up or cleans up; patient completes activity. [place] assists only prior to or following the activity. 4-Supervision or Touching Assistance-helper provides verbal cues and/or touching/steadying and/or contact guard assistance as patient completes activity. Assistance may be provided throughout the activity or intermittently. 3-Partial/Moderate Assistance-helper does LESS THAN HALF the effort. [place] lifts, holds or supports trunk or limbs, but provides less than half the effort. 2-Substantial/Maximal Assistance-helper does MORE THAN HALF the effort. [place] lifts or holds trunk or limbs and provides more than half the effort. 3-Vjamyvvlu-epucaq does ALL the effort. Patient does none of the effort to complete the activity. Or, the assistance of 2 or more helpers is required for the patient to complete the activity. If activity was not attempted, code reason: 7-Patient Refused. 9-Not Applicable-not attempted and the patient did not perform the activity before the current illness, exacerbation or injury. 10-Not Attempted due to Environmental Limitations-(lack of equipment, weather restraints, etc.). 88-Not Attempted due to Medical Conditions or Safety Concerns. Eating (QC): 6 (Pt reports no difficulties with feeding. She is able to use utensils, cut food, bring food to mouth, chew and swallow.) Oral Hygiene (QC): 6 (IND seated at sink.) Shower/Bathe Self (QC): 4 (SBA in stand at GBs, pt able to wash/dry buttocks in standing and wash/dry all other parts in sitting at OK) Upper Body Dressing (QC): 5 (set up) Lower Body Dressing (QC): 4 (CGA in stand at [facility].) On/Off Footwear: 4 (SBA) Toileting Hygiene (QC): 4 (CGA, pt able to manage clothing and perform hygiene.) Toilet Transfer (QC): 4 (CGA on/off BSC over toilet.) Other Treatment Pt laying in bed, transferred supine to sit EOB with SBA. Pt then used FWW to ambulate into restroom and onto BSC over toilet, CGA.Pt completed toileting, then used FWW to transfer to OK. Pt completed showering and dressing at OK. Pt then transferred to w/c where she sat at sink to comb hair and brush teeth independently. Pt taken to large shower room to practice transferring on/off bath bench. Pt able to perform transfer with CGA. In order to increase BUE strength and endurance, pt then self-propelled w/c around [facility] common area, rest breaks as needed. Post OT tx, pt seated in w/c in room, call light in reach and all needs met. Education OT Patient Education: Correct positioning, Energy conservation, Modified ADL techniques, Progress toward Goal/Update tx plan, Purpose of tx/functional activities, Safety issues Teaching Recipient: Patient Teaching Methods: Discussion Response to Teaching: Verbalize Understanding OT Short Term Goals Short Term Goals Time Frame: Apr 03, 2020 Toileting hygiene: 4 Shower/bathe self: 4 Lower body dressin OT Caddy Goals Caddy Goals Time Frame: Apr 12, 2020 Eating (QC): 6 Oral Hygiene (QC): 6 Toileting Hygiene (QC): 6 Shower/Bathe Self (QC): 4 Upper Body Dressing (QC): 6 Lower Body Dressing (QC): 4 On/Off Footwear (QC): 4 Additional Goals: 1-Demonstrate ADL Tasks, 2-Verbalize Understanding, 3- ImproveStrength/Jaci 1=Demonstrate adherence to instructed precautions during ADL tasks. 2=Patient will verbalize/demonstrate understanding of assistive devices/modifications for ADL. 3=Patient will improve strength/tolerance for activity to enable patient to perform ADL's. OT Education/Plan Problem List/Assessment Assessment: Decreased Activ Tolerance, Decreased UE Strength, Impaired Funct Balance, Impaired I ADL's, Impaired Self-Care Skills Discharge Recommendations Plan/Recommendations: Continue POC Treatment Plan/Plan of Care Patient would benefit from OT for education, treatment and training to promote independence in ADL's, mobility, safety and/or upper extremity function for ADL's. Plan of Care: ADL Retraining, Functional Mobility, Group Exercise/Act as Ind, UE Funct Exercise/Act Treatment Duration: Apr 12, 2020 Frequency: At least 5 of 7 days/Wk (IRF) Estimated Hrs Per Day: 1.5 hours per day Agreement: Yes Rehab Potential: Fair Time/GCodes Start Time: 09:30 Stop Time: 10:30 Total Time Billed (hr/min): 60 Billed Treatment Time 1, ADL 3 (45'), FA (15') EBENEZER THOMAS OT Apr 02, 2020 09:47
--- NOTE | 2020-04-02 10:44 | NUR ---
CM/SS DISCHARGE PLANNING HHC: Finalize with [facility] tomorrow when orders/instructions are available. DME: Wheelchair with seat cushion ordered through [facility]. Agency understands to deliver to patient room tomorrow morning prior to her departure.
--- NOTE | 2020-04-02 11:08 | Physical Therapy Daily Note ---
PT Daily Note-Current Subjective Pt. in w/c beside bed, agrees to therapy. States she is going home tomorrow. Mental Status Patient Orientation: Person, Place, Time, Situation Attachments: Oxygen (1L) Transfers SCALE: Activities may be completed with or without assistive devices. 4-Ffqnstbsgp-fzitmaz completes the activity by him/herself with no assistance from a helper. 5-Set-up or Clean-up Assistance-helper sets up or cleans up; patient completes activity. [place] assists only prior to or following the activity. 4-Supervision or Touching Assistance-helper provides verbal cues and/or touching/steadying and/or contact guard assistance as patient completes activity. Assistance may be provided throughout the activity or intermittently. 3-Partial/Moderate Assistance-helper does LESS THAN HALF the effort. [place] lifts, holds or supports trunk or limbs, but provides less than half the effort. 2-Substantial/Maximal Assistance-helper does MORE THAN HALF the effort. [place] lifts or holds trunk or limbs and provides more than half the effort. 1-Jtiekahjt-nzomxl does ALL the effort. Patient does none of the effort to complete the activity. Or, the assistance of 2 or more helpers is required for the patient to complete the activity. If activity was not attempted, code reason: 7-Patient Refused. 9-Not Applicable-not attempted and the patient did not perform the activity before the current illness, exacerbation or injury. 10-Not Attempted due to Environmental Limitations-(lack of equipment, weather restraints, etc.). 88-Not Attempted due to Medical Conditions or Safety Concerns. Roll Left & Right (QC): 6 Sit to Lying (QC): 6 Lying to Sitting/Side of Bed(Q: 6 Sit to Stand (QC): 6 Chair/Qlb-wp-Zfsgt Xfer(QC): 4 Toilet Transfer (QC): 4 Car Transfer (QC): 4 Weight Bearing Full Weight Bearing Full Weight Bearing Gait Training Does the Patient Walk?: Yes Distance: 100 ft Walk 10 feet (QC): 4 Walk 50 ft with 2 Turns(QC): 4 Walk 150 ft (QC): 88 Walking 10ft/uneven surface-QC: 4 Gait Persons Needed: 1 Gait Assistive Device: FWW kyhotic posture, narrow [place], no kalen LOB Wheelchair Training Does the Pt Use a Wheelchair?: No Wheel 50 ft with 2 turns (QC): 9 Wheel 150 ft (QC): 9 Stair Training Stair Training: Handrails/: 2 handrails #of Steps: 2 1 Step (curb) (QC): 4 4 Steps (QC): 88 12 Steps (QC): 88 Stairs: Pattern: Step to Balance Picking up an Object (QC): 4 Exercises NuStep Minutes: 12 NuStep Workload: 3 Treatments gait, Nustep, transfers Assessment Current Status: Good Progress Pt. becomes easily fatigued and requires several periods of seated rest thro ughout session. Pt. completed 2 steps with great difficulty and unable to complete 4 steps. Pt. returned to bedside w/c with call light, O2 in situ and all needs met. Pt. ready for discharge tomorrow. PT Short Term Goals Short Term Goals Time Frame: Mar 27, 2020 Roll Left & Right: 6 Sit to lyin ([place]) Lying to sitting on side of be: 3 (Br[place]) Sit to stand: 4 Chair/nav-io-ibfor transfer: 4 Walk 10 feet: 4 Walk 50 feet with two turns: 4 PT Nursing Home Goals Nursing Home Goals PT Nursing Home Goals Time Frame: Apr 10, 2020 Roll Left & Right (QC): 6 Sit to Lying (QC): 6 Lying-Sitting on Side/Bed(QC): 6 Sit to Stand (QC): 5 Chair/Cil-ua-Maxgt Xfer(QC): 5 Toilet Transfer (QC): 5 Car Transfer (QC): 5 Does the Patient Walk: Yes Walk 10 feet (QC): 4 Walk 50ft with 2 Turns (QC): 4 Walk 150 ft (QC): 4 Walking 10ft on Uneven Surface: 4 1 Step (curb) (QC): 4 4 Steps (QC): 4 12 Steps (QC): 88 Picking up an Object (QC): 88 Wheel 50 feet with 2 turns (QC: 9 Wheel 150 feet: 9 PT Plan Treatment/Plan Treatment Plan: Continue Plan of Care Treatment Plan: Bed Mobility, Education, Functional Activity Jaci, Functional Strength, Group Therapy, Gait, Safety, Therapeutic Exercise, Transfers Treatment Duration: Apr 10, 2020 Frequency: At least 5 of 7 days/Wk (IRF) Estimated Hrs Per Day: 1.5 hours per day Patient and/or Family Agrees t: Yes Time/GCodes Time In: 1030 Time Out: 1130 Total Billed Treatment Time: 60 Total Billed Treatment 1, GT 20', FA 25', Ex 15' TIARRA STEIN PT Apr 02, 2020 11:08
--- NOTE | 2020-04-02 13:16 | Occupational Ther Daily Note ---
OT Current Status-Daily Note Subjective Pt laying in bed, stating she is cold. Pt agreeable to OT tx with focus on increasing BUE strength and functional endurance. ADL-Treatment Therapy Code Descriptions/Definitions Functional [place] Measure: 0=Not Assessed/NA 4=Minimal Assistance 1=Total Assistance 5=Supervision or Setup 2=Maximal Assistance 6=Modified [place] 3=Moderate Assistance 7=Complete IndependenceSCALE: Activities may be completed with or without assistive devices. 9-Xmnwtofkro-hyvvnni completes the activity by him/herself with no assistance from a helper. 5-Set-up or Clean-up Assistance-helper sets up or cleans up; patient completes activity. [place] assists only prior to or following the activity. 4-Supervision or Touching Assistance-helper provides verbal cues and/or touching/steadying and/or contact guard assistance as patient completes activity. Assistance may be provided throughout the activity or intermittently. 3-Partial/Moderate Assistance-helper does LESS THAN HALF the effort. [place] lifts, holds or supports trunk or limbs, but provides less than half the effort. 2-Substantial/Maximal Assistance-helper does MORE THAN HALF the effort. [place] lifts or holds trunk or limbs and provides more than half the effort. 9-Hlszdtryp-vzzikm does ALL the effort. Patient does none of the effort to complete the activity. Or, the assistance of 2 or more helpers is required for the patient to complete the activity. If activity was not attempted, code reason: 7-Patient Refused. 9-Not Applicable-not attempted and the patient did not perform the activity before the current illness, exacerbation or injury. 10-Not Attempted due to Environmental Limitations-(lack of equipment, weather restraints, etc.). 88-Not Attempted due to Medical Conditions or Safety Concerns. Other Treatment Pt laying in bed, transferred supine to sit EOB, SBA. Pt then used FWW to transfer from EOB to w/c, CGA. Pt then self-propelled w/c to therapy gym. In order to increase BUE strength and functional endurance, pt completed x10 mins arm bike, min resistance, rest breaks as needed. Pt then self-propelled w/c back to her room, transferring back to bed. Post OT Tx, pt laying in bed, call light in reach and all needs met. Education OT Patient Education: Correct positioning, Exercise program, Modified ADL techniques, Progress toward Goal/Update tx plan, Purpose of tx/functional activities Teaching Recipient: Patient Teaching Methods: Discussion Response to Teaching: Verbalize Understanding OT Short Term Goals Short Term Goals Time Frame: Apr 03, 2020 Toileting hygiene: 4 Shower/bathe self: 4 Lower body dressin OT Digital Project Manager Goals Digital Project Manager Goals Time Frame: Apr 12, 2020 Eating (QC): 6 Oral Hygiene (QC): 6 Toileting Hygiene (QC): 6 Shower/Bathe Self (QC): 4 Upper Body Dressing (QC): 6 Lower Body Dressing (QC): 4 On/Off Footwear (QC): 4 Additional Goals: 1-Demonstrate ADL Tasks, 2-Verbalize Understanding, 3- ImproveStrength/Jaci 1=Demonstrate adherence to instructed precautions during ADL tasks. 2=Patient will verbalize/demonstrate understanding of assistive dev ices/modifications for ADL. 3=Patient will improve strength/tolerance for activity to enable patient to perform ADL's. OT Education/Plan Problem List/Assessment Assessment: Decreased Activ Tolerance, Decreased UE Strength, Impaired I ADL's, Impaired Self-Care Skills Discharge Recommendations Plan/Recommendations: Continue POC Treatment Plan/Plan of Care Patient would benefit from OT for education, treatment and training to promote independence in ADL's, mobility, safety and/or upper extremity function for ADL's. Plan of Care: ADL Retraining, Functional Mobility, Group Exercise/Act as Ind, UE Funct Exercise/Act Treatment Duration: Apr 12, 2020 Frequency: At least 5 of 7 days/Wk (IRF) Estimated Hrs Per Day: 1.5 hours per day Agreement: Yes Rehab Potential: Fair Time/GCodes Start Time: 13:00 Stop Time: 13:30 Total Time Billed (hr/min): 30 Billed Treatment Time 1, EX (10'), FA (20') EBENEZER THOMAS OT Apr 02, 2020 13:16
--- NOTE | 2020-04-02 15:25 | Physical Therapy Daily Note ---
PT Daily Note-Current Subjective Pt states she is going home tomorrow. Pt denies pain. Mental Status Patient Orientation: Person, Place, Situation Transfers SCALE: Activities may be completed with or without assistive devices. 7-Zcdpsshpil-qhvrnoa completes the activity by him/herself with no assistance from a helper. 5-Set-up or Clean-up Assistance-helper sets up or cleans up; patient completes activity. [place] assists only prior to or following the activity. 4-Supervision or Touching Assistance-helper provides verbal cues and/or touching/steadying and/or contact guard assistance as patient completes activity. Assistance may be provided throughout the activity or intermittently. 3-Partial/Moderate Assistance-helper does LESS THAN HALF the effort. [place] lifts, holds or supports trunk or limbs, but provides less than half the effort. 2-Substantial/Maximal Assistance-helper does MORE THAN HALF the effort. [place] lifts or holds trunk or limbs and provides more than half the effort. 1-Ojrixwted-gtgkrt does ALL the effort. Patient does none of the effort to complete the activity. Or, the assistance of 2 or more helpers is required for the patient to complete the activity. If activity was not attempted, code reason: 7-Patient Refused. 9-Not Applicable-not attempted and the patient did not perform the activity before the current illness, exacerbation or injury. 10-Not Attempted due to Environmental Limitations-(lack of equipment, weather restraints, etc.). 88-Not Attempted due to Medical Conditions or Safety Concerns. Weight Bearing Full Weight Bearing Full Weight Bearing Gait Training Gait Assistive Device: FWW Pt amb with FWW and CGA x 60ft, practicing management of O2 line. O2 per nasal canula Exercises Supine Ex: Ankle pumps, Quad Set, Heel Slides, Short Arc Quads, Straight leg raise, Hip abd/add Supine Reps: 15 Assessment Current Status: Good Progress Pt farzana fair to well with rest breaks as needed. Pt required vc's for safe management of O2 line. Pt resting in bed with call light and all needs met. PT Short Term Goals Short Term Goals Time Frame: Mar 27, 2020 Roll Left & Right: 6 Sit to lyin (Brigid) Lying to sitting on side of be: 3 (Brigid) Sit to stand: 4 Chair/ayz-bh-xlekl transfer: 4 Walk 10 feet: 4 Walk 50 feet with two turns: 4 PT Cylinder Dyer Goals Cylinder Dyer Goals PT [facility] Goals Time Frame: Apr 10, 2020 Roll Left & Right (QC): 6 Sit to Lying (QC): 6 Lying-Sitting on Side/Bed(QC): 6 Sit to Stand (QC): 5 Chair/Cve-am-Ciqfp Xfer(QC): 5 Toilet Transfer (QC): 5 Car Transfer (QC): 5 Does the Patient Walk: Yes Walk 10 feet (QC): 4 Walk 50ft with 2 Turns (QC): 4 Walk 150 ft (QC): 4 Walking 10ft on Uneven Surface: 4 1 Step (curb) (QC): 4 4 Steps (QC): 4 12 Steps (QC): 88 Picking up an Object (QC): 88 Wheel 50 feet with 2 turns (QC: 9 Wheel 150 feet: 9 PT Plan Treatment/Plan Treatment Plan: Continue Plan of Care Treatment Plan: Bed Mobility, Education, Functional Activity Jaci, Functional Strength, Group Therapy, Gait, Safety, Therapeutic Exercise, Transfers Treatment Duration: Apr 10, 2020 Frequency: At least 5 of 7 days/Wk (IRF) Estimated Hrs Per Day: 1.5 hours per day Patient and/or Family Agrees t: Yes Time/GCodes Time In: 1345 Time Out: 1415 Total Billed Treatment Time: 30 Total Billed Treatment 1, gait x 15', ther ex 15' MCKENZIE CISNEROS CPTAnne Apr 02, 2020 15:25
[2020-04-02 17:36] VITALS: BP 124/58
--- NOTE | 2020-04-02 19:17 | NUR ---
Bedside report received from SONIA BOYCE, assume care of pt
[2020-04-02] MEDS ORDERED: DILT-27 PO (20:16)
[2020-04-02] MEDS ORDERED: FURO40TA4 PO (20:16)
[2020-04-02] MEDS ORDERED: ALBU18HF2 IH (20:16)
[2020-04-02] MEDS ORDERED: POTA10TA6 PO (20:16)
[2020-04-02] MEDS ORDERED: PANT40TA52 PO (20:16)
--- NOTE | 2020-04-02 20:17 | D/C HH Face to Face Order ---
D/C Face to Face Orders Reconcile Patient Problems Problems Reviewed?: Yes Instructions for [facility] Patient Instructions/FollowUp: PCP 1 week Physician to follow Patient: Ryann Discharge Diet for Home: No Restrictions Patient Problems: COPD Patient Data-Allergies,Ht & Wt Patient Allergies: Coded Allergies: ciprofloxacin (Verified Allergy, Unknown, 03/20/20) OLD ALLERGY metronidazole (Verified Allergy, Unknown, 03/20/20) OLD ALLERGY prednisone (Verified Allergy, Unknown, pt uses budesonide nebs, 03/20/20) OLD ALLERGY Home Health Need/Face to Face Date of Face to Face: Apr 02, 2020 Clinical Findings: Generalized weakness and fatigue, Instability, Muscle weakness, Shortness of breath, Unsteady gait I have seen Pt dhds-dj-[id number]: Yes Discharged To: Home Diagnosis/Conditions: COPD Patient is Homebound due to: Jayson fall risk due to instabilty, Muscle weakness, Shortness of breath/distress Homebound Status Due to the above stated illness, injury or surgical procedure (medical condition or diagnosis) and associated clinical findings, the patient is homebound because of his/her inability to leave home except with aid of a supportive device and/or person AND leaving the home requires a considerable and taxing effort or is medically contraindicated. Pt req the following assistanc: Wheelchair Home Health Nursing Orders Home Health Services Order: Nursing Services, Sports Lawyer-Evaluate & Treat, Physical Therapy-Evaluate & Treat Certify Stmt I certify that this patient is under my care and that I, a nurse practitioner or a physician; a media assistant working with me, had a face to face encounter that - meets the physician face to face encounter requirements with this patient as dated. DUANE GIBSON DO Apr 02, 2020 20:17
[2020-04-02] MEDS: ALPRAZolam 0.25 MG (XANAX) TAB PO PRN (21:26)
--- NOTE | 2020-04-02 21:26 | NUR ---
Pt refused Colace, Miralax & Senokot, requested Xanax 0.5mg
--- NOTE | 2020-04-02 22:00 | NUR ---
PT refused to let this nurse flush groshong states hurt bad when that other nurse flushed it offered to loving & ashley castelan but pt states no one is going to touch it .
[2020-04-03 05:26] VITALS: BP 115/56
--- NOTE | 2020-04-03 05:52 | Discharge Summary ---
Diagnosis/Chief Complaint Date of Admission Mar 20, 2020 at 09:47 Date of Discharge Discharge Date: Apr 03, 2020 Discharge Diagnosis Assessment: Critical illness myopathy COPD AF w/RVR hx Poor reserve Colon cancer hx Breast cancer hx O2 dependency Anemia iron def Plan: O2 Nebs Home meds IRF protocol 03/21/20: Restart Nebs O2 / Home meds Fall risk 03/22/20: Nebs Monitor lungs Rehab therapies 03/23/20: Fall risk Lasix 40 mg daily prn edema changed 03/24/20: Monitor lungs O2 Strengthening 03/25/20: Increase frequency of Xanax Monitor O2 sats 03/26/20: Monitor hypotension since adjusting Cardizem dose IRF protocol Monitor O2 sats 03/27/20: Give IVF until tomorrow morning Check iron level Monitor for falls 03/28/20: Buttock ulcer wound care Venofer iron infusions 03/29/20: Iron infusions tolerated Refuses anti-depressants due to "side effects to ALL of them 03/30/20: Patient asleep this afternoon Monitor closely Anxiety treatment 03/31/20: Decubitus ulcer management IV iron infusions Family training tomorrow 04/01/20: Monitor O2 Supportive care Reassurance 04/02/20: DC tomorrow Reassured patient (1) Critical illness myopathy Status: Acute (2) Acute on chronic respiratory failure with hypoxia Status: Acute (3) Atrial fibrillation with rapid ventricular response Status: Resolved Resolution Date/Time: 03/15/20 @ 14:09 (4) COPD (chronic obstructive pulmonary disease) Status: Acute (5) PNA (pneumonia) Status: Acute (6) Anemia Status: Chronic Discharge Summary Discharge Physical Examination Allergies: Coded Allergies: ciprofloxacin (Verified Allergy, Unknown, 03/20/20) OLD ALLERGY metronidazole (Verified Allergy, Unknown, 03/20/20) OLD ALLERGY prednisone (Verified Allergy, Unknown, pt uses budesonide neb, 03/20/20) OLD ALLERGY Vitals & I&Os Vital Signs Date Time Temp Pulse Resp B/P (MAP) Pulse Ox O2 Delivery O2 Flow Rate FiO2 04/03/20 13:07 36.4 98 20 124/63 92 Nasal Cannula 1.00 General Appearance: Alert, Oriented X3, Cooperative Respiratory: Clear to Auscultation Cardiovascular: Regular Rate Neuro: Normal Speech, Strength at 5/5 X4 Ext Psych/Mental Status: Mental Status NL Hospital Course Was the Problem List Reviewed?: Yes Hospital Course: Pt had an uneventful two week hospital course, she was admitted and participated in all therapies. She did have several falls at the beginning. We did give her IV fluid due to elevated lactic acid from volume depletion and she did well with that. I did give her iron infusions for iron deficiency anemia, her Hgb remained stable and there was no evidence for any need for transfusion. Ultimately she returned back to near baseline but required a wheel chair for safety. She did require home oxygen maintained continuously and will be monitored closely as and outpatient on home care with Dr. Syed. Labs (last 24 hrs) Laboratory Tests 03/21/20 04:30: White Blood Count 5.4, Red Blood Count 3.05L, Hemoglobin 8.8L, Hematocrit 27L, Mean Corpuscular Volume 90, Mean Corpuscular Hemoglobin 29, Mean Corpuscular Hemoglobin Concent 32, Red Cell Distribution Width 17.7H, Platelet Count 95L, Mean Platelet Volume 9.8, Immature Granulocyte % (Auto) 1, Neutrophils (%) (Auto) 80H, Lymphocytes (%) (Auto) 12, Monocytes (%) (Auto) 5, Eosinophils (%) (Auto) 2, Basophils (%) (Auto) 0, Neutrophils # (Auto) 4.3, Lymphocytes # (Auto) 0.7L, Monocytes # (Auto) 0.3, Eosinophils # (Auto) 0.1, Basophils # (Auto) 0.0, Immature Granulocyte # (Auto) 0.0, Sodium Level 136, Potassium Level 3.7, Chlo ride Level 98, Carbon Dioxide Level 25, Anion Gap 13, Blood Urea Nitrogen 17, Creatinine 0.67, Estimat Glomerular Filtration Rate > 60, BUN/Creatinine Ratio 25, Glucose Level 105, Calcium Level 8.4L, Corrected Calcium 9.3, Total Biliru bin 0.4, Aspartate Amino Transf (AST/SGOT) 41H, Alanine Aminotransferase (ALT/SGPT) 65H, Alkaline Phosphatase 79, Total Protein 5.3L, Albumin 2.9L 03/25/20 05:38: White Blood Count 4.0L, Red Blood Count 3.12L, Hemoglobin 8.8L, Hematocrit 29L, Mean Corpuscular Volume 92, Mean Corpuscular Hemoglobin 28, Mean Corpuscular Hemoglobin Concent 31L, Red Cell Distribution Width 19.2H, Platelet Count 125L, Mean Platelet Volume 10.4, Immature Granulocyte % (Auto) 1, Neutrophils (%) (Auto) 63, Lymphocytes (%) (Auto) 24, Monocytes (%) (Auto) 7, Eosinophils (%) (Auto) 4, Basophils (%) (Auto) 1, Neutrophils # (Auto) 2.5, Lymphocytes # (Auto) 1.0, Monocytes # (Auto) 0.3, Eosinophils # (Auto) 0.2, Basophils # (Auto) 0.0, Immature Granulocyte # (Auto) 0.0, Sodium Level 139, Potassium Level 3.9, Chloride Level 101, Carbon Dioxide Level 26, Anion Gap 12, Blood Urea Nitrogen 13, Creatinine 0.78, Estimat Glomerular Filtration Rate > 60, BUN/Creatinine Ratio 17, Glucose Level 108H, Calcium Level 8.4L, Corrected Calcium 9.1, Total Bilirubin 0.4, Aspartate Amino Transf (AST/SGOT) 44H, Alanine Aminotransferase (ALT/SGPT) 86H, Alkaline Phosphatase 81, Total Protein 5.8L, Albumin 3.1L 03/27/20 07:22: White Blood Count 3.7L, Red Blood Count 2.87L, Hemoglobin 8.0L, Hematocrit 27L, Mean Corpuscular Volume 96, Mean Corpuscular Hemoglobin 28, Mean Corpuscular Hemoglobin Concent 29L, Red Cell Distribution Width 19.9H, Platelet Count 182, Mean Platelet Volume 9.8, Immature Granulocyte % (Auto) 2, Neutrophils (%) (Auto) 56, Lymphocytes (%) (Auto) 26, Monocytes (%) (Auto) 9, Eosinophils (%) (Auto) 6, Basophils (%) (Auto) 1, Neutrophils # (Auto) 2.1, Lymphocytes # (Auto) 1.0, Monocytes # (Auto) 0.4, Eosinophils # (Auto) 0.2, Basophils # (Auto) 0.0, Immature Granulocyte # (Auto) 0.1, Sodium Level 137, Potassium Level 4.3, Chloride Level 103, Carbon Dioxide Level 25, Anion Gap 9, Blood Urea Nitrogen 13, Creatinine 0.72, Estimat Glomerular Filtration Rate > 60, BUN/Creatinine Ratio 18, Glucose Level 154H, Calcium Level 8.1L, Corrected Calcium 9.0, Total Bilirubin 0.4, Aspartate Amino Transf (AST/SGOT) 33, Alanine Aminotransferase (ALT/SGPT) 69H, Alkaline Phosphatase 78, Total Protein 5.5L, Albumin 2.9L, Lactic Acid Level 2.26*H, Iron Level 35, Procalcitonin 0.08 03/27/20 08:50: Urine Color YELLOW, Urine Clarity CLEAR, Urine pH 6.5, Urine Specific [place] 1.010L, Urine Protein NEGATIVE, Urine Glucose (UA) NEGATIVE, Urine Ketones NEGATIVE, Urine Nitrite NEGATIVE, Urine Bilirubin NEGATIVE, Urine Urobilinogen 0.2, Urine Leukocyte Esterase NEGATIVE, Urine RBC (Auto) 2+H, Urine RBC 10-25H, Urine WBC RARE, Urine Squamous Epithelial Cells RARE, Urine Crystals NONE, Urine Bacteria TRACE, Urine Casts NONE, Urine Mucus NEGATIVE, Urine Culture Indicated NO 03/27/20 09:29: Lactic Acid Level 1.24 04/01/20 04:39: White Blood Count 4.2L, Red Blood Count 3.01L, Hemoglobin 8.3L, Hematocrit 28L, Mean Corpuscular Volume 94, Mean Corpuscular Hemoglobin 28, Mean Corpuscular Hemoglobin Concent 29L, Red Cell Distribution Width 19.6H, Platelet Count 315, Mean Platelet Volume 9.0, Immature Granulocyte % (Auto) 4, Neutrophils (%) (Auto) 44, Lymphocytes (%) (Auto) 35, Monocytes (%) (Auto) 13H, Eosinophils (%) (Auto) 3, Basophils (%) (Auto) 1, Neutrophils # (Auto) 1.9, Lymphocytes # (Auto) 1.4, Monocytes # (Auto) 0.6, Eosinophils # (Auto) 0.1, Basophils # (Auto) 0.0, Immature Granulocyte # (Auto) 0.2H, Sodium Level 142, Potassium Level 3.7, Chloride Level 107, Carbon Dioxide Level 23, Anion Gap 12, Blood Urea Nitrogen 15, Creatinine 0.75, Estimat Glomerular Filtration Rate > 60, BUN/Creatinine Ratio 20, Glucose Level 95, Calcium Level 8.1L, Corrected Calcium 9.0, Total Bilirubin 0.3, Aspartate Amino Transf (AST/SGOT) 22, Alanine Aminotransferase (ALT/SGPT) 37, Alkaline Phosphatase 79, Total Protein 5.5L, Albumin 2.9L Pending Labs Laboratory Tests 03/21/20 04:30: White Blood Count 5.4, Red Blood Count 3.05, Hemoglobin 8.8, Hematocrit 27, Mean Corpuscular Volume 90, Mean Corpuscular Hemoglobin 29, Mean Corpuscular Hemoglobin Concent 32, Red Cell Distribution Width 17.7, Platelet Count 95, Mean Platelet Volume 9.8, Immature Granulocyte % (Auto) 1, Neutrophils (%) (Auto) 80, Lymphocytes (%) (Auto) 12, Monocytes (%) (Auto) 5, Eosinophils (%) (Auto) 2, Basophils (%) (Auto) 0, Neutrophils # (Auto) 4.3, Lymphocytes # (Auto) 0.7, Monocytes # (Auto) 0.3, Eosinophils # (Auto) 0.1, Basophils # (Auto) 0.0, Immature Granulocyte # (Auto) 0.0, Sodium Level 136, Potassium Level 3.7, Chloride Level 98, Carbon Dioxide Level 25, Anion Gap 13, Blood Urea Nitrogen 17, Creatinine 0.67, Estimat Glomerular Filtration Rate > 60, BUN/Creatinine Ratio 25, Glucose Level 105, Calcium Level 8.4, Corrected Calcium 9.3, Total Bilirubin 0.4, Aspartate Amino Transf (AST/SGOT) 41, Alanine Aminotransferase (ALT/SGPT) 65, Alkaline Phosphatase 79, Total Protein 5.3, Albumin 2.9 03/25/20 05:38: White Blood Count 4.0, Red Blood Count 3.12, Hemoglobin 8.8, Hematocrit 29, Mean Corpuscular Volume 92, Mean Corpuscular Hemoglobin 28, Mean Corpuscular Hemoglobin Concent 31, Red Cell Distribution Width 19.2, Platelet Count 125, Mean Platelet Volume 10.4, Immature Granulocyte % (Auto) 1, Neutrophils (%) (Auto) 63, Lymphocytes (%) (Auto) 24, Monocytes (%) (Auto) 7, Eosinophils (%) (Auto) 4, Basophils (%) (Auto) 1, Neutrophils # (Auto) 2.5, Lymphocytes # (Auto) 1.0, Monocytes # (Auto) 0.3, Eosinophils # (Auto) 0.2, Basophils # (Auto) 0.0, Immature Granulocyte # (Auto) 0.0, Sodium Level 139, Potassium Level 3.9, Chloride Level 101, Carbon Dioxide Level 26, Anion Gap 12, Blood Urea Nitrogen 13, Creatinine 0.78, Estimat Glomerular Filtration Rate > 60, BUN/Creatinine Ratio 17, Glucose Level 108, Calcium Level 8.4, Corrected Calcium 9.1, Total Bilirubin 0.4, Aspartate Amino Transf (AST/SGOT) 44, Alanine Aminotransferase (ALT/SGPT) 86, Alkaline Phosphatase 81, Total Protein 5.8, Albumin 3.1 03/27/20 07:22: White Blood Count 3.7, Red Blood Count 2.87, Hemoglobin 8.0, Hematocrit 27, Mean Corpuscular Volume 96, Mean Corpuscular Hemoglobin 28, Mean Corpuscular Hemoglobin Concent 29, Red Cell Distribution Width 19.9, Platelet Count 182, Mean Platelet Volume 9.8, Immature Granulocyte % (Auto) 2, Neutrophils (%) (Auto) 56, Lymphocytes (%) (Auto) 26, Monocytes (%) (Auto) 9, Eosinophils (%) (Auto) 6, Basophils (%) (Auto) 1, Neutrophils # (Auto) 2.1, Lymphocytes # (Auto) 1.0, Monocytes # (Auto) 0.4, Eosinophils # (Auto) 0.2, Basophils # (Auto) 0.0, Immature Granulocyte # (Auto) 0.1, Sodium Level 137, Potassium Level 4.3, Chloride Level 103, Carbon Dioxide Level 25, Anion Gap 9, Blood Urea Nitrogen 13, Creatinine 0.72, Estimat Glomerular Filtration Rate > 60, BUN/Creatinine Ratio 18, Glucose Level 154, Calcium Level 8.1, Corrected Calcium 9.0, Total Bilirubin 0.4, Aspartate Amino Transf (AST/SGOT) 33, Alanine Aminotransferase (ALT/SGPT) 69, Alkaline Phosphatase 78, Total Protein 5.5, Albumin 2.9, Lactic Acid Level 2.26, Iron Level 35, Procalcitonin 0.08 03/27/20 08:50: Urine Color YELLOW, Urine Clarity CLEAR, Urine pH 6.5, Urine Specific [place] 1. 010, Urine Protein NEGATIVE, Urine Glucose (UA) NEGATIVE, Urine Ketones NEGATIVE, Urine Nitrite NEGATIVE, Urine Bilirubin NEGATIVE, Urine Urobilinogen 0.2, Urine Leukocyte Esterase NEGATIVE, Urine RBC (Auto) 2+, Urine RBC 10-25, Urine WBC RARE, Urine Squamous Epithelial Cells RARE, Urine Crystals NONE, Urine Bacteria TRACE, Urine Casts NONE, Urine Mucus NEGATIVE, Urine Culture Indicated NO 03/27/20 09:29: Lactic Acid Level 1.24 04/01/20 04:39: White Blood Count 4.2, Red Blood Count 3.01, Hemoglobin 8.3, Hematocrit 28, Mean Corpuscular Volume 94, Mean Corpuscular Hemoglobin 28, Mean Corpuscular Hemoglobin Concent 29, Red Cell Distribution Width 19.6, Platelet Count 315, Mean Platelet Volume 9.0, Immature Granulocyte % (Auto) 4, Neutrophils (%) (Auto) 44, Lymphocytes (%) (Auto) 35, Monocytes (%) (Auto) 13, Eosinophils (%) (Auto) 3, Basophils (%) (Auto) 1, Neutrophils # (Auto) 1.9, Lymphocytes # (Auto) 1.4, Monocytes # (Auto) 0.6, Eosinophils # (Auto) 0.1, Basophils # (Auto) 0.0, Immature Granulocyte # (Auto) 0.2, Sodium Level 142, Potassium Level 3.7, Chloride Level 107, Carbon Dioxide Level 23, Anion Gap 12, Blood Urea Nitrogen 15, Creatinine 0.75, Estimat Glomerular Filtration Rate > 60, BUN/Creatinine Ratio 20, Glucose Level 95, Calcium Level 8.1, Corrected Calcium 9.0, Total Bilirubin 0.3, Aspartate Amino Transf (AST/SGOT) 22, Alanine Aminotransferase (ALT/SGPT) 37, Alkaline Phosphatase 79, Total Protein 5.5, Albumin 2.9 Discharge Home Medications: Active Scripts Active Ventolin Hfa (Albuterol Sulfate) 18 Gm Hfa.aer.ad 0 Gm IH RTTID Pantoprazole Sodium 40 Mg Tablet.dr 40 Mg PO DAILY Furosemide 40 Mg Tablet 40 Mg PO DAILY PRN Klor-Con 10 (Potassium Chloride) 10 Meq Tablet.er 10 Meq PO DAILY@0700 Diltiazem 24Hr ER (Diltiazem HCl) 120 Mg Cap.er.24h 120 Mg PO DAILY Reported Tylenol Extra Strength (Acetaminophen) 500 Mg Tablet 1,000 Mg PO Q8H PRN Vitamin D3 (Cholecalciferol (Vitamin D3)) 25 Mcg Capsule 25 Mcg PO BID Eliquis (Apixaban) 5 Mg Tablet 5 Mg PO BID Hydrocodone-Acetamin 10-325 mg (Hydrocodone/Acetaminophen) 1 Each Tablet 1 Ea PO Q4H PRN Letrozole 2.5 Mg Tablet 2.5 Mg PO DAILY Alprazolam 0.5 Mg Tablet 0.5 Mg PO TID PRN Budesonide 0.5 Mg/2 Ml Ampul.neb 2 Ml NEB BID Instructions to patient/family Please see electronic discharge instructions given to patient. Diagnosis/Problems Diagnosis/Problems (1) Critical illness myopathy Status: Acute (2) Acute on chronic respiratory failure with hypoxia Status: Acute (3) Atrial fibrillation with rapid ventricular response Status: Resolved Resolution Date/Time: 03/15/20 @ 14:09 (4) COPD (chronic obstructive pulmonary disease) Status: Acute (5) PNA (pneumonia) Status: Acute (6) Anemia Status: Chronic Clinical Quality Measures DVT/VTE Risk/Contraindication: Risk Factor Score Per Nursin RFS Level Per Nursing on Admit: 4+=Very High DUANE GIBSON DO Apr 03, 2020 05:52
[2020-04-03] MEDS: CATHETER FLUSH 10 ML SYR IV SCH (06:00)
[2020-04-03] MEDS: KCL 10 MEQ TAB (MICRO K) PO SCH (06:22)
[2020-04-03 08:00] VITALS: BP 124/63
[2020-04-03] MEDS: RT-ALBUTEROL INHALER HFA (VENTOLIN HFA) 18 GM IH SCH (09:29)
[2020-04-03] MEDS: ALPRAZolam 0.25 MG (XANAX) TAB PO PRN (09:59)
[2020-04-03] MEDS: PANTOPRAZOLE 40 MG (PROTONIX) TAB PO SCH (09:59)
[2020-04-03] MEDS: dilTIAZem120 MG (CARDIZEM CD) CAP PO SCH (09:59)
[2020-04-03] MEDS: APIXABAN 5 MG (ELIQUIS) TABLET PO SCH (09:59)
[2020-04-03] MEDS: IRON SUCROSE 200 MG/10 ML (VENOFER) VIAL IV SCH (10:15)
[2020-04-03] MEDS: polyethylene glycoL POWDER 17 GM (MIRALAX) PACK PO SCH (10:16)
[2020-04-03] MEDS: DOCUSATE SODIUM 100 MG (COLACE) CAP PO SCH (10:16)
[2020-04-03] MEDS: SENNA W/DOCUSATE (SENOKOT S) TABLET PO SCH (10:16)
[2020-04-03 13:07] VITALS: BP 124/63
--- NOTE | 2020-04-03 13:35 | NUR ---
CM/SS DISCHARGE Patient discharged to home as planned with her spouse and daughter. HHC: Finalized with [facility]. DME: [facility] delivered wheelchair with cushion to patient room prior to discharge. Family understood to bring portable O2 for her transport home. IMM2: Presented, discussed, signed, charted. Patient generally anxietal and verbalized concerns about falling at home or returning home and becoming ill again. Engaged in reflective listening and assured patient her family seemed very capable and willing to monitor and assist her. Patient has Rx for anxiety and did request this from RN. In freelance copywriter presence, patient refused a flu shot and stated she had never taken one before. Manager Of Manufacturing encouraged patient to follow CDC guidelines and precautions about exposure to Covid or flu, she stated she has signs on both her entry doors regarding no visitors.
--- NOTE | 2020-04-03 15:49 | Therapy Team Discharge Summary ---
Therapy Discharge Summary Discharge Recommendations Date of Discharge Apr 03, 2020 at 12:00 Physical Therapy Patient came to rehab with debility, respiratory failure. Upon evaluation patient performed bed mobility with independence, supine <-> sit mod assist, sit <-> stand min assist, transfers CGA, car transfer mod assist, ambulated 20' with a rolling walker with CGA (including 10' over an uneven surface). Patient has been performing bed mobility and transfer training, balance and endurance training, functional strengthening, stair training, gait training, and educa tion. Patient has made some progress but has only met her buttermaker goals for bed mobility and supine <-> sit. Now, patient performs bed mobility and supine <-> sit with independence, sit <-> stand and transfers with CGA/SBA, car transfer CGA/SBA, ambulates 100' with a rolling walker with CGA/SBA (including 50' with at least 2 turns of 90 degrees and 10' over an uneven surface), can cotton picker operator an object from the floor with CGA/SBA, and can go up and down 2 steps using 2 handrails with CGA/SBA. Patient has been discharged from this facility and will be discharged from PT at this time. Occupational Therapy Decreased Activ Tolerance, Decreased UE Strength, Impaired I ADL's, Impaired Self-Care Skills PT Lane Marker Installer Goals Lane Marker Installer Goals PT Lane Marker Installer Goals Time Frame: Apr 10, 2020 Roll Left to Right (QC): 6 Sit to Lying (QC): 6 Lying-Sitting on Side/Bed(QC): 6 Sit to Stand (QC): 5 Chair/Izf-fy-Jsjei Xfer(QC): 5 Car Transfer (QC): 5 Does the Patient Walk: Yes Walk 10 feet (QC): 4 Walk 10ft-Uneven Surface(QC): 4 Walk 50ft with 2 Turns (QC): 4 Walk 150 ft (QC): 4 Wheel 50 feet with 2 turns (QC: 9 1 Step (curb) (QC): 4 4 Steps (QC): 4 12 Steps (QC): 88 Picking up an Object (QC): [address] Mark[address] Installer Goals Lane Marker Installer Goals Time Frame: Apr 12, 2020 Eating (FIM): 6 Eating (QC): 6 Oral Hygiene (QC): 6 Grooming(FIM): 6 Bathing(FIM): 6 Shower/Bathe Self (QC): 4 Upper Body Dressing (QC): 6 Lower Body Dressing (QC): 4 On/Off Footwear (QC): 4 Toileting Hygiene (QC): 6 Toilet/Commode Transfer (QC): 5 Additional Goals: 1-Demonstrate ADL Tasks, 2-Verbalize Understanding, 3-Impr oveStrength/Jaci 1=Demonstrate adherence to instructed precautions during ADL tasks. 2=Patient will verbalize/demonstrate understanding of assistive devices/modifications for ADL. 3=Patient will improve strength/tolerance for activity to enable patient to perform ADL's. EMILIA BABB PT Apr 03, 2020 15:49
--- NOTE | 2020-04-04 14:52 | Therapy Team Discharge Summary ---
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 At [facility], pt was independent with bathing and dressing, and she has assistance with functional mobility, getting in/out of tub, and with cooking/cleaning. Upon admission, pt independent with eating, set up oral care, min A showering, set up upper body dressing, max A lower body dressing, SBA footwear, adn max A toileting. OT txs focus on increasing independence and safety with ADLs and functional mobility as well as increasing BUE strength and functional endurance to increase independence with tasks. At discharge, pt was independent with eating and oral care, SBA showering, set up upper body dressing, CGA lower body dressing, SBA footwear, and CGA toileting. Pt made good progress towards goals, meeting all goals except upper body dressing and toileting goals. No further AE recommended prior to pt's discharge. Pt discharged from facility, d/c from OT. Decreased Activ Tolerance, Decreased UE Strength, Impaired I ADL's, Impaired Self-Care Skills PT Fdc Goals Affirmative Action Officer Goals PT Affirmative Action Officer Goals Time Frame: Apr 10, 2020 Roll Left to Right (QC): 6 Sit to Lying (QC): 6 Lying-Sitting on Side/Bed(QC): 6 Sit to Stand (QC): 5 Chair/Gsu-kt-Pcmiz Xfer(QC): 5 Car Transfer (QC): 5 Does the Patient Walk: Yes Walk 10 feet (QC): 4 Walk 10ft-Uneven Surface(QC): 4 Walk 50ft with 2 Turns (QC): 4 Walk 150 ft (QC): 4 Wheel 50 feet with 2 turns (QC: 9 1 Step (curb) (QC): 4 4 Steps (QC): 4 12 Steps (QC): 88 Picking up an Object (QC): 88 OT Affirmative Action Officer Goals Affirmative Action Officer Goals Time Frame: Apr 12, 2020 Eating (FIM): 6 Eating (QC): 6 (met) Oral Hygiene (QC): 6 (met) Grooming(FIM): 6 Bathing(FIM): 6 Shower/Bathe Self (QC): 4 (met, SBA) Upper Body Dressing (QC): 6 (not met, set up) Lower Body Dressing (QC): 4 (met, CGA) On/Off Footwear (QC): 4 (met, SBA) Toileting Hygiene (QC): 6 (not met, CGA) Toilet/Commode Transfer (QC): 5 Additional Goals: 1-Demonstrate ADL Tasks, 2-Verbalize Understanding, 3- ImproveStrength/Jaci 1=Demonstrate adherence to instructed precautions during ADL tasks. 2=Patient will verbalize/demonstrate understanding of assistive devices/modifications for ADL. 3=Patient will improve strength/tolerance for activity to enable patient to perform ADL's. EBENEZER THOMAS OT Apr 04, 2020 14:52
== END 2020-04-03 12:00 | disposition home health service (06) | DRG 93 ==
PROVIDERS: ADMIT Internal Medicine; ATTEND Internal Medicine
DX: G72.81 Critical illness myopathy (principal); J43.9 Emphysema, unspecified; I48.91 Unspecified atrial fibrillation; L89.152 Pressure ulcer of sacral region, stage 2; E86.1 Hypovolemia; I95.9 Hypotension, unspecified; F41.9 Anxiety disorder, unspecified; F32.9 Major depressive disorder, single episode, unspecified; D50.9 Iron deficiency anemia, unspecified; M19.91 Primary osteoarthritis, unspecified site; Z87.09 Personal history of other diseases of the respiratory system; Z87.01 Personal history of pneumonia (recurrent); Z79.01 Long term (current) use of anticoagulants; S80.211A Abrasion, right knee, initial encounter; M54.9 Dorsalgia, unspecified; Z99.81 Dependence on supplemental oxygen; Z87.891 Personal history of nicotine dependence; Z85.3 Personal history of malignant neoplasm of breast; Z85.038 Personal history of other malignant neoplasm of large intestine; W18.11XA Fall from or off toilet without subsequent striking against object, initial encounter; Y92.231 Patient bathroom in hospital as the place of occurrence of the external cause
CPT/HCPCS: 36415; 71046; 80053; 81000; 83540; 83605; 84145; 85025; 94640; 94760